=== PATIENT | male | born 1955 | race African-American/Black ===

== ENCOUNTER 2016-12-25 23:08 | Observation (INO) | payer OTHER ==
[~2016-12-25] VITALS: Ht 175.3 cm; Wt 110.0 kg
[~2016-12-25 23:08] MED LIST: ASPI81 PO; B12-1CHW CHEW; GLYB1.2538 PO; LISI-363 PO; LORC10TA PO; LORTA5 PO; NEBI5 PO; NEXI40CA PO; SOMA350T PO
[2016-12-25 23:10] VITALS: BP 136/76; PULSE 102; RESP 18; TEMP 98.7; O2SAT 97
[2016-12-25 23:48] VITALS: BP 114/78; PULSE 86; RESP 16; TEMP 98.5; O2SAT 96
--- NOTE | 2016-12-25 23:54 | PD ---
HPI Chief Complaint: Respiratory Symptoms Time Seen by Provider: 23:51 Travel History International Travel<30 days: No Contact w/Intl Traveler<30days: No Traveled to known affect area: No History of Present Illness HPI 61-year-old male presents to the emergency department by private transportation the care of family for generalized weakness shortness of breath palpitations 2/ 10 chest discomfort and fatigue. Patient states he has a history of sickle cell disease as well as diabetes. Patient is also followed for hypertension. Patient states on Friday he felt flushed and feverish but did not check his temperature and did not start any left over antibiotic. Patient denies earache sore throat sinus pressure drainage productive cough pleuritic chest pain abdominal pain nausea vomiting diarrhea dysuria frequency urgency joint pain joint swelling skin rash or redness. Patient reports symptoms this evening exacerbated 8 PM and have been constant. Patient is unable to identify exacerbating or alleviating factors. Patient does note at times he feels that he may pass out. No syncope. PFSH Past Medical History Narrative Medical Arthritis sickle-cell anemia diabetes hypertension cholecystectomy tonsillectomy eyes surgery; no tobacco use no alcohol use: Nursing notes reviewed Arthritis: Yes Asthma: No Autoimmune Disease: No Blood Disorders: No Anxiety: No Depression: No Heart Rhythm Problems: Yes (INVERTED/ABN. READING ON HIS EKG, CANNOT REMEMBER THE EXACT NAME.) Cancer: No Cardiovascular Problems: Yes High Cholesterol: No Chemotherapy: No Chest Pain: No Congestive Heart Failure: No COPD: No Cerebrovascular Accident: No Diabetes: Yes Diminished Hearing: No Endocrine: No Gastrointestinal Disorders: No GERD: Yes Glaucoma: No Genitourinary: No Headaches: No Hepatitis: No Hiatal Hernia: No Hypertension: Yes Immune Disorder: No Kidney Stones: No Musculoskeletal: Yes (HX OF SICKLE CELL ANEMIA THAT CAUSES GREAT JOINT PAIN DURING A CRISIS.) Neurologic: No Psychiatric: No Integumentary: No Myocardial Infarction: No Radiation Therapy: No Renal Failure: No Seizures: No Sickle Cell Disease: Yes Sleep Apnea: No Thyroid Disease: No Ulcer: No PNEUMOCCOCAL Vaccine (Year): 2009 Past Surgical History Abdominal Surgery: Yes (GALLBLADDER REMOVAL IN 1979.) AICD: No Cardiac Surgery: No Cholecystectomy: Yes Ear Surgery: No Endocrine Surgery: No Eye Surgery: Yes (1984 LASER TREATMENT TO A RUPUTERED BLOOD VESSEL BOTH EYES.) Genitourinary Surgery: No Gynecologic Surgery: No Joint Replacement: No Oral Surgery: Yes (TONSILECTOMY 1973) Pacemaker: No Thoracic Surgery: No Other Surgery: Yes (TONSILS,RIGHT KNEE,GALLBLADDER,EYES(LASER)) Social History Alcohol Use: No Tobacco Use: No Substance Use: No Allergies-Medications (Allergen,Severity, Reaction): Coded Allergies: cortisone (Verified Allergy, Severe, FLARES UP SICKLE CELL., 12/25/16) erythromycin base (Verified Allergy, Severe, ANAPHALACTIC SHOCK, 12/25/16) azithromycin (Verified Allergy, Intermediate, 12/25/16) Reported Meds & Prescriptions Reported Meds & Active Scripts Active Review of Systems Except as stated in HPI: all other systems reviewed are Neg General / Constitutional: Positive: Fever, Chills HENT: No: Congestion Cardiovascular: Positive: Chest Pain or Discomfort, Palpitations Respiratory: Positive: Shortness of Breath Gastrointestinal: No: Nausea, Vomiting, Abdominal Pain Genitourinary: No: Urgency, Frequency, Dysuria Musculoskeletal: No: Myalgias, Arthralgias, Edema, Pain Skin: No Rash Neurologic: Positive: Weakness, No: Syncope (near syncope) Psychiatric: No: Anxiety, Depression Hematologic/Lymphatic: No: Easy Bruising Physical Exam Narrative GENERAL: Well-developed well-nourished male in no acute distress no respiratory distress; GCS 15 SKIN: Warm and dry. HEAD: Atraumatic. Normocephalic. EYES: Pupils equal and round. No scleral icterus. No injection or drainage. ENT: No nasal bleeding or discharge. Mucous membranes pink and moist. NECK: Trachea midline. No JVD. CARDIOVASCULAR: Regular rate and rhythm. RESPIRATORY: No accessory muscle use. Clear to auscultation. Breath sounds equal bilaterally. GASTROINTESTINAL: Abdomen soft, non-tender, nondistended. Hepatic and splenic margins not palpable. MUSCULOSKELETAL: Extremities without clubbing, cyanosis, or edema. No obvious deformities. NEUROLOGICAL: Awake and alert. No obvious cranial nerve deficits. Motor grossly within normal limits. Five out of 5 muscle strength in the arms and legs. Normal speech. PSYCHIATRIC: Appropriate mood and affect; insight and judgment normal. Data Data Last Documented VS Vital Signs Date Time Temp Pulse Resp B/P (MAP) Pulse Ox O2 Delivery O2 Flow Rate FiO2 12/26/16 00:21 20 97 Room Air 12/25/16 23:48 98.5 86 Orders Orders Complete Blood Count With Diff (8/23/17 23:51) Comprehensive Metabolic Panel (12/25/16 23:51) B-Type Natriuretic Peptide (12/25/16 23:51) Act Partial Throm Time (Ptt) (12/25/16 23:51) Prothrombin Time / Inr (Pt) (12/25/16 23:51) Magnesium (Mg) (12/25/16 23:51) Ckmb (Isoenzyme) Profile (12/25/16 23:51) Troponin I (12/25/16 23:51) Urinalysis - C+S If Indicated (12/25/16 23:51) Blood Culture (12/25/16 23:51) Iv Access Insert/Monitor (12/25/16 23:51) Electrocardiogram (12/25/16 23:51) Ecg Monitoring (12/25/16 23:51) Oximetry (12/25/16 23:51) Oxygen Administration (12/25/16 23:51) Chest, Single Ap (12/25/16 23:51) Sodium Chloride 0.9% Flush (Ns Flush) (12/26/16 00:00) Sodium Chlorid 0.9% 500 Ml Inj (Ns 500 M (12/26/16 00:00) Retic Count (12/25/16 23:51) Admit Order (Ed Use Only) (12/26/16 ) ^ Saline Lock (12/26/16 02:57) Resp Oxygen Mitul C Titrat 1-4 L (12/26/16 ) Notify Dr: Other (12/26/16 02:57) Sodium Chloride 0.9% Flush (Ns Flush) (12/26/16 09:00) Sodium Chloride 0.9% Flush (Ns Flush) (12/26/16 03:00) Labs Laboratory Tests Test 12/26/16 00:44 12/26/16 00:50 White Blood Count 13.5 TH/MM3 Red Blood Count 4.96 MIL/MM3 Hemoglobin 9.8 GM/DL Hematocrit 31.6 % Mean Corpuscular Volume 63.8 FL Mean Corpuscular Hemoglobin 19.8 PG Mean Corpuscular Hemoglobin Concent 31.0 % Red Cell Distribution Width 24.4 % Platelet Count 377 TH/MM3 Mean Platelet Volume 8.4 FL CBC Comment AUTO DIFF Differential Total Cells Counted 100 Neutrophils % (Manual) 63 % Band Neutrophils % 1 % Lymphocytes % 29 % Monocytes % 6 % Basophils % 1 % Neutrophils # (Manual) 8.6 TH/MM3 Nucleated Red Blood Cells 1 /100 WBC Differential Comment FINAL DIFF MANUAL Platelet Estimate NORMAL Platelet Morphology Comment NORMAL Polychromasia 3.0 % Sickle Cells 1+ Target Cells 2+ Rhoades-Brainards Bodies PRESENT Acanthocytes OCC Reticulocyte Count 4.6 % Absolute Reticulocyte Count 225.5 MIL/L Prothrombin Time 11.4 SEC Prothromb Time International Ratio 1.0 RATIO Activated Partial Thromboplast Time 24.1 SEC Blood Urea Nitrogen 11 MG/DL Creatinine 0.99 MG/DL Random Glucose 94 MG/DL Total Protein 7.7 GM/DL Albumin 4.0 GM/DL Calcium Level 11.0 MG/DL Magnesium Level 2.0 MG/DL Alkaline Phosphatase 107 U/L Aspartate Amino Transf (AST/SGOT) 21 U/L Alanine Aminotransferase (ALT/SGPT) 18 U/L Total Bilirubin 3.9 MG/DL Sodium Level 140 MEQ/L Potassium Level 4.1 MEQ/L Chloride Level 109 MEQ/L Carbon Dioxide Level 24.3 MEQ/L Anion Gap 7 MEQ/L Estimat Glomerular Filtration Rate 93 ML/MIN Total Creatine Kinase 93 U/L Troponin I LESS THAN 0.02 NG/ML B-Type Natriuretic Peptide 83 PG/ML Urine Color YELLOW Urine Turbidity CLEAR Urine pH 7.5 Urine Specific [place] 1.007 Urine Protein NEG mg/dL Urine Glucose (UA) NEG mg/dL Urine Ketones NEG mg/dL Urine Occult Blood NEG Urine Nitrite NEG Urine Bilirubin NEG Urine Urobilinogen 2.0 MG/DL Urine Leukocyte Esterase NEG Urine WBC LESS THAN 1 /hpf Microscopic Urinalysis Comment CULT NOT INDICATED MDM Medical Decision Making Medical Screen Exam Complete: Yes Emergency Medical Condition: Yes Medical Record Reviewed: Yes Interpretation(s) EKG: Sinus rhythm first degree AV block rate 84 left axis deviation and intraventricular conduction delay changes noted on prior EKGs 01/14/14 and Last Impressions Chest X-Ray 12/25/16 4164 Signed Impressions: Service Date/Time: December 00:34 - CONCLUSION: 1. Cardiomegaly with minimal basilar atelectasis. Laith Matthews MD CBC & BMP Diagram 12/26/16 00:44 Total Protein 7.7, Albumin 4.0, Calcium Level 11.0 H, Magnesium Level 2.0, Alkaline Phosphatase 107, Aspartate Amino Transf (AST/SGOT) 21, Alanine Aminotransferase (ALT/SGPT) 18, Total Bilirubin 3.9 H Reticulocyte 4.6, elevated and absolute retic 225.5, elevated Troponin I: Less than 0.02, not elevated; BNP 83, not elevated; CK total 93 not elevated Differential Diagnosis Generalized weakness near-syncope arrhythmia anemia ACS [place] pneumonia PE sepsis laceration sickle-cell sickle-cell crisis Narrative Course Patient placed on compliance representative dealer IV access obtained specimens collected and sent for resulting patient administered 500 cc bolus normal saline Repeat bolus 500 cc normal saline CBC with automated differential white count 13,500 Due to triage heart rate greater than 90 and heart rate greater than 12,000 patient meets SIRS criteria and lactic acid and blood cultures obtained Cardiac enzymes and normal range EKG shows no acute injury pattern changed chest x-ray shows cardiac megaly without vascular congestion or lobar infiltrate urinalysis is normal no source of infection; however patient with ongoing generalized weakness case discussed with on-call [facility] hospitalist for observation admission for serial cardiac enzymes and further evaluation of sirs criterion Sepsis Criteria SIRS Criteria (2 or more): Heart rate over 90, WBC > 02901, < 4000 or > 10% bands Criteria Outcome: Meets SIRS criteria Physician Communication Physician Communication discussed with Joshua Acosta PA-C --obs to Dr Zuleta Diagnosis Primary Impression: Generalized weakness Additional Impressions: Near syncope SIRS (systemic inflammatory response syndrome) Sickle cell anemia Qualified Codes: D57.1 - Sickle-cell disease without crisis Diabetes Vita Burgos MD Dec 25, 2016 23:54
[2016-12-26] VITALS (13 sets, daily range): BP systolic 105–118; BP diastolic 51–73; PULSE 60–89; RESP 14–20; TEMP 97.6–98.7; O2SAT 95–99
[2016-12-26] MEDS ORDERED: SODIUM CHLORID 0.9% 500 ML INJ 500 ML IV ONE
[2016-12-26 01:04] LABS: HEMATOCRIT 31.6 % (39.0-51.0); MEAN CELL VOLUME 63.8 FL (80.0-100.0); MEAN CORPUSCULAR HEMOGLOBIN 19.8 PG (27.0-34.0); PLATELET COUNT 377 TH/MM3 (150-450); RED BLOOD COUNT 4.96 MIL/MM3 (4.50-5.90); RED CELL DISTRIBUTION WIDTH 24.4 % (11.6-17.2); RETIC % 4.6 % (0.4-3.0); WHITE BLOOD COUNT 13.5 TH/MM3 (4.0-11.0)
--- NOTE | 2016-12-26 01:07 | RADRPT ---
EXAM DATE/TIME: 12/26/2016 00:34 [place] COMPARISON: No previous studies available for comparison. INDICATIONS : Shortness of breath. MEDICAL HISTORY : Hypertension. Diabetes mellitus type II. SURGICAL HISTORY : None. ENCOUNTER: Initial ACUITY: 1 day PAIN SCORE: 0/10 LOCATION: Bilateral chest FINDINGS: A single view of the chest demonstrates the lungs to be symmetrically aerated without evidence of mas s, infiltrate or effusion. Minimal basilar atelectasis. The cardiomediastinal contours are mildly pro minent. Osseous structures are intact. CONCLUSION: 1. Cardiomegaly with minimal basilar atelectasis. Laith Matthews MD on December 26, 2016 at 1:05 Board Certified Radiologist. This report was verified electronically.
[2016-12-26 01:13] LABS: APTT (PATIENT) 24.1 SEC (24.3-30.1); PROTHROMBIN TIME - PATIENT 11.4 SEC (9.8-11.6)
[2016-12-26 01:21] LABS: BLOOD, URINE NEG (NEG); GLUCOSE,URINE NEG (NEG); KETONE, URINE NEG (NEG); NITRITE,URINE NEG (NEG); PH, URINE 7.5 (5.0-8.5); URINE COLOR YELLOW (YELLW/STRAW)
[2016-12-26 01:23] LABS: HEMO FLAGS AUTO DIFF; REVIEW FLAG AUTO DIFF
[2016-12-26 01:29] LABS: COMMENT (UR) CULT NOT INDICATED; CULTURE IF INDICATED CULT NOT INDICATED
[2016-12-26 01:39] LABS: ALT (GPT) 18 U/L (12-78); ANION GAP 7 MEQ/L (5-15); AST (GOT) 21 U/L (15-37); BICARBONATE 24.3 MEQ/L (21.0-32.0); BLOOD UREA NITROGEN 11 MG/DL (7-18); CHLORIDE 109 MEQ/L (98-107); GLOMERULAR FILTRATION RATE 93 ML/MIN (>89); POTASSIUM 4.1 MEQ/L (3.5-5.1); SODIUM (NA) 140 MEQ/L (136-145)
[2016-12-26 01:42] LABS: ALKALINE PHOSPHATASE 107 U/L (45-117); CREATINE KINASE 93 U/L (39-308); TOTAL BILIRUBIN ADULT 3.9 MG/DL (0.2-1.0)
[2016-12-26 02:04] LABS: BANDS 1 % (0-6); BASOPHILS 1 % (0-2); CORRECTED NUCLEATED RBC 1 /100 WBC (0-0); NEUTROPHIL # MANUAL DIFF 8.6 TH/MM3 (1.8-7.7); PLATELET ESTIMATE SMEAR NORMAL (NORMAL); PLATELET MORPHOLOGY NORMAL (NORMAL); POLYS (SEG NEUTROPHILS) 63 % (16-70); SCAN/DIFF FINAL DIFF MANUAL; WBC DIFF SAMPLE 100
[2016-12-26 02:06] LABS: SICKLE CELLS 1+ (NORMAL); TARGET CELLS 2+ (NORMAL)
[2016-12-26 02:07] LABS: ACANTHOCYTES OCC (NORMAL)
[2016-12-26 02:08] LABS: HOWELL-JOLLY BODIES PRESENT (NONE SEEN)
[2016-12-26] MEDS ORDERED: ONDANSETRON HCL 4 MG/2 ML VIAL IVP PRN (03:00)
[2016-12-26] MEDS ORDERED: NALOXONE HCL 0.4 MG/ML AMP IV PRN (03:00)
[2016-12-26] MEDS ORDERED: SENNOSIDES 8.6 MG TAB PO PRN (03:00)
[2016-12-26] MEDS ORDERED: SODIUM CHLORIDE 0.9% FLUSH 10 ML FLUSH IVF PRN ×2 (03:00)
[2016-12-26] MEDS ORDERED: ACETAMINOPHEN 325 MG TAB PO PRN (03:00)
[2016-12-26] MEDS ORDERED: SODIUM CHLORIDE 0.9% FLUSH 10 ML FLUSH IV FLUSH PRN (03:00)
[2016-12-26] MEDS ORDERED: SODIUM CHLOR 0.9% 1000 ML INJ 1,000 ML IV SCH (03:00)
[2016-12-26] MEDS ORDERED: DEXI60CA2 (03:01)
[2016-12-26] MEDS ORDERED: HYDR-3516 PO (03:01)
[2016-12-26] MEDS ORDERED: GLYB1.253 PO (03:01)
[2016-12-26] MEDS ORDERED: LISI-515 PO (03:01)
[2016-12-26] MEDS ORDERED: PIOG15TA5 PO (03:01)
[2016-12-26] MEDS ORDERED: VITACAP7 PO (03:01)
[2016-12-26] MEDS ORDERED: ASPI81CH CHEW (03:01)
[2016-12-26] MEDS ORDERED: BYST5TAB2 PO (03:01)
[2016-12-26] MEDS: SODIUM CHLORIDE 0.9% FLUSH 10 ML FLUSH IV FLUSH SCH ×2 (08:18→20:51)
[2016-12-26] MEDS: HEPARIN SODIUM - SQ 10,000 UNITS/ML VIAL SQ SCH ×2 (08:18→20:52)
--- NOTE | 2016-12-26 08:21 | EKG ---
Date Performed: 12/26/2016 Time Performed: 00:21:46 PTAGE: 61 years EKG: Sinus rhythm WITH FIRST DEGREE AV BLOCK WITH OCCASIONAL SUPRAVENTRICULAR PREMATURE COMPLEXES LEFT AXIS DEVIATION NONSPECIFIC INTRAVENTRICULAR CONDUCTION DELAY ABNORMAL ECG PREVIOUS TRACING : 01/29/2014 07.48 Compared to previous tracing, PACs are now present. DOCTOR: Jaylen Draper Interpretating Date/Time 12/26/2016 08:20:26
[2016-12-26] MEDS ORDERED: SODIUM CHLORIDE 0.9% FLUSH 10 ML FLUSH IV FLUSH SCH (09:00)
[2016-12-26] MEDS ORDERED: ACETAMINOPHEN/HYDROcodone 325 MG/5 MG TAB PO PRN (11:15)
[2016-12-26] MEDS: SODIUM CHLOR 0.9% 1000 ML INJ 1,000 ML IV SCH ×2 (11:15→20:52)
[2016-12-26] MEDS ORDERED: PANTOPRAZOLE SOD 40 MG DELAYED RELEASE TAB PO ONE (12:00)
[2016-12-26] MEDS: NEBIVOLOL 5 MG TAB PO SCH (12:07)
[2016-12-26] MEDS: ASPIRIN 81 MG CHEW TAB CHEW SCH (12:08)
--- NOTE | 2016-12-26 12:32 | MH ---
cc: HUMBERTO COOK MD DATE OF ADMISSION 12/26/[address] Jess Allred CHIEF COMPLAINT The patient came to the ER complaining of palpitations, weakness and lightheadedness for a short period of time. He had reported chest discomfort, however, the patient is denying it. HISTORY OF PRESENT ILLNESS This is a pleasant obese 61-year-old -[place] male with a history of diabetes, hypertension, mild coronary artery disease who also has a history of sickle cell disease. The patient did not have any recent sickle cell crisis for several years. 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 The patient was in his usual state of health until yesterday when he started feeling poorly, developed palpitations, lightheadedness and weakness. He felt flushed. He denies chest pain now, but the ER physician apparently reported he has some discomfort in his chest also. The patient denies cough or sputum production. Denies fevers, chills, masses no nausea or vomiting. Denies abdominal pain or diarrhea. Upon arrival, he was initially noted to be slightly tachycardic which improved afterwards. His initial EKG did not reveal any acute finding. First set of Troponin I was negative. Recommendation were given by the ER physician for the patient to be admitted to the hospital. The patient is currently resting in bed. He is feeling better. He is no longer dizzy or lightheaded. Denies headache, denies loss of vision or double vision. Denies sore throat, dysphagia, or odynophagia. PAST MEDICAL HISTORY Significant for: 1. Hypertension 2. Diabetes type 2 3. Mild coronary artery disease 4. History of sickle cell disease. 5. Degenerative joint disease affecting bilateral knees. 6. Chronic knee pain PAST SURGICAL HISTORY Significant for: 1. Right knee arthroscopy 2. Previous cholecystectomy 3. Bilateral eye laser surgery 4. Tonsillectomy 5. Cardiac catheterization, two in [address] Castano for single vessel mild to moderate disease. Repeat cath was done in August [address] Herzog that showed mild two-vessel coronary artery disease in a right dominant system with normal LV function, medical management was recommended. SOCIAL HISTORY The patient denies smoking or drinking. Denies any drug abuse. 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 MEDICATIONS Home medications include: 1. Aspirin once a day 2. Bystolic 5 mg daily 3. Glyburide 1.25 mg twice daily 4. Actos 50 mg daily 5. Multivitamin daily 6. Dexilant 60 mg capsule daily 7. [place] 1 q.6 h p.r.n. ALLERGIES He reports ALLERGIES TO CORTISONE AND ERYTHROMYCIN. FAMILY HISTORY Both of his parents are . Mom in her 60s due to heart disease. Dad at the age of 84. He had metastatic prostate cancer. REVIEW OF SYSTEMS The patient denies headache, loss of vision, double vision. Denies change in hearing. Denies sore throat, dysphagia or odynophagia. Denies dyspnea, orthopnea, paroxysmal nocturnal dyspnea. Denies cough or sputum production. Denies fever, chills or night sweats. He has a good appetite. No change in bowel pattern. Denies melena or bright red blood per rectum. Denies dysuria or hematuria. He has chronic bilateral knee pain which has been unchanged. Otherwise review of systems is negative for 12 system except what is mentioned above. PHYSICAL EXAM This is an obese, middle-aged -[place]wegian male sitting up in a chair not in acute distress, awake and alert. He is oriented x3. VITAL SIGNS: Upon arrival, blood pressure 136/76, pulse of 102, respiration 18, temperature 98.7, O2 sat 97%. HEAD: Normocephalic, atraumatic. EYES: Extraocular muscles are intact. Pupils are round and reactive. The patient has pallor. ENT: No throat congestion. No oral ulcers or thrush. NECK: Supple. No JVD. No lymph node bruits. CARDIOVASCULAR: S1 and S2 audible. Regular rhythm. No murmur or gallop appreciated. LUNGS: Clear to auscultation, no crackles or rhonchi is appreciated. ABDOMEN: Soft, protuberant, bulky, nontender, positive bowel sounds. EXTREMITIES: No edema, cyanosis or clubbing. Feet are warm to touch. Homans sign is negative. NEUROLOGIC: Awake and alert. He is oriented x3. EKG was done which showed sinus rhythm with first-degree AV block. No acute ST-segment or T-wave changes noted. White count 13.5, hemoglobin 9.8, hematocrit 31.6, platelet count of 277, MCV of 63.8. Sodium 140, potassium 4.1, chloride 109, bicarb 24, BUN of 11, creatinine 0.9, and glucose 94, calcium was 11.0. ALP 0.7, AST 21, ALT 18, total protein 7.7, albumin 4.0, CPK 93, troponin-I 0.02. Repeat troponin 0.03. Lactase was 0.3. X-RAYS Chest x-ray was done and showed cardiomegaly and minimal basilar atelectasis. ASSESSMENT 1. Palpitations, dizziness, lightheadedness reported chest pain, etiology unclear, rule-out arrhythmia, rule out angina. 2. Known mild coronary artery disease. 3. Hypercalcemia 4. Diabetes type 2 5. Hypertension 6. Sickle cell disease 7. Chronic anemia. 8. Degenerative joint disease 9. Chronic knee pain PLAN 1. The patient was admitted to the hospital for observation. 2. Continue aspirin. 3. Continue beta-francis. 4. Repeat troponin. 5. Obtain echocardiogram. 6. Check lipid profile. 7. Consult her civil division deputy sheriff. 8. Check vitamin D level along with PTH intact level. 9. Put him on IV fluids and aggressively hydrate him. 10. Repeat calcium level. 11. Diabetic diet 12. Accu-Chek's q.a.c. and q.h.s., sliding scale coverage. 13. Resume oral hypoglycemic agent. 14. Continue PPI 15. A.m. Labs. 16. Further management of this patient will be dependent on the Hospital course. MD MOY Molina/DON /11:11 AM /12:05 PM
--- NOTE | 2016-12-26 20:18 | MB ---
cc: DEVEN ALEXANDRA DO DATE OF CONSULTATION 12/26/16 REASON FOR CONSULTATION Palpitations, weakness and lightheadedness. HISTORY OF PRESENT ILLNESS Basilio Meier is a pleasant 61-year-old male who previously has seen my partner, Dr. Ballesteros, in the office who presented to [facility] emergency room on December 26, 2016 due to palpitations. He states that he has been doing well in his usual state of health until the day before presenting when he started feeling palpitations. He says that these came on without notice. The episodes lasted 1-2 minutes and then they were gone. During this, he felt overall weak. He felt mildly flushed during these also. Per the ER physician, he supposedly felt minimal chest pressure but in talking with him further he was just feeling his heart pounding. Overall, he states that the palpitations felt relatively regular. Since being in the hospital, he has had no further episodes. PAST MEDICAL HISTORY 1. Hypertension 2. Diabetes mellitus 3. Coronary artery disease. 4. History of sickle cell disease. 5. Degenerative joint disease. 6. Chronic knee pain. PAST SURGICAL HISTORY 1. Cardiac catheterization (August 07, 2011). RCA is a large dominant vessel with 10% disease in the proximal portion. Left main has no significant disease. Left circumflex has no significant disease. LAD has proximal disease at 10%. First through fourth diagonal arteries are small with no significant disease. 2. Right knee arthroscopy. 3. Cholecystectomy. 4. Bilateral eye laser surgery. 5. Tonsillectomy. ALLERGIES AZITHROMYCIN CORTISONE ERYTHROMYCIN MEDICATIONS 1. Bystolic 5 mg daily 2. Lisinopril 20 mg daily 3. Aspirin 81 mg daily 4. Hydrocodone/acetaminophen 5/325 mg every 4 hours as needed for pain. 5. Dexelant 60 mg daily 6. Glyburide 1.25 mg b.i.d. 7. Pioglitazone 15 mg daily. FAMILY HISTORY His mother in her 60s due to heart disease. Father at the age of 84 due to metastatic prostate cancer. Denies sudden cardiac within the family. SOCIAL HISTORY The patient denies tobacco or alcohol. 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 Denies drug abuse. REVIEW OF SYSTEMS 14-systems were reviewed including osteopathic. Pertinent positives and negatives above otherwise negative. PHYSICAL EXAMINATION VITAL SIGNS: Temperature 98.7, heart rate 67, blood pressure 113/73, respirations 20, pulse ox 95% on room air. GENERAL: The patient appears well in no acute distress, alert awake and oriented x3. HEENT: Extraocular muscles intact. Mucous membranes moist. NECK: Supple. No JVD at 45 degrees. No carotid bruits heard bilaterally. Carotid upstroke is brisk in nature. HEART: Heart is regular rate and rhythm. Positive first and second heart sounds with no noted murmurs, gallops or rubs. LUNGS: Clear to auscultation bilaterally. No wheezes, rales or rhonchi. ABDOMEN: Soft, nontender, nondistended. No organomegaly noted. EXTREMITIES: No clubbing, cyanosis, edema. NEUROLOGIC: No focal deficits. SKIN: Warm, dry and intact. OSTEOPATHIC: No kyphoscoliosis, lordosis or paraspinal tender points. LABORATORY FINDINGS Hemoglobin 9.8, hematocrit 31.6, platelets 377. Potassium 4.1, BUN 11, creatinine 0.99, magnesium 2, troponin negative x3. BNP 83. CARDIOLOGY STUDIES Electrocardiogram (December 26, 2016) sinus rhythm with first degree AV block, occasional PACs, left axis deviation, left bundle branch block. IMPRESSION 1. Palpitations with weakness. 2. Mild coronary artery disease by cardiac catheterization as above. 3. Diabetes mellitus type 2. 4. Hypertension 5. Sickle cell disease. 6. Chronic anemia. 7. Degenerative joint disease. RECOMMENDATIONS 1. Basilio Meier appears to have had palpitations and is tough for him to describe. It does appear that per his description of them that this is some type of SVT, although he does not feel that they are irregular so this may be some type of atrial tachycardia versus atrial flutter. 2. He will be watched overnight on telemetry. 3. We will check a 2-D echo to look at his overall left ventricular function, cardiac structure and possible valvopathies. 4. At this time, I do not believe that the patient needs an inpatient stress test as his chest pain is him feeling his palpitations. 5. If in the morning the patient is stable without arrhythmias and his ejection fraction is normal, he may follow-up outpatient with Dr. Ballesteros for consideration of longer term heart monitoring such as a Holter monitor or event monitor. 6. If arrhythmias are noted, his Bystolic may need to be changed to Lopressor for further rhythm control. 7. At this time, as we have no proof of his arrhythmia, so would not place him on anticoagulation. Thank you for allowing me to see Basilio Abnermihaela. If there are any questions, please do not hesitate to call. Deven Alexandra DO VGP/ /6:40 PM /7:51 PM [facility]
[2016-12-26] MEDS: glyBURIDE 2.5 MG TAB PO SCH (20:52)
[2016-12-27 00:49] VITALS: BP 123/58; PULSE 57; RESP 20; TEMP 98.4; O2SAT 97
[2016-12-27] MEDS: SODIUM CHLOR 0.9% 1000 ML INJ 1,000 ML IV SCH (03:15)
[2016-12-27 04:03] VITALS: BP 97/54; PULSE 58; RESP 18; TEMP 98.9; O2SAT 99
[2016-12-27 06:18] LABS: HEMATOCRIT 30.8 % (39.0-51.0); MEAN CELL VOLUME 64.3 FL (80.0-100.0); MEAN CORPUSCULAR HEMOGLOBIN 19.8 PG (27.0-34.0); MEAN CORPUSCULAR HGB CONC 30.8 % (32.0-36.0); PLATELET COUNT 384 TH/MM3 (150-450); RED BLOOD COUNT 4.79 MIL/MM3 (4.50-5.90); WHITE BLOOD COUNT 14.9 TH/MM3 (4.0-11.0)
[2016-12-27 06:19] LABS: HEMO FLAGS AUTO DIFF
[2016-12-27 06:51] LABS: BICARBONATE 22.1 MEQ/L (21.0-32.0)
[2016-12-27 06:55] LABS: HDL CHOLESTEROL 49.5 MG/DL (40.0-60.0); INDIRECT BILIRUBIN 3.2 MG/DL (0.0-0.8); TOTAL BILIRUBIN ADULT 3.7 MG/DL (0.2-1.0)
[2016-12-27 07:31] VITALS: PULSE 54
[2016-12-27 08:24] VITALS: BP 106/61; PULSE 67; RESP 16; TEMP 98.4; O2SAT 97
[2016-12-27] MEDS ORDERED: ERGOCALCIFEROL (VIT D2) 50,000 UNIT CAP PO ONE (08:30)
[2016-12-27] MEDS ORDERED: DEXTROSE 50% IN WATER 50 ML VIAL(D50) IV PRN (08:30)
[2016-12-27] MEDS ORDERED: GLUCAGON 1 MG/ML VIAL OTHER PRN (08:30)
--- NOTE | 2016-12-27 08:38 | HHI.PR ---
Subjective Subjective Remarks Patient indicates he feels better, no lightheadedness, no shortness of breath, no chest pain Anxious to go home No fever Blood pressure 100s Noted with elevated heart rate when he ambulated bathroom, up to 140s, currently sinus rhythm 60s Patient denied any palpitations while ambulating Review of Systems Constitutional Constitutional Remarks 12 point review of systems completed, negative except as noted above Vitals/Results Vital Signs Vital Signs Date Time Temp Pulse Resp B/P (MAP) Pulse Ox O2 Delivery O2 Flow Rate FiO2 12/27/16 04:03 98.9 58 18 97/54 (68) 99 12/27/16 00:49 98.4 57 20 123/58 (79) 97 12/26/16 21:43 61 12/26/16 20:42 98.1 65 18 118/55 (76) 99 12/26/16 20:29 97 12/26/16 16:27 97.6 62 14 116/72 (87) 98 12/26/16 11:26 98.7 67 20 113/73 (86) 95 CBC/BMP: 12/27/16 0605 12/27/16 0605 Lab Results Laboratory Tests Test 12/26/16 14:22 12/27/16 06:05 Phosphorus Level 1.9 MG/DL Troponin I LESS THAN 0.02 NG/ML 25-Hydroxy Vitamin D Total 7.9 ng/ML Parathyroid Hormone (Intact) 178.5 PG/ML White Blood Count 14.9 TH/MM3 Red Blood Count 4.79 MIL/MM3 Hemoglobin 9.5 GM/DL Hematocrit 30.8 % Mean Corpuscular Volume 64.3 FL Mean Corpuscular Hemoglobin 19.8 PG Mean Corpuscular Hemoglobin Concent 30.8 % Red Cell Distribution Width 24.0 % Platelet Count 384 TH/MM3 Mean Platelet Volume 8.5 FL CBC Comment AUTO DIFF Blood Urea Nitrogen 9 MG/DL Creatinine 0.86 MG/DL Random Glucose 95 MG/DL Total Protein 7.0 GM/DL Albumin 3.8 GM/DL Calcium Level 10.6 MG/DL Alkaline Phosphatase 94 U/L Aspartate Amino Transf (AST/SGOT) 14 U/L Alanine Aminotransferase (ALT/SGPT) 17 U/L Total Bilirubin 3.7 MG/DL Direct Bilirubin 0.5 MG/DL Sodium Level 141 MEQ/L Potassium Level 4.0 MEQ/L Chloride Level 111 MEQ/L Carbon Dioxide Level 22.1 MEQ/L Anion Gap 8 MEQ/L Estimat Glomerular Filtration Rate 109 ML/MIN Indirect Bilirubin 3.2 MG/DL Triglycerides Level 84 MG/DL Cholesterol Level 124 MG/DL LDL Cholesterol 58 MG/DL HDL Cholesterol 49.5 MG/DL Cholesterol/HDL Ratio 2.50 RATIO Microbiology Microbiology 12/27/16 Aerobic Blood Culture, Received Pending 12/27/16 Anaerobic Blood Culture, Received Pending 12/27/16 Aerobic Blood Culture, Received Pending 12/27/16 Anaerobic Blood Culture, Received Pending Physical Exam General General Appearance: Well Developed, Well Nourished, No Acute Distress, Comfortable Eyes Eye Exam: Pupils Equal, Pupils Reactive Ears & Nose Ears & Nose Exam: Nasal Mucosa Seibert Throat Throat Exam: Oral Mucosa Seibert & Moist Neck Neck Exam: Neck Supple, Trachea Midline Pulmonary Resp Exam: Clear Bilaterally, No Distress Cardiology CV Exam: Regular, Good Perfusion Gastrointestinal/Abdomen GI Exam: Soft, Non-Tender, Bowel Sounds Present, Non-Distended Musculoskeletal MS Exam: Joints Intact Integumentary Skin Exam: Warm, Dry Extremeties Extremities Exam: No Edema, Pedal Pulses Palpable Neurologic Neuro Exam: Alert, Awake, Oriented, Speech Clear, Moving All Extremities, No Focal Deficits Psychiatric Psych Exam: Appropriate Responses VTE Prophylaxis VTE Prophylaxis Device: SCDs Assessment/Plan Problem List: (1) Generalized weakness ICD Codes: R53.1 - Weakness Status: Acute (2) Leukocytosis ICD Codes: D72.829 - Elevated white blood cell count, unspecified Status: Acute (3) Palpitation ICD Codes: R00.2 - Palpitations Status: Acute (4) Total bilirubin, elevated ICD Codes: R17 - Unspecified jaundice Status: Acute (5) HTN (hypertension) ICD Codes: I10 - Essential (primary) hypertension Status: Chronic (6) Diabetes ICD Codes: E11.9 - Type 2 diabetes mellitus without complications Status: Chronic (7) Sickle cell anemia ICD Codes: D57.1 - Sickle-cell disease without crisis Status: Chronic (8) Hypercalcemia ICD Codes: E83.52 - Hypercalcemia Status: Acute Assessment/Plan 61 y.o. male presented with palpitations, dizziness, lightheadedness reported chest pain, etiology unclear, rule-out arrhythmia, rule out angina. -serial trop negative -continue ASA/BB -echo pending -appreciate card input, agrees with echo, possible Holter as outpatient. Does not believe patient needs stress test at this time -Episode of tachycardia, heart rate up to 140s with activity. Now sinus rhythm , no palpitations. Patient known bystolic -Continue to monitor telemetry monitoring, symptoms appear to have improved. Possibly secondary to low blood pressure. Hypotension -Hold lisinopril -Continue with IV fluids, decreased to 100 hour Hypercalcemia -Calcium trending down -continue IVF -low vitamin D level, inc. PTH intact level. -add Vit D replacement Diabetes type 2 -Add accuchecks AC/HS with ISS -Continue oral hypoglycemic Hx hypertension, BP low 100s -hold lisinopril Hx Sickle cell disease -stable, no pain Chronic anemia -HH stable Degenerative joint disease Chronic knee pain -pain management Elevated T bili -Monitor PPI for GI prophylaxis SCDs for DVT prophylaxis Follow up on echo report Possible discharge this afternoon if no further workup recommended Discussed with RN Discussed with Dr. Hines Discussed with patient This patient was seen by myself and Dr. Hines, this note is written on his behalf Problem Qualifiers (1) Leukocytosis: Qualified Codes: D72.829 - Elevated white blood cell count, unspecified (2) HTN (hypertension): Qualified Codes: I10 - Essential (primary) hypertension (3) Diabetes: Qualified Codes: E11.8 - Type 2 diabetes mellitus with unspecified complications (4) Sickle cell anemia: Qualified Codes: D57.1 - Sickle-cell disease without crisis Shea Vasquez Dec 27, 2016 08:38
[2016-12-27] MEDS: SODIUM CHLORIDE 0.9% FLUSH 10 ML FLUSH IV FLUSH SCH (08:59)
[2016-12-27] MEDS: ASPIRIN 81 MG CHEW TAB CHEW SCH (08:59)
[2016-12-27] MEDS ORDERED: PANTOPRAZOLE SOD 40 MG DELAYED RELEASE TAB PO SCH (09:00)
[2016-12-27] MEDS: NEBIVOLOL 5 MG TAB PO SCH (09:00)
[2016-12-27] MEDS: HEPARIN SODIUM - SQ 10,000 UNITS/ML VIAL SQ SCH (09:00)
[2016-12-27] MEDS ORDERED: LISINOPRIL 20 MG TAB PO SCH (09:00)
[2016-12-27] MEDS ORDERED: PIOGLITAZONE HCL 15 MG TAB PO SCH (09:00)
[2016-12-27 09:15] LABS: CORRECTED NUCLEATED RBC 1 /100 WBC (0-0); EOSINOPHILS 4 % (0-4); NEUTROPHIL # MANUAL DIFF 7.6 TH/MM3 (1.8-7.7); POLYS (SEG NEUTROPHILS) 51 % (16-70); WBC DIFF SAMPLE 100
[2016-12-27 09:17] LABS: SICKLE CELLS 1+ (NORMAL)
[2016-12-27] MEDS: glyBURIDE 2.5 MG TAB PO SCH (09:17)
[2016-12-27 09:18] LABS: ACANTHOCYTES 1+ (NORMAL); PLATELET ESTIMATE SMEAR HIGH (NORMAL); PLATELET MORPHOLOGY NORMAL (NORMAL); SCAN/DIFF FINAL DIFF MANUAL
[2016-12-27 09:19] LABS: TARGET CELLS 1+ (NORMAL)
[2016-12-27] MEDS ORDERED: INSULIN ASPART SUPPLEMENTAL SCALE SQ SCH (11:00)
[2016-12-27 11:19] VITALS: BP 105/62; PULSE 60; RESP 14; TEMP 97.2; O2SAT 97
--- NOTE | 2016-12-27 15:49 | ECHRPT ---
Indication: Chest pain, unspecified CONCLUSIONS Mildly dilated left ventricle. Wall thickness is normal. The left ventricular systolic function is mildly reduced with an estimated ejection fraction in the range of 45- 50%. The left atrial size is mildly dilated. No significant valvulopathies No pericardial effusion BP: 113 / 73 HR: 67 Rhythm: Sinus MEASUREMENTS (Male / Female) Normal Values Technical Quality:Good 2D ECHO LV Diastolic Diameter PLAX 6.0 cm 4.2 - 5.9 / 3.9 - 5.3 cm LV Systolic Diameter PLAX 4.8 cm IVS Diastolic Thickness 1.3 cm 0.6 - 1.0 / 0.6 - 0.9 cm LVPW Diastolic Thickness 0.9 cm 0.6 - 1.0 / 0.6 - 0.9 cm LV Relative Wall Thickness 0.4 RV Internal Dim ED PLAX 2.3 cm LA Systolic Diameter LX 4.8 cm 3.0 - 4.0 / 2.7 - 3.8 cm DOPPLER AV Peak Velocity 148.0 cm/s AV Peak Gradient 8.8 mmHg LVOT Peak Velocity 113.0 cm/s LVOT Peak Gradient 5.1 mmHg Mitral E Point Velocity 54.3 cm/s Mitral A Point Velocity 79.0 cm/s Mitral E to A Ratio 0.7 TR Peak Velocity 219.0 cm/s TR Peak Gradient 19.2 mmHg FINDINGS LEFT VENTRICLE Mildly dilated left ventricle. Wall thickness is normal. The left ventricular systolic function is mildly reduced with an estimated ejection fraction in the range of 45- 50%. RIGHT VENTRICLE Normal right ventricular size and systolic function. LEFT ATRIUM The left atrial size is mildly dilated. RIGHT ATRIUM The right atrial size is normal. ATRIAL SEPTUM Normal atrial septal thickness without atrial level shunting by limited color doppler interrogation. AORTA The aortic root and proximal ascending aorta are normal in size on limited imaging. MITRAL VALVE Mild mitral valve regurgitation. AORTIC VALVE Trileaflet aortic valve. No aortic valve stenosis or regurgitation. TRICUSPID VALVE Structurally normal tricuspid valve. No tricuspid valve stenosis or regurgitation. PULMONARY VALVE The pulmonary valve is not well visualized. VESSELS The inferior vena cava is normal in size. PERICARDIUM No pericardial effusion. Dawit Lemus MD (Electronically Signed) Final Date:27 December 2016 15:47
== END 2016-12-27 12:44 | disposition home or self-care (01) ==
LOC: NEPC 23:08 → NEDA 12-26 02:59 → NEPFCDU 12-26 04:05
PROVIDERS: ADMIT Specialist; ATTEND Specialist
DX: R00.2 Palpitations (principal); R65.10 Systemic inflammatory response syndrome (SIRS) of non-infectious origin without acute organ dysfunction; R42 Dizziness and giddiness; R07.89 Other chest pain; E83.52 Hypercalcemia; R53.1 Weakness; M25.561 Pain in right knee; M25.562 Pain in left knee; R00.0 Tachycardia, unspecified; D72.829 Elevated white blood cell count, unspecified; R17 Unspecified jaundice; I95.9 Hypotension, unspecified; I44.7 Left bundle-branch block, unspecified; R06.02 Shortness of breath; R94.31 Abnormal electrocardiogram [ECG] [EKG]; R55 Syncope and collapse; I44.0 Atrioventricular block, first degree; R23.1 Pallor; I25.10 Atherosclerotic heart disease of native coronary artery without angina pectoris; I11.9 Hypertensive heart disease without heart failure; I51.7 Cardiomegaly; D57.1 Sickle-cell disease without crisis; E11.9 Type 2 diabetes mellitus without complications; K21.9 Gastro-esophageal reflux disease without esophagitis; G89.29 Other chronic pain; M19.90 Unspecified osteoarthritis, unspecified site; E66.9 Obesity, unspecified; Z90.49 Acquired absence of other specified parts of digestive tract
CPT/HCPCS: 71010; 80048; 80053; 80061; 80076; 81001; 82306; 82550; 82652; 82948; 83605; 83735; 83880; 83970; 84100; 84484; 85007; 85027; 85044; 85610; 85730; 87040; 93005; 93306; 96360; 96361; 96372; 97161; 99285; G0378; G8987; G8988; J1644; J7030; J7040

== ENCOUNTER 2017-02-14 09:38 | Emergency (ER) | payer OTHER ==
[~2017-02-14] VITALS: Ht 177.8 cm; Wt 110.0 kg
[~2017-02-14 09:38] MED LIST changes: -ASPI81 PO; +ASPI81CH CHEW; -B12-1CHW CHEW; +BYST5TAB2 PO; +DEXI60CA2; +GLYB1.253 PO; -GLYB1.2538 PO; +HYDR-3516 PO; -LISI-363 PO; +LISI-515 PO; -LORC10TA PO; -LORTA5 PO; -NEBI5 PO; -NEXI40CA PO; +PIOG15TA5 PO; -SOMA350T PO; +VITACAP7 PO
[2017-02-14 09:40] VITALS: BP 126/68; PULSE 76; RESP 15; TEMP 98.2; O2SAT 95
[2017-02-14] MEDS ORDERED: HYDROmorphone HCL PF 1 MG/ML VIAL IV PUSH ONE (10:30)
[2017-02-14] MEDS ORDERED: ONDANSETRON HCL 4 MG/2 ML VIAL IV PUSH ONE (10:30)
[2017-02-14] MEDS ORDERED: SODIUM CHLOR 0.9% 1000 ML INJ 1,000 ML IV ONE (10:30)
[2017-02-14 10:38] LABS: BASOPHIL # 0.1 TH/MM3 (0-0.2); BASOPHIL % 0.8 % (0.0-2.0); EOSINOPHIL # 0.3 TH/MM3 (0-0.4); EOSINOPHIL % 1.9 % (0.0-4.0); HEMATOCRIT 27.1 % (39.0-51.0); HEMO FLAGS AUTO DIFF; LYMPH % 34.8 % (9.0-44.0); LYMPHOCYTE # 5.9 TH/MM3 (1.0-4.8); MEAN CELL VOLUME 65.9 FL (80.0-100.0); MEAN CORPUSCULAR HEMOGLOBIN 21.3 PG (27.0-34.0); MEAN CORPUSCULAR HGB CONC 32.4 % (32.0-36.0); MONO % 8.7 % (0.0-8.0); NEUT % 53.8 % (16.0-70.0); PLATELET COUNT 303 TH/MM3 (150-450); RED BLOOD COUNT 4.12 MIL/MM3 (4.50-5.90); RED CELL DISTRIBUTION WIDTH 27.6 % (11.6-17.2); RETIC % 7.1 % (0.4-3.0); REVIEW FLAG FINAL; WHITE BLOOD COUNT 16.8 TH/MM3 (4.0-11.0)
[2017-02-14 10:54] VITALS: RESP 14
[2017-02-14 10:58] LABS: ALT (GPT) 21 U/L (12-78)
[2017-02-14 11:01] LABS: ALKALINE PHOSPHATASE 111 U/L (45-117); ANION GAP 6 MEQ/L (5-15); BICARBONATE 22.4 MEQ/L (21.0-32.0); BLOOD UREA NITROGEN 14 MG/DL (7-18); CHLORIDE 110 MEQ/L (98-107); GLOMERULAR FILTRATION RATE 93 ML/MIN (>89); SODIUM (NA) 138 MEQ/L (136-145); TOTAL BILIRUBIN ADULT 6.3 MG/DL (0.2-1.0)
[2017-02-14 11:05] LABS: AST (GOT) 50 U/L (15-37); POTASSIUM 4.8 MEQ/L (3.5-5.1)
[2017-02-14 11:15] LABS: BANDS 2 % (0-6); CORRECTED NUCLEATED RBC 3 /100 WBC (0-0); EOSINOPHILS 2 % (0-4); MYELOCYTES 1 % (0-0); NEUTROPHIL # MANUAL DIFF 9.9 TH/MM3 (1.8-7.7); PLATELET ESTIMATE SMEAR NORMAL (NORMAL); PLATELET MORPHOLOGY NORMAL (NORMAL); POLYS (SEG NEUTROPHILS) 56 % (16-70); SCAN/DIFF FINAL DIFF MANUAL; WBC DIFF SAMPLE 100
[2017-02-14 11:16] LABS: HOWELL-JOLLY BODIES PRESENT (NONE SEEN); SICKLE CELLS 1+ (NORMAL); TARGET CELLS 1+ (NORMAL)
[2017-02-14 11:17] LABS: POLYCHROMASIA 2.3 % (0.0-1.9)
--- NOTE | 2017-02-14 11:57 | PD ---
HPI Chief Complaint: Sickle Cell Time Seen by Provider: 10:22 Travel History International Travel<30 days: No Contact w/Intl Traveler<30days: No Traveled to known affect area: No History of Present Illness HPI 61-year-old man with a history of sickle cell disease presents emergency department for pain crisis. Symptoms started last night. Diffuse pain in his bones and joints. States similar to previous pain episodes. No fevers or chills. Is old and nausea. Now having increased trouble with the left knee recently. Otherwise has been feeling well and healthy. Symptoms been constant , severe, unaffected despite his home Lortab, and gradually worsening. History Past Medical History Narrative Medical Sickle cell disease GERD Osteo-arthritis A. fib, on aspirin only Hypertension PNEUMOCCOCAL Vaccine (Year): 2009 Social History Alcohol Use: No Tobacco Use: No Allergies-Medications (Allergen,Severity, Reaction): Coded Allergies: cortisone (Verified Allergy, Severe, FLARES UP SICKLE CELL., 02/14/17) erythromycin base (Verified Allergy, Severe, ANAPHALACTIC SHOCK, 02/14/17) azithromycin (Verified Allergy, Intermediate, 02/14/17) Reported Meds & Prescriptions Reported Meds & Active Scripts Active Reported Dexilant (Dexlansoprazole) 60 Mg Cap.bp Aspirin 81 Mg Chew 81 Mg CHEW DAILY Hydrocodone-Acetaminophen 5-325 mg Tab 1 Tab PO Q4H PRN Lisinopril 20 Mg Tab 20 Mg PO DAILY Pioglitazone (Pioglitazone HCl) 15 Mg Tab 15 Mg PO DAILY Bystolic (Nebivolol) 5 Mg Tab 5 Mg PO DAILY Glyburide 1.25 Mg Tab 1.25 Mg PO BID Take with meals at the same time each day B Complex (B-Complex Vitamins) 1 Cap 1 Cap PO DAILY Review of Systems Except as stated in HPI: all other systems reviewed are Neg Physical Exam Narrative GENERAL: Well-appearing 61 year-old woman, no acute distress. SKIN: Focused skin assessment warm/dry. HEAD: Atraumatic. Normocephalic. EYES: Pupils equal and round. No scleral icterus. No injection or drainage. ENT: No nasal bleeding or discharge. Mucous membranes pink and moist. NECK: Trachea midline. No JVD. CARDIOVASCULAR: Regular rate and rhythm. No murmur appreciated. RESPIRATORY: No accessory muscle use. Clear to auscultation. Breath sounds equal bilaterally. GASTROINTESTINAL: Abdomen soft, non-tender, nondistended. Hepatic and splenic margins not palpable. MUSCULOSKELETAL: No obvious deformities. Left knee is a very small amount of effusion, full range of motion, no warmth erythema redness or evidence of infection. NEUROLOGICAL: Awake and alert. No obvious cranial nerve deficits. Motor grossly within normal limits. Normal speech. PSYCHIATRIC: Appropriate mood and affect; insight and judgment normal. Data Data Last Documented VS Vital Signs Date Time Temp Pulse Resp B/P (MAP) Pulse Ox O2 Delivery O2 Flow Rate FiO2 02/14/17 10:54 14 02/14/17 10:08 100 Room Air 02/14/17 09:40 98.2 76 126/68 (87) Orders Orders Complete Blood Count With Diff (02/14/17 10:16) Comprehensive Metabolic Panel (02/14/17 10:16) Retic Count (02/14/17 10:16) Iv Access Insert/Monitor (02/14/17 10:16) Hydromorphone Pf Inj (Dilaudid Pf Inj) (02/14/17 10:30) Ondansetron Inj (Zofran Inj) (02/14/17 10:30) Sodium Chlor 0.9% 1000 Ml Inj (Ns 1000 M (02/14/17 10:30) Labs Laboratory Tests Test 02/14/17 10:15 White Blood Count 16.8 TH/MM3 Red Blood Count 4.12 MIL/MM3 Hemoglobin 8.8 GM/DL Hematocrit 27.1 % Mean Corpuscular Volume 65.9 FL Mean Corpuscular Hemoglobin 21.3 PG Mean Corpuscular Hemoglobin Concent 32.4 % Red Cell Distribution Width 27.6 % Platelet Count 303 TH/MM3 Mean Platelet Volume 8.9 FL Neutrophils (%) (Auto) 53.8 % Lymphocytes (%) (Auto) 34.8 % Monocytes (%) (Auto) 8.7 % Eosinophils (%) (Auto) 1.9 % Basophils (%) (Auto) 0.8 % Neutrophils # (Auto) 9.0 TH/MM3 Lymphocytes # (Auto) 5.9 TH/MM3 Monocytes # (Auto) 1.5 TH/MM3 Eosinophils # (Auto) 0.3 TH/MM3 Basophils # (Auto) 0.1 TH/MM3 CBC Comment AUTO DIFF Differential Total Cells Counted 100 Neutrophils % (Manual) 56 % Band Neutrophils % 2 % Lymphocytes % 25 % Monocytes % 14 % Eosinophils % 2 % Neutrophils # (Manual) 9.9 TH/MM3 Myelocytes 1 % Nucleated Red Blood Cells 3 /100 WBC Differential Comment FINAL DIFF MANUAL Platelet Estimate NORMAL Platelet Morphology Comment NORMAL Polychromasia 2.3 % Sickle Cells 1+ Target Cells 1+ [place] Bodies PRESENT Reticulocyte Count 7.1 % Absolute Reticulocyte Count 290.6 MIL/L Blood Urea Nitrogen 14 MG/DL Creatinine 0.99 MG/DL Random Glucose 115 MG/DL Total Protein 7.1 GM/DL Albumin 3.9 GM/DL Calcium Level 11.1 MG/DL Alkaline Phosphatase 111 U/L Aspartate Amino Transf (AST/SGOT) 50 U/L Alanine Aminotransferase (ALT/SGPT) 21 U/L Total Bilirubin 6.3 MG/DL Sodium Level 138 MEQ/L Potassium Level 4.8 MEQ/L Chloride Level 110 MEQ/L Carbon Dioxide Level 22.4 MEQ/L Anion Gap 6 MEQ/L Estimat Glomerular Filtration Rate 93 ML/MIN MDM Medical Decision Making Medical Screen Exam Complete: Yes Emergency Medical Condition: Yes Interpretation(s) CBC remarkable for mild leukocytosis, mild anemia CMP remarkable for moderately elevated bilirubin Differential Diagnosis Sickle cell crisis, infection, other Narrative Course Medical decision making 61-year-old man with sickle cell disease here with pain crisis, states similar to multiple previous pain crises. Looks well. Labs of mild leukocytosis. Recommend outpatient follow-up. Much improved following medication. Diagnosis Primary Impression: Sickle cell pain crisis Additional Instructions: Continue current medications. All with her primary doctor in the next 2-3 days if you're not completely well. Return to the emergency department for any fevers chills chest pain trouble breathing or any other new or worsening symptoms. Med/Other Pt SpecificInfo: No Change to Meds Disposition: 01 DISCHARGE HOME Condition: Stable Milo Valle MD Feb 14, 2017 11:57
== END 2017-02-14 12:15 | disposition home or self-care (01) ==
LOC: NEPD 09:38
DX: D57.00 Hb-SS disease with crisis, unspecified (principal); K21.9 Gastro-esophageal reflux disease without esophagitis; I10 Essential (primary) hypertension; I48.91 Unspecified atrial fibrillation; Z79.82 Long term (current) use of aspirin
CPT/HCPCS: 80053; 85007; 85027; 85044; 96361; 96374; 96375; 99284; J1170; J2405; J7030

== ENCOUNTER 2017-03-03 14:42 | Inpatient (IN) | payer OTHER ==
[~2017-03-03] VITALS: Ht 177.8 cm; Wt 107.6 kg
[2017-03-03 14:44] VITALS: BP 146/67; PULSE 118; RESP 20; TEMP 98.7; O2SAT 94
--- NOTE | 2017-03-03 15:40 | PD ---
Physical Exam Date Seen by Provider: Mar 03, 2017 Time Seen by Provider: 15:35 Narrative 61-year-old black male presents to emergency department with complaints of weakness and general malaise. He said decrease in appetite, and upset stomach. He states that he has had discomfort in his stomach which she feels is the etiology of his lack of appetite. No nausea vomiting. His temperature is 99.4 last evening. His blood sugar today was 100. Patient reports a 4-5/10 pain in his tailbone which he reports from his sickle cell anemia. Vital signs reviewed. Pt. waiting for bed placement. Data Data Last Documented VS Vital Signs Date Time Temp Pulse Resp B/P (MAP) Pulse Ox O2 Delivery O2 Flow Rate FiO2 03/03/17 14:44 98.7 118 20 146/67 (93) 94 MDM Medical Record Reviewed: No Supervised Visit with TOMMY: Laith Remy Mar 03, 2017 15:40
[2017-03-03] MEDS ORDERED: SODIUM CHLOR 0.9% 1000 ML INJ 1,000 ML IV SCH (17:02)
--- NOTE | 2017-03-03 17:05 | PD ---
HPI Chief Complaint: General Weakness Time Seen by Provider: 16:56 Travel History International Travel<30 days: No Contact w/Intl Traveler<30days: No Traveled to known affect area: No History of Present Illness HPI 61-year-old male with history of sickle cell anemia, diabetes, here for evaluation of abdominal pain, generalized weakness, bilateral hip pain, and tailbone pain. The patient reports that for the last several days he has been experiencing epigastric abdominal pain described as burning shortly after eating. History of cholecystectomy. No other abdominal surgeries. No vomiting or diarrhea. No fevers. Currently he is not having any abdominal discomfort. States that his bilateral hip and tailbone pain are typical for sickle cell crisis. No urinary or bowel incontinence or retention. PFSH Past Medical History Arthritis: Yes Asthma: No Autoimmune Disease: No Blood Disorders: No Anxiety: No Depression: No Heart Rhythm Problems: Yes (INVERTED/ABN. READING ON HIS EKG, CANNOT REMEMBER THE EXACT NAME.) Cancer: No Cardiovascular Problems: No High Cholesterol: No Chemotherapy: No Chest Pain: No Congestive Heart Failure: No COPD: No Cerebrovascular Accident: No Diabetes: Yes Diminished Hearing: No Endocrine: No Gastrointestinal Disorders: No GERD: Yes Glaucoma: No Genitourinary: No Headaches: No Hepatitis: No Hiatal Hernia: No Hypertension: Yes Immune Disorder: No Kidney Stones: No Musculoskeletal: Yes (HX OF SICKLE CELL ANEMIA THAT CAUSES GREAT JOINT PAIN DURING A CRISIS.) Neurologic: No Psychiatric: No Reproductive: No Integumentary: No Myocardial Infarction: No Pneumonia: Yes Radiation Therapy: No Renal Failure: No Seizures: No Sickle Cell Disease: Yes Sleep Apnea: No Thyroid Disease: No Ulcer: No PNEUMOCCOCAL Vaccine (Year): 2009 Past Surgical History Abdominal Surgery: Yes AICD: No Cardiac Surgery: No Cholecystectomy: Yes (1979) Ear Surgery: No Endocrine Surgery: No Eye Surgery: Yes (1984 LASER TX B EYES, RUPUTERED BLOOD VESSEL) Genitourinary Surgery: No Gynecologic Surgery: No Joint Replacement: No Oral Surgery: Yes (TONSILECTOMY 1973) Pacemaker: No Thoracic Surgery: No Tonsillectomy: Yes (1973) Other Surgery: Yes (TONSILS,RIGHT KNEE,GALLBLADDER,EYES(LASER)) Social History Alcohol Use: No Tobacco Use: No Substance Use: No Allergies-Medications (Allergen,Severity, Reaction): Coded Allergies: cortisone (Verified Allergy, Severe, FLARES UP SICKLE CELL., 03/03/17) erythromycin base (Verified Allergy, Severe, ANAPHALACTIC SHOCK, 03/03/17) azithromycin (Verified Allergy, Intermediate, 03/03/17) Reported Meds & Prescriptions Reported Meds & Active Scripts Active Reported Dexilant (Dexlansoprazole) 60 Mg Cap.bp Aspirin 81 Mg Chew 81 Mg CHEW DAILY Hydrocodone-Acetaminophen 5-325 mg Tab 1 Tab PO Q4H PRN Lisinopril 20 Mg Tab 20 Mg PO DAILY Pioglitazone (Pioglitazone HCl) 15 Mg Tab 15 Mg PO DAILY Bystolic (Nebivolol) 5 Mg Tab 5 Mg PO DAILY Glyburide 1.25 Mg Tab 1.25 Mg PO BID Take with meals at the same time each day B Complex (B-Complex Vitamins) 1 Cap 1 Cap PO DAILY Review of Systems Except as stated in HPI: all other systems reviewed are Neg Physical Exam Narrative GENERAL: Well-developed, well-nourished, comfortable, no apparent distress. SKIN: Focused skin assessment warm/dry. No rash. HEAD: Atraumatic. Normocephalic. EYES: Pupils equal and round. Bilateral scleral icterus. No injection or drainage. ENT: Mucous membranes pink and dry. NECK: Trachea midline. No JVD. CARDIOVASCULAR: Regular rate and rhythm. RESPIRATORY: No accessory muscle use. Clear to auscultation. Breath sounds equal bilaterally. GASTROINTESTINAL: Abdomen soft, nondistended. Mild epigastric tenderness without peritoneal signs. No hernias. Normal bowel sounds. MUSCULOSKELETAL: No obvious deformities. No clubbing. No cyanosis. No edema. NEUROLOGICAL: Awake and alert. No obvious cranial nerve deficits. Motor grossly within normal limits. Normal speech. PSYCHIATRIC: Appropriate mood and affect; insight and judgment normal. Data Data Last Documented VS Vital Signs Date Time Temp Pulse Resp B/P (MAP) Pulse Ox O2 Delivery O2 Flow Rate FiO2 03/03/17 20:23 111 18 122/66 (84) 95 Room Air 03/03/17 14:44 98.7 Orders Orders Complete Blood Count With Diff (03/03/17 17:02) Comprehensive Metabolic Panel (03/03/17 17:02) Lipase (03/03/17 17:02) Prothrombin Time / Inr (Pt) (03/03/17 17:02) Act Partial Throm Time (Ptt) (03/03/17 17:02) Urinalysis - C+S If Indicated (03/03/17 17:02) Ct Abd/Pel W Iv Contrast(Rout) (03/03/17 17:02) Iv Access Insert/Monitor (03/03/17 17:02) Ecg Monitoring (03/03/17 17:02) Oximetry (03/03/17 17:02) Morphine Inj (Morphine Inj) (03/03/17 17:15) Sodium Chlor 0.9% 1000 Ml Inj (Ns 1000 M (03/03/17 17:02) Sodium Chloride 0.9% Flush (Ns Flush) (03/03/17 17:15) Electrocardiogram (03/03/17 17:02) Al-Mag Hy-Si 40-40-4 Mg/Ml Liq (Mag-Al P (03/03/17 17:15) Lidocaine 2% Viscous (Xylocaine 2% Visco (03/03/17 17:15) Sodium Chlor 0.9% 1000 Ml Inj (Ns 1000 M (03/03/17 18:45) Hydromorphone Pf Inj (Dilaudid Pf Inj) (03/03/17 19:15) Iohexol 350 Inj (Omnipaque 350 Inj) (03/03/17 20:25) Labs Laboratory Tests Test 03/03/17 17:35 03/03/17 20:10 White Blood Count 20.9 TH/MM3 Red Blood Count 3.05 MIL/MM3 Hemoglobin 8.2 GM/DL Hematocrit 23.6 % Mean Corpuscular Volume 77.4 FL Mean Corpuscular Hemoglobin 26.9 PG Mean Corpuscular Hemoglobin Concent 34.8 % Red Cell Distribution Width 41.7 % Platelet Count 329 TH/MM3 Mean Platelet Volume 8.8 FL Neutrophils (%) (Auto) 57.3 % Lymphocytes (%) (Auto) 25.4 % Monocytes (%) (Auto) 15.8 % Eosinophils (%) (Auto) 0.8 % Basophils (%) (Auto) 0.7 % Neutrophils # (Auto) 12.0 TH/MM3 Lymphocytes # (Auto) 5.3 TH/MM3 Monocytes # (Auto) 3.3 TH/MM3 Eosinophils # (Auto) 0.2 TH/MM3 Basophils # (Auto) 0.1 TH/MM3 CBC Comment AUTO DIFF Differential Total Cells Counted 100 Neutrophils % (Manual) 57 % Band Neutrophils % 2 % Lymphocytes % 24 % Monocytes % 17 % Neutrophils # (Manual) 12.3 TH/MM3 Nucleated Red Blood Cells 8 /100 WBC Differential Comment FINAL DIFF MANUAL Platelet Estimate NORMAL Platelet Morphology Comment NORMAL Polychromasia 5.6 % Sickle Cells 3+ Target Cells 1+ Ovalocytes 1+ Keratocytes 1+ Prothrombin Time 12.4 SEC Prothromb Time International Ratio 1.1 RATIO Activated Partial Thromboplast Time 21.4 SEC Blood Urea Nitrogen 11 MG/DL Creatinine 1.46 MG/DL Random Glucose 103 MG/DL Total Protein 7.7 GM/DL Albumin 4.3 GM/DL Calcium Level 12.2 MG/DL Alkaline Phosphatase 114 U/L Aspartate Amino Transf (AST/SGOT) 83 U/L Alanine Aminotransferase (ALT/SGPT) 40 U/L Total Bilirubin 20.6 MG/DL Sodium Level 141 MEQ/L Potassium Level 5.0 MEQ/L Chloride Level 110 MEQ/L Carbon Dioxide Level 23.4 MEQ/L Anion Gap 8 MEQ/L Estimat Glomerular Filtration Rate 59 ML/MIN Protein Corrected Calcium 11.8 MG/DL Lipase 79 U/L [facility] Medical Decision Making Medical Screen Exam Complete: Yes Emergency Medical Condition: Yes Medical Record Reviewed: Yes Differential Diagnosis Gastritis, peptic ulcer disease, pancreatitis, hepatobiliary disease, sickle cell crisis, dehydration/metabolic abnormality Narrative Course Initial vital signs show heart rate 118, blood pressure 146/67, pulse ox 94% on room air, oral temp of 98.7F. Heart rate improved to 92 after a liter of normal saline IV. CBC: WBC 20.9, hemoglobin 8.2, hematocrit 23.6, platelets 329, 3+ sickle cells CMP is remarkable for creatinine 1.46, GFR 59, protein cracked a calcium 11.8, T bili at 20.6. CT abdomen pelvis: CONCLUSION: 1. Small atrophic spleen with dense calcification. 2. Status post cholecystectomy. 3. Unremarkable bowel gas pattern with no inflammatory change or obstruction. Patient was made aware of all findings. He was given a liter of normal saline IV and a dose of IV Dilaudid with some improvement in his pain. He'll be admitted for further treatment and evaluation of abdominal pain, hypercalcemia, hyperbilirubinemia, sickle cell crisis. Case discussed with hospitalist Dr. Burrows who will admit the patient to his service. Diagnosis Primary Impression: Sickle cell pain crisis Additional Impressions: Hyperbilirubinemia Leukocytosis Qualified Codes: D72.829 - Elevated white blood cell count, unspecified Hypercalcemia Sarkis Merritt MD Mar 03, 2017 17:05
[2017-03-03] MEDS ORDERED: ALUMINUM/MAGNESIUM/SIMETH 30 ML CUP PO ONE (17:15)
[2017-03-03] MEDS ORDERED: SODIUM CHLORIDE 0.9% FLUSH 10 ML FLUSH IV FLUSH PRN ×2 (17:15→21:15)
[2017-03-03] MEDS ORDERED: LIDOCAINE VISCOUS 2% SOLN 15 ML UDC PO ONE (17:15)
[2017-03-03] MEDS ORDERED: MORPHINE SULFATE 4 MG/ML INJ IV PUSH ONE (17:15)
[2017-03-03 17:58] LABS: APTT (PATIENT) 21.4 SEC (24.3-30.1); INTERNATIONAL NORMALIZED RATIO 1.1 RATIO; PROTHROMBIN TIME - PATIENT 12.4 SEC (9.8-11.6)
[2017-03-03 18:04] LABS: BASOPHIL # 0.1 TH/MM3 (0-0.2); BASOPHIL % 0.7 % (0.0-2.0); EOSINOPHIL # 0.2 TH/MM3 (0-0.4); EOSINOPHIL % 0.8 % (0.0-4.0); HEMATOCRIT 23.6 % (39.0-51.0); LYMPH % 25.4 % (9.0-44.0); LYMPHOCYTE # 5.3 TH/MM3 (1.0-4.8); MEAN CELL VOLUME 77.4 FL (80.0-100.0); MEAN CORPUSCULAR HEMOGLOBIN 26.9 PG (27.0-34.0); MEAN CORPUSCULAR HGB CONC 34.8 % (32.0-36.0); MONO % 15.8 % (0.0-8.0); NEUT % 57.3 % (16.0-70.0); PLATELET COUNT 329 TH/MM3 (150-450); RED BLOOD COUNT 3.05 MIL/MM3 (4.50-5.90); RED CELL DISTRIBUTION WIDTH 41.7 % (11.6-17.2); WHITE BLOOD COUNT 20.9 TH/MM3 (4.0-11.0)
[2017-03-03 18:05] LABS: HEMO FLAGS AUTO DIFF
[2017-03-03 18:19] LABS: BICARBONATE 23.4 MEQ/L (21.0-32.0)
[2017-03-03 18:22] LABS: TOTAL BILIRUBIN ADULT 20.6 MG/DL (0.2-1.0)
[2017-03-03 18:24] LABS: CALCIUM-PROTEIN CORRECTED 11.8 MG/DL (8.5-10.1)
[2017-03-03] MEDS ORDERED: SODIUM CHLOR 0.9% 1000 ML INJ 1,000 ML IV ONE (18:45)
[2017-03-03 19:08] LABS: BANDS 2 % (0-6); CORRECTED NUCLEATED RBC 8 /100 WBC (0-0); NEUTROPHIL # MANUAL DIFF 12.3 TH/MM3 (1.8-7.7); POLYS (SEG NEUTROPHILS) 57 % (16-70); WBC DIFF SAMPLE 100
[2017-03-03] MEDS ORDERED: HYDROmorphone HCL PF 0.5 MG/0.5 ML SYRINGE IV PUSH ONE (19:15)
[2017-03-03 19:27] LABS: KERATOCYTES 1+ (NORMAL); OVALOCYTES 1+ (NORMAL); PLATELET ESTIMATE SMEAR NORMAL (NORMAL); PLATELET MORPHOLOGY NORMAL (NORMAL); POLYCHROMASIA 5.6 % (0.0-1.9); SCAN/DIFF FINAL DIFF MANUAL; SICKLE CELLS 3+ (NORMAL); TARGET CELLS 1+ (NORMAL)
[2017-03-03 20:23] VITALS: BP 122/66; PULSE 111; RESP 18; O2SAT 95
[2017-03-03] MEDS ORDERED: IOHEXOL 350 MG/ML 10 ML VIAL (for RAD DIAG) IVCONTRAST ONE (20:25)
--- NOTE | 2017-03-03 20:34 | RADRPT ---
EXAM DATE/TIME: 03/03/2017 20:01 [facility] COMPARISON: No previous studies available for comparison. INDICATIONS : Lower abdomen pain today. IV CONTRAST: 81 cc Omnipaque 350 (iohexol) IV ORAL CONTRAST: No oral contrast ingested. RADIATION DOSE: 10.29 CTDIvol (mGy) MEDICAL HISTORY : Hypertension. Sickle Cell disease. diabetes SURGICAL HISTORY : Cholecystectomy. ENCOUNTER: Initial ACUITY: 1 day PAIN SCALE: 7/10 LOCATION: Bilateral lower quadrant TECHNIQUE: Volumetric scanning of the abdomen and pelvis was performed. Using automated exposure control and ad justment of the mA and/or kV according to patient size, radiation dose was kept as low as reasonably achievable to obtain optimal diagnostic quality images. DICOM format image data is available electro nically for review and comparison. FINDINGS: LOWER LUNGS: The visualized lower lungs are clear. LIVER: Homogeneous density without lesion. There is no dilation of the biliary tree. Status post cholecyste ctomy. SPLEEN: The spleen is small and atrophic in appearance with linear calcifications. PANCREAS: Within normal limits. KIDNEYS: Normal in size and shape. There is no mass, stone or hydronephrosis. ADRENAL GLANDS: Within normal limits. VASCULAR: There is no aortic aneurysm. BOWEL/MESENTERY: The stomach, small bowel, and colon demonstrate no acute abnormality. There is no free intraperitone al air or fluid. ABDOMINAL WALL: Within normal limits. RETROPERITONEUM: There is no lymphadenopathy. BLADDER: No wall thickening or mass. REPRODUCTIVE: Within normal limits. INGUINAL: There is no lymphadenopathy or hernia. MUSCULOSKELETAL: Within normal limits for patient age. CONCLUSION: 1. Small atrophic spleen with dense calcification. 2. Status post cholecystectomy. 3. Unremarkable bowel gas pattern with no inflammatory change or obstruction. Beck Lockett MD on March 03, 2017 at 20:29 Board Certified Radiologist. This report was verified electronically.
[2017-03-03] MEDS ORDERED: LACTULOSE SYRUP 20 GM/30 ML CUP PO PRN (21:15)
[2017-03-03] MEDS ORDERED: NALOXONE HCL 0.4 MG/ML AMP IV PUSH PRN ×2 (21:15)
[2017-03-03] MEDS ORDERED: ONDANSETRON HCL 4 MG/2 ML VIAL IVP PRN (21:15)
[2017-03-03] MEDS ORDERED: MAGNESIUM HYDROXIDE SUSP 30 ML CUP PO PRN (21:15)
[2017-03-03] MEDS ORDERED: SENNOSIDES 8.6 MG TAB PO PRN (21:15)
[2017-03-03] MEDS ORDERED: MORPHINE SULFATE 4 MG/ML INJ IV PUSH PRN (21:15)
[2017-03-03] MEDS ORDERED: BISACODYL 10 MG SUPP RECTAL PRN (21:15)
[2017-03-03 21:16] LABS: BACTERIA, URINE OCC /hpf; BLOOD, URINE NEG (NEG); COMMENT (UR) CULT NOT INDICATED; CULTURE IF INDICATED CULT NOT INDICATED; GLUCOSE,URINE NEG (NEG); HYALINE CAST, URINE 1 /lpf (RARE); KETONE, URINE NEG (NEG); NITRITE,URINE NEG (NEG); PH, URINE 6.5 (5.0-8.5); URINE COLOR YELLOW (YELLW/STRAW)
[2017-03-03] MEDS: SODIUM CHLOR 0.9% 1000 ML INJ 1,000 ML IV SCH (21:56)
--- NOTE | 2017-03-03 22:11 | HHI.HP ---
HPI Service [facility] Physician Jess Allred D.O. Admission Diagnosis sickle cell crisis, hyperbilirubinemia, leukocytosis, hypercalcemia Diagnoses: Travel History International Travel<30 Days: No Contact w/Intl Traveler <30 Da: No Traveled to Known Affected Are: No History of Present Illness 61-year-old male with a history of sickle cell anemia, hypertension, diabetes mellitus who presents with a three-day history of worsening predominantly postprandial dull epigastric discomfort, together with nausea, decreased appetite. No vomiting. Patient reports subjective fevers. Denies any lightheadedness or dizziness. He also reports dull low back pain for the past several days, vocal of his sickle cell pain however says this is not why she came in. He reports generalized weakness and fatigue over the past several days. Denies any chest pain or shortness of breath. Review of Systems Except as stated in HPI: all other systems reviewed are Neg Past Family Social History Past Medical History Hypertension Diabetes mellitus Coronary artery disease Sickle cell disease Degenerative joint disease Chronic knee pain GERD Past Surgical History Right knee arthroscopy Cholecystectomy Bilateral eye surgery Cardiac catheterization 2005. Repeat catheter in 2011 with mild 2 vessel coronary artery disease. Allergies: Coded Allergies: cortisone (Verified Allergy, Severe, FLARES UP SICKLE CELL., 03/03/17) erythromycin base (Verified Allergy, Severe, ANAPHALACTIC SHOCK, 03/03/17) azithromycin (Verified Allergy, Intermediate, 03/03/17) Family History Mother with [place] at age 66. Father from prostate cancer Social History Nonsmoker, nondrinker, denies illicit drugs. Physical Exam Vital Signs Vital Signs Date Time Temp Pulse Resp B/P (MAP) Pulse Ox O2 Delivery O2 Flow Rate FiO2 03/03/17 20:23 111 18 122/66 (84) 95 Room Air 03/03/17 18:00 16 03/03/17 14:44 98.7 118 20 146/67 (93) 94 Physical Exam GENERAL: This is a well-nourished, well-developed patient, appears uncomfortable alert and oriented 3. SKIN: No rashes, ecchymoses or lesions. Cool and dry. HEAD: Atraumatic. Normocephalic. No temporal or scalp tenderness. EYES: Pupils equal round and reactive. Extraocular motions intact. No scleral icterus. No injection or drainage. ENT: Nose without bleeding, purulent drainage or septal hematoma. Throat without erythema, tonsillar hypertrophy or exudate. Uvula midline. Airway patent. NECK: Trachea midline. No JVD or lymphadenopathy. Supple, nontender, no meningeal signs. CARDIOVASCULAR: Regular rate and rhythm without murmurs, gallops, or rubs. RESPIRATORY: Clear to auscultation. Breath sounds equal bilaterally. No wheezes , rales, or rhonchi. GASTROINTESTINAL: Abdomen soft, non-tender, nondistended. No hepato-splenomegaly , or palpable masses. No guarding. MUSCULOSKELETAL: Extremities without clubbing, cyanosis, or edema. No joint tenderness, effusion, or edema noted. No calf tenderness. Negative Homans sign bilaterally. NEUROLOGICAL: Awake and alert. Cranial nerves II through XII intact. Motor and sensory grossly within normal limits. Five out of 5 muscle strength in all muscle groups. Normal speech. Laboratory Laboratory Tests Test 03/03/17 17:35 03/03/17 20:10 03/03/17 21:42 White Blood Count 20.9 Red Blood Count 3.05 Hemoglobin 8.2 Hematocrit 23.6 Mean Corpuscular Volume 77.4 Mean Corpuscular Hemoglobin 26.9 Mean Corpuscular Hemoglobin Concent 34.8 Red Cell Distribution Width 41.7 Platelet Count 329 Mean Platelet Volume 8.8 Neutrophils (%) (Auto) 57.3 Lymphocytes (%) (Auto) 25.4 Monocytes (%) (Auto) 15.8 Eosinophils (%) (Auto) 0.8 Basophils (%) (Auto) 0.7 Neutrophils # (Auto) 12.0 Lymphocytes # (Auto) 5.3 Monocytes # (Auto) 3.3 Eosinophils # (Auto) 0.2 Basophils # (Auto) 0.1 CBC Comment AUTO DIFF Differential Total Cells Counted 100 Neutrophils % (Manual) 57 Band Neutrophils % 2 Lymphocytes % 24 Monocytes % 17 Neutrophils # (Manual) 12.3 Nucleated Red Blood Cells 8 Differential Comment FINAL DIFF MANUAL Platelet Estimate NORMAL Platelet Morphology Comment NORMAL Polychromasia 5.6 Sickle Cells 3+ Target Cells 1+ Ovalocytes 1+ Keratocytes 1+ Prothrombin Time 12.4 Prothromb Time International Ratio 1.1 Activated Partial Thromboplast Time 21.4 Blood Urea Nitrogen 11 Creatinine 1.46 Random Glucose 103 Total Protein 7.7 Albumin 4.3 Calcium Level 12.2 Alkaline Phosphatase 114 Aspartate Amino Transf (AST/SGOT) 83 Alanine Aminotransferase (ALT/SGPT) 40 Total Bilirubin 20.6 Sodium Level 141 Potassium Level 5.0 Chloride Level 110 Carbon Dioxide Level 23.4 Anion Gap 8 Estimat Glomerular Filtration Rate 59 Protein Corrected Calcium 11.8 Lipase 79 Urine Color YELLOW Urine Turbidity CLEAR Urine pH 6.5 Urine Specific [place] 1.010 Urine Protein NEG Urine Glucose (UA) NEG Urine Ketones NEG Urine Occult Blood NEG Urine Nitrite NEG Urine Bilirubin NEG Urine Urobilinogen GREATER THAN 12.0 Urine Leukocyte Esterase TRACE Urine RBC LESS THAN 1 Urine WBC 3 Urine Bacteria OCC Urine Hyaline Casts 1 Microscopic Urinalysis Comment CULT NOT INDICATED Date/Time Source Procedure Growth Status 03/03/17 21:40 Blood Peripheral Aerobic Blood Culture Pending Received 03/03/17 21:40 Blood Peripheral Anaerobic Blood Culture Pending Received Result Diagram: 03/03/17 1735 03/03/17 1735 Caprini VTE Risk Assessment Caprini VTE Risk Assessment: Mod/High Risk (score >= 2) Caprini Risk Assessment Model Point Value = 1 Point Value = 2 Point Value = 3 Point Value = 5 Age 41-60 Minor surgery BMI > 25 kg/m2 Swollen legs Varicose veins or History of unexplained or recurrent spontaneous Oral contraceptives or hormone replacement Sepsis (< 1 month) Serious lung disease, including pneumonia (< 1 month) Abnormal pulmonary function Acute myocardial infarction Congestive heart failure (< 1 month) History of inflammatory bowel disease Medical patient at bed rest Age 61-74 Arthroscopic surgery Major open surgery (> 45 min) Laparoscopic surgery (> 45 min) Malignancy Confined to bed (> 72 hours) Immobilizing plaster cast Central venous access Age >= 75 History of VTE Family history of VTE Factor V Leiden Prothrombin [id number] Lupus anticoagulant Anticardiolipin antibodies Elevated serum homocysteine Heparin-induced thrombocytopenia Other congenital or acquired thrombophilia Stroke (< 1 month) Elective arthroplasty Hip, pelvis, or leg fracture Acute spinal cord injury (< 1 month) Prophylaxis Regimen Total Risk Factor Score Risk Level Prophylaxis Regimen 0-1 Low Early ambulation 2 Moderate Order ONE of the following: *Sequential Compression Device (SCD) *Heparin 5000 units SQ BID 3-4 Higher Order ONE of the following medications: *Heparin 5000 units SQ TID *Enoxaparin/Lovenox 40 mg SQ daily (WT < 150 kg, CrCl > 30 mL/min) *Enoxaparin/Lovenox 30 mg SQ daily (WT < 150 kg, CrCl > 10-29 mL/min) *Enoxaparin/Lovenox 30 mg SQ BID (WT < 150 kg, CrCl > 30 mL/min) AND/OR *Sequential Compression Device (SCD) 5 or more Highest Order ONE of the following medications: *Heparin 5000 units SQ TID (Preferred with Epidurals) *Enoxaparin/Lovenox 40 mg SQ daily (WT < 150 kg, CrCl > 30 mL/min) *Enoxaparin/Lovenox 30 mg SQ daily (WT < 150 kg, CrCl > 10-29 mL/min) *Enoxaparin/Lovenox 30 mg SQ BID (WT < 150 kg, CrCl > 30 mL/min) AND *Sequential Compression Device (SCD) Assessment and Plan Assessment and Plan //Suspected sepsis. -Leukocytosis 20. Tachycardia with heart rate 111. Self-reported fevers at home. Epigastric discomfort, with elevated bilirubins. Suspected cholangitis. //Nausea, vomiting //Epigastric abdominal pain //Marked hyperbilirubinemia //Possible cholangitis -With marketed hyperbilirubinemia in the 20s, leukocytosis in the 20s, tachycardia. -CT abdomen with no acute findings. -We'll place patient on broad-spectrum antibiotics, ordered ultrasound liver -Patient says that pain is similar to when he takes too much aspirin. Possibility of gastric ulcer given symptoms. We'll place on EPI. Monitor hemoglobin. Gastroenterology consult place. //Microcytic anemia. Suspect iron deficiency. -Iron studies ordered. The patient on PPI. Gastroenterology consulted. //Hypercalcemia -Calcium over 12 on admission. Noted recent low 25 vitamin D, with high 1, 25 dihydroxy vitamin D levels consistent with extra-renal conversion. -Also patient was taking Tums for postprandial epigastric discomfort. - Hematology consulted. Appreciate assistance. We'll place on IV fluids. Continue to monitor. //CAD. Continue home aspirin, nebivolol. //Diabetes mellitus. I diabetic diet and insulin sliding scale. Discussed Condition With Patient, ED physician, at bedside. Physician Certification 2 Midnight Certification Type: Admission for Inpatient Services Order for Inpatient Services The services are ordered in accordance with Medicare regulations or non- Medicare payer requirements, as applicable. In the case of services not specified as inpatient-only, they are appropriately provided as inpatient services in accordance with the 2-midnight benchmark. Estimated LOS (days): 2 days is the estimated time the patient will need to remain in the hospital, assuming treatment plan goals are met and no additional complications. Post-Hospital Plan: Home John Burrows MD Mar 03, 2017 22:11
[2017-03-03] MEDS: PIPERACIL-TAZO 3.375 GM PREMIX 50 ML IV SCH (22:31)
[2017-03-03] MEDS: PANTOPRAZOLE SODIUM 40 MG VIAL IV PUSH SCH (22:32)
[2017-03-03 22:55] LABS: FERRITIN 154 NG/ML (26-388)
[2017-03-03 23:03] LABS: TRANSFERRIN IRON PROFILE 290 MG/DL (200-360)
--- NOTE | 2017-03-03 23:18 | RADRPT ---
EXAM DATE/TIME: 03/03/2017 22:42 [facility] COMPARISON: CT ABDOMEN & PELVIS W CONTRAST, March 03, 2017, 20:01. INDICATIONS : Jaundice. MEDICAL HISTORY : Hypertension. Gastroesophageal reflux disease. Sickle cell. Arthritis. Diabetes. SURGICAL HISTORY : Tonsillectomy. Cholecystectomy. Right knee surgery. ENCOUNTER: Initial ACUITY: 1 day PAIN SCORE: 5/10 LOCATION: Bilateral upper quadrant MEASUREMENTS: LIVER: 17.6 cm length COMMON DUCT: 3 mm RIGHT KIDNEY: 12.5 x 6.2 x 6.4 cm SPLEEN: Not visualized FINDINGS: LIVER: Normal echotexture without focal lesion or ductal dilatation. COMMON DUCT: No intraluminal mass or stone visualized. GALLBLADDER: Surgically absent PANCREAS: The visualized portions are within normal limits. RIGHT KIDNEY: Small lower pole cyst. No hydronephrosis SPLEEN: Atrophic CONCLUSION: Unremarkable sonographic appearance of the right upper quadrant Remberto Verdugo MD on March 03, 2017 at 23:14 Board Certified Radiologist. This report was verified electronically.
[2017-03-04] VITALS (10 sets, daily range): BP systolic 105–122; BP diastolic 55–74; PULSE 67–102; RESP 16–22; TEMP 97.3–98.9; O2SAT 92–98
[2017-03-04] MEDS ORDERED: SODIUM CHLOR 0.9% 250 ML INJ 250 ML IV ONE (01:00)
[2017-03-04] MEDS: SODIUM CHLOR 0.9% 1000 ML INJ 1,000 ML IV SCH ×3 (04:00→15:56)
[2017-03-04 04:18] LABS: AUTOMATED NEUTROPHIL # 7.7 TH/MM3 (1.8-7.7); BASOPHIL % 0.3 % (0.0-2.0); EOSINOPHIL # 0.2 TH/MM3 (0-0.4); LYMPH % 27.3 % (9.0-44.0); LYMPHOCYTE # 4.1 TH/MM3 (1.0-4.8); MEAN CELL VOLUME 79.2 FL (80.0-100.0); MEAN CORPUSCULAR HEMOGLOBIN 27.4 PG (27.0-34.0); MEAN CORPUSCULAR HGB CONC 34.6 % (32.0-36.0); MONO % 19.7 % (0.0-8.0); NEUT % 51.7 % (16.0-70.0); PLATELET COUNT 248 TH/MM3 (150-450); RED CELL DISTRIBUTION WIDTH 40.5 % (11.6-17.2)
[2017-03-04 04:23] LABS: HEMO FLAGS AUTO DIFF
[2017-03-04 04:35] LABS: ALT (GPT) 28 U/L (12-78); ANION GAP 6 MEQ/L (5-15); AST (GOT) 41 U/L (15-37); BLOOD UREA NITROGEN 9 MG/DL (7-18); CHLORIDE 113 MEQ/L (98-107); GLOMERULAR FILTRATION RATE 74 ML/MIN (>89); POTASSIUM 4.3 MEQ/L (3.5-5.1); SODIUM (NA) 143 MEQ/L (136-145)
[2017-03-04 04:44] LABS: ALKALINE PHOSPHATASE 97 U/L (45-117); TOTAL BILIRUBIN ADULT 15.4 MG/DL (0.2-1.0)
[2017-03-04] MEDS: PIPERACIL-TAZO 3.375 GM PREMIX 50 ML IV SCH ×3 (05:28→15:56)
[2017-03-04 06:47] LABS: BANDS 2 % (0-6); CORRECTED NUCLEATED RBC 17 /100 WBC (0-0); EOSINOPHILS 1 % (0-4); KERATOCYTES 1+ (NORMAL); NEUTROPHIL # MANUAL DIFF 8.7 TH/MM3 (1.8-7.7); OVALOCYTES 1+ (NORMAL); POLYS (SEG NEUTROPHILS) 56 % (16-70); SICKLE CELLS 2+ (NORMAL); TARGET CELLS 1+ (NORMAL); WBC DIFF SAMPLE 100
[2017-03-04 06:48] LABS: HOWELL-JOLLY BODIES PRESENT (NONE SEEN); PLATELET ESTIMATE SMEAR NORMAL (NORMAL); PLATELET MORPHOLOGY NORMAL (NORMAL); POLYCHROMASIA 4.2 % (0.0-1.9); SCAN/DIFF FINAL DIFF MANUAL
[2017-03-04] MEDS: SODIUM CHLORIDE 0.9% FLUSH 10 ML FLUSH IV FLUSH SCH ×2 (07:19→21:00)
[2017-03-04] MEDS: NEBIVOLOL 5 MG TAB PO SCH (08:04)
[2017-03-04] MEDS: ASPIRIN 81 MG CHEW TAB CHEW SCH (08:04)
[2017-03-04] MEDS: PANTOPRAZOLE SODIUM 40 MG VIAL IV PUSH SCH (08:04)
[2017-03-04 12:06] LABS: INDIRECT BILIRUBIN 12.3 MG/DL (0.0-0.8)
--- NOTE | 2017-03-04 13:25 | PD.CONS ---
HPI History of Present Illness This is a 61 year old male with sickle cell anemia, HTN, DM who presented with epigastric pain, nausea. THe pain started 4 days ago and is worse after trying to eat and feels like when he takes aspirin, burning. Never had this pain before. Also admits a dark formed stool. Admits fever on Friday. He is now feeling better, had breakfast, has no abd pain or neausea. No hx ulcer, n/v, blood in stool, diarrhea, jaundice, liver trouble. Says his bilirubin is usually high. Takes daily baby aspirin. Denies NSAIDs. Last BM 3 d ago and was normal. Never had EGD. Had colonoscopy [address] [facility] and there were no abnormal findings. (Mimi Kumar) PFSH Past Medical History Hypertension Diabetes mellitus Coronary artery disease Sickle cell disease Degenerative joint disease Chronic knee pain GERD Past Surgical History Right knee arthroscopy Cholecystectomy Bilateral eye surgery Cardiac catheterization 2005. Repeat catheter in 2011 with mild 2 vessel coronary artery disease. (Mimi Kumar) Coded Allergies: cortisone (Verified Allergy, Severe, FLARES UP SICKLE CELL., 03/03/17) erythromycin base (Verified Allergy, Severe, ANAPHALACTIC SHOCK, 03/03/17) azithromycin (Verified Allergy, Intermediate, 03/03/17) Family History Mother with [place] at age 66. Father from prostate cancer Social History Nonsmoker, nondrinker, denies illicit drugs. (Mimi Kumar) Review of Systems Constitutional: DENIES: Fever Eyes: DENIES: Blurred vision Ears, nose, mouth, throat: DENIES: Hearing loss Respiratory: DENIES: Hemoptysis Cardiovascular: DENIES: Chest pain Gastrointestinal: DENIES: Abdominal pain, Black stools, Bloody stools, Constipation, Diarrhea, Nausea, Vomiting Genitourinary: DENIES: Hematuria Musculoskeletal: DENIES: Muscle aches Integumentary: DENIES: Abnormal pigmentation, Jaundice Neurologic: DENIES: Abnormal gait Psychiatric: DENIES: Confusion (Mimi Kumar) GI Exam Vitals I&O Vital Signs Date Time Temp Pulse Resp B/P (MAP) Pulse Ox O2 Delivery O2 Flow Rate FiO2 03/04/17 08:00 98.7 82 16 115/58 (77) 92 03/04/17 06:15 98.4 82 22 116/68 98 03/04/17 05:49 98.0 18 122/74 03/04/17 04:26 97.3 83 16 117/67 (84) 92 03/04/17 00:00 98.7 86 16 115/55 (75) 92 03/03/17 20:23 111 18 122/66 (84) 95 Room Air 03/03/17 18:00 16 03/03/17 14:44 98.7 118 20 146/67 (93) 94 I/O 03/03/17 03/03/17 03/03/17 03/04/17 03/04/17 03/04/17 07:00 15:00 23:00 07:00 15:00 23:00 Intake Total 1000 ml 1160 ml 400 ml Output Total 300 ml Balance 1000 ml 860 ml 400 ml Intake IV Total 1000 ml 1150 ml Packed Cells 400 ml Blood Product IV Normal Saline Flush 10 ml Output Urine Total 300 ml Imaging Last Impressions Abdomen/Pelvis CT 03/03/17 1702 Signed Impressions: Service Date/Time: Friday, March 03, 2017 20:01 - CONCLUSION: 1. Small atrophic spleen with dense calcification. 2. Status post cholecystectomy. 3. Unremarkable bowel gas pattern with no inflammatory change or obstruction. Beck Lockett MD Liver Ultrasound 03/03/17 0000 Signed Impressions: Service Date/Time: Friday, March 03, 2017 22:42 - CONCLUSION: Unremarkable sonographic appearance of the right upper quadrant Remberto Verdugo MD Laboratory Test 03/03/17 17:35 03/03/17 20:10 03/03/17 21:42 03/03/17 23:16 White Blood Count 20.9 TH/MM3 Red Blood Count 3.05 MIL/MM3 Hemoglobin 8.2 GM/DL 6.8 GM/DL Hematocrit 23.6 % Mean Corpuscular Volume 77.4 FL Mean Corpuscular Hemoglobin 26.9 PG Mean Corpuscular Hemoglobin Concent 34.8 % Red Cell Distribution Width 41.7 % Platelet Count 329 TH/MM3 Mean Platelet Volume 8.8 FL Neutrophils (%) (Auto) 57.3 % Lymphocytes (%) (Auto) 25.4 % Monocytes (%) (Auto) 15.8 % Eosinophils (%) (Auto) 0.8 % Basophils (%) (Auto) 0.7 % Neutrophils # (Auto) 12.0 TH/MM3 Lymphocytes # (Auto) 5.3 TH/MM3 Monocytes # (Auto) 3.3 TH/MM3 Eosinophils # (Auto) 0.2 TH/MM3 Basophils # (Auto) 0.1 TH/MM3 CBC Comment AUTO DIFF Differential Total Cells Counted 100 Neutrophils % (Manual) 57 % Band Neutrophils % 2 % Lymphocytes % 24 % Monocytes % 17 % Neutrophils # (Manual) 12.3 TH/MM3 Nucleated Red Blood Cells 8 /100 WBC Differential Comment FINAL DIFF MANUAL Platelet Estimate NORMAL Platelet Morphology Comment NORMAL Polychromasia 5.6 % Sickle Cells 3+ Target Cells 1+ Ovalocytes 1+ Keratocytes 1+ Prothrombin Time 12.4 SEC Prothromb Time International Ratio 1.1 RATIO Activated Partial Thromboplast Time 21.4 SEC Blood Urea Nitrogen 11 MG/DL Creatinine 1.46 MG/DL Random Glucose 103 MG/DL Total Protein 7.7 GM/DL Albumin 4.3 GM/DL Calcium Level 12.2 MG/DL Alkaline Phosphatase 114 U/L Aspartate Amino Transf (AST/SGOT) 83 U/L Alanine Aminotransferase (ALT/SGPT) 40 U/L Total Bilirubin 20.6 MG/DL Sodium Level 141 MEQ/L Potassium Level 5.0 MEQ/L Chloride Level 110 MEQ/L Carbon Dioxide Level 23.4 MEQ/L Anion Gap 8 MEQ/L Estimat Glomerular Filtration Rate 59 ML/MIN Protein Corrected Calcium 11.8 MG/DL Iron Level 102 MCG/DL Total Iron Binding Capacity 406 MCG/DL Percent Iron Saturation 25.1 % Ferritin 154 NG/ML Lipase 79 U/L Urine Color YELLOW Urine Turbidity CLEAR Urine pH 6.5 Urine Specific [place] 1.010 Urine Protein NEG mg/dL Urine Glucose (UA) NEG mg/dL Urine Ketones NEG mg/dL Urine Occult Blood NEG Urine Nitrite NEG Urine Bilirubin NEG Urine Urobilinogen GREATER THAN 12.0 MG/DL Urine Leukocyte Esterase TRACE Urine RBC LESS THAN 1 /hpf Urine WBC 3 /hpf Urine Bacteria OCC /hpf Urine Hyaline Casts 1 /lpf Microscopic Urinalysis Comment CULT NOT INDICATED Lactic Acid Level 1.2 mmol/L Test 03/04/17 03:19 White Blood Count 15.0 TH/MM3 Red Blood Count 2.40 MIL/MM3 Hemoglobin 6.6 GM/DL Hematocrit 19.0 % Mean Corpuscular Volume 79.2 FL Mean Corpuscular Hemoglobin 27.4 PG Mean Corpuscular Hemoglobin Concent 34.6 % Red Cell Distribution Width 40.5 % Platelet Count 248 TH/MM3 Mean Platelet Volume 8.9 FL Neutrophils (%) (Auto) 51.7 % Lymphocytes (%) (Auto) 27.3 % Monocytes (%) (Auto) 19.7 % Eosinophils (%) (Auto) 1.0 % Basophils (%) (Auto) 0.3 % Neutrophils # (Auto) 7.7 TH/MM3 Lymphocytes # (Auto) 4.1 TH/MM3 Monocytes # (Auto) 3.0 TH/MM3 Eosinophils # (Auto) 0.2 TH/MM3 Basophils # (Auto) 0.0 TH/MM3 CBC Comment AUTO DIFF Differential Total Cells Counted 100 Neutrophils % (Manual) 56 % Band Neutrophils % 2 % Lymphocytes % 19 % Monocytes % 22 % Eosinophils % 1 % Neutrophils # (Manual) 8.7 TH/MM3 Nucleated Red Blood Cells 17 /100 WBC Differential Comment FINAL DIFF MANUAL Platelet Estimate NORMAL Platelet Morphology Comment NORMAL Polychromasia 4.2 % Sickle Cells 2+ Target Cells 1+ Ovalocytes 1+ [place] Bodies PRESENT Keratocytes 1+ Blood Urea Nitrogen 9 MG/DL Creatinine 1.21 MG/DL Random Glucose 94 MG/DL Total Protein 6.4 GM/DL Albumin 3.5 GM/DL Calcium Level 10.9 MG/DL Alkaline Phosphatase 97 U/L Aspartate Amino Transf (AST/SGOT) 41 U/L Alanine Aminotransferase (ALT/SGPT) 28 U/L Total Bilirubin 15.4 MG/DL Direct Bilirubin 3.1 MG/DL Sodium Level 143 MEQ/L Potassium Level 4.3 MEQ/L Chloride Level 113 MEQ/L Carbon Dioxide Level 24.0 MEQ/L Anion Gap 6 MEQ/L Estimat Glomerular Filtration Rate 74 ML/MIN Indirect Bilirubin 12.3 MG/DL Date/Time Source Procedure Growth Status 03/03/17 21:40 Blood Peripheral Aerobic Blood Culture - Preliminary NO GROWTH IN 1 DAY Resulted 03/03/17 21:40 Blood Peripheral Anaerobic Blood Culture - Preliminary NO GROWTH IN 1 DAY Resulted Physical Examination HEENT: PERRL; normocephalic; atraumatic; no jaundice. CHEST: CTA CARDIAC: RRR ABDOMEN: Soft, protuberant, nontender; no hepatosplenomegaly; bowel sounds are present in all four quadrants. EXTREMITIES: No clubbing, cyanosis, or edema. SKIN: Normal; no rash; no jaundice. ICE GUARD INSPECTOR: No focal deficits; alert and oriented times three. (Mimi Kumar) Assessment and Plan Plan ASSESSMENT - post prandial epigastric pain, nausea - unclear etiology and has improved. CT abd atrophic spleen, s/p cholecystectomy, otherwise unremarkable - anemia - hgb 8.2 on admission with drop to 6.6, blood transfusion pending. could be multifactorial d/t dilution, hemolysis. admitted dark but not black and tarry stool. last colonoscopy 5 y ago and normal per pt. hematology consult pending. d/ w primary - elevated AST, bilirubin - 15.4 today, direct 3.1, indirect 12.3. US liver unremarkable. ?hemolysis denies ETOH hematology consult pending. - leukocytosis - 20 on admission and decreasing, on zosyn. PLAN - wait stool occult - monitor labs - STAR - await hematology consult - further recs to follow - supportive care This pt seen by myself and Dr Allison and this note is written on her behalf (Mimi Kumar) Physician Comments seen, examined agree with above if not better consider egd, mrcp (Debra Allison MD) Mimi Kumar Mar 04, 2017 13:25 Debra Allison MD Mar 05, 2017 07:21
--- NOTE | 2017-03-04 18:22 | EKG ---
Date Performed: 03/03/2017 Time Performed: 18:25:41 PTAGE: 61 years EKG: Sinus rhythm WITH FIRST DEGREE AV BLOCK LEFT BUNDLE BRANCH BLOCK ABNORMAL ECG Compared to prior tracing no signif icant change PREVIOUS TRACING : 12/26/2016 00.21 DOCTOR: Suzy Pcaheco Interpretating Date/Time 03/04/2017 18:20:08
[2017-03-04 21:50] LABS: RETIC % 16.3 % (0.4-3.0)
[2017-03-04 21:54] LABS: REVIEW FLAG FINAL
--- NOTE | 2017-03-04 22:17 | MB ---
cc: FABIAN ATKINS M.D. DATE OF CONSULTATION: 03/04/2017 REASON FOR CONSULTATION: Consult requested by hospitalist for evaluation of sickle-cell painful crisis. HISTORY OF PRESENT ILLNESS This is 61 year-old male. He has a history of sickle-cell / beta thalassemia. He came in complaining of abdominal pain mostly in the epigastric area associated with nausea and anorexia. He did not have any vomiting. He is admitted for sickle cell painful crisis. Sepsis was also suspected. I have been asked to see the patient for further evaluation. The patient states that his abdominal pain has improved and he is feeling better. He has been eating. He does not have anymore nausea. His hemoglobin had dropped from 8.2 to 6.6. His bilirubin is very high at 20.6 when he came in. He also has hypercalcemia. GI has been consulted. PAST MEDICAL HISTORY 1. Hypertension 2. Diabetes mellitus 3. Coronary artery disease. 4. Sickle-cell disease with beta thalassemia minor. 5. Arthritis 6. Chronic knee pain 7. Gastroesophageal reflux disease. PAST SURGICAL HISTORY 1. Right knee surgery 2. Cholecystectomy. 3. Eye surgery 4. Cardiac catheterization. ALLERGIES CORTISONE ERYTHROMYCIN, AZITHROMYCIN. MEDICATIONS Please see EMR FAMILY HISTORY Father from prostate cancer. Mother from [place]. SOCIAL HISTORY The patient does not smoke cigarettes, does not drink alcohol. PHYSICAL EXAMINATION: The patient is a well-developed, well-nourished Afro-Gabonese male in no apparent distress. Vital signs: Temperature 98.9, heart rate is 67, blood pressure is 114/69, O2 saturation is 94%. HEENT: PERRLA, EOMI. Sclerae is deeply icteric. Neck is supple. There is no lymphadenopathy noted. Lungs: Clear. No wheezing, rhonchi or rales. Heart: Regular rate and rhythm. Abdomen: Soft, nontender. Extremities: No pedal edema. Neurology: Awake, alert, oriented times three. Skin: No significant lesions are noted. ASSESSMENT Sickle-cell hemolytic painful crisis. PLAN I have reviewed his available records and I have discussed with the patient regarding his severe anemia and hyperbilirubinemia. His total bilirubin is very high at 20.6. His bilirubin came down today to 15 and the indirect bilirubin is high at 12.3, the direct bilirubin is 3.1. This is consistent with hemolysis. I agree with blood transfusion support. The patient states that his abdominal pain seems to have resolved and he does not have anymore nausea. He is able to eat better now. He also has leukocytosis with bandemia. This could be from infection. The patient is on the antibiotics. The CAT scan of the abdomen and pelvis shows small atrophic spleen with dense calcification, status post cholecystectomy. Unremarkable bowel gas pattern with no inflammatory changes or obstruction. The ultrasound of the liver is unremarkable. This seems like his sickle cell painful crisis is resolving with the current treatment. Recommend to monitor his CBC and support him with blood transfusion due to severe brisk hemolysis. I will add folic acid due to severe hemolysis. Further recommendations based on his hospital stay. Thank you for asking my opinion. MD REY Le/NEAL /9:14 PM /10:01 PM
--- NOTE | 2017-03-04 23:09 | HHI.PR ---
Subjective Remarks Patient laying in bed he looks icteric in his sclera Feeling tired and fatigued I discussed with him his history of sickle cell disease and beta thalassemia, most likely he has a hemolysis at this point not a GI bleed No abdominal pain, I discussed with GI INJURY/SAFETY HAZARD ASSESSMENT Objective Vitals Vital Signs Date Time Temp Pulse Resp B/P (MAP) Pulse Ox O2 Delivery O2 Flow Rate FiO2 03/04/17 21:41 20 03/04/17 18:30 102 03/04/17 17:46 98.9 67 20 114/69 (84) 94 03/04/17 12:00 98.3 78 18 105/56 (72) 92 03/04/17 08:00 98.7 82 16 115/58 (77) 92 03/04/17 06:15 98.4 82 22 116/68 98 03/04/17 05:49 98.0 18 122/74 03/04/17 04:26 97.3 83 16 117/67 (84) 92 03/04/17 00:00 98.7 86 16 115/55 (75) 92 I/O 03/04/17 03/04/17 03/04/17 03/05/17 03/05/17 03/05/17 07:00 15:00 23:00 07:00 15:00 23:00 Intake Total 1160 ml 400 ml 770 ml Output Total 300 ml Balance 860 ml 400 ml 770 ml Intake Oral 720 ml IV Total 1150 ml 50 ml Packed Cells 400 ml Blood Product IV Normal Saline Flush 10 ml Output Urine Total 300 ml Result Diagram: 03/04/17 2137 03/04/17 0319 Objective Remarks GENERAL: This is a well-nourished, well-developed patient, in no apparent distress. SKIN: No rashes, warm and dry HEAD: Atraumatic. Normocephalic. EYES: Pupils equal round and reactive. Extraocular motions intact. No scleral icterus. ENT: Nose without bleeding, or drainage, Airway patent. NECK: Trachea midline. Supple CARDIOVASCULAR: Regular rate and rhythm without murmurs, gallops, or rubs. RESPIRATORY: Fair air entry bilaterally. No wheezes, rales, or rhonchi. GASTROINTESTINAL: Abdomen soft, non-tender, nondistended. Positive bowel sounds MUSCULOSKELETAL: Extremities without clubbing, cyanosis, or edema. Pedal pulses appreciated NEUROLOGICAL: Awake and alert. Moves all extremity. Normal speech.no focal neurological deficit A/P Assessment and Plan Suspected sepsis. -Leukocytosis 20. Tachycardia with heart rate 111. Self-reported fevers at home. Epigastric discomfort, with elevated bilirubins. Suspected cholangitis. 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 -Check LDH, haptoglobin, reticulocyte count -Agree with antibiotic -Generous hydration with iv fluid -Pain management Hematology consultation Microcytic anemia. Mostly due to sickle and thalassemia -Iron studies reviewed by me. Hypercalcemia -Calcium over 12 on admission. Increased PTH, and increase 1, 25 hydroxy vitamin D -Expected improving with hydration CAD. Continue home aspirin, nebivolol. Diabetes mellitus. diabetic diet and insulin sliding scale. Omaira Oconnell MD Mar 04, 2017 23:09
[2017-03-05] VITALS (9 sets, daily range): BP systolic 92–117; BP diastolic 48–77; PULSE 63–110; RESP 15–16; TEMP 97.7–98.9; O2SAT 93–95
[2017-03-05] MEDS: PIPERACIL-TAZO 3.375 GM PREMIX 50 ML IV SCH ×5 (00:38→23:18)
[2017-03-05] MEDS: SODIUM CHLOR 0.9% 1000 ML INJ 1,000 ML IV SCH ×5 (00:39→23:25)
[2017-03-05] MEDS: PANTOPRAZOLE SODIUM 40 MG VIAL IV PUSH SCH ×3 (00:39→23:18)
[2017-03-05] MEDS: FOLIC ACID 1 MG TAB PO SCH ×2 (00:39→08:30)
[2017-03-05 06:29] LABS: AUTOMATED NEUTROPHIL # 8.6 TH/MM3 (1.8-7.7); BASOPHIL # 0.1 TH/MM3 (0-0.2); BASOPHIL % 0.4 % (0.0-2.0); EOSINOPHIL # 0.5 TH/MM3 (0-0.4); EOSINOPHIL % 2.9 % (0.0-4.0); LYMPH % 29.8 % (9.0-44.0); LYMPHOCYTE # 4.8 TH/MM3 (1.0-4.8); MEAN CELL VOLUME 81.4 FL (80.0-100.0); MEAN CORPUSCULAR HGB CONC 34.4 % (32.0-36.0); MONO % 13.9 % (0.0-8.0); PLATELET COUNT 247 TH/MM3 (150-450); RED BLOOD COUNT 2.57 MIL/MM3 (4.50-5.90); WHITE BLOOD COUNT 16.2 TH/MM3 (4.0-11.0)
[2017-03-05 06:43] LABS: HEMO FLAGS AUTO DIFF
[2017-03-05 07:00] LABS: ANION GAP 8 MEQ/L (5-15); AST (GOT) 31 U/L (15-37); BICARBONATE 22.2 MEQ/L (21.0-32.0); BLOOD UREA NITROGEN 7 MG/DL (7-18); CHLORIDE 111 MEQ/L (98-107); GLOMERULAR FILTRATION RATE 73 ML/MIN (>89); POTASSIUM 3.9 MEQ/L (3.5-5.1); SODIUM (NA) 141 MEQ/L (136-145)
[2017-03-05 07:01] LABS: ALT (GPT) 28 U/L (12-78)
[2017-03-05 07:07] LABS: ALKALINE PHOSPHATASE 86 U/L (45-117)
[2017-03-05 08:25] LABS: BANDS 1 % (0-6); CORRECTED NUCLEATED RBC 11 /100 WBC (0-0); EOSINOPHILS 1 % (0-4); NEUTROPHIL # MANUAL DIFF 9.4 TH/MM3 (1.8-7.7); PLATELET ESTIMATE SMEAR NORMAL (NORMAL); POLYS (SEG NEUTROPHILS) 57 % (16-70); WBC DIFF SAMPLE 100
--- NOTE | 2017-03-05 08:25 | HHI.PR ---
Subjective Remarks f/u; sickle cell painful crisis resting comfortably. in no acute distress. abdominal pain is better. no nausea or vomiting. afebrile. Objective Vitals Vital Signs Date Time Temp Pulse Resp B/P (MAP) Pulse Ox O2 Delivery O2 Flow Rate FiO2 03/05/17 04:10 16 03/05/17 04:01 71 03/05/17 04:00 98.9 70 16 92/48 (63) 93 03/05/17 00:34 98.6 78 16 93/52 (66) 93 03/05/17 00:03 110 03/04/17 20:08 74 03/04/17 20:00 98.1 72 16 114/69 (84) 92 03/04/17 18:30 102 03/04/17 17:46 98.9 67 20 114/69 (84) 94 03/04/17 12:00 98.3 78 18 105/56 (72) 92 I/O 03/04/17 03/04/17 03/04/17 03/05/17 03/05/17 03/05/17 07:00 15:00 23:00 07:00 15:00 23:00 Intake Total 1160 ml 400 ml 770 ml 4450 ml Output Total 300 ml 3200 ml Balance 860 ml 400 ml 770 ml 1250 ml Intake Oral 720 ml 4450 ml IV Total 1150 ml 50 ml Packed Cells 400 ml Blood Product IV Normal Saline Flush 10 ml Output Urine Total 300 ml 3200 ml # Voids 2 Result Diagram: 03/05/17 0511 03/05/17 0511 Imaging Last Impressions Abdomen/Pelvis CT 03/03/17 1702 Signed Impressions: Service Date/Time: Friday, March 03, 2017 20:01 - CONCLUSION: 1. Small atrophic spleen with dense calcification. 2. Status post cholecystectomy. 3. Unremarkable bowel gas pattern with no inflammatory change or obstruction. Beck Lockett MD Liver Ultrasound 03/03/17 0000 Signed Impressions: Service Date/Time: Friday, March 03, 2017 22:42 - CONCLUSION: Unremarkable sonographic appearance of the right upper quadrant Remberto Verdugo MD Objective Remarks GENERAL: This is a well-nourished, well-developed patient, in no apparent distress. CARDIOVASCULAR: Regular rate and regular rhythm without murmurs, gallops, or rubs. RESPIRATORY: Clear to auscultation. Breath sounds equal bilaterally. No wheezes , rales, or rhonchi. GASTROINTESTINAL: Abdomen soft, non-tender, nondistended. Normal, active bowel sounds MUSCULOSKELETAL: Extremities without clubbing, cyanosis, or edema. NEURO: Alert & Oriented x4 to person, place, time, situation. Moves all ext x4 Medications and IVs Current Medications Morphine Sulfate (Morphine Inj) 4 mg ONCE ONCE IV PUSH ; Start 03/03/17 at 17: 15; Stop 03/03/17 at 17:20; Status DC Sodium Chloride 1,000 ml @ 125 mls/hr Q8H IV Last administered on 03/03/17 18:00; Start 03/03/17 at 17:02; Stop 03/03/17 at 21:21; Status DC Sodium Chloride (NS Flush) 2 ml UNSCH PRN IV FLUSH FLUSH AFTER USING IV ACCESS ; Start 03/03/17 at 17:15; Stop 03/03/17 at 21:15; Status DC Al Hydrox/Mg Hydrox/Simethicone (Mag-Al Plus Susp Liq) 30 ml ONCE ONCE PO Last administered on 03/03/17 18:00; Start 03/03/17 at 17:15; Stop 03/03/17 at 17:20; Status DC Lidocaine HCl (Xylocaine 2% Viscous) 15 ml ONCE ONCE PO Last administered on 03/03/17 18:00; Start 03/03/17 at 17:15; Stop 03/03/17 at 17:20; Status DC Sodium Chloride 1,000 ml @ 999 mls/hr BOLUS ONCE IV Last administered on 18:57; Start 03/03/17 at 18:45; Stop 03/03/17 at 19:45; Status DC Hydromorphone HCl (Dilaudid Pf Inj) 0.5 mg ONCE ONCE IV PUSH Last administered on 03/03/17 20:24; Start 03/03/17 at 19:15; Stop 03/03/17 at 19 :16; Status DC Iohexol (Omnipaque 350 Inj) 81 ml STK-MED ONCE IVCONTRAST Last administered on 03/03/17 20:25; Start 03/03/17 at 20:25; Stop 03/03/17 at 20:26; Status DC Sodium Chloride 1,000 ml @ 150 mls/hr Q6H40M IV Last administered on 04:10; Start 03/03/17 at 21:11 Sodium Chloride (NS Flush) 2 ml UNSCH PRN IV FLUSH FLUSH AFTER USING IV ACCESS ; Start 03/03/17 at 21:15 Sodium Chloride (NS Flush) 2 ml BID IV FLUSH ; Start 03/04/17 at 09:00 Ondansetron HCl (Zofran Inj) 4 mg Q6H PRN IVP NAUSEA OR VOMITING; Start at 21:15 Naloxone HCl (Narcan Inj) 0.4 mg UNSCH PRN IV PUSH SEE LABEL COMMENTS; Start 03/03/17 at 21:15; Stop 03/03/17 at 21:26; Status DC Magnesium Hydroxide (Milk Of Magnesia Liq) 30 ml Q12H PRN PO Mild constipation ; Start 03/03/17 at 21:15 Sennosides (Senokot) 17.2 mg Q12H PRN PO Moderate constipation; Start at 21:15 Bisacodyl (Dulcolax Supp) 10 mg DAILY PRN RECTAL SEVERE CONSITIPATION; Start 03/03/17 at 21:15 Lactulose (Lactulose Liq) 30 ml DAILY PRN PO SEVERE CONSITIPATION; Start 03/03 at 21:15 Oxycodone HCl (Roxicodone) 10 mg Q4H PRN PO PAIN SCALE 6 TO 10 Last administered on 03/05/17 03:32; Start 03/03/17 at 21:15 Morphine Sulfate (Morphine Inj) 4 mg Q1H PRN IV PUSH PAIN SCALE 7-10 ( INTRACTABLE); Start 03/03/17 at 21:15 Oxycodone HCl (Roxicodone) 5 mg Q4H PRN PO PAIN SCALE 3 TO 5 Last administered on 03/04/17 06:03; Start 03/03/17 at 21:15 Naloxone HCl (Narcan Inj) 0.4 mg UNSCH PRN IV PUSH SEE LABEL COMMENTS; Start 03/03/17 at 21:15 Piperacillin Sod/ Tazobactam Sod 50 ml @ 100 mls/hr Q6H IV Last administered on 03/05/17 03:32; Start 03/03/17 at 22:00 Aspirin (Aspirin Chew) 81 mg DAILY CHEW Last administered on 03/04/17 08:04; Start 03/04/17 at 09:00 Nebivolol (Bystolic) 5 mg DAILY PO Last administered on 03/04/17 08:04; Start 03/04/17 at 09:00 Pantoprazole Sodium (Protonix Inj) 40 mg Q12H IV PUSH Last administered on 03/05 00:39; Start 03/03/17 at 22:15 Sodium Chloride 250 ml @ 15 mls/hr ONCE ONCE IV ; Start 03/04/17 at 01:00; Stop 03/04/17 at 17:39; Status DC Folic Acid (Folate) 1 mg DAILY PO Last administered on 03/05/17 00:39; Start 03/04/17 at 21:30 A/P Assessment and Plan A/P Suspected sepsis. -Leukocytosis 20. Tachycardia with heart rate 111. Self-reported fevers at home. -continue antibiotics. -will follow the cultures and deescalate the antibiotic regimen when cultures finalized. sickle cell painful crisis -continue IV fluid and folic acid -received PRBC- will continue to monitor H/H -hematology consult appreciated. Epigastric abdominal pain - improved -CT abdomen with no acute findings. -Pain management -GI consult appreciated. Hypercalcemia- improving -Calcium over 12 on admission. Increased PTH, and increase 1, 25 hydroxy vitamin D -Expected improving with hydration CAD. Continue home aspirin, nebivolol. Diabetes mellitus. diabetic diet and insulin sliding scale. Get Parada MD Mar 05, 2017 08:25
[2017-03-05 08:26] LABS: HOWELL-JOLLY BODIES PRESENT (NONE SEEN); PLATELET MORPHOLOGY NORMAL (NORMAL); SCAN/DIFF FINAL DIFF MANUAL; SICKLE CELLS 2+ (NORMAL)
[2017-03-05 08:28] LABS: TARGET CELLS 1+ (NORMAL)
[2017-03-05] MEDS: ASPIRIN 81 MG CHEW TAB CHEW SCH (08:29)
[2017-03-05] MEDS: NEBIVOLOL 5 MG TAB PO SCH (08:29)
[2017-03-05] MEDS: SODIUM CHLORIDE 0.9% FLUSH 10 ML FLUSH IV FLUSH SCH ×2 (08:30→19:47)
[2017-03-05] MEDS ORDERED: GLUCAGON 1 MG/ML VIAL OTHER PRN (08:30)
[2017-03-05] MEDS ORDERED: DEXTROSE 50% IN WATER 50 ML VIAL(D50) IV PUSH PRN (08:30)
--- NOTE | 2017-03-05 09:06 | HHI.GIFU ---
Subjective Remarks Resting in bed. No complaints. Denies any nausea, vomiting. States he is eating fine. No abdominal pain. (Bonnie Cantu) Objective Vitals I&O Vital Signs Date Time Temp Pulse Resp B/P (MAP) Pulse Ox O2 Delivery O2 Flow Rate FiO2 03/05/17 08:25 97.7 102 16 117/77 (90) 94 03/05/17 04:10 16 03/05/17 04:01 71 03/05/17 04:00 98.9 70 16 92/48 (63) 93 03/05/17 00:34 98.6 78 16 93/52 (66) 93 03/05/17 00:03 110 03/04/17 20:08 74 03/04/17 20:00 98.1 72 16 114/69 (84) 92 03/04/17 18:30 102 03/04/17 17:46 98.9 67 20 114/69 (84) 94 03/04/17 12:00 98.3 78 18 105/56 (72) 92 I/O 03/04/17 03/04/17 03/04/17 03/05/17 03/05/17 03/05/17 07:00 15:00 23:00 07:00 15:00 23:00 Intake Total 1160 ml 400 ml 770 ml 4450 ml Output Total 300 ml 3200 ml Balance 860 ml 400 ml 770 ml 1250 ml Intake Oral 720 ml 4450 ml IV Total 1150 ml 50 ml Packed Cells 400 ml Blood Product IV Normal Saline Flush 10 ml Output Urine Total 300 ml 3200 ml # Voids 2 Laboratory Laboratory Tests Test 03/04/17 21:37 03/05/17 05:11 Hemoglobin 7.7 7.2 Erythrocyte Sedimentation Rate 7 Reticulocyte Count 16.3 Absolute Reticulocyte Count 459.1 Haptoglobin LESS THAN 10 Magnesium Level 1.6 Lactate Dehydrogenase 365 C-Reactive Protein 1.60 White Blood Count 16.2 Red Blood Count 2.57 Hematocrit 21.0 Mean Corpuscular Volume 81.4 Mean Corpuscular Hemoglobin 28.0 Mean Corpuscular Hemoglobin Concent 34.4 Red Cell Distribution Width 38.0 Platelet Count 247 Mean Platelet Volume 8.7 Neutrophils (%) (Auto) 53.0 Lymphocytes (%) (Auto) 29.8 Monocytes (%) (Auto) 13.9 Eosinophils (%) (Auto) 2.9 Basophils (%) (Auto) 0.4 Neutrophils # (Auto) 8.6 Lymphocytes # (Auto) 4.8 Monocytes # (Auto) 2.2 Eosinophils # (Auto) 0.5 Basophils # (Auto) 0.1 CBC Comment AUTO DIFF Differential Total Cells Counted 100 Neutrophils % (Manual) 57 Band Neutrophils % 1 Lymphocytes % 27 Monocytes % 14 Eosinophils % 1 Neutrophils # (Manual) 9.4 Nucleated Red Blood Cells 11 Differential Comment FINAL DIFF MANUAL Platelet Estimate NORMAL Platelet Morphology Comment NORMAL Polychromasia 4.0 Sickle Cells 2+ Target Cells 1+ [place] Bodies PRESENT Red Cell Morphology Comment Blood Urea Nitrogen 7 Creatinine 1.22 Random Glucose 94 Total Protein 6.0 Albumin 3.3 Calcium Level 10.7 Alkaline Phosphatase 86 Aspartate Amino Transf (AST/SGOT) 31 Alanine Aminotransferase (ALT/SGPT) 28 Total Bilirubin 10.0 Sodium Level 141 Potassium Level 3.9 Chloride Level 111 Carbon Dioxide Level 22.2 Anion Gap 8 Estimat Glomerular Filtration Rate 73 Date/Time Source Procedure Growth Status 03/03/17 21:40 Blood Peripheral Aerobic Blood Culture - Preliminary NO GROWTH IN 1 DAY Resulted 03/03/17 21:40 Blood Peripheral Anaerobic Blood Culture - Preliminary NO GROWTH IN 1 DAY Resulted Imaging Last Impressions Abdomen/Pelvis CT 03/03/17 1702 Signed Impressions: Service Date/Time: Friday, March 03, 2017 20:01 - CONCLUSION: 1. Small atrophic spleen with dense calcification. 2. Status post cholecystectomy. 3. Unremarkable bowel gas pattern with no inflammatory change or obstruction. Beck Lockett MD Liver Ultrasound 03/03/17 0000 Signed Impressions: Service Date/Time: Friday, March 03, 2017 22:42 - CONCLUSION: Unremarkable sonographic appearance of the right upper quadrant Remberto Verdugo MD Physical Exam HEENT: Normocephalic; atraumatic; no jaundice. CHEST: CTA CARDIAC: RRR ABDOMEN: Soft, nondistended, nontender; no hepatosplenomegaly; bowel sounds are present in all four quadrants. EXTREMITIES: No clubbing, cyanosis, or edema. SKIN: Normal; no rash; no jaundice. CHEMICAL ECONOMIST: No focal deficits; alert and oriented times three. (Bonnie Cantu) Assessment and Plan Plan ASSESSMENT - Post prandial epigastric pain, nausea, unclear etiology and has improved. Liver US (03/03/17)---> Unremarkable sonographic appearance of the right upper quadrant. CT Scan abdomen and pelvis (03/03/17)----> Small atrophic spleen with dense calcification. S/P cholecystectomy. Unremarkable bowel gas pattern with no inflammatory change or obstruction. Pt is not currently having any abdominal pain or nausea. He is tolerating his diet. Consider EGD vs. MRCP if symptoms return. - Sickle Cell Anemia. S/P 1 unit PRBC. Last colonoscopy 5 y ago and normal per pt. - Elevated LFTs. Pt with elevated bilirubin, T> Bili 10.0, AST 31, 28, Alk Phosph 86. - Leukocytosis. BCx no growth 1 day. Afebrile. Zosyn. PLAN - STAR - PPI - On Zosyn - Monitor labs - If further n/v, abdominal pain, consider MRCP vs. EGD - Supportive care - This pt seen by myself and Dr Allison and this note is written on her behalf (Bonnie Cantu) Physician Comments seen, examined agree with above if pain worse consider EGD,MRCP lfts improving , most likely hemolysis (Debra Allison MD) Bonnie Cantu Mar 05, 2017 09:06 Debra Allison MD Mar 05, 2017 17:43
--- NOTE | 2017-03-05 09:18 | RADRPT ---
EXAM DATE/TIME: 03/05/2017 08:47 [facility] COMPARISON: CHEST SINGLE AP, December 26, 2016, 0:34. INDICATIONS : Fever. MEDICAL HISTORY : Hypertension. Gastroesophageal reflux disease. Sickle cell. Arthritis. D iabetes. SURGICAL HISTORY : Tonsillectomy. Cholecystectomy. Right knee surgery. ENCOUNTER: Initial ACUITY: 1 day PAIN SCORE: 0/10 LOCATION: Bilateral chest FINDINGS: The lungs are clear. The heart is minimally enlarged. The pulmonary vascularity is normal. There is n o evidence for infiltrate or failure. The portion of the bony skeleton visualized is unremarkable. CONCLUSION: Compensated cardiomegaly otherwise negative Board Certified Radiologist. This report was verified electronically.
[2017-03-05] MEDS: INSULIN ASPART SUPPLEMENTAL SCALE SQ SCH ×3 (11:28→21:00)
--- NOTE | 2017-03-05 13:41 | PD.ONC.PN ---
Subjective Subjective Remarks Afebrile Patient reports he has pain only in his hips and knees Overall pain much improved Asking when he can go home Objective Data Date Time Temp Pulse Resp B/P (MAP) Pulse Ox O2 Delivery O2 Flow Rate FiO2 03/05/17 11:12 98.5 76 16 110/69 (83) 94 03/05/17 08:25 97.7 102 16 117/77 (90) 94 03/05/17 04:10 16 03/05/17 04:01 71 03/05/17 04:00 98.9 70 16 92/48 (63) 93 03/05/17 00:34 98.6 78 16 93/52 (66) 93 03/05/17 00:03 110 03/04/17 20:08 74 03/04/17 20:00 98.1 72 16 114/69 (84) 92 03/04/17 18:30 102 03/04/17 17:46 98.9 67 20 114/69 (84) 94 03/05/17 03/05/17 03/05/17 07:00 15:00 23:00 Intake Total 4450 ml Output Total 3200 ml Balance 1250 ml Result Diagram: 03/05/17 0511 03/05/17 0511 Laboratory Results Laboratory Tests Test 03/04/17 21:37 03/05/17 05:11 Hemoglobin 7.7 GM/DL 7.2 GM/DL Erythrocyte Sedimentation Rate 7 mm/hr Reticulocyte Count 16.3 % Absolute Reticulocyte Count 459.1 MIL/L Haptoglobin LESS THAN 10 MG/DL Magnesium Level 1.6 MG/DL Lactate Dehydrogenase 365 U/L C-Reactive Protein 1.60 MG/DL White Blood Count 16.2 TH/MM3 Red Blood Count 2.57 MIL/MM3 Hematocrit 21.0 % Mean Corpuscular Volume 81.4 FL Mean Corpuscular Hemoglobin 28.0 PG Mean Corpuscular Hemoglobin Concent 34.4 % Red Cell Distribution Width 38.0 % Platelet Count 247 TH/MM3 Mean Platelet Volume 8.7 FL Neutrophils (%) (Auto) 53.0 % Lymphocytes (%) (Auto) 29.8 % Monocytes (%) (Auto) 13.9 % Eosinophils (%) (Auto) 2.9 % Basophils (%) (Auto) 0.4 % Neutrophils # (Auto) 8.6 TH/MM3 Lymphocytes # (Auto) 4.8 TH/MM3 Monocytes # (Auto) 2.2 TH/MM3 Eosinophils # (Auto) 0.5 TH/MM3 Basophils # (Auto) 0.1 TH/MM3 CBC Comment AUTO DIFF Differential Total Cells Counted 100 Neutrophils % (Manual) 57 % Band Neutrophils % 1 % Lymphocytes % 27 % Monocytes % 14 % Eosinophils % 1 % Neutrophils # (Manual) 9.4 TH/MM3 Nucleated Red Blood Cells 11 /100 WBC Differential Comment FINAL DIFF MANUAL Platelet Estimate NORMAL Platelet Morphology Comment NORMAL Polychromasia 4.0 % Sickle Cells 2+ Target Cells 1+ [place] Bodies PRESENT Red Cell Morphology Comment Blood Urea Nitrogen 7 MG/DL Creatinine 1.22 MG/DL Random Glucose 94 MG/DL Total Protein 6.0 GM/DL Albumin 3.3 GM/DL Calcium Level 10.7 MG/DL Alkaline Phosphatase 86 U/L Aspartate Amino Transf (AST/SGOT) 31 U/L Alanine Aminotransferase (ALT/SGPT) 28 U/L Total Bilirubin 10.0 MG/DL Sodium Level 141 MEQ/L Potassium Level 3.9 MEQ/L Chloride Level 111 MEQ/L Carbon Dioxide Level 22.2 MEQ/L Anion Gap 8 MEQ/L Estimat Glomerular Filtration Rate 73 ML/MIN Culture Results Microbiology Date/Time Source Procedure Growth Status 03/03/17 21:40 Blood Peripheral Aerobic Blood Culture - Preliminary NO GROWTH IN 2 DAYS Resulted 03/03/17 21:40 Blood Peripheral Anaerobic Blood Culture - Preliminary NO GROWTH IN 2 DAYS Resulted 03/03/17 21:30 Blood Peripheral Aerobic Blood Culture - Preliminary NO GROWTH IN 2 DAYS Resulted 03/03/17 21:30 Blood Peripheral Anaerobic Blood Culture - Preliminary NO GROWTH IN 2 DAYS Resulted Imaging Studies Last 24 hours Impressions Chest X-Ray 03/05/17 0000 Signed Impressions: Service Date/Time: Sunday, March 05, 2017 08:47 - CONCLUSION: Compensated cardiomegaly otherwise negative Board Certified Radiologist. This report was verified electronically. MD Administered Medications Medications (Trade) Dose Ordered Sig/Parrish Route PRN Reason Start Time Stop Time Status Last Admin Dose Admin Sodium Chloride 1,000 ml @ 150 mls/hr Q6H40M IV 03/03/17 21:11 03/05/17 11:24 Oxycodone HCl (Roxicodone) 10 mg Q4H PRN PO PAIN SCALE 6 TO 10 03/03/17 21:15 03/05/17 11:24 Oxycodone HCl (Roxicodone) 5 mg Q4H PRN PO PAIN SCALE 3 TO 5 03/03/17 21:15 03/04/17 06:03 Piperacillin Sod/ Tazobactam Sod 50 ml @ 100 mls/hr Q6H IV 03/03/17 22:00 03/05/17 11:13 Aspirin (Aspirin Chew) 81 mg DAILY CHEW 03/04/17 09:00 03/05/17 08:29 Nebivolol (Bystolic) 5 mg DAILY PO 03/04/17 09:00 03/05/17 08:29 Pantoprazole Sodium (Protonix Inj) 40 mg Q12H IV PUSH 03/03/17 22:15 03/05/17 11:13 Folic Acid (Folate) 1 mg DAILY PO 03/04/17 21:30 03/05/17 08:30 Insulin Aspart (NovoLOG SUPPLEMENTAL SCALE) 1 ACHS SLIDING SCALE SQ 03/05/17 12:00 03/05/17 11:28 Objective Remarks GENERAL: Older male, sitting up in chair at bedside in no acute distress SKIN: Warm and dry. HEAD: Normocephalic. EYES: No scleral icterus. No injection or drainage. NECK: Supple, trachea midline. No JVD or lymphadenopathy. CARDIOVASCULAR: Regular rate and rhythm without murmurs. RESPIRATORY: Breath sounds equal bilaterally. No accessory muscle use. GASTROINTESTINAL: Abdomen soft, non-tender, nondistended. EXTREMITIES: No cyanosis, or edema. MUSCULOSKELETAL: Adequate muscle tone. NEUROLOGICAL: No obvious focal deficit. Awake, alert, and oriented x3. Assessment/Plan Problem List: (1) Sickle cell pain crisis ICD Codes: D57.00 - Hb-SS disease with crisis, unspecified Status: Acute Plan: 03/05/17: Continue IVF. Noted that total bilirubin remains elevated but overall much improved. Hypercalcemia, kidney function slowly improving. Pt likely can be discharged tomorrow with followup in clinic. -- CT scan abdomen and pelvis shows small atrophic spleen with calcification, status post cholecystectomy. Hx/Workup: Patient has history of sickle cell/beta thalassemia. Sepsis was also suspected. On admission he was having epigastric associated with nausea, sacral pain as well as bilateral hip and knee pain. He had high indirect bilirubin consistent with hemolysis Assessment 61-year-old male with history of sickle cell/thalassemia admitted for painful crises Attending Statement No more abdominal pain Still has hip and knee pain Hemoglobin improved after transfusion Patient wants to go home Clear for discharge tomorrow if Remains stable. The exam, history, and the medical decision-making described in the above note were completed with the assistance of the mid-level provider. I reviewed and agree with the findings presented. I attest that I had a [id number] encounter with the patient on the same day, and personally performed and documented my assessment and findings in the medical record. Raya Deluna Mar 05, 2017 13:41 Trena Rowell MD Mar 05, 2017 23:25
[2017-03-06 00:23] VITALS: PULSE 61
[2017-03-06 04:30] VITALS: PULSE 66
[2017-03-06] MEDS: PIPERACIL-TAZO 3.375 GM PREMIX 50 ML IV SCH ×2 (04:44→10:54)
[2017-03-06 04:46] VITALS: BP 104/55; PULSE 68; RESP 16; TEMP 98.6; O2SAT 93
[2017-03-06 05:58] LABS: AUTOMATED NEUTROPHIL # 8.8 TH/MM3 (1.8-7.7); BASOPHIL # 0.1 TH/MM3 (0-0.2); BASOPHIL % 0.4 % (0.0-2.0); EOSINOPHIL # 0.6 TH/MM3 (0-0.4); EOSINOPHIL % 3.6 % (0.0-4.0); LYMPH % 27.6 % (9.0-44.0); LYMPHOCYTE # 4.4 TH/MM3 (1.0-4.8); MEAN CELL VOLUME 82.5 FL (80.0-100.0); MEAN CORPUSCULAR HEMOGLOBIN 28.3 PG (27.0-34.0); MEAN CORPUSCULAR HGB CONC 34.3 % (32.0-36.0); MONO % 13.2 % (0.0-8.0); NEUT % 55.2 % (16.0-70.0); PLATELET COUNT 243 TH/MM3 (150-450); RED BLOOD COUNT 2.52 MIL/MM3 (4.50-5.90); RED CELL DISTRIBUTION WIDTH 37.6 % (11.6-17.2); WHITE BLOOD COUNT 15.9 TH/MM3 (4.0-11.0)
[2017-03-06 06:15] LABS: HEMO FLAGS AUTO DIFF
[2017-03-06 06:17] LABS: HEMATOCRIT 20.8 % (39.0-51.0)
[2017-03-06 06:22] LABS: BICARBONATE 24.1 MEQ/L (21.0-32.0); POTASSIUM 3.9 MEQ/L (3.5-5.1)
[2017-03-06] MEDS: INSULIN ASPART SUPPLEMENTAL SCALE SQ SCH ×2 (08:00→12:15)
[2017-03-06 08:23] VITALS: BP 109/56; PULSE 66; RESP 14; TEMP 98.2; O2SAT 93
[2017-03-06 08:37] LABS: BANDS 4 % (0-6); BASOPHILS 1 % (0-2); CORRECTED NUCLEATED RBC 7 /100 WBC (0-0); EOSINOPHILS 2 % (0-4); NEUTROPHIL # MANUAL DIFF 7.5 TH/MM3 (1.8-7.7); POLYS (SEG NEUTROPHILS) 43 % (16-70); WBC DIFF SAMPLE 100
[2017-03-06 08:38] LABS: POLYCHROMASIA 3.7 % (0.0-1.9)
[2017-03-06 08:39] LABS: SICKLE CELLS 2+ (NORMAL); TARGET CELLS 1+ (NORMAL)
[2017-03-06 08:40] LABS: HOWELL-JOLLY BODIES PRESENT (NONE SEEN); PLATELET ESTIMATE SMEAR NORMAL (NORMAL); PLATELET MORPHOLOGY NORMAL (NORMAL); SCAN/DIFF FINAL DIFF MANUAL
[2017-03-06 09:08] LABS: INDIRECT BILIRUBIN 7.3 MG/DL (0.0-0.8); TOTAL BILIRUBIN ADULT 8.7 MG/DL (0.2-1.0)
[2017-03-06] MEDS: PANTOPRAZOLE SODIUM 40 MG VIAL IV PUSH SCH (09:21)
[2017-03-06] MEDS: FOLIC ACID 1 MG TAB PO SCH (09:21)
[2017-03-06] MEDS: ASPIRIN 81 MG CHEW TAB CHEW SCH (09:22)
[2017-03-06] MEDS: NEBIVOLOL 5 MG TAB PO SCH (09:22)
[2017-03-06] MEDS: SODIUM CHLORIDE 0.9% FLUSH 10 ML FLUSH IV FLUSH SCH (09:23)
[2017-03-06] MEDS: SODIUM CHLOR 0.9% 1000 ML INJ 1,000 ML IV SCH (12:01)
[2017-03-06 12:06] VITALS: BP 96/60; PULSE 68; RESP 16; TEMP 98.5; O2SAT 93
--- NOTE | 2017-03-06 12:43 | PD.ONC.PN ---
Subjective Subjective Remarks Afebrile overnight. Patient resting in chair next to bed with two sisters at bedside. States still has some mild pain in hips and left leg. Objective Data Date Time Temp Pulse Resp B/P (MAP) Pulse Ox O2 Delivery O2 Flow Rate FiO2 03/06/17 08:23 98.2 66 14 109/56 (73) 93 03/06/17 04:46 98.6 68 16 104/55 (71) 93 03/06/17 04:30 66 03/06/17 00:23 61 03/05/17 23:27 98.3 65 15 112/63 (79) 94 03/05/17 20:46 18 03/05/17 20:15 71 03/05/17 19:48 98.6 63 15 107/63 (78) 95 03/06/17 03/06/17 03/06/17 07:00 15:00 23:00 Output Total 300 ml 250 ml Balance -300 ml -250 ml Result Diagram: 03/06/17 0434 03/06/17 0434 Laboratory Results Laboratory Tests Test 03/06/17 04:34 White Blood Count 15.9 TH/MM3 Red Blood Count 2.52 MIL/MM3 Hemoglobin 7.1 GM/DL Hematocrit 20.8 % Mean Corpuscular Volume 82.5 FL Mean Corpuscular Hemoglobin 28.3 PG Mean Corpuscular Hemoglobin Concent 34.3 % Red Cell Distribution Width 37.6 % Platelet Count 243 TH/MM3 Mean Platelet Volume 8.8 FL Neutrophils (%) (Auto) 55.2 % Lymphocytes (%) (Auto) 27.6 % Monocytes (%) (Auto) 13.2 % Eosinophils (%) (Auto) 3.6 % Basophils (%) (Auto) 0.4 % Neutrophils # (Auto) 8.8 TH/MM3 Lymphocytes # (Auto) 4.4 TH/MM3 Monocytes # (Auto) 2.1 TH/MM3 Eosinophils # (Auto) 0.6 TH/MM3 Basophils # (Auto) 0.1 TH/MM3 CBC Comment AUTO DIFF Differential Total Cells Counted 100 Neutrophils % (Manual) 43 % Band Neutrophils % 4 % Lymphocytes % 41 % Monocytes % 9 % Eosinophils % 2 % Basophils % 1 % Neutrophils # (Manual) 7.5 TH/MM3 Nucleated Red Blood Cells 7 /100 WBC Differential Comment FINAL DIFF MANUAL Platelet Estimate NORMAL Platelet Morphology Comment NORMAL Polychromasia 3.7 % Sickle Cells 2+ Target Cells 1+ Rhoades-Kenmar Bodies PRESENT Blood Urea Nitrogen 7 MG/DL Creatinine 1.17 MG/DL Random Glucose 110 MG/DL Calcium Level 10.8 MG/DL Sodium Level 144 MEQ/L Potassium Level 3.9 MEQ/L Chloride Level 111 MEQ/L Carbon Dioxide Level 24.1 MEQ/L Anion Gap 9 MEQ/L Estimat Glomerular Filtration Rate 77 ML/MIN Total Bilirubin 8.7 MG/DL Direct Bilirubin 1.4 MG/DL Indirect Bilirubin 7.3 MG/DL Culture Results Microbiology Date/Time Source Procedure Growth Status 03/03/17 21:40 Blood Peripheral Aerobic Blood Culture - Preliminary NO GROWTH IN 3 DAYS Resulted 03/03/17 21:40 Blood Peripheral Anaerobic Blood Culture - Preliminary NO GROWTH IN 3 DAYS Resulted 03/03/17 21:30 Blood Peripheral Aerobic Blood Culture - Preliminary NO GROWTH IN 3 DAYS Resulted 03/03/17 21:30 Blood Peripheral Anaerobic Blood Culture - Preliminary NO GROWTH IN 3 DAYS Resulted Administered Medications Medications (Trade) Dose Ordered Sig/Parrish Route PRN Reason Start Time Stop Time Status Last Admin Dose Admin Sodium Chloride 1,000 ml @ 150 mls/hr Q6H40M IV 03/03/17 21:11 03/06/17 12:01 Sodium Chloride (NS Flush) 2 ml BID IV FLUSH 03/04/17 09:00 03/06/17 09:23 Oxycodone HCl (Roxicodone) 10 mg Q4H PRN PO PAIN SCALE 6 TO 10 03/03/17 21:15 03/05/17 19:46 Oxycodone HCl (Roxicodone) 5 mg Q4H PRN PO PAIN SCALE 3 TO 5 03/03/17 21:15 03/06/17 08:28 Piperacillin Sod/ Tazobactam Sod 50 ml @ 100 mls/hr Q6H IV 03/03/17 22:00 03/06/17 10:54 Aspirin (Aspirin Chew) 81 mg DAILY CHEW 03/04/17 09:00 03/06/17 09:22 Nebivolol (Bystolic) 5 mg DAILY PO 03/04/17 09:00 03/06/17 09:22 Pantoprazole Sodium (Protonix Inj) 40 mg Q12H IV PUSH 03/03/17 22:15 03/06/17 09:21 Folic Acid (Folate) 1 mg DAILY PO 03/04/17 21:30 03/06/17 09:21 Insulin Aspart (NovoLOG SUPPLEMENTAL SCALE) 1 ACHS SLIDING SCALE SQ 03/05/17 12:00 03/06/17 12:15 Objective Remarks GENERAL: Middle aged male upright in chair next to bed in nad. SKIN: Warm and dry. HEAD: Normocephalic. EYES: No injection or drainage. NECK: Supple, trachea midline. CARDIOVASCULAR: Regular rate and rhythm RESPIRATORY: Breath sounds equal bilaterally. No accessory muscle use. GASTROINTESTINAL: Abdomen soft, non-tender, nondistended. EXTREMITIES: No cyanosis MUSCULOSKELETAL: Adequate muscle tone. NEUROLOGICAL: awake and alert, normal speech. Assessment/Plan Problem List: (1) Sickle cell pain crisis ICD Codes: D57.00 - Hb-SS disease with crisis, unspecified Status: Acute Plan: 03/06/17: patient feeling improved. clear for discharge from hematology perspective. fs faxed to new patient referrals for follow up in 2 weeks. -- CT scan abdomen and pelvis shows small atrophic spleen with calcification, status post cholecystectomy. Hx/Workup: Patient has history of sickle cell/beta thalassemia. Sepsis was also suspected. On admission he was having epigastric associated with nausea, sacral pain as well as bilateral hip and knee pain. He had high indirect bilirubin consistent with hemolysis Assessment 61y/o male admitted with sickle-cell painful crisis. history of sickle-cell / beta thalassemia. h/o Hypertension. Diabetes mellitus. Coronary artery disease. Sickle-cell disease with beta thalassemia minor. Arthritis. Chronic knee pain. Gastroesophageal reflux disease Attending Statement Patient feels better Pain has subsided remarkably Wants to go home Patient is clear to Discharge Home Follow in the office in two weeks The exam, history, and the medical decision-making described in the above note were completed with the assistance of the mid-level provider. I reviewed and agree with the findings presented. I attest that I had a [id number] encounter with the patient on the same day, and personally performed and documented my assessment and findings in the medical record. Denisse Stephens Mar 06, 2017 12:43 Trena Rowell MD Mar 06, 2017 23:08
--- NOTE | 2017-03-06 13:00 | HHI.PR ---
Subjective Remarks resting comfortably with no distress. no pain, nausea or vomiting. no fever. Objective Vitals Vital Signs Date Time Temp Pulse Resp B/P (MAP) Pulse Ox O2 Delivery O2 Flow Rate FiO2 03/06/17 12:06 98.5 68 16 96/60 (72) 93 03/06/17 08:23 98.2 66 14 109/56 (73) 93 03/06/17 04:46 98.6 68 16 104/55 (71) 93 03/06/17 04:30 66 03/06/17 00:23 61 03/05/17 23:27 98.3 65 15 112/63 (79) 94 03/05/17 20:46 18 03/05/17 20:15 71 03/05/17 19:48 98.6 63 15 107/63 (78) 95 I/O 03/05/17 03/05/17 03/05/17 03/06/17 03/06/17 03/06/17 07:00 15:00 23:00 07:00 15:00 23:00 Intake Total 4450 ml 1596 ml Output Total 3200 ml 920 ml 300 ml 250 ml Balance 1250 ml -920 ml -300 ml 1346 ml Intake Oral 4450 ml IV Total 1596 ml Output Urine Total 3200 ml 920 ml 300 ml 250 ml # Voids 2 Result Diagram: 03/06/17 0434 03/06/17 0434 Imaging Last Impressions Chest X-Ray 03/05/17 0000 Signed Impressions: Service Date/Time: Sunday, March 05, 2017 08:47 - CONCLUSION: Compensated cardiomegaly otherwise negative Board Certified Radiologist. This report was verified electronically. Abdomen/Pelvis CT 03/03/17 1702 Signed Impressions: Service Date/Time: Friday, March 03, 2017 20:01 - CONCLUSION: 1. Small atrophic spleen with dense calcification. 2. Status post cholecystectomy. 3. Unremarkable bowel gas pattern with no inflammatory change or obstruction. Beck Lockett MD Liver Ultrasound 03/03/17 0000 Signed Impressions: Service Date/Time: Friday, March 03, 2017 22:42 - CONCLUSION: Unremarkable sonographic appearance of the right upper quadrant Remberto Verdugo MD Objective Remarks GENERAL: This is a well-nourished, well-developed patient, in no apparent distress. CARDIOVASCULAR: Regular rate and regular rhythm without murmurs, gallops, or rubs. RESPIRATORY: Clear to auscultation. Breath sounds equal bilaterally. No wheezes , rales, or rhonchi. GASTROINTESTINAL: Abdomen soft, non-tender, nondistended. Normal, active bowel sounds MUSCULOSKELETAL: Extremities without clubbing, cyanosis, or edema. NEURO: Alert & Oriented x4 to person, place, time, situation. Moves all ext x4 Medications and IVs Current Medications Morphine Sulfate (Morphine Inj) 4 mg ONCE ONCE IV PUSH ; Start 03/03/17 at 17: 15; Stop 03/03/17 at 17:20; Status DC Sodium Chloride 1,000 ml @ 125 mls/hr Q8H IV Last administered on 03/03/17 18:00; Start 03/03/17 at 17:02; Stop 03/03/17 at 21:21; Status DC Sodium Chloride (NS Flush) 2 ml UNSCH PRN IV FLUSH FLUSH AFTER USING IV ACCESS ; Start 03/03/17 at 17:15; Stop 03/03/17 at 21:15; Status DC Al Hydrox/Mg Hydrox/Simethicone (Mag-Al Plus Susp Liq) 30 ml ONCE ONCE PO Last administered on 03/03/17 18:00; Start 03/03/17 at 17:15; Stop 03/03/17 at 17:20; Status DC Lidocaine HCl (Xylocaine 2% Viscous) 15 ml ONCE ONCE PO Last administered on 03/03/17 18:00; Start 03/03/17 at 17:15; Stop 03/03/17 at 17:20; Status DC Sodium Chloride 1,000 ml @ 999 mls/hr BOLUS ONCE IV Last administered on 18:57; Start 03/03/17 at 18:45; Stop 03/03/17 at 19:45; Status DC Hydromorphone HCl (Dilaudid Pf Inj) 0.5 mg ONCE ONCE IV PUSH Last administered on 03/03/17 20:24; Start 03/03/17 at 19:15; Stop 03/03/17 at 19 :16; Status DC Iohexol (Omnipaque 350 Inj) 81 ml STK-MED ONCE IVCONTRAST Last administered on 03/03/17 20:25; Start 03/03/17 at 20:25; Stop 03/03/17 at 20:26; Status DC Sodium Chloride 1,000 ml @ 150 mls/hr Q6H40M IV Last administered on 12:01; Start 03/03/17 at 21:11 Sodium Chloride (NS Flush) 2 ml UNSCH PRN IV FLUSH FLUSH AFTER USING IV ACCESS ; Start 03/03/17 at 21:15 Sodium Chloride (NS Flush) 2 ml BID IV FLUSH Last administered on 03/06/17 09: 23; Start 03/04/17 at 09:00 Ondansetron HCl (Zofran Inj) 4 mg Q6H PRN IVP NAUSEA OR VOMITING; Start at 21:15 Naloxone HCl (Narcan Inj) 0.4 mg UNSCH PRN IV PUSH SEE LABEL COMMENTS; Start 03/03/17 at 21:15; Stop 03/03/17 at 21:26; Status DC Magnesium Hydroxide (Milk Of Magnesia Liq) 30 ml Q12H PRN PO Mild constipation ; Start 03/03/17 at 21:15 Sennosides (Senokot) 17.2 mg Q12H PRN PO Moderate constipation; Start at 21:15 Bisacodyl (Dulcolax Supp) 10 mg DAILY PRN RECTAL SEVERE CONSITIPATION; Start 03/03/17 at 21:15 Lactulose (Lactulose Liq) 30 ml DAILY PRN PO SEVERE CONSITIPATION; Start 03/03 at 21:15 Oxycodone HCl (Roxicodone) 10 mg Q4H PRN PO PAIN SCALE 6 TO 10 Last administered on 03/05/17 19:46; Start 03/03/17 at 21:15 Morphine Sulfate (Morphine Inj) 4 mg Q1H PRN IV PUSH PAIN SCALE 7-10 ( INTRACTABLE); Start 03/03/17 at 21:15 Oxycodone HCl (Roxicodone) 5 mg Q4H PRN PO PAIN SCALE 3 TO 5 Last administered on 03/06/17 08:28; Start 03/03/17 at 21:15 Naloxone HCl (Narcan Inj) 0.4 mg UNSCH PRN IV PUSH SEE LABEL COMMENTS; Start 03/03/17 at 21:15 Piperacillin Sod/ Tazobactam Sod 50 ml @ 100 mls/hr Q6H IV Last administered on 03/06/17 10:54; Start 03/03/17 at 22:00 Aspirin (Aspirin Chew) 81 mg DAILY CHEW Last administered on 03/06/17 09:22; Start 03/04/17 at 09:00 Nebivolol (Bystolic) 5 mg DAILY PO Last administered on 03/06/17 09:22; Start 03/04/17 at 09:00 Pantoprazole Sodium (Protonix Inj) 40 mg Q12H IV PUSH Last administered on 03/06 09:21; Start 03/03/17 at 22:15 Sodium Chloride 250 ml @ 15 mls/hr ONCE ONCE IV ; Start 03/04/17 at 01:00; Stop 03/04/17 at 17:39; Status DC Folic Acid (Folate) 1 mg DAILY PO Last administered on 03/06/17 09:21; Start 03/04/17 at 21:30 Dextrose (D50w (Vial) Inj) 50 ml UNSCH PRN IV PUSH HYPOGLYCEMIA-SEE COMMENTS; Start 03/05/17 at 08:30 Glucagon (Glucagon Inj) 1 mg UNSCH PRN OTHER HYPOGLYCEMIA-SEE COMMENTS; Start 03/05/17 at 08:30 Insulin Aspart (NovoLOG SUPPLEMENTAL SCALE) 1 ACHS SLIDING SCALE SQ Last administered on 03/06/17 12:15; Start 03/05/17 at 12:00 A/P Assessment and Plan A/P sickle cell painful crisis -continue IV fluid and folic acid -received PRBC- -hematology f/u appreciated and cleared for discharge. Epigastric abdominal pain - improved -CT abdomen with no acute findings. -Pain management -GI consult appreciated. leukocytosis likely reactive. afebrile. cultures negative. stop antibiotics. Hypercalcemia- improving -Calcium over 12 on admission. Increased PTH, and increase 1, 25 hydroxy vitamin D -Expected improving with hydration -f/u as outpatient. CAD. Continue home aspirin, nebivolol. Diabetes mellitus. diabetic diet and insulin sliding scale. hypertension continue BB- hold lisinopril due to low-normal BP's- f/u as outpatient. Discharge Planning dc home with f/u with pcp and hematology. see med list. d/w the patient, GI and hematology. Get Parada MD Mar 06, 2017 13:00
[2017-03-06] MEDS ORDERED: FOLI1TAB6 PO (13:02)
--- NOTE | 2017-03-06 13:02 | HHI.DS ---
Discharge Summary Admission Date Mar 03, 2017 at 21:08 Discharge Date: Mar 06, 2017 Admitting Diagnosis sickle cell crisis, hyperbilirubinemia, leukocytosis, hypercalcemia (1) Sickle cell disease ICD Code: D57.1 - Sickle-cell disease without crisis Diagnosis: Principal Procedures none Brief History - From Admission 61-year-old male with a history of sickle cell anemia, hypertension, diabetes mellitus who presents with a three-day history of worsening predominantly postprandial dull epigastric discomfort, together with nausea, decreased appetite. No vomiting. Patient reports subjective fevers. Denies any lightheadedness or dizziness. He also reports dull low back pain for the past several days, vocal of his sickle cell pain however says this is not why she came in. He reports generalized weakness and fatigue over the past several days. Denies any chest pain or shortness of breath. CBC/BMP: 03/06/17 0434 03/06/17 0434 Significant Findings Laboratory Tests Test 03/03/17 17:35 03/03/17 20:10 03/03/17 21:42 03/03/17 23:16 White Blood Count 20.9 TH/MM3 (4.0-11.0) Red Blood Count 3.05 MIL/MM3 (4.50-5.90) Hemoglobin 8.2 GM/DL (13.0-17.0) 6.8 GM/DL (13.0-17.0) Hematocrit 23.6 % (39.0-51.0) Mean Corpuscular Volume 77.4 FL (80.0-100.0) Mean Corpuscular Hemoglobin 26.9 PG (27.0-34.0) Red Cell Distribution Width 41.7 % (11.6-17.2) Monocytes (%) (Auto) 15.8 % (0.0-8.0) Neutrophils # (Auto) 12.0 TH/MM3 (1.8-7.7) Lymphocytes # (Auto) 5.3 TH/MM3 (1.0-4.8) Monocytes # (Auto) 3.3 TH/MM3 (0-0.9) Monocytes % 17 % (0-8) Neutrophils # (Manual) 12.3 TH/MM3 (1.8-7.7) Nucleated Red Blood Cells 8 /100 WBC (0-0) Polychromasia 5.6 % (0.0-1.9) Sickle Cells 3+ (NORMAL) Target Cells 1+ (NORMAL) Ovalocytes 1+ (NORMAL) Keratocytes 1+ (NORMAL) Prothrombin Time 12.4 SEC (9.8-11.6) Activated Partial Thromboplast Time 21.4 SEC (24.3-30.1) Creatinine 1.46 MG/DL (0.60-1.30) Calcium Level 12.2 MG/DL (8.5-10.1) Aspartate Amino Transf (AST/SGOT) 83 U/L (15-37) Total Bilirubin 20.6 MG/DL (0.2-1.0) Chloride Level 110 MEQ/L (98-107) Estimat Glomerular Filtration Rate 59 ML/MIN (>89) Protein Corrected Calcium 11.8 MG/DL (8.5-10.1) Urine Urobilinogen GREATER THAN 12.0 MG/DL Urine Leukocyte Esterase TRACE (NEG) Urine Bacteria OCC /hpf (NONE) Test 03/04/17 03:19 03/04/17 21:37 03/05/17 05:11 03/06/17 04:34 White Blood Count 15.0 TH/MM3 (4.0-11.0) 16.2 TH/MM3 (4.0-11.0) 15.9 TH/MM3 (4.0-11.0) Red Blood Count 2.40 MIL/MM3 (4.50-5.90) 2.57 MIL/MM3 (4.50-5.90) 2.52 MIL/MM3 (4.50-5.90) Hemoglobin 6.6 GM/DL (13.0-17.0) 7.7 GM/DL (13.0-17.0) 7.2 GM/DL (13.0-17.0) 7.1 GM/DL (13.0-17.0) Hematocrit 19.0 % (39.0-51.0) 21.0 % (39.0-51.0) 20.8 % (39.0-51.0) Mean Corpuscular Volume 79.2 FL (80.0-100.0) Red Cell Distribution Width 40.5 % (11.6-17.2) 38.0 % (11.6-17.2) 37.6 % (11.6-17.2) Monocytes (%) (Auto) 19.7 % (0.0-8.0) 13.9 % (0.0-8.0) 13.2 % (0.0-8.0) Monocytes # (Auto) 3.0 TH/MM3 (0-0.9) 2.2 TH/MM3 (0-0.9) 2.1 TH/MM3 (0-0.9) Monocytes % 22 % (0-8) 14 % (0-8) 9 % (0-8) Neutrophils # (Manual) 8.7 TH/MM3 (1.8-7.7) 9.4 TH/MM3 (1.8-7.7) Nucleated Red Blood Cells 17 /100 WBC (0-0) 11 /100 WBC (0-0) 7 /100 WBC (0-0) Polychromasia 4.2 % (0.0-1.9) 4.0 % (0.0-1.9) 3.7 % (0.0-1.9) Sickle Cells 2+ (NORMAL) 2+ (NORMAL) 2+ (NORMAL) Target Cells 1+ (NORMAL) 1+ (NORMAL) 1+ (NORMAL) Ovalocytes 1+ (NORMAL) Keratocytes 1+ (NORMAL) Calcium Level 10.9 MG/DL (8.5-10.1) 10.7 MG/DL (8.5-10.1) 10.8 MG/DL (8.5-10.1) Aspartate Amino Transf (AST/SGOT) 41 U/L (15-37) Total Bilirubin 15.4 MG/DL (0.2-1.0) 10.0 MG/DL (0.2-1.0) 8.7 MG/DL (0.2-1.0) Direct Bilirubin 3.1 MG/DL (0.0-0.2) 1.4 MG/DL (0.0-0.2) Chloride Level 113 MEQ/L (98-107) 111 MEQ/L (98-107) 111 MEQ/L (98-107) Estimat Glomerular Filtration Rate 74 ML/MIN (>89) 73 ML/MIN (>89) 77 ML/MIN (>89) Indirect Bilirubin 12.3 MG/DL (0.0-0.8) 7.3 MG/DL (0.0-0.8) Reticulocyte Count 16.3 % (0.4-3.0) Absolute Reticulocyte Count 459.1 MIL/L (20.0-150.0) Haptoglobin LESS THAN 10 MG/DL (30-200) Lactate Dehydrogenase 365 U/L (87-241) C-Reactive Protein 1.60 MG/DL (0.00-0.30) Neutrophils # (Auto) 8.6 TH/MM3 (1.8-7.7) 8.8 TH/MM3 (1.8-7.7) Eosinophils # (Auto) 0.5 TH/MM3 (0-0.4) 0.6 TH/MM3 (0-0.4) Total Protein 6.0 GM/DL (6.4-8.2) Albumin 3.3 GM/DL (3.4-5.0) Random Glucose 110 MG/DL (74-106) Imaging Last Impressions Chest X-Ray 03/05/17 0000 Signed Impressions: Service Date/Time: Sunday, March 05, 2017 08:47 - CONCLUSION: Compensated cardiomegaly otherwise negative Board Certified Radiologist. This report was verified electronically. Abdomen/Pelvis CT 03/03/17 1702 Signed Impressions: Service Date/Time: Friday, March 03, 2017 20:01 - CONCLUSION: 1. Small atrophic spleen with dense calcification. 2. Status post cholecystectomy. 3. Unremarkable bowel gas pattern with no inflammatory change or obstruction. Beck Lockett MD Liver Ultrasound 03/03/17 0000 Signed Impressions: Service Date/Time: Friday, March 03, 2017 22:42 - CONCLUSION: Unremarkable sonographic appearance of the right upper quadrant Remberto Verdugo MD PE at Discharge GENERAL: This is a well-nourished, well-developed patient, in no apparent distress. CARDIOVASCULAR: Regular rate and regular rhythm without murmurs, gallops, or rubs. RESPIRATORY: Clear to auscultation. Breath sounds equal bilaterally. No wheezes , rales, or rhonchi. GASTROINTESTINAL: Abdomen soft, non-tender, nondistended. Normal, active bowel sounds MUSCULOSKELETAL: Extremities without clubbing, cyanosis, or edema. NEURO: Alert & Oriented x4 to person, place, time, situation. Moves all ext x4 Hospital Course sickle cell painful crisis -continue IV fluid and folic acid -received PRBC- -hematology f/u appreciated and cleared for discharge. Epigastric abdominal pain - improved -CT abdomen with no acute findings. -Pain management -GI consult appreciated. leukocytosis likely reactive. afebrile. cultures negative. stop antibiotics. Hypercalcemia- improving -Calcium over 12 on admission. Increased PTH, and increase 1, 25 hydroxy vitamin D -Expected improving with hydration -f/u as outpatient. CAD. Continue home aspirin, nebivolol. Diabetes mellitus. diabetic diet and insulin sliding scale. hypertension continue BB- hold lisinopril due to low-normal BP's- f/u as outpatient. Pt Condition on Discharge: Fair Discharge Disposition: Discharge Home Discharge Time: <= 30 minutes Discharge Instructions DIET: Follow Instructions for: Heart Healthy Diet, Diabetic Diet Activities you can perform: Regular-No Restrictions Follow up Referrals: Oncology/Hematology - 2 Weeks with Trena Rowell MD PCP Follow-up New Medications: Folic Acid (Folic Acid) 1 Mg Tablet 1 MG PO DAILY for vitamin for 30 Days, #30 TAB 0 Refills Continued Medications: Aspirin (Aspirin) 81 Mg Chew 81 MG CHEW DAILY, TAB 0 Refills B-Complex Vitamins (B Complex) 1 Cap 1 CAP PO DAILY for Nutritional Supplement, #30 CAP 0 Refills Dexlansoprazole (Dexilant) 60 Mg Cap. Glyburide (Glyburide) 1.25 Mg Tab 1.25 MG PO BID for Blood Sugar Management, #60 TAB 0 Refills Take with meals at the same time each day Hydrocodone-Acetaminophen (Hydrocodone-Acetaminophen) 5-325 mg Tab 1 TAB PO Q4H PRN for PAIN, TAB 0 Refills Nebivolol (Bystolic) 5 Mg Tab 5 MG PO DAILY for Blood Pressure Management, #30 TAB 0 Refills Pioglitazone (Pioglitazone) 15 Mg Tab 15 MG PO DAILY for Blood Sugar Management, #30 TAB 0 Refills Discontinued Medications: Lisinopril (Lisinopril) 20 Mg Tab 20 MG PO DAILY, #30 TAB 0 Refills Get Parada MD Mar 06, 2017 13:02
== END 2017-03-06 15:14 | disposition home or self-care (01) | DRG 812 ==
LOC: NEPD 14:42 → NEDA 21:08 → N07B 23:26 → HCIS 03-04 17:25
PROVIDERS: ADMIT Internal Medicine; ATTEND Internal Medicine
PROC: 30233N1 Transfusion of Nonautologous Red Blood Cells into Peripheral Vein, Percutaneous Approach (ICD-10-PCS; principal; 2017-03-04)
DX: D57.00 Hb-SS disease with crisis, unspecified (principal); R17 Unspecified jaundice; E83.52 Hypercalcemia; I10 Essential (primary) hypertension; E11.9 Type 2 diabetes mellitus without complications; D56.3 Thalassemia minor; D73.0 Hyposplenism; Z90.49 Acquired absence of other specified parts of digestive tract; M19.90 Unspecified osteoarthritis, unspecified site; K21.9 Gastro-esophageal reflux disease without esophagitis; I25.10 Atherosclerotic heart disease of native coronary artery without angina pectoris; G89.29 Other chronic pain; M25.569 Pain in unspecified knee; D50.9 Iron deficiency anemia, unspecified; Z79.82 Long term (current) use of aspirin; Z82.49 Family history of ischemic heart disease and other diseases of the circulatory system; Z80.42 Family history of malignant neoplasm of prostate; R00.0 Tachycardia, unspecified
CPT/HCPCS: 36430; 71010; 74177; 76705; 80048; 80053; 81001; 82247; 82248; 82728; 82948; 83010; 83540; 83550; 83605; 83615; 83690; 83735; 85007; 85018; 85027; 85044; 85610; 85652; 85730; 86140; 86850; 86900; 86901; 86920; 87040; 93005; 96361; 96374; J1170; C9113; J1815; J2543; J7030; P9016; Q9967

== ENCOUNTER 2017-03-19 08:11 | Inpatient (IN) | payer OTHER ==
[~2017-03-19] VITALS: Ht 177.8 cm; Wt 105.4 kg
[~2017-03-19 08:11] MED LIST changes: +ASPI-516 CHEW; -ASPI81CH CHEW; -DEXI60CA2; +DEXI60CA3; +FOLI1TAB6 PO; -LISI-515 PO
[2017-03-19 08:36] VITALS: BP 89/53; PULSE 73; RESP 16; TEMP 98.5; O2SAT 91
[2017-03-19] MEDS ORDERED: SODIUM CHLOR 0.9% 1000 ML INJ 1,000 ML IV SCH ×2 (09:32→11:00)
--- NOTE | 2017-03-19 09:38 | PD ---
Physical Exam Date Seen by Provider: Mar 19, 2017 Narrative Abdominal pain and jaundice Data Data Last Documented VS Vital Signs Date Time Temp Pulse Resp B/P (MAP) Pulse Ox O2 Delivery O2 Flow Rate FiO2 03/19/17 08:36 98.5 73 16 89/53 (65) 91 Orders Orders Complete Blood Count With Diff (03/19/17 09:32) Comprehensive Metabolic Panel (03/19/17 09:32) Lipase (03/19/17 09:32) Urinalysis - C+S If Indicated (03/19/17 09:32) Iv Access Insert/Monitor (03/19/17 09:32) Ecg Monitoring (03/19/17 09:32) Oximetry (03/19/17 09:32) Ondansetron Inj (Zofran Inj) (03/19/17 09:45) Sodium Chlor 0.9% 1000 Ml Inj (Ns 1000 M (03/19/17 09:32) Retic Count (03/19/17 09:32) MDM Supervised Visit with TOMMY: Yes Narrative Course I, Dr. Gee, have reviewed the advance practice practitioner's documentation and am in agreement, met with the patient face to face, made the diagnosis, and the medical decision making was done by me. *My assessment and Findings: Patient presents with abdominal pain and increased jaundice. He has a history of same and was recently admitted to the hospital for further evaluation. Please see Calvin Childs PA-C's note for results of laboratory and radiographic evaluation, ED course, final diagnosis and disposition Janice Gee MD Mar 19, 2017 09:38
--- NOTE | 2017-03-19 09:43 | PD ---
HPI Chief Complaint: Abdominal Pain Time Seen by Provider: 09:35 Travel History International Travel<30 days: No Contact w/Intl Traveler<30days: No Traveled to known affect area: No History of Present Illness HPI This is a 61-year-old male history of sickle cell anemia, hypertension, diabetes who presents for evaluation of epigastric pain and nausea. Symptoms started 2 days ago. Pain is a sharp pain with no obvious aggravating or relieving factors. He also reports worsening scleral icterus over the past 2 days. He reports that he has had a few loose stools. Denies hematochezia, hematemesis, melena. He was seen here with similar symptoms on March 03 and was admitted. He had a CT of the abdomen and pelvis revealing atrophic spleen, status post cholecystectomy, no acute abnormalities. He received blood transfusion, GI and hematology consultation. He has no other complaints at this time. PFSH Past Medical History Arthritis: Yes Asthma: No Autoimmune Disease: No Blood Disorders: No Anxiety: No Depression: No Heart Rhythm Problems: Yes (INVERTED/ABN. READING ON HIS EKG, CANNOT REMEMBER THE EXACT NAME.) Cancer: No Cardiovascular Problems: No High Cholesterol: No Chemotherapy: No Chest Pain: No Congestive Heart Failure: No COPD: No Cerebrovascular Accident: No Diabetes: Yes Patient Takes Glucophage: Yes Diminished Hearing: No Endocrine: No Gastrointestinal Disorders: Yes (gerd) GERD: Yes Glaucoma: No Genitourinary: No Headaches: No Hepatitis: No Hiatal Hernia: No Hypertension: Yes Immune Disorder: No Kidney Stones: No Musculoskeletal: Yes Neurologic: No Psychiatric: No Reproductive: No Integumentary: No Myocardial Infarction: No Pneumonia: Yes Radiation Therapy: No Renal Failure: No Seizures: No Sickle Cell Disease: Yes Sleep Apnea: No Thyroid Disease: No Ulcer: No Tetanus Vaccination: > 5 Years PNEUMOCCOCAL Vaccine (Year): 2009 Past Surgical History Abdominal Surgery: Yes AICD: No Cardiac Surgery: No Cholecystectomy: Yes (1979) Ear Surgery: No Endocrine Surgery: No Eye Surgery: Yes (1984 LASER TX B EYES, RUPUTERED BLOOD VESSEL) Genitourinary Surgery: No Gynecologic Surgery: No Joint Replacement: No Oral Surgery: Yes (TONSILECTOMY 1973) Pacemaker: No Thoracic Surgery: No Tonsillectomy: Yes (1973) Other Surgery: Yes (rt knee, gallbladder, cholecystectomy,) Social History Alcohol Use: No Tobacco Use: No Substance Use: No Allergies-Medications (Allergen,Severity, Reaction): Coded Allergies: cortisone (Verified Allergy, Severe, FLARES UP SICKLE CELL., 03/19/17) erythromycin base (Verified Allergy, Severe, ANAPHALACTIC SHOCK, 03/19/17) azithromycin (Verified Allergy, Intermediate, 03/19/17) Reported Meds & Prescriptions Reported Meds & Active Scripts Active Folic Acid 1 Mg Tablet 1 Mg PO DAILY 30 Days Reported Dexilant (Dexlansoprazole) 60 Mg Fernandez.bp Aspirin 81 Mg Chew 81 Mg CHEW DAILY Hydrocodone-Acetaminophen 5-325 mg Tab 1 Tab PO Q4H PRN Pioglitazone (Pioglitazone HCl) 15 Mg Tab 15 Mg PO DAILY Bystolic (Nebivolol) 5 Mg Tab 5 Mg PO DAILY Glyburide 1.25 Mg Tab 1.25 Mg PO BID Take with meals at the same time each day B Complex (B-Complex Vitamins) 1 Cap 1 Cap PO DAILY Review of Systems Except as stated in HPI: all other systems reviewed are Neg Physical Exam Narrative GENERAL: Well-developed well-nourished male in no acute distress SKIN: Warm and dry. HEAD: Atraumatic. Normocephalic. EYES: Pupils equal and round. +scleral icterus. No injection or drainage. ENT: No nasal bleeding or discharge. Mucous membranes pink and moist. NECK: Trachea midline. No JVD. CARDIOVASCULAR: Regular rate and rhythm. No murmur appreciated. RESPIRATORY: No accessory muscle use. Clear to auscultation. Breath sounds equal bilaterally. GASTROINTESTINAL: Abdomen soft, mild epigastric tenderness without guarding. No CVA tenderness. MUSCULOSKELETAL: No obvious deformities. No clubbing. No cyanosis. No edema. NEUROLOGICAL: Awake and alert. No obvious cranial nerve deficits. Motor grossly within normal limits. Normal speech. PSYCHIATRIC: Appropriate mood and affect; insight and judgment normal. Data Data Last Documented VS Vital Signs Date Time Temp Pulse Resp B/P (MAP) Pulse Ox O2 Delivery O2 Flow Rate FiO2 03/19/17 08:36 98.5 73 16 89/53 (65) 91 Orders Orders Complete Blood Count With Diff (03/19/17 09:32) Comprehensive Metabolic Panel (03/19/17 09:32) Lipase (03/19/17 09:32) Urinalysis - C+S If Indicated (03/19/17 09:32) Iv Access Insert/Monitor (03/19/17 09:32) Ecg Monitoring (03/19/17 09:32) Oximetry (03/19/17 09:32) Ondansetron Inj (Zofran Inj) (03/19/17 09:45) Sodium Chlor 0.9% 1000 Ml Inj (Ns 1000 M (03/19/17 09:32) Retic Count (03/19/17 09:32) Admit Order (Ed Use Only) (03/19/17 10:56) Admit To Inpatient (03/19/17 ) Vital Signs (Adult) Q4H (03/19/17 10:57) Activity Oob With Assistance (03/19/17 10:57) Resume Writer / Telemetry .CONTINUOUS (03/19/17 10:57) Intake + Output GOPI.QSHIFT (03/19/17 10:57) Diet Npo (03/19/17 Lunch) Sodium Chlor 0.9% 1000 Ml Inj (Ns 1000 M (03/19/17 10:57) Sodium Chloride 0.9% Flush (Ns Flush) (03/19/17 11:00) Sodium Chloride 0.9% Flush (Ns Flush) (03/19/17 21:00) Comprehensive Metabolic Panel (03/20/17 06:00) Complete Blood Count With Diff (03/20/17 06:00) Lipase (03/20/17 06:00) Naloxone Inj (Narcan Inj) (03/19/17 11:00) Inpatient Certification (03/19/17 ) Labs Laboratory Tests Test 03/19/17 09:45 White Blood Count 22.9 TH/MM3 Red Blood Count 2.79 MIL/MM3 Hemoglobin 8.2 GM/DL Hematocrit 24.0 % Mean Corpuscular Volume 86.3 FL Mean Corpuscular Hemoglobin 29.6 PG Mean Corpuscular Hemoglobin Concent 34.2 % Red Cell Distribution Width 32.4 % Platelet Count 347 TH/MM3 Mean Platelet Volume 7.5 FL Neutrophils (%) (Auto) 66.3 % Lymphocytes (%) (Auto) 18.2 % Monocytes (%) (Auto) 15.0 % Eosinophils (%) (Auto) 0.3 % Basophils (%) (Auto) 0.2 % Neutrophils # (Auto) 15.2 TH/MM3 Lymphocytes # (Auto) 4.2 TH/MM3 Monocytes # (Auto) 3.4 TH/MM3 Eosinophils # (Auto) 0.1 TH/MM3 Basophils # (Auto) 0.0 TH/MM3 CBC Comment AUTO DIFF Reticulocyte Count 16.3 % Absolute Reticulocyte Count 453.5 MIL/L Blood Urea Nitrogen 24 MG/DL Creatinine 2.93 MG/DL Random Glucose 106 MG/DL Total Protein 7.7 GM/DL Albumin 4.4 GM/DL Calcium Level 13.1 MG/DL Alkaline Phosphatase 109 U/L Aspartate Amino Transf (AST/SGOT) 63 U/L Alanine Aminotransferase (ALT/SGPT) 37 U/L Total Bilirubin 19.2 MG/DL Sodium Level 137 MEQ/L Potassium Level 4.5 MEQ/L Chloride Level 105 MEQ/L Carbon Dioxide Level 22.0 MEQ/L Anion Gap 10 MEQ/L Estimat Glomerular Filtration Rate 27 ML/MIN Protein Corrected Calcium 12.7 MG/DL Lipase 98 U/L [facility] Medical Decision Making Medical Screen Exam Complete: Yes Emergency Medical Condition: Yes Medical Record Reviewed: Yes Differential Diagnosis Pancreatitis, obstruction, dehydration, electrolyte abnormality, peptic ulcer disease, acute anemia Narrative Course Plan is for basic lab work, he was given IV fluids and Zofran. His lab work is been reviewed. He has an acute kidney injury, hyperbilirubinemia, hypercalcemia, chronic anemia. The patient be admitted for further evaluation and treatment. Diagnosis Primary Impression: Acute kidney injury Additional Impressions: Hypercalcemia Total bilirubin, elevated Sickle cell disease Admitting Information Admitting Physician Requests: Admit Calvin Childs Mar 19, 2017 09:43
[2017-03-19] MEDS ORDERED: ONDANSETRON HCL 4 MG/2 ML VIAL IVP ONE (09:45)
[2017-03-19 10:05] LABS: AUTOMATED NEUTROPHIL # 15.2 TH/MM3 (1.8-7.7); BASOPHIL % 0.2 % (0.0-2.0); EOSINOPHIL # 0.1 TH/MM3 (0-0.4); EOSINOPHIL % 0.3 % (0.0-4.0); LYMPH % 18.2 % (9.0-44.0); LYMPHOCYTE # 4.2 TH/MM3 (1.0-4.8); MEAN CELL VOLUME 86.3 FL (80.0-100.0); MEAN CORPUSCULAR HEMOGLOBIN 29.6 PG (27.0-34.0); MEAN CORPUSCULAR HGB CONC 34.2 % (32.0-36.0); NEUT % 66.3 % (16.0-70.0); PLATELET COUNT 347 TH/MM3 (150-450); RED BLOOD COUNT 2.79 MIL/MM3 (4.50-5.90); RED CELL DISTRIBUTION WIDTH 32.4 % (11.6-17.2); RETIC % 16.3 % (0.4-3.0); WHITE BLOOD COUNT 22.9 TH/MM3 (4.0-11.0)
[2017-03-19 10:10] LABS: HEMO FLAGS AUTO DIFF; REVIEW FLAG FINAL
[2017-03-19 10:31] LABS: POTASSIUM 4.5 MEQ/L (3.5-5.1)
[2017-03-19 10:38] LABS: TOTAL BILIRUBIN ADULT 19.2 MG/DL (0.2-1.0)
[2017-03-19 10:43] LABS: CALCIUM-PROTEIN CORRECTED 12.7 MG/DL (8.5-10.1)
[2017-03-19] MEDS ORDERED: NALOXONE HCL 0.4 MG/ML AMP IV PUSH PRN (11:00)
[2017-03-19] MEDS ORDERED: SODIUM CHLORIDE 0.9% FLUSH 10 ML FLUSH IV FLUSH PRN (11:00)
[2017-03-19] MEDS ORDERED: SODIUM CHLOR 0.9% 1000 ML INJ 1,000 ML IV ONE (11:00)
[2017-03-19 11:02] LABS: BASOPHILS 1 % (0-2); CORRECTED NUCLEATED RBC 2 /100 WBC (0-0); NEUTROPHIL # MANUAL DIFF 14.7 TH/MM3 (1.8-7.7); POLYCHROMASIA 4.8 % (0.0-1.9); POLYS (SEG NEUTROPHILS) 64 % (16-70); WBC DIFF SAMPLE 100
[2017-03-19 11:03] LABS: SCAN/DIFF FINAL DIFF MANUAL; SICKLE CELLS 1+ (NORMAL); TARGET CELLS 1+ (NORMAL)
[2017-03-19 11:04] LABS: HOWELL-JOLLY BODIES PRESENT (NONE SEEN); PLATELET ESTIMATE SMEAR NORMAL (NORMAL); PLATELET MORPHOLOGY NORMAL (NORMAL)
--- NOTE | 2017-03-19 11:23 | HHI.HP ---
[facility] Jess Allred D.O. Admission Diagnosis acute kidney injury, hyperbilirubinemia, hypercalcemia Diagnoses: Travel History International Travel<30 Days: No Contact w/Intl Traveler <30 Da: No Traveled to Known Affected Are: No History of Present Illness epigstric pain nausea vomitng, whatever he ate no coffee ground or red vomitted 3 days about twice a day at least yesterday was almost constant thing of vomiting urine color was also turning more dark yellow- it was improving piror to dc last time, now returned back no fever once diarrhea only no black stool or red stool but little dark yellow/brown sickle cell painful crisis usually is involving joints for him, not abdominal pains this time, only joint pain is starting with tail bone no palpitaiton no confusion no perioral tingling or numbness or tremors no other symptoms Review of Systems Except as stated in HPI: all other systems reviewed are Neg Past Family Social History Past Medical History sickle cell disease htn' dm denies cad/chf/afib Past Surgical History eyes laser sx knee sx tonsilectomy coronary angiograms x 2- 10yrs apart cholecystectomy Allergies: Coded Allergies: cortisone (Verified Allergy, Severe, FLARES UP SICKLE CELL., 03/19/17) erythromycin base (Verified Allergy, Severe, ANAPHALACTIC SHOCK, 03/19/17) azithromycin (Verified Allergy, Intermediate, 03/19/17) Family History heart problems on mothers side of family prostate cancer from fathers side of family Social History never smoked, no etoh/ no drugs still driving Physical Exam Vital Signs Vital Signs Date Time Temp Pulse Resp B/P (MAP) Pulse Ox O2 Delivery O2 Flow Rate FiO2 03/19/17 08:36 98.5 73 16 89/53 (65) 91 Physical Exam GENERAL: This is a well-nourished, well-developed patient, in no apparent distress. SKIN: No rashes, ecchymoses or lesions. Cool and dry. Jaundiced HEAD: Atraumatic. Normocephalic. No temporal or scalp tenderness. EYES: Scleral icterus. No injection or drainage. ENT: Nose without bleeding, purulent drainage or septal hematoma. Airway patent. NECK: Trachea midline. No JVD CARDIOVASCULAR: Regular rate and rhythm without murmurs, gallops, or rubs. RESPIRATORY: Clear to auscultation. Breath sounds equal bilaterally. No wheezes , rales, or rhonchi. GASTROINTESTINAL: Abdomen soft, non-tender, nondistended. No guarding. MUSCULOSKELETAL: Extremities without clubbing, cyanosis, or edema. No calf tenderness. NEUROLOGICAL: Awake and alert. Motor and sensory grossly within normal limits. Normal speech. Laboratory Laboratory Tests Test 03/19/17 09:45 White Blood Count 22.9 Red Blood Count 2.79 Hemoglobin 8.2 Hematocrit 24.0 Mean Corpuscular Volume 86.3 Mean Corpuscular Hemoglobin 29.6 Mean Corpuscular Hemoglobin Concent 34.2 Red Cell Distribution Width 32.4 Platelet Count 347 Mean Platelet Volume 7.5 Neutrophils (%) (Auto) 66.3 Lymphocytes (%) (Auto) 18.2 Monocytes (%) (Auto) 15.0 Eosinophils (%) (Auto) 0.3 Basophils (%) (Auto) 0.2 Neutrophils # (Auto) 15.2 Lymphocytes # (Auto) 4.2 Monocytes # (Auto) 3.4 Eosinophils # (Auto) 0.1 Basophils # (Auto) 0.0 CBC Comment AUTO DIFF Differential Total Cells Counted 100 Neutrophils % (Manual) 64 Lymphocytes % 17 Monocytes % 18 Basophils % 1 Neutrophils # (Manual) 14.7 Nucleated Red Blood Cells 2 Differential Comment FINAL DIFF MANUAL Platelet Estimate NORMAL Platelet Morphology Comment NORMAL Polychromasia 4.8 Sickle Cells 1+ Target Cells 1+ Rhoades[place] Bodies PRESENT Reticulocyte Count 16.3 Absolute Reticulocyte Count 453.5 Blood Urea Nitrogen 24 Creatinine 2.93 Random Glucose 106 Total Protein 7.7 Albumin 4.4 Calcium Level 13.1 Alkaline Phosphatase 109 Aspartate Amino Transf (AST/SGOT) 63 Alanine Aminotransferase (ALT/SGPT) 37 Total Bilirubin 19.2 Sodium Level 137 Potassium Level 4.5 Chloride Level 105 Carbon Dioxide Level 22.0 Anion Gap 10 Estimat Glomerular Filtration Rate 27 Protein Corrected Calcium 12.7 Lipase 98 Result Diagram: 03/19/1745 03/19/1745 Caprini VTE Risk Assessment Caprini VTE Risk Assessment: Mod/High Risk (score >= 2) Caprini Risk Assessment Model Point Value = 1 Point Value = 2 Point Value = 3 Point Value = 5 Age 41-60 Minor surgery BMI > 25 kg/m2 Swollen legs Varicose veins or History of unexplained or recurrent spontaneous Oral contraceptives or hormone replacement Sepsis (< 1 month) Serious lung disease, including pneumonia (< 1 month) Abnormal pulmonary function Acute myocardial infarction Congestive heart failure (< 1 month) History of inflammatory bowel disease Medical patient at bed rest Age 61-74 Arthroscopic surgery Major open surgery (> 45 min) Laparoscopic surgery (> 45 min) Malignancy Confined to bed (> 72 hours) Immobilizing plaster cast Central venous access Age >= 75 History of VTE Family history of VTE Factor V Leiden Prothrombin [id number] Lupus anticoagulant Anticardiolipin antibodies Elevated serum homocysteine Heparin-induced thrombocytopenia Other congenital or acquired thrombophilia Stroke (< 1 month) Elective arthroplasty Hip, pelvis, or leg fracture Acute spinal cord injury (< 1 month) Prophylaxis Regimen Total Risk Factor Score Risk Level Prophylaxis Regimen 0-1 Low Early ambulation 2 Moderate Order ONE of the following: *Sequential Compression Device (SCD) *Heparin 5000 units SQ BID 3-4 Higher Order ONE of the following medications: *Heparin 5000 units SQ TID *Enoxaparin/Lovenox 40 mg SQ daily (WT < 150 kg, CrCl > 30 mL/min) *Enoxaparin/Lovenox 30 mg SQ daily (WT < 150 kg, CrCl > 10-29 mL/min) *Enoxaparin/Lovenox 30 mg SQ BID (WT < 150 kg, CrCl > 30 mL/min) AND/OR *Sequential Compression Device (SCD) 5 or more Highest Order ONE of the following medications: *Heparin 5000 units SQ TID (Preferred with Epidurals) *Enoxaparin/Lovenox 40 mg SQ daily (WT < 150 kg, CrCl > 30 mL/min) *Enoxaparin/Lovenox 30 mg SQ daily (WT < 150 kg, CrCl > 10-29 mL/min) *Enoxaparin/Lovenox 30 mg SQ BID (WT < 150 kg, CrCl > 30 mL/min) AND *Sequential Compression Device (SCD) Assessment and Plan Assessment and Plan Impression: Obstructive jaundice Possible choledocholithiasis versus obstructing mass Acute renal failure secondary to dehydration Leukocytosis likely from severe dehydration Hypercalcemia likely from dehydration Mild sickle cell crisis from dehydration Hypertension Diabetes Plan: IV hydration with D5 half normal saline at 125 cc per hour. Nothing by mouth. We'll monitor fingersticks. We'll cover with low-dose sliding scale coverage while on D5. GI consult. MRCP We'll follow renal function. We'll follow calcium levels. Resume home meds apart from oral hypoglycemics. DVT prophylaxis with SCD. GI prophylaxis on ranitidine. Discussed Condition With patient, ER PA, nursing staff Physician Certification Order for Inpatient Services The services are ordered in accordance with Medicare regulations or non- Medicare payer requirements, as applicable. In the case of services not specified as inpatient-only, they are appropriately provided as inpatient services in accordance with the 2-midnight benchmark. days is the estimated time the patient will need to remain in the hospital, assuming treatment plan goals are met and no additional complications. Deborah Durbin MD Mar 19, 2017 11:23
[2017-03-19 12:27] LABS: BACTERIA, URINE RARE /hpf; BLOOD, URINE NEG (NEG); COMMENT (UR) CULT NOT INDICATED; CULTURE IF INDICATED CULT NOT INDICATED; GLUCOSE,URINE NEG (NEG); HYALINE CAST, URINE 4 /lpf (RARE); KETONE, URINE NEG (NEG); MUCUS URINE FEW /lpf (OCC); NITRITE,URINE NEG (NEG); SQUAMOUS EPITHELIAL CELL URINE <1 /hpf (0-5); URINE COLOR YELLOW (YELLW/STRAW)
--- NOTE | 2017-03-19 13:24 | PD.CONS ---
HPI History of Present Illness This is a 61 year old male with a history of sickle cell, who presents to the emergency room for evaluation of epigastric pain with associated nausea. He was recently hospitalized and evaluated by our service in February for post prandial abdominal pain and elevated LFTs. He was evaluated with Liver US ()---> Unremarkable sonographic appearance of the right upper quadrant. CT Scan abdomen and pelvis (03/03/17)----> Small atrophic spleen with dense calcification. S/P cholecystectomy. Unremarkable bowel gas pattern with no inflammatory change or obstruction. His symptoms improved and it was thought that his elevated bilirubin was likely related to hemolysis associated with his sickle cell anemia. He was discharged home and the plan was for possible EGD/ MRCP if his symptoms returned. He was doing well up until this past Friday, when he developed nausea with abdominal pain- a burning pain in his epigastric area. He also has GERD and takes Dexilant. He has associated bloating, no diarrhea/constipation/melena/hematochezia. He does note a 25 lb weight loss over the past 2 months, states his appetite has been somewhat decreased. (Bonnie Cantu) PFSH Past Medical History Sickle cell disease Elevated bilirubin HTN DM Arthritis Chronic knee pain GERD Past Surgical History Eye surgery Right knee surgery Tonsillectomy Cardiac catheterization Cholecystectomy (Bonnie Cantu) Coded Allergies: cortisone (Verified Allergy, Severe, FLARES UP SICKLE CELL., 03/19/17) erythromycin base (Verified Allergy, Severe, ANAPHALACTIC SHOCK, 03/19/17) azithromycin (Verified Allergy, Intermediate, 03/19/17) Medications Allergies Coded Allergies Type Severity Reaction Last Updated Verified cortisone Allergy Severe FLARES UP SICKLE CELL. 03/19/17 Yes erythromycin base Allergy Severe ANAPHALACTIC SHOCK 03/19/17 Yes azithromycin Allergy Intermediate 03/19/17 Yes Active Scripts Medications Dose Route/Sig Max Daily Dose Days Date Category Dose Instructions Folic Acid 1 Mg Tablet 1 Mg PO DAILY 30 03/06/17 Rx Dexilant (Dexlansoprazole) 60 Mg Fernandez. 12/26/16 Reported Aspirin 81 Mg Chew 81 Mg CHEW DAILY 12/26/16 Reported Hydrocodone-Acetaminophen 5-325 mg Tab 1 Tab PO Q4H PRN 12/26/16 Reported Pioglitazone (Pioglitazone HCl) 15 Mg Tab 15 Mg PO DAILY 12/26/16 Reported Bystolic (Nebivolol) 5 Mg Tab 5 Mg PO DAILY 12/26/16 Reported Glyburide 1.25 Mg Tab 1.25 Mg PO BID 12/26/16 Reported Take with meals at the same time each day B Complex (B-Complex Vitamins) 1 Cap 1 Cap PO DAILY 12/26/16 Reported Family History Heart problems on mothers side of family Prostate cancer from fathers side of family Social History Never smoked, no etoh/ no drugs (Bonnie Cantu) Review of Systems Constitutional: COMPLAINS OF: Weight loss, Change in appetite, DENIES: Fatigue , Fever, Chills Respiratory: DENIES: Cough Cardiovascular: DENIES: Chest pain Gastrointestinal: COMPLAINS OF: Abdominal pain, Nausea, Swelling of Abdomen, DENIES: Black stools, Bloody stools, Constipation, Diarrhea, Vomiting, Heartburn Integumentary: COMPLAINS OF: Jaundice Neurologic: DENIES: Headache Psychiatric: DENIES: Confusion (Bonnie Cantu) GI Exam Vitals I&O Vital Signs Date Time Temp Pulse Resp B/P (MAP) Pulse Ox O2 Delivery O2 Flow Rate FiO2 03/19/17 08:36 98.5 73 16 89/53 (65) 91 I/O 03/18/17 03/18/17 03/18/17 03/19/17 03/19/17 03/19/17 07:00 15:00 23:00 07:00 15:00 23:00 Intake Total 1000 ml Balance 1000 ml Intake IV Total 1000 ml Laboratory Test 03/19/17 09:45 03/19/17 11:50 White Blood Count 22.9 TH/MM3 Red Blood Count 2.79 MIL/MM3 Hemoglobin 8.2 GM/DL Hematocrit 24.0 % Mean Corpuscular Volume 86.3 FL Mean Corpuscular Hemoglobin 29.6 PG Mean Corpuscular Hemoglobin Concent 34.2 % Red Cell Distribution Width 32.4 % Platelet Count 347 TH/MM3 Mean Platelet Volume 7.5 FL Neutrophils (%) (Auto) 66.3 % Lymphocytes (%) (Auto) 18.2 % Monocytes (%) (Auto) 15.0 % Eosinophils (%) (Auto) 0.3 % Basophils (%) (Auto) 0.2 % Neutrophils # (Auto) 15.2 TH/MM3 Lymphocytes # (Auto) 4.2 TH/MM3 Monocytes # (Auto) 3.4 TH/MM3 Eosinophils # (Auto) 0.1 TH/MM3 Basophils # (Auto) 0.0 TH/MM3 CBC Comment AUTO DIFF Differential Total Cells Counted 100 Neutrophils % (Manual) 64 % Lymphocytes % 17 % Monocytes % 18 % Basophils % 1 % Neutrophils # (Manual) 14.7 TH/MM3 Nucleated Red Blood Cells 2 /100 WBC Differential Comment FINAL DIFF MANUAL Platelet Estimate NORMAL Platelet Morphology Comment NORMAL Polychromasia 4.8 % Sickle Cells 1+ Target Cells 1+ Rhoades-[place] Bodies PRESENT Reticulocyte Count 16.3 % Absolute Reticulocyte Count 453.5 MIL/L Blood Urea Nitrogen 24 MG/DL Creatinine 2.93 MG/DL Random Glucose 106 MG/DL Total Protein 7.7 GM/DL Albumin 4.4 GM/DL Calcium Level 13.1 MG/DL Alkaline Phosphatase 109 U/L Aspartate Amino Transf (AST/SGOT) 63 U/L Alanine Aminotransferase (ALT/SGPT) 37 U/L Total Bilirubin 19.2 MG/DL Sodium Level 137 MEQ/L Potassium Level 4.5 MEQ/L Chloride Level 105 MEQ/L Carbon Dioxide Level 22.0 MEQ/L Anion Gap 10 MEQ/L Estimat Glomerular Filtration Rate 27 ML/MIN Protein Corrected Calcium 12.7 MG/DL Lipase 98 U/L Urine Color YELLOW Urine Turbidity CLEAR Urine pH 5.0 Urine Specific [place] 1.009 Urine Protein TRACE mg/dL Urine Glucose (UA) NEG mg/dL Urine Ketones NEG mg/dL Urine Occult Blood NEG Urine Nitrite NEG Urine Bilirubin NEG Urine Urobilinogen LESS THAN 2.0 MG/DL Urine Leukocyte Esterase NEG Urine RBC 1 /hpf Urine WBC 1 /hpf Urine Squamous Epithelial Cells <1 /hpf Urine Bacteria RARE /hpf Urine Hyaline Casts 4 /lpf Urine Mucus FEW /lpf Microscopic Urinalysis Comment CULT NOT INDICATED Physical Examination HEENT: Normocephalic; atraumatic; + jaundice. CHEST: CTA CARDIAC: RRR ABDOMEN: Soft, nondistended, nontender; no hepatosplenomegaly; bowel sounds are present in all four quadrants. EXTREMITIES: No clubbing, cyanosis, or edema. SKIN: Normal; no rash; no jaundice. DIRECTOR OF EXTENSION WORK: No focal deficits; alert and oriented times three. (Bonnie Cantu) Assessment and Plan Plan ASSESSMENT: - Epigastric pain, nausea with elevated LFTs. Pt was evaluated for the same , had liver us, CT scan- unremarkable at that time. His pain improved and it was thought that his elevated LFTs were related to hemolysis. The plan was for MRCP and possible EGD if worsening of symptoms. He has had burning epigastric pain with nausea since Friday. (+) GERD. No melena, hematochezia. WBC 22.9. T. Bili 19.2, AST 63, ALT 37 , Alk Phosph 109. MRCP pending. Add PPI. If MRCP negative, EGD in am. If biliary obstruction on MRCP, then possible ERCP - Sickle cell anemia. 8.2/24.0 - DEJUAN. Creat 2.93. PLAN: - Clear liquids - NPO after MN - Await MRCP - If MRCP (-), possible egd in am - If MRCP (+), then possible ERCP in am - Haptoglobin, LDH - CBC, CMP in am - Add Protonix 40mg IV BID - Supportive care - Further recommendations to follow based on results of above - Pt seen and examined by Dr. Moser and myself and this note is written on his behalf - (Bonnie Cantu) Physician Comments Patient seen and examined Agree with above Continue with current supportive care Monitor labs MRCP unremarkable Plan for EGD tomorrow (Gabriel Moser MD) Bonnie Cantu Mar 19, 2017 13:24 Gabriel Moser MD Mar 19, 2017 21:49
[2017-03-19] MEDS ORDERED: GLUCAGON 1 MG/ML VIAL OTHER PRN (13:30)
[2017-03-19] MEDS ORDERED: DEXTROSE 50% IN WATER 50 ML VIAL(D50) IV PUSH PRN (13:30)
[2017-03-19 13:45] VITALS: BP 102/59; PULSE 83; RESP 16; TEMP 97.5; O2SAT 93
[2017-03-19] MEDS: DEXT 5%-NACL 0.45% 1000 ML INJ 1,000 ML IV SCH ×2 (14:05→23:19)
[2017-03-19 16:00] VITALS: BP 101/55; PULSE 88; RESP 17; TEMP 97.3; O2SAT 90
[2017-03-19] MEDS: PANTOPRAZOLE SODIUM 40 MG VIAL IV PUSH SCH (16:29)
--- NOTE | 2017-03-19 16:39 | RADRPT ---
EXAM DATE/TIME: 03/19/2017 15:12 [place] COMPARISON: No previous studies available for comparison. INDICATIONS : Jaundice. MEDICAL HISTORY : Hypertension. Diabetes mellitus type 2. Sickle Cell disease. GERD. SURGICAL HISTORY : Cholecystectomy. Knee surgery. Eye surgery for broken blood vessel. ENCOUNTER: Subsequent ACUITY: 2 weeks PAIN SCORE: 2/10 LOCATION: abdomen. TECHNIQUE: Multiplanar, multisequence magnetic resonance imaging of the abdomen was performed. High-resolution 3D dataset was utilized to reconstruct maximum-intensity projection (MIP) images. FINDINGS: The gallbladder is surgically absent. There is no intrahepatic biliary duct dilatation. There is no evidence for common duct stone. The common duct measures 6 mm, larger than was seen by p revious ultrasound. Pancreas appears unremarkable Right renal cyst is noted. The left kidney is unremarkable. CONCLUSION: Mildly prominent common duct. There is no evidence of common duct stone. There is n o intrahepatic duct dilatation. All Alfaro MD FACR on March 19, 2017 at 16:33 Board Certified Radiologist. This report was verified electronically.
[2017-03-19] MEDS: INSULIN ASPART SUPPLEMENTAL SCALE SQ SCH ×2 (17:00→20:08)
[2017-03-19 20:00] VITALS: BP 101/53; PULSE 82; RESP 17; TEMP 98; O2SAT 91
[2017-03-19] MEDS: FAMOTIDINE 20 MG TAB PO SCH (20:06)
[2017-03-19] MEDS: SODIUM CHLORIDE 0.9% FLUSH 10 ML FLUSH IV FLUSH SCH (20:08)
[2017-03-19] MEDS ORDERED: FAMOTIDINE 20 MG TAB PO SCH (21:00)
[2017-03-19] MEDS: HYDROmorphone HCL PF 0.5 MG/0.5 ML SYRINGE IV PUSH PRN (23:15)
[2017-03-20] VITALS: BP 101/59; PULSE 78; RESP 17; TEMP 98.4; O2SAT 91
[2017-03-20 04:00] VITALS: BP 108/56; PULSE 77; RESP 17; TEMP 97.1; O2SAT 91
[2017-03-20] MEDS: PANTOPRAZOLE SODIUM 40 MG VIAL IV PUSH SCH ×2 (04:27→13:30)
[2017-03-20] MEDS: HYDROmorphone HCL PF 0.5 MG/0.5 ML SYRINGE IV PUSH PRN ×3 (04:29→17:54)
[2017-03-20] MEDS: DEXT 5%-NACL 0.45% 1000 ML INJ 1,000 ML IV SCH ×3 (06:00→21:36)
[2017-03-20] MEDS ORDERED: SODIUM CHLORID 0.9% 500 ML IV PRN (06:45)
[2017-03-20] MEDS ORDERED: METOPROLOL TARTRATE 25 MG TAB PO PRN (06:45)
[2017-03-20] MEDS ORDERED: POVIDONE IODINE 5% (ANTISEPSIS KIT) 4 APPLICATIONS EACH NARE PRN (06:45)
[2017-03-20] MEDS ORDERED: LACTATED RINGER'S 1000 ML IV PRN (06:45)
[2017-03-20] MEDS ORDERED: CHLORHEXIDINE GLUCONATE 2 % 1 PACK (2 CLOTHS) TOPICAL PRN (06:45)
[2017-03-20 07:24] LABS: AUTOMATED NEUTROPHIL # 7.7 TH/MM3 (1.8-7.7); BASOPHIL # 0.1 TH/MM3 (0-0.2); BASOPHIL % 0.7 % (0.0-2.0); EOSINOPHIL # 0.3 TH/MM3 (0-0.4); EOSINOPHIL % 1.8 % (0.0-4.0); LYMPH % 25.8 % (9.0-44.0); LYMPHOCYTE # 3.7 TH/MM3 (1.0-4.8); MEAN CELL VOLUME 87.7 FL (80.0-100.0); MEAN CORPUSCULAR HEMOGLOBIN 30.2 PG (27.0-34.0); MEAN CORPUSCULAR HGB CONC 34.5 % (32.0-36.0); MONO % 17.4 % (0.0-8.0); NEUT % 54.3 % (16.0-70.0); PLATELET COUNT 292 TH/MM3 (150-450); RED CELL DISTRIBUTION WIDTH 30.7 % (11.6-17.2); WHITE BLOOD COUNT 14.2 TH/MM3 (4.0-11.0)
[2017-03-20 07:35] LABS: ALKALINE PHOSPHATASE 88 U/L (45-117); ALT (GPT) 35 U/L (12-78); ANION GAP 5 MEQ/L (5-15); AST (GOT) 53 U/L (15-37); BLOOD UREA NITROGEN 14 MG/DL (7-18); CHLORIDE 111 MEQ/L (98-107); GLOMERULAR FILTRATION RATE 56 ML/MIN (>89); POTASSIUM 4.2 MEQ/L (3.5-5.1); SODIUM (NA) 141 MEQ/L (136-145)
[2017-03-20 07:37] LABS: HEMO FLAGS AUTO DIFF
[2017-03-20 07:41] LABS: TOTAL BILIRUBIN ADULT 19.5 MG/DL (0.2-1.0)
[2017-03-20 08:00] VITALS: BP 116/53; PULSE 76; RESP 16; TEMP 98; O2SAT 95
[2017-03-20 08:12] LABS: CORRECTED NUCLEATED RBC 5 /100 WBC (0-0); EOSINOPHILS 1 % (0-4); NEUTROPHIL # MANUAL DIFF 8.9 TH/MM3 (1.8-7.7); POLYS (SEG NEUTROPHILS) 63 % (16-70); WBC DIFF SAMPLE 100
[2017-03-20 08:20] LABS: HOWELL-JOLLY BODIES PRESENT (NONE SEEN); POLYCHROMASIA 4.3 % (0.0-1.9); SICKLE CELLS 1+ (NORMAL)
[2017-03-20 08:21] LABS: PLATELET ESTIMATE SMEAR NORMAL (NORMAL); PLATELET MORPHOLOGY NORMAL (NORMAL); SCAN/DIFF FINAL DIFF MANUAL
[2017-03-20] MEDS: SODIUM CHLORIDE 0.9% FLUSH 10 ML FLUSH IV FLUSH SCH ×2 (09:00→21:35)
[2017-03-20] MEDS ORDERED: NEBIVOLOL 5 MG TAB PO SCH (09:00)
[2017-03-20] MEDS ORDERED: NON-FORMULARY DRUG (B-Complex Vitamins (B Complex) 1 CAP) PO SCH (09:00)
[2017-03-20] MEDS: INSULIN ASPART SUPPLEMENTAL SCALE SQ SCH ×4 (09:31→21:00)
[2017-03-20 09:32] VITALS: PULSE 94
[2017-03-20] MEDS: FOLIC ACID 1 MG TAB PO SCH (09:32)
[2017-03-20] MEDS: ASPIRIN 81 MG CHEW TAB CHEW SCH (09:32)
[2017-03-20] MEDS: FAMOTIDINE 20 MG TAB PO SCH ×2 (09:32→21:34)
--- NOTE | 2017-03-20 12:28 | PD.PROCEDR ---
GI Procedure REFERRING PHYSICIAN Stacie PROCEDURE PERFORMED EGD INDICATION FOR PROCEDURE Epigastric pain PROCEDURE: The procedure, risks and benefits were discussed with Mr. Meier and informed consent was obtained. Anesthesia sedated him with Diprivan. He was placed in the left lateral decubitus position. EGD: The Pentax videoscope was introduced through the oropharynx and advanced to the second portion of the duodenum under direct visualization. Retroflexion was performed in the stomach. FINDINGS: Esophagus this was normal Stomach this too appeared to be unremarkable and within normal limits Duodenum this was normal ESTIMATED BLOOD LOSS: None SPECIMENS REMOVED: None COMPLICATIONS: None IMPRESSION: Normal EGD PLAN: Continue with current supportive care Monitor labs Consider repeat CT if symptoms persist Consider anti-spasmodics such as Bentyl if need be for pain Gabriel Moser MD Mar 20, 2017 12:28
[2017-03-20 16:00] VITALS: BP 94/56; PULSE 88; RESP 17; TEMP 97.9; O2SAT 92
--- NOTE | 2017-03-20 19:13 | HHI.PR ---
Subjective Remarks patient c/o abdominal pain states has diarrhea denies fevers or chills c/o hip pain Objective Vitals Vital Signs Date Time Temp Pulse Resp B/P (MAP) Pulse Ox O2 Delivery O2 Flow Rate FiO2 03/20/17 16:00 97.9 88 17 94/56 (69) 92 03/20/17 12:59 98.4 69 18 100/68 (79) 93 03/20/17 12:35 98.4 80 16 107/67 (80) 93 03/20/17 09:32 94 03/20/17 08:00 98.0 76 16 116/53 (74) 95 03/20/17 04:00 97.1 77 17 108/56 (73) 91 03/20/17 00:00 98.4 78 17 101/59 (73) 91 03/19/17 20:00 98.0 82 17 101/53 (69) 91 I/O 03/19/17 03/19/17 03/19/17 03/20/17 03/20/17 03/20/17 07:00 15:00 23:00 07:00 15:00 23:00 Intake Total 1000 ml 845 ml 1487 ml 100 ml 1471 ml Output Total 500 ml 1800 ml 865 ml Balance 1000 ml 345 ml -313 ml 100 ml 606 ml Intake Oral 290 ml 240 ml 480 ml IV Total 1000 ml 555 ml 1247 ml 991 ml Other 100 ml Output Urine Total 500 ml 1800 ml 865 ml # Voids 1 # Bowel Movements 0 1 Result Diagram: 03/20/17 0608 03/20/17 0608 Imaging Last Impressions Cholangiopancreatography MRI 03/19/17 0000 Signed Impressions: Service Date/Time: Sunday, March 19, 2017 15:12 - CONCLUSION: Mildly prominent common duct. There is no evidence of common duct stone. There is no intrahepatic duct dilatation. All Alfaro MD FACR Objective Remarks AAOx3 (+) jaundice Clear lungs BL S1S2 RRR Abdomen soft, diffusely tender to palpation Medications and IVs Current Medications Medications (Trade) Dose Ordered Sig/Parrish Route Start Time Stop Time Status Last Admin (NS Flush) 2 ml UNSCH PRN IV FLUSH 03/19/17 11:00 (NS Flush) 2 ml BID IV FLUSH 03/19/17 21:00 03/20/17 21:35 (Narcan Inj) 0.4 mg UNSCH PRN IV PUSH 03/19/17 11:00 (Dilaudid Pf Inj) 0.5 mg Q4H PRN IV PUSH 03/19/17 11:45 03/20/17 17:54 Dextrose/Sodium Chloride 1,000 ml @ 125 mls/hr Q8H IV 03/19/17 14:00 03/20/17 21:36 (D50w (Vial) Inj) 50 ml UNSCH PRN IV PUSH 03/19/17 13:30 (Glucagon Inj) 1 mg UNSCH PRN OTHER 03/19/17 13:30 (NovoLOG SUPPLEMENTAL SCALE) 1 ACHS SLIDING SCALE SQ 03/19/17 17:00 (Aspirin Chew) 81 mg DAILY CHEW 03/20/17 09:00 03/20/17 09:32 (Folate) 1 mg DAILY PO 03/20/17 09:00 03/20/17 09:32 (Bystolic) 5 mg DAILY PO 03/20/17 09:00 03/20/17 09:32 (Pepcid) 10 mg Q12HR PO 03/19/17 21:00 03/20/17 21:34 (Protonix Inj) 40 mg Q12H IV PUSH 03/19/17 15:00 03/20/17 13:30 Lactated Ringer's 1,000 ml @ 30 mls/hr Q24H PRN IV 03/20/17 06:45 03/23/17 06:44 Sodium Chloride 500 ml @ 30 mls/hr [id number] PRN IV 03/20/17 06:45 03/23/17 06:44 (Lopressor) 25 mg DIELECTRIC MACHINE OPERATOR PRN PO 03/20/17 06:45 03/23/17 06:44 (Betadine 5% Antisepsis Kit) 1 applic DIELECTRIC MACHINE OPERATOR PRN EACH NARE 03/20/17 06:45 03/23/17 06:44 (Chlorhexidine 2% Cloth) 3 pack DIELECTRIC MACHINE OPERATOR PRN TOPICAL 03/20/17 06:45 03/23/17 06:44 (Miralax) 17 gm DAILY PO 03/21/17 09:00 Sodium Chloride 250 ml @ 15 mls/hr ONCE ONCE IV 03/20/17 19:15 11/17/17 11:54 (Tylenol) 650 mg Q4H PRN PO 03/20/17 19:15 (Benadryl) 25 mg Q4H PRN PO 03/20/17 19:15 A/P Problem List: (1) Sickle cell crisis ICD Code: D57.00 - Hb-SS disease with crisis, unspecified Plan: Patient with increased reticulocyte count, sickle cells and absolute retic count. Consult hematology. transfuse 1 unit prbc (2) Jaundice ICD Code: R17 - Unspecified jaundice Plan: doubt obstructive jaundice. MRCP negative. EGD/colonoscopy normal appreciate GI recommendations. Will check bilirrubin components. (3) Hypercalcemia ICD Code: E83.52 - Hypercalcemia Status: Acute Plan: due to dehydration, trending down, Continue IV fluids. (4) Total bilirubin, elevated ICD Code: R17 - Unspecified jaundice Status: Acute Plan: suspect due to hemolysis, check bilirubin components. Monitor Lft's (5) Leukocytosis ICD Code: D72.829 - Elevated white blood cell count, unspecified Status: Acute Plan: No signs fo acute infection. Possibly due to stress, WBC trending down. Monitor cbc w diff. Check c diff since there are reports of diarrhea and patient has been recently admitted and reportedly received antibiotics. (6) HTN (hypertension) ICD Code: I10 - Essential (primary) hypertension Status: Chronic Plan: bp borderline low. hold antihypertensive medications for now. Problem Qualifiers (1) HTN (hypertension): Qualified Codes: I10 - Essential (primary) hypertension Manan Moura MD Mar 20, 2017 19:13
[2017-03-20] MEDS ORDERED: SODIUM CHLOR 0.9% 250 ML INJ 250 ML IV ONE (19:15)
[2017-03-20] MEDS ORDERED: ACETAMINOPHEN 325 MG TAB PO PRN (19:15)
[2017-03-20] MEDS ORDERED: diphenhydrAMINE HCL 25 MG CAP PO PRN (19:15)
[2017-03-20 20:00] VITALS: BP 103/59; PULSE 65; PULSE 66; RESP 17; TEMP 97.6; O2SAT 91
[2017-03-20 21:42] LABS: INDIRECT BILIRUBIN 15.8 MG/DL (0.0-0.8); TOTAL BILIRUBIN ADULT 19.2 MG/DL (0.2-1.0)
[2017-03-21] VITALS (9 sets, daily range): BP systolic 90–108; BP diastolic 51–61; PULSE 62–101; RESP 14–20; TEMP 97–98.3; O2SAT 93–96
[2017-03-21] MEDS: PANTOPRAZOLE SODIUM 40 MG VIAL IV PUSH SCH ×2 (04:39→14:55)
[2017-03-21] MEDS: DEXT 5%-NACL 0.45% 1000 ML INJ 1,000 ML IV SCH ×3 (04:39→13:35)
[2017-03-21] MEDS: HYDROmorphone HCL PF 0.5 MG/0.5 ML SYRINGE IV PUSH PRN ×4 (04:43→22:34)
[2017-03-21 07:37] LABS: AUTOMATED NEUTROPHIL # 7.2 TH/MM3 (1.8-7.7); BASOPHIL # 0.1 TH/MM3 (0-0.2); BASOPHIL % 0.6 % (0.0-2.0); EOSINOPHIL # 0.5 TH/MM3 (0-0.4); EOSINOPHIL % 3.5 % (0.0-4.0); HEMATOCRIT 22.7 % (39.0-51.0); LYMPH % 26.2 % (9.0-44.0); LYMPHOCYTE # 3.7 TH/MM3 (1.0-4.8); MEAN CELL VOLUME 88.3 FL (80.0-100.0); MEAN CORPUSCULAR HEMOGLOBIN 31.7 PG (27.0-34.0); MEAN CORPUSCULAR HGB CONC 35.9 % (32.0-36.0); MONO % 17.8 % (0.0-8.0); NEUT % 51.9 % (16.0-70.0); PLATELET COUNT 280 TH/MM3 (150-450); RED BLOOD COUNT 2.57 MIL/MM3 (4.50-5.90); RED CELL DISTRIBUTION WIDTH 27.4 % (11.6-17.2)
[2017-03-21 07:48] LABS: MAGNESIUM 1.4 MG/DL (1.5-2.5)
[2017-03-21 08:08] LABS: HEMO FLAGS AUTO DIFF; REVIEW FLAG FINAL
[2017-03-21] MEDS: SODIUM CHLORIDE 0.9% FLUSH 10 ML FLUSH IV FLUSH SCH ×2 (09:00→21:00)
[2017-03-21] MEDS: INSULIN ASPART SUPPLEMENTAL SCALE SQ SCH ×4 (09:22→21:00)
[2017-03-21] MEDS: FAMOTIDINE 20 MG TAB PO SCH ×2 (09:22→21:29)
[2017-03-21] MEDS: FOLIC ACID 1 MG TAB PO SCH (09:22)
[2017-03-21] MEDS: ASPIRIN 81 MG CHEW TAB CHEW SCH (09:22)
[2017-03-21] MEDS: POLYETHYLENE GLYCOL 17 GM PKG PO SCH (09:22)
[2017-03-21 09:42] LABS: BASOPHILS 1 % (0-2); CORRECTED NUCLEATED RBC 4 /100 WBC (0-0); EOSINOPHILS 1 % (0-4); NEUTROPHIL # MANUAL DIFF 8.8 TH/MM3 (1.8-7.7); POLYS (SEG NEUTROPHILS) 63 % (16-70); WBC DIFF SAMPLE 100
[2017-03-21 09:43] LABS: KERATOCYTES OCC (NORMAL); SICKLE CELLS 2+ (NORMAL)
[2017-03-21 09:44] LABS: POLYCHROMASIA 2.8 % (0.0-1.9)
[2017-03-21 09:45] LABS: PLATELET ESTIMATE SMEAR NORMAL (NORMAL); PLATELET MORPHOLOGY NORMAL (NORMAL); SCAN/DIFF FINAL DIFF MANUAL
--- NOTE | 2017-03-21 10:10 | HHI.GIFU ---
Subjective Remarks Patient resting in bed in no distress. He is eating his breakfast and seems to be tolerating this. He continues to have epigastric discomfort without any nausea or vomiting. (Bonnie Cantu) Objective Vitals I&O Vital Signs Date Time Temp Pulse Resp B/P (MAP) Pulse Ox O2 Delivery O2 Flow Rate FiO2 03/21/17 07:15 98.0 70 14 90/52 (65) 94 03/21/17 04:00 98.3 73 20 95/51 (66) 94 03/21/17 01:35 100/53 (69) 03/21/17 00:00 97.9 67 20 97/51 (66) 93 03/20/17 20:00 66 03/20/17 20:00 97.6 65 17 103/59 (74) 91 03/20/17 16:00 97.9 88 17 94/56 (69) 92 03/20/17 12:59 98.4 69 18 100/68 (79) 93 03/20/17 12:35 98.4 80 16 107/67 (80) 93 I/O 03/20/17 03/20/17 03/20/17 03/21/17 03/21/17 03/21/17 07:00 15:00 23:00 07:00 15:00 23:00 Intake Total 1487 ml 100 ml 1471 ml 1274 ml Output Total 1800 ml 1115 ml 1150 ml Balance -313 ml 100 ml 356 ml 124 ml Intake Oral 240 ml 480 ml 500 ml IV Total 1247 ml 991 ml 437 ml Packed Cells 337 ml Other 100 ml Output Urine Total 1800 ml 1115 ml 1150 ml # Bowel Movements 1 0 Laboratory Laboratory Tests Test 03/20/17 20:04 03/21/17 06:15 Total Bilirubin 19.2 Direct Bilirubin 3.4 Indirect Bilirubin 15.8 White Blood Count 14.0 Red Blood Count 2.57 Hemoglobin 8.1 Hematocrit 22.7 Mean Corpuscular Volume 88.3 Mean Corpuscular Hemoglobin 31.7 Mean Corpuscular Hemoglobin Concent 35.9 Red Cell Distribution Width 27.4 Platelet Count 280 Mean Platelet Volume 8.2 Neutrophils (%) (Auto) 51.9 Lymphocytes (%) (Auto) 26.2 Monocytes (%) (Auto) 17.8 Eosinophils (%) (Auto) 3.5 Basophils (%) (Auto) 0.6 Neutrophils # (Auto) 7.2 Lymphocytes # (Auto) 3.7 Monocytes # (Auto) 2.5 Eosinophils # (Auto) 0.5 Basophils # (Auto) 0.1 CBC Comment AUTO DIFF Differential Total Cells Counted 100 Neutrophils % (Manual) 63 Lymphocytes % 19 Monocytes % 16 Eosinophils % 1 Basophils % 1 Neutrophils # (Manual) 8.8 Nucleated Red Blood Cells 4 Differential Comment FINAL DIFF MANUAL Platelet Estimate NORMAL Platelet Morphology Comment NORMAL Polychromasia 2.8 Sickle Cells 2+ Acanthocytes Keratocytes OCC Red Cell Morphology Comment Reticulocyte Count 10.0 Absolute Reticulocyte Count 256.8 Haptoglobin LESS THAN 10 Phosphorus Level 1.7 Magnesium Level 1.4 Lactate Dehydrogenase 455 Imaging Last Impressions Cholangiopancreatography MRI 03/19/17 0000 Signed Impressions: Service Date/Time: Friday, March 19, 2017 15:12 - CONCLUSION: Mildly prominent common duct. There is no evidence of common duct stone. There is no intrahepatic duct dilatation. All Alfaro MD FACR Physical Exam HEENT: Normocephalic; atraumatic; + jaundice. CHEST: CTA CARDIAC: RRR ABDOMEN: Soft, nondistended, mild epigastric tenderness; no hepatosplenomegaly ; bowel sounds are present in all four quadrants. EXTREMITIES: No clubbing, cyanosis, or edema. SKIN: Normal; no rash; no jaundice. RELOCATION COORDINATOR: No focal deficits; alert and oriented times three. (Bonnie Cantu) Assessment and Plan Plan ASSESSMENT: - Epigastric pain, nausea with elevated LFTs. Pt was evaluated for the same , had liver us, CT scan- unremarkable at that time. His pain improved and it was thought that his elevated LFTs were related to hemolysis. The plan was for MRCP and possible EGD if worsening of symptoms. He has had burning epigastric pain with nausea since Friday. (+) GERD. No melena, hematochezia. MRCP without contrast (03/19/17)----> mildly prominent common duct. There is no evidence of common duct stone. There is no intrahepatic duct dilatation. S/P EGD (03/20/17)---> nL EGD. LFTs remained elevated yesterday, predominantly indirect- ? hemolysis secondary to sickle cell. Trial of antispasmodics. If no improvement, consider rpt. CT Scan vs. GES. PPI. - Sickle cell anemia. 8.05/26.7. - DEJUAN, DM, HTN per attending PLAN: - STAR - PPI - Trial of Bentyl - Monitor labs - If no improvement, consider repeat CT scan vs. GES - Supportive care - Further recommendations to follow based on results of above - Pt seen and examined by Dr. Moser and myself and this note is written on his behalf (Bonnie Cantu) Physician Comments Patient seen and examined Agree with above Continue with current supportive care Monitor labs (Gabriel Moser MD) Bonnie Cantu Mar 21, 2017 10:10 Gabriel Moser MD Mar 21, 2017 22:14
[2017-03-21] MEDS ORDERED: SODIUM CHLORID 0.9% 500 ML INJ 500 ML IV ONE (10:30)
[2017-03-21] MEDS: DICYCLOMINE HCL 20 MG TAB PO SCH ×2 (12:26→18:08)
[2017-03-21] MEDS: POTASSIUM PHOSPHATE/SODIUM PHOSPHATE 250 MG TAB PO SCH ×3 (12:27→22:27)
[2017-03-21] MEDS: MAGNESIUM SULFATE 1 GM PREMIX 100 ML IV SCH ×2 (12:28→14:55)
--- NOTE | 2017-03-21 14:53 | HHI.PR ---
Subjective Remarks Patient seen at 10:25 am Patient denies cp/sob denies diarrhea states feels less fatigued Denies fevers or chills. States abdominal pain is still present but slightly improved. Objective Vitals Vital Signs Date Time Temp Pulse Resp B/P (MAP) Pulse Ox O2 Delivery O2 Flow Rate FiO2 03/21/17 12:00 97.2 101 17 104/61 (75) 95 03/21/17 07:15 98.0 70 14 90/52 (65) 94 03/21/17 04:00 98.3 73 20 95/51 (66) 94 03/21/17 01:35 100/53 (69) 03/21/17 00:00 97.9 67 20 97/51 (66) 93 03/20/17 20:00 66 03/20/17 20:00 97.6 65 17 103/59 (74) 91 03/20/17 16:00 97.9 88 17 94/56 (69) 92 I/O 03/20/17 03/20/17 03/20/17 03/21/17 03/21/17 03/21/17 07:00 15:00 23:00 07:00 15:00 23:00 Intake Total 1487 ml 100 ml 1471 ml 1274 ml 600 ml Output Total 1800 ml 1115 ml 1150 ml Balance -313 ml 100 ml 356 ml 124 ml 600 ml Intake Oral 240 ml 480 ml 500 ml IV Total 1247 ml 991 ml 437 ml 600 ml Packed Cells 337 ml Other 100 ml Output Urine Total 1800 ml 1115 ml 1150 ml # Bowel Movements 1 0 Result Diagram: 03/21/17 0615 03/20/17 0608 Imaging Last Impressions Cholangiopancreatography MRI 03/19/17 0000 Signed Impressions: Service Date/Time: Sunday, March 19, 2017 15:12 - CONCLUSION: Mildly prominent common duct. There is no evidence of common duct stone. There is no intrahepatic duct dilatation. All Alfaro MD FACR Objective Remarks AAOx3 (+) jaundice Clear lungs BL S1S2 RRR Abdomen soft, diffusely tender to palpation, bowel sounds present - normoactive. Procedures Panendoscopy ---> normal Medications and IVs Current Medications Medications (Trade) Dose Ordered Sig/Parrish Route Start Time Stop Time Status Last Admin (NS Flush) 2 ml UNSCH PRN IV FLUSH 03/19/17 11:00 (NS Flush) 2 ml BID IV FLUSH 03/19/17 21:00 03/20/17 21:35 (Narcan Inj) 0.4 mg UNSCH PRN IV PUSH 03/19/17 11:00 (Dilaudid Pf Inj) 0.5 mg Q4H PRN IV PUSH 03/19/17 11:45 03/21/17 13:35 Dextrose/Sodium Chloride 1,000 ml @ 125 mls/hr Q8H IV 03/19/17 14:00 03/21/17 13:35 (D50w (Vial) Inj) 50 ml UNSCH PRN IV PUSH 03/19/17 13:30 (Glucagon Inj) 1 mg UNSCH PRN OTHER 03/19/17 13:30 (NovoLOG SUPPLEMENTAL SCALE) 1 ACHS SLIDING SCALE SQ 03/19/17 17:00 (Aspirin Chew) 81 mg DAILY CHEW 03/20/17 09:00 03/21/17 09:22 (Folate) 1 mg DAILY PO 03/20/17 09:00 03/21/17 09:22 (Bystolic) 5 mg DAILY PO 03/20/17 09:00 Future Hold 03/20/17 09:32 (Pepcid) 10 mg Q12HR PO 03/19/17 21:00 03/21/17 09:22 (Protonix Inj) 40 mg Q12H IV PUSH 03/19/17 15:00 03/21/17 04:39 Lactated Ringer's 1,000 ml @ 30 mls/hr Q24H PRN IV 03/20/17 06:45 03/23/17 06:44 Sodium Chloride 500 ml @ 30 mls/hr [id number] PRN IV 03/20/17 06:45 03/23/17 06:44 (Lopressor) 25 mg ROW BOSS HOEING PRN PO 03/20/17 06:45 03/23/17 06:44 (Betadine 5% Antisepsis Kit) 1 applic ROW BOSS HOEING PRN EACH NARE 03/20/17 06:45 03/23/17 06:44 (Chlorhexidine 2% Cloth) 3 pack ROW BOSS HOEING PRN TOPICAL 03/20/17 06:45 03/23/17 06:44 (Miralax) 17 gm DAILY PO 03/21/17 09:00 (Tylenol) 650 mg Q4H PRN PO 03/20/17 19:15 03/21/17 00:21 (Benadryl) 25 mg Q4H PRN PO 03/20/17 19:15 03/21/17 00:21 (K-Phos Neutral) 250 mg Q6HR PO 03/21/17 12:00 03/21/17 12:27 (Bentyl) 20 mg TID PO 03/21/17 13:00 03/21/17 12:26 Urinary Catheter: No Vascular Central Line Catheter: No A/P Problem List: (1) Sickle cell crisis ICD Code: D57.00 - Hb-SS disease with crisis, unspecified Plan: Patient with increased reticulocyte count, sickle cells and absolute retic count. Status post infusion of 1 unit packed red blood cells Hematology consult pending LDH trending down from 578 to 455, reticulocyte count decreased to 10 from 16.3. (2) Jaundice ICD Code: R17 - Unspecified jaundice Plan: doubt obstructive jaundice. MRCP negative. EGD/colonoscopy normal appreciate GI recommendations. Bilirubin components show predominance of the indirect bilirubin with a level of 15.8 and a direct bilirubin level of 3.4. (3) Hypercalcemia ICD Code: E83.52 - Hypercalcemia Status: Acute Plan: due to dehydration, trending down, Continue IV fluids. BMP ordered and pending. (4) Total bilirubin, elevated ICD Code: R17 - Unspecified jaundice Status: Acute Plan: Suspect due to hemolysis. Increased indirect bilirrubin predominance as above. (5) Leukocytosis ICD Code: D72.829 - Elevated white blood cell count, unspecified Status: Acute Plan: No signs fo acute infection. Possibly due to stress, WBC trending down. Monitor cbc w diff. Check c diff since there are reports of diarrhea and patient has been recently admitted and reportedly received antibiotics. 03/21 Will check CXR. MRCP negative. (6) HTN (hypertension) ICD Code: I10 - Essential (primary) hypertension Status: Chronic Plan: BP low today with a systolic blood pressure in the 90s. Ordered normal saline bolus of 500 ML's with improvement of blood pressure. (7) Hypophosphatemia ICD Code: E83.39 - Other disorders of phosphorus metabolism Status: Acute Plan: Likely due to poor oral intake. Will start the patient on Neutra-Phos and continue to monitor phosphorus levels. (8) Hypomagnesemia ICD Code: E83.42 - Hypomagnesemia Status: Acute Plan: Likely due to nutritional deficiency. Replace with magnesium sulfate and monitor magnesium levels. (9) Abdominal pain ICD Code: R10.9 - Unspecified abdominal pain Plan: SP normal panendoscopy. negative MRCP. No diarrhea. Most likely due to sickle cell crisis and splenic infarcts. Assessment and Plan GI prophylaxis: PPI. DVT prophylaxis: SCDs. Discharge Planning Continue to monitor in the medical floor. Hematology consult pending. Problem Qualifiers (1) HTN (hypertension): Qualified Codes: I10 - Essential (primary) hypertension (2) Abdominal pain: Qualified Codes: R10.84 - Generalized abdominal pain Manan Moura MD Mar 21, 2017 14:53
[2017-03-21 16:15] LABS: BICARBONATE 21.9 MEQ/L (21.0-32.0); POTASSIUM 4.1 MEQ/L (3.5-5.1)
[2017-03-21] MEDS: HYDROXYUREA 500 MG CAP PO SCH (21:29)
--- NOTE | 2017-03-21 22:51 | RADRPT ---
EXAM DATE/TIME: 03/21/2017 21:43 [facility] COMPARISON: No previous studies available for comparison. INDICATIONS : Shortness of breath. MEDICAL HISTORY : None. SURGICAL HISTORY : None. ENCOUNTER: Initial ACUITY: 1 day PAIN SCORE: 0/10 LOCATION: chest FINDINGS: PA and lateral views of the chest demonstrate the lungs to be symmetrically aerated without evidence of mass, infiltrate or effusion. The cardiomediastinal contours are unremarkable. Spurs are seen in the thoracic spine. CONCLUSION: No acute disease. Remberto Garcia MD on March 21, 2017 at 22:49 Board Certified Radiologist. This report was verified electronically.
--- NOTE | 2017-03-21 23:17 | MB ---
cc: FABIAN ROWELL M.D. DATE OF CONSULTATION: 03/21/2017. REASON FOR CONSULTATION: Consult requested by hospitalist for evaluation and management of sickle cell painful crisis. HISTORY OF PRESENT ILLNESS: Basilio is a 61-year-old -[place] male. He is well-known to me. He has a history of sickle-cell disease and thalassemia minor. He was recently admitted to [facility] about a month ago for sickle cell painful crisis. He was treated and was discharged to home. He was doing fine up until a few days ago when he started having epigastric burning pain associated with nausea and vomiting. He had only one episode of diarrhea. He subsequently noticed pain in his back and decided to come to the emergency room. The patient is now admitted to the hospital. GI and hematology have been consulted for further evaluation. The patient has been complaining of generalized body ache. He states that he is having pain all over. He is also complaining of abdominal pain associated with nausea. He had MRCP which came back negative. Plan is for endoscopy to be done tomorrow. The patient denies any fever. He has been complaining of anorexia and weight loss which he attributes to intractable nausea. The rest of the review of systems is negative. PAST MEDICAL HISTORY: 1. Sickle-cell disease / beta-thalassemia minor. 2. Hypertension. 3. Diabetes mellitus. 4. Arthritis. 5. Gastroesophageal reflux disease (GERD). PAST SURGICAL HISTORY: 1. Cholecystectomy. 2. Cardiac catheterization. 3. Tonsillectomy. 4. Right knee surgery. 5. Eye surgery. ALLERGIES: 1. AZITHROMYCIN. 2. ERYTHROMYCIN. 3. CORTISONE. MEDICATIONS: 1. Folic acid. 2. Dexilant. 3. Aspirin. 4. Hydrocodone. 5. Pioglitazone. 6. Bystolic. 7. Glyburide. 8. B-complex. FAMILY HISTORY: Noncontributory. SOCIAL HISTORY: The patient does not smoke cigarettes, does not drink alcohol. PHYSICAL EXAMINATION:: GENERAL: On physical examination, the patient is a well-developed, well-nourished -[place] male in moderate distress due to the pain. VITAL SIGNS: Temperature 97.2, heart rate is 101, blood pressure 10/61. HEAD, EYES, EARS, NOSE, THROAT: Pupils equal, round and reactive to light and accommodation. Extraocular muscles intact. Sclerae are deeply icteric. Oral mucosa is dry. NECK: No lymphadenopathy noted. LUNGS: Clear. No wheezes, rales or rhonchi. HEART: Regular rate and rhythm. ABDOMEN: Abdomen is soft and diffusely tender. EXTREMITIES: No pedal edema. NEUROLOGIC: Awake, alert and oriented times three. SKIN: No significant lesions noted. ASSESSMENT: 1. History of sickle-cell disease / beta-thalassemia minor with multiple painful hemolytic crises. 2. The patient is presently having hemolytic painful crisis. 3. Abdominal pain associated with nausea in a patient who previously had cholecystectomy and now the MRCP is negative. PLAN: I have reviewed his available records and I had an extensive discussion with the patient regarding the sickle cell painful crisis. Unfortunately the patient was advised to come to the clinic for followup but he stated that he tried to call the office to make an appointment but he was unable to get that. The patient has never been on Hydrea. I have recommended that we should start him on Hydrea. He is now having more painful hemolytic crises. I explained to the patient regarding the rationale for Hydrea to increase the hemoglobin-F, which can decrease the episodes of sickle cell painful crises hopefully. He agreed with that. I have written the order for him to start Hydrea 500 milligrams twice a day. He had a blood test today which showed white count of 14, hemoglobin 8.1 and platelet count is 280,000. Reticulocyte count is 10, haptoglobin is low. Total bilirubin is high at 19.2 and indirect bilirubin is 15.8. LDH is 578. The patient clearly has a hemolytic painful crisis. I agree with your recommendations of hydration, narcotics, folic acid and transfusion support if needed. We will start him on Hydrea. Recommend to monitor his CBC. The patient does not have any evidence of acute chest syndrome. Further recommendations based on his hospital stay. Thank you for asking my opinion. Janak Rowell MD /MARIAH /10:49 PM /11:01 PM [facility]
[2017-03-22 00:48] VITALS: BP 120/59; PULSE 79; RESP 20; TEMP 97.7; O2SAT 95
[2017-03-22] MEDS: DEXT 5%-NACL 0.45% 1000 ML INJ 1,000 ML IV SCH ×2 (01:23→14:56)
[2017-03-22] MEDS: PANTOPRAZOLE SODIUM 40 MG VIAL IV PUSH SCH (01:23)
[2017-03-22 04:00] VITALS: BP 117/59; PULSE 66; RESP 20; TEMP 98.1; O2SAT 96
[2017-03-22] MEDS: POTASSIUM PHOSPHATE/SODIUM PHOSPHATE 250 MG TAB PO SCH ×3 (04:49→17:30)
[2017-03-22] MEDS: HYDROmorphone HCL PF 0.5 MG/0.5 ML SYRINGE IV PUSH PRN ×2 (04:50→16:05)
[2017-03-22 07:36] LABS: AUTOMATED NEUTROPHIL # 6.1 TH/MM3 (1.8-7.7); BASOPHIL # 0.1 TH/MM3 (0-0.2); BASOPHIL % 0.8 % (0.0-2.0); EOSINOPHIL # 0.9 TH/MM3 (0-0.4); EOSINOPHIL % 6.4 % (0.0-4.0); HEMATOCRIT 23.5 % (39.0-51.0); LYMPH % 31.2 % (9.0-44.0); LYMPHOCYTE # 4.1 TH/MM3 (1.0-4.8); MEAN CELL VOLUME 88.3 FL (80.0-100.0); MEAN CORPUSCULAR HEMOGLOBIN 30.6 PG (27.0-34.0); MEAN CORPUSCULAR HGB CONC 34.6 % (32.0-36.0); MONO % 15.8 % (0.0-8.0); NEUT % 45.8 % (16.0-70.0); PLATELET COUNT 282 TH/MM3 (150-450); RED BLOOD COUNT 2.66 MIL/MM3 (4.50-5.90); RED CELL DISTRIBUTION WIDTH 25.1 % (11.6-17.2); WHITE BLOOD COUNT 13.3 TH/MM3 (4.0-11.0)
[2017-03-22 07:41] LABS: HEMO FLAGS AUTO DIFF
[2017-03-22 08:00] VITALS: BP 111/59; PULSE 74; RESP 20; TEMP 96.9; O2SAT 97
[2017-03-22] MEDS: INSULIN ASPART SUPPLEMENTAL SCALE SQ SCH ×3 (08:00→17:00)
[2017-03-22 08:11] LABS: ALKALINE PHOSPHATASE 89 U/L (45-117); ALT (GPT) 40 U/L (12-78); ANION GAP 7 MEQ/L (5-15); AST (GOT) 45 U/L (15-37); BICARBONATE 24.4 MEQ/L (21.0-32.0); BLOOD UREA NITROGEN 7 MG/DL (7-18); CHLORIDE 107 MEQ/L (98-107); GLOMERULAR FILTRATION RATE 81 ML/MIN (>89); MAGNESIUM 1.8 MG/DL (1.5-2.5); POTASSIUM 3.6 MEQ/L (3.5-5.1); SODIUM (NA) 138 MEQ/L (136-145)
[2017-03-22] MEDS: FAMOTIDINE 20 MG TAB PO SCH (08:25)
[2017-03-22] MEDS: DICYCLOMINE HCL 20 MG TAB PO SCH ×3 (08:25→17:29)
[2017-03-22] MEDS: ASPIRIN 81 MG CHEW TAB CHEW SCH (08:26)
[2017-03-22] MEDS: FOLIC ACID 1 MG TAB PO SCH (08:26)
[2017-03-22] MEDS: POLYETHYLENE GLYCOL 17 GM PKG PO SCH (08:26)
[2017-03-22] MEDS: SODIUM CHLORIDE 0.9% FLUSH 10 ML FLUSH IV FLUSH SCH (08:26)
[2017-03-22] MEDS: HYDROXYUREA 500 MG CAP PO SCH (08:27)
[2017-03-22 09:33] LABS: CORRECTED NUCLEATED RBC 4 /100 WBC (0-0); EOSINOPHILS 4 % (0-4); NEUTROPHIL # MANUAL DIFF 6.9 TH/MM3 (1.8-7.7); PLATELET ESTIMATE SMEAR NORMAL (NORMAL); PLATELET MORPHOLOGY NORMAL (NORMAL); POLYS (SEG NEUTROPHILS) 52 % (16-70); SCAN/DIFF FINAL DIFF MANUAL; WBC DIFF SAMPLE 100
[2017-03-22 09:34] LABS: HOWELL-JOLLY BODIES PRESENT (NONE SEEN); SICKLE CELLS 1+ (NORMAL)
[2017-03-22 09:35] LABS: TARGET CELLS 1+ (NORMAL)
[2017-03-22 09:36] LABS: POLYCHROMASIA 2.5 % (0.0-1.9)
--- NOTE | 2017-03-22 09:40 | PD.ONC.PN ---
Subjective Subjective Remarks Afebrile overnight. Patient resting in bed in nad. No complaints. Eager to go home today. States pain has improved. Objective Data Date Time Temp Pulse Resp B/P (MAP) Pulse Ox O2 Delivery O2 Flow Rate FiO2 03/22/17 08:00 96.9 74 20 111/59 (76) 97 03/22/17 04:00 98.1 66 20 117/59 (78) 96 03/22/17 00:48 97.7 79 20 120/59 (79) 95 03/21/17 20:20 65 03/21/17 20:00 97.5 68 20 108/59 (75) 96 03/21/17 16:00 97.0 62 17 93/51 (65) 95 03/21/17 12:00 97.2 101 17 104/61 (75) 95 03/22/17 03/22/17 03/22/17 07:00 15:00 23:00 Intake Total 900 ml 120 ml Output Total 1400 ml Balance -500 ml 120 ml Result Diagram: 03/22/1762403/22/17 0625 Laboratory Results Laboratory Tests Test 03/22/17 06:25 White Blood Count 13.3 TH/MM3 Red Blood Count 2.66 MIL/MM3 Hemoglobin 8.1 GM/DL Hematocrit 23.5 % Mean Corpuscular Volume 88.3 FL Mean Corpuscular Hemoglobin 30.6 PG Mean Corpuscular Hemoglobin Concent 34.6 % Red Cell Distribution Width 25.1 % Platelet Count 282 TH/MM3 Mean Platelet Volume 8.2 FL Neutrophils (%) (Auto) 45.8 % Lymphocytes (%) (Auto) 31.2 % Monocytes (%) (Auto) 15.8 % Eosinophils (%) (Auto) 6.4 % Basophils (%) (Auto) 0.8 % Neutrophils # (Auto) 6.1 TH/MM3 Lymphocytes # (Auto) 4.1 TH/MM3 Monocytes # (Auto) 2.1 TH/MM3 Eosinophils # (Auto) 0.9 TH/MM3 Basophils # (Auto) 0.1 TH/MM3 CBC Comment AUTO DIFF Blood Urea Nitrogen 7 MG/DL Creatinine 1.11 MG/DL Random Glucose 124 MG/DL Total Protein 6.4 GM/DL Albumin 3.6 GM/DL Calcium Level 10.9 MG/DL Phosphorus Level 2.7 MG/DL Magnesium Level 1.8 MG/DL Alkaline Phosphatase 89 U/L Aspartate Amino Transf (AST/SGOT) 45 U/L Alanine Aminotransferase (ALT/SGPT) 40 U/L Total Bilirubin 14.0 MG/DL Sodium Level 138 MEQ/L Potassium Level 3.6 MEQ/L Chloride Level 107 MEQ/L Carbon Dioxide Level 24.4 MEQ/L Anion Gap 7 MEQ/L Estimat Glomerular Filtration Rate 81 ML/MIN Administered Medications Medications (Trade) Dose Ordered Sig/Parrish Route PRN Reason Start Time Stop Time Status Last Admin Dose Admin Sodium Chloride (NS Flush) 2 ml BID IV FLUSH 03/19/17 21:00 03/20/17 21:35 Hydromorphone HCl (Dilaudid Pf Inj) 0.5 mg Q4H PRN IV PUSH pain >5 03/19/17 11:45 03/22/17 04:50 Dextrose/Sodium Chloride 1,000 ml @ 125 mls/hr Q8H IV 03/19/17 14:00 03/22/17 01:23 Aspirin (Aspirin Chew) 81 mg DAILY CHEW 03/20/17 09:00 03/22/17 08:26 Folic Acid (Folate) 1 mg DAILY PO 03/20/17 09:00 03/22/17 08:26 Nebivolol (Bystolic) 5 mg DAILY PO 03/20/17 09:00 Future Hold 03/20/17 09:32 Famotidine (Pepcid) 10 mg Q12HR PO 03/19/17 21:00 03/22/17 08:25 Pantoprazole Sodium (Protonix Inj) 40 mg Q12H IV PUSH 03/19/17 15:00 03/22/17 01:23 Polyethylene Glycol (Miralax) 17 gm DAILY PO 03/21/17 09:00 03/22/17 08:26 Acetaminophen (Tylenol) 650 mg Q4H PRN PO SEE LABEL COMMENTS 03/20/17 19:15 03/21/17 00:21 Diphenhydramine HCl (Benadryl) 25 mg Q4H PRN PO SEE LABEL COMMENTS 03/20/17 19:15 03/21/17 00:21 Potassium Phos/ Sodium Phos (K-Phos Neutral) 250 mg Q6HR PO 03/21/17 12:00 03/22/17 04:49 Dicyclomine HCl (Bentyl) 20 mg TID PO 03/21/17 13:00 03/22/17 08:25 Hydroxyurea (Hydrea) 500 mg BID PO 03/21/17 21:00 03/22/17 08:27 Objective Remarks GENERAL: Middle aged male sitting up in bed in nad. SKIN: Warm and dry. HEAD: Normocephalic. EYES: No injection or drainage. NECK: Supple, trachea midline. CARDIOVASCULAR: Regular rate and rhythm RESPIRATORY: Breath sounds equal bilaterally. No accessory muscle use. GASTROINTESTINAL: Abdomen soft, non-tender, nondistended. EXTREMITIES: No cyanosis NEUROLOGICAL: awake and alert, normal speech. Assessment/Plan Problem List: (1) Sickle cell crisis ICD Codes: D57.00 - Hb-SS disease with crisis, unspecified Status: Acute Plan: --History of sickle-cell disease / beta-thalassemia minor with multiple painful hemolytic crises. --Hydrea 500 milligrams twice a day. (2) Abdominal pain ICD Codes: R10.9 - Unspecified abdominal pain Status: Resolved Plan: --pain resolved. --MRCP is negative. Assessment 61y/o male admitted with sickle cell painful crisis. h/o Sickle-cell disease / beta-thalassemia minor. Hypertension. Diabetes mellitus. Arthritis. Gastroesophageal reflux disease (GERD) Plan 1. ok to d/c from hematology perspective. 2. follow up in hematology clinic. Attending Statement The exam, history, and the medical decision-making described in the above note were completed with the assistance of the mid-level provider. I reviewed and agree with the findings presented. I attest that I had a [id number] encounter with the patient on the same day, and personally performed and documented my assessment and findings in the medical record. Doing well. Needs FU in out pt clinic. Referral to new pt. Problem Qualifiers (1) Abdominal pain: Qualified Codes: R10.84 - Generalized abdominal pain Denisse Stephens Mar 22, 2017 09:40 Analisa Pena MD Mar 22, 2017 20:01
[2017-03-22 12:00] VITALS: BP 100/59; PULSE 62; RESP 20; TEMP 97.3; O2SAT 95
[2017-03-22] MEDS ORDERED: FOLI1TAB6 PO (12:20)
[2017-03-22] MEDS ORDERED: DICY20TA10 PO (12:20)
[2017-03-22] MEDS ORDERED: HYDR500C PO (12:20)
--- NOTE | 2017-03-22 12:22 | HHI.DCPOC ---
Discharge Care Plan Diagnosis: (1) Sickle cell crisis (2) Abdominal pain (3) Hypophosphatemia (4) Hypomagnesemia (5) HTN (hypertension) (6) Leukocytosis (7) Jaundice (8) Total bilirubin, elevated (9) Hypercalcemia Goals to Promote Your Health * To prevent worsening of your condition and complications * To maintain your health at the optimal level Directions to Meet Your Goals Take your medications as prescribed Follow your dietary instruction Follow activity as directed Keep your appointments as scheduled Take your immunizations and boosters as scheduled If your symptoms worsen call your PCP, if no PCP go to Urgent Care Center or Emergency Room Smoking is Dangerous to Your Health. Avoid second hand smoke Call the 24-hour hour crisis hotline for domestic abuse at Manan Moura MD Mar 22, 2017 12:22
--- NOTE | 2017-03-22 12:32 | HHI.DS ---
Discharge Summary Admission Date Mar 19, 2017 at 10:58 Discharge Date: Mar 22, 2017 Admitting Diagnosis acute kidney injury, hyperbilirubinemia, hypercalcemia (1) Sickle cell crisis ICD Code: D57.00 - Hb-SS disease with crisis, unspecified Diagnosis: Principal Status: Acute (2) Jaundice ICD Code: R17 - Unspecified jaundice Diagnosis: Principal Status: Acute (3) Hypercalcemia ICD Code: E83.52 - Hypercalcemia Diagnosis: Principal Status: Acute (4) Total bilirubin, elevated ICD Code: R17 - Unspecified jaundice Diagnosis: Principal Status: Acute (5) Leukocytosis ICD Code: D72.829 - Elevated white blood cell count, unspecified Diagnosis: Principal Status: Acute (6) HTN (hypertension) ICD Code: I10 - Essential (primary) hypertension Diagnosis: Principal Status: Chronic (7) Hypophosphatemia ICD Code: E83.39 - Other disorders of phosphorus metabolism Diagnosis: Principal Status: Resolved (8) Hypomagnesemia ICD Code: E83.42 - Hypomagnesemia Status: Resolved (9) Abdominal pain ICD Code: R10.9 - Unspecified abdominal pain Diagnosis: Principal Status: Resolved Procedures Panendoscopy ---> normal Brief History - From Admission epigstric pain nausea vomitng, whatever he ate no coffee ground or red vomitted 3 days about twice a day at least yesterday was almost constant thing of vomiting urine color was also turning more dark yellow- it was improving piror to dc last time, now returned back no fever once diarrhea only no black stool or red stool but little dark yellow/brown sickle cell painful crisis usually is involving joints for him, not abdominal pains this time, only joint pain is starting with tail bone no palpitaiton no confusion no perioral tingling or numbness or tremors no other symptoms CBC/BMP: 03/22/17 0625 03/22/17 0625 Significant Findings Laboratory Tests Test 03/20/17 06:08 03/20/17 20:04 03/21/17 00:00 03/21/17 06:15 White Blood Count 14.2 TH/MM3 (4.0-11.0) 14.0 TH/MM3 (4.0-11.0) Red Blood Count 2.40 MIL/MM3 (4.50-5.90) 2.57 MIL/MM3 (4.50-5.90) Hemoglobin 7.3 GM/DL (13.0-17.0) 8.1 GM/DL (13.0-17.0) Hematocrit 21.0 % (39.0-51.0) 22.7 % (39.0-51.0) Red Cell Distribution Width 30.7 % (11.6-17.2) 27.4 % (11.6-17.2) Monocytes (%) (Auto) 17.4 % (0.0-8.0) 17.8 % (0.0-8.0) Monocytes # (Auto) 2.5 TH/MM3 (0-0.9) 2.5 TH/MM3 (0-0.9) Neutrophils # (Manual) 8.9 TH/MM3 (1.8-7.7) 8.8 TH/MM3 (1.8-7.7) Nucleated Red Blood Cells 5 /100 WBC (0-0) 4 /100 WBC (0-0) Polychromasia 4.3 % (0.0-1.9) 2.8 % (0.0-1.9) Sickle Cells 1+ (NORMAL) 2+ (NORMAL) Creatinine 1.53 MG/DL (0.60-1.30) Random Glucose 113 MG/DL (74-106) 117 MG/DL (74-106) Calcium Level 11.1 MG/DL (8.5-10.1) 11.2 MG/DL (8.5-10.1) Aspartate Amino Transf (AST/SGOT) 53 U/L (15-37) Total Bilirubin 19.5 MG/DL (0.2-1.0) 19.2 MG/DL (0.2-1.0) Chloride Level 111 MEQ/L (98-107) 109 MEQ/L (98-107) Estimat Glomerular Filtration Rate 56 ML/MIN (>89) 72 ML/MIN (>89) Direct Bilirubin 3.4 MG/DL (0.0-0.2) Indirect Bilirubin 15.8 MG/DL (0.0-0.8) Eosinophils # (Auto) 0.5 TH/MM3 (0-0.4) Monocytes % 16 % (0-8) Reticulocyte Count 10.0 % (0.4-3.0) Absolute Reticulocyte Count 256.8 MIL/L (20.0-150.0) Haptoglobin LESS THAN 10 MG/DL (30-200) Phosphorus Level 1.7 MG/DL (2.5-4.9) Magnesium Level 1.4 MG/DL (1.5-2.5) Lactate Dehydrogenase 455 U/L (87-241) Test 03/22/17 06:25 White Blood Count 13.3 TH/MM3 (4.0-11.0) Red Blood Count 2.66 MIL/MM3 (4.50-5.90) Hemoglobin 8.1 GM/DL (13.0-17.0) Hematocrit 23.5 % (39.0-51.0) Red Cell Distribution Width 25.1 % (11.6-17.2) Monocytes (%) (Auto) 15.8 % (0.0-8.0) Eosinophils (%) (Auto) 6.4 % (0.0-4.0) Monocytes # (Auto) 2.1 TH/MM3 (0-0.9) Eosinophils # (Auto) 0.9 TH/MM3 (0-0.4) Monocytes % 16 % (0-8) Nucleated Red Blood Cells 4 /100 WBC (0-0) Polychromasia 2.5 % (0.0-1.9) Sickle Cells 1+ (NORMAL) Target Cells 1+ (NORMAL) Random Glucose 124 MG/DL (74-106) Calcium Level 10.9 MG/DL (8.5-10.1) Aspartate Amino Transf (AST/SGOT) 45 U/L (15-37) Total Bilirubin 14.0 MG/DL (0.2-1.0) Estimat Glomerular Filtration Rate 81 ML/MIN (>89) Imaging Last Impressions Chest X-Ray 03/21/17 0000 Signed Impressions: Service Date/Time: Tuesday, March 21, 2017 21:43 - CONCLUSION: No acute disease. Remberto Garcia MD Cholangiopancreatography MRI 03/19/17 0000 Signed Impressions: Service Date/Time: Sunday, March 19, 2017 15:12 - CONCLUSION: Mildly prominent common duct. There is no evidence of common duct stone. There is no intrahepatic duct dilatation. All Alfaro MD FACR PE at Discharge AAOx3 (+) jaundice Clear lungs BL S1S2 RRR Abdomen soft, diffusely tender to palpation, bowel sounds present - normoactive. Pt update on day of discharge Patient denies abdominal pain. Denies nausea or vomiting or abdominal pain. Patient cleared for DC buy hematology. Hospital Course (1) Sickle cell pain crisis Patient with increased reticulocyte count, sickle cells and absolute retic count. Status post infusion of 1 unit packed red blood cells LDH trending down from 578 to 455, reticulocyte count decreased to 10 from 16.3. Hematology evaluated and cleared patient for DC. Patient advised to fu as an outpatient with hematology. (2) Jaundice Jaundice due to hyperbilirrubinemia due to sickle cell crisis. doubt obstructive jaundice. MRCP negative. EGD/colonoscopy normal appreciate GI recommendations. Bilirubin components show predominance of the indirect bilirubin with a level of 15.8 and a direct bilirubin level of 3.4. (3) Hypercalcemiae Plan: due to dehydration, trending down, Continue IV fluids. Calcium slightly elevated upon DC. Instructed to keep oral intake of fluids. (4) Total bilirubin, elevated due to hemolytic anemia Increased indirect bilirubin predominance as above. (5) Leukocytosis No signs fo acute infection. Possibly due to stress, WBC trending down. Monitor cbc w diff. Check c diff since there are reports of diarrhea and patient has been recently admitted and reportedly received antibiotics. CXR, MRCP, urinalysis negative. (6) HTN (hypertension) BP low today with a systolic blood pressure in the 90s. Ordered normal saline bolus of 500 ML's with improvement of blood pressure. BP better on Dc after IV fluid hydration and bolus. (7) Hypophosphatemia Likely due to poor oral intake. started on neutraphos and levels normal prior to DC. (8) Hypomagnesemia Likely due to nutritional deficiency. Replaced with magnesium sulfate and monitored magnesium levels. (9) Abdominal pain SP normal panendoscopy. negative MRCP. No diarrhea. Most likely due to sickle cell crisis and splenic infarcts. Gi consulted sp EGD/Colonoscopy - Normal. Started on Bentyl with improvement. GI prophylaxis: PPI. DVT prophylaxis: SCDs. Pt Condition on Discharge: Stable Discharge Disposition: Discharge Home Discharge Time: > 30 minutes Discharge Instructions Follow up Referrals: Oncology/Hematology Trena Briceño MD New Medications: Dicyclomine (Dicyclomine) 20 Mg Tab 20 MG PO TID for Pain Management, #30 TAB Hydroxyurea (Hydrea) 500 Mg Cap 500 MG PO BID for sickle cell, #62 CAP Continued Medications: Aspirin (Aspirin) 81 Mg Chew 81 MG CHEW DAILY, TAB 0 Refills B-Complex Vitamins (B Complex) 1 Cap 1 CAP PO DAILY for Nutritional Supplement, #30 CAP 0 Refills Dexlansoprazole (Dexilant) 60 Mg Cap. Folic Acid (Folic Acid) 1 Mg Tablet 1 MG PO DAILY for vitamin for 30 Days, #30 TAB 0 Refills (This prescription has been renewed) Glyburide (Glyburide) 1.25 Mg Tab 1.25 MG PO BID for Blood Sugar Management, #60 TAB 0 Refills Take with meals at the same time each day Hydrocodone-Acetaminophen (Hydrocodone-Acetaminophen) 5-325 mg Tab 1 TAB PO Q4H PRN for PAIN, TAB 0 Refills Nebivolol (Bystolic) 5 Mg Tab 5 MG PO DAILY for Blood Pressure Management, #30 TAB 0 Refills Pioglitazone (Pioglitazone) 15 Mg Tab 15 MG PO DAILY for Blood Sugar Management, #30 TAB 0 Refills Manan Moura MD Mar 22, 2017 12:32
[2017-03-22 15:50] VITALS: BP 119/71; PULSE 98; RESP 20; TEMP 97.4; O2SAT 95
[2017-03-22] MEDS ORDERED: PANTOPRAZOLE SOD 40 MG DELAYED RELEASE TAB PO SCH (21:00)
== END 2017-03-22 17:49 | disposition home or self-care (01) | DRG 812 ==
LOC: NEPD 08:11 → NEDA 10:58 → N07A 13:37
PROVIDERS: ADMIT Hospitalist; ATTEND Hospitalist
PROC: 0DJ08ZZ Inspection of Upper Intestinal Tract, Via Natural or Artificial Opening Endoscopic (ICD-10-PCS; 2017-03-20)
PROC: 30233N1 Transfusion of Nonautologous Red Blood Cells into Peripheral Vein, Percutaneous Approach (ICD-10-PCS; principal; 2017-03-21)
DX: D57.00 Hb-SS disease with crisis, unspecified (principal); N17.9 Acute kidney failure, unspecified; E83.42 Hypomagnesemia; E83.39 Other disorders of phosphorus metabolism; E83.52 Hypercalcemia; D56.3 Thalassemia minor; E86.0 Dehydration; I10 Essential (primary) hypertension; E11.9 Type 2 diabetes mellitus without complications; Z79.84 Long term (current) use of oral hypoglycemic drugs; E80.6 Other disorders of bilirubin metabolism; K21.9 Gastro-esophageal reflux disease without esophagitis; M19.90 Unspecified osteoarthritis, unspecified site; M25.569 Pain in unspecified knee; G89.29 Other chronic pain; Z79.82 Long term (current) use of aspirin
CPT/HCPCS: 36430; 71020; 74181; 76377; 80048; 80053; 81001; 82247; 82248; 82948; 83010; 83615; 83690; 83735; 84100; 85007; 85027; 85044; 86850; 86900; 86901; 86920; 96361; 96374; J1170; C9113; J2405; J3475; J7030; J7040; J7050; P9016

== ENCOUNTER 2017-04-10 11:50 | Observation (INO) | payer OTHER ==
[~2017-04-10] VITALS: Ht 177.8 cm; Wt 104.0 kg
[2017-04-10] VITALS (9 sets, daily range): BP systolic 92–109; BP diastolic 21–65; PULSE 68–88; RESP 16–18; TEMP 98.3–98.6; O2SAT 88–100
[~2017-04-10 11:50] MED LIST changes: +DICY20TA10 PO; +HYDR500C PO
[2017-04-10] MEDS ORDERED: SODIUM CHLORIDE 0.9% FLUSH 10 ML FLUSH IVF PRN (12:15)
[2017-04-10] MEDS ORDERED: SODIUM CHLOR 0.9% 1000 ML INJ 1,000 ML IV ONE (12:15)
--- NOTE | 2017-04-10 12:19 | PD ---
HPI Chief Complaint: Abnormal Results Time Seen by Provider: 12:15 Travel History International Travel<30 days: No Contact w/Intl Traveler<30days: No Traveled to known affect area: No History of Present Illness HPI 61-year-old male patient with history of sickle cell anemia, recently been evaluated for low blood pressures for which she was admitted several times, does not yet have a parachute crown sewer, presents to the ER today with his sent in by his primary care doctor because he had low blood pressure on reevaluation at the doctor's office today. He states that he has had several episodes of diarrhea today but denies any black stools. He denies any vomiting, fevers, dizziness, chest pains, shortness of breath, or any other symptoms. Modifying Factors: None Associated Signs & Symptoms: Low blood pressures Risk Factors: Sickle cell anemia PFSH Past Medical History Arthritis: Yes Asthma: No Autoimmune Disease: No Blood Disorders: No Anxiety: No Depression: No Heart Rhythm Problems: Yes (INVERTED/ABN. READING ON HIS EKG, CANNOT REMEMBER THE EXACT NAME.) Cancer: No Cardiovascular Problems: No High Cholesterol: Yes Chemotherapy: No Chest Pain: No Congestive Heart Failure: No COPD: No Cerebrovascular Accident: No Diabetes: Yes Diminished Hearing: No Endocrine: No Gastrointestinal Disorders: Yes (gerd) GERD: Yes Glaucoma: No Genitourinary: No Headaches: No Hepatitis: No Hiatal Hernia: No Hypertension: Yes Immune Disorder: No Kidney Stones: No Musculoskeletal: No Neurologic: No Psychiatric: No Reproductive: No Respiratory: No Integumentary: No Myocardial Infarction: No Pneumonia: Yes Radiation Therapy: No Renal Failure: No Seizures: No Sickle Cell Disease: Yes Sleep Apnea: No Thyroid Disease: No Ulcer: No PNEUMOCCOCAL Vaccine (Year): 2009 Past Surgical History Abdominal Surgery: Yes (GALL BLADER ) AICD: No Cardiac Surgery: No Cholecystectomy: Yes (1979) Ear Surgery: No Endocrine Surgery: No Eye Surgery: Yes (RUPTURED BLOOD VESEL 30 YEARS AGO ) Genitourinary Surgery: No Gynecologic Surgery: No Joint Replacement: No Oral Surgery: Yes (TONSILECTOMY 1973) Pacemaker: No Thoracic Surgery: No Tonsillectomy: Yes (1973) Other Surgery: Yes (rt knee, gallbladder, cholecystectomy,) Social History Alcohol Use: No Tobacco Use: No Substance Use: No Allergies-Medications (Allergen,Severity, Reaction): Coded Allergies: cortisone (Verified Allergy, Severe, FLARES UP SICKLE CELL., 04/10/17) erythromycin base (Verified Allergy, Severe, ANAPHALACTIC SHOCK, 04/10/17) azithromycin (Verified Allergy, Intermediate, 04/10/17) Reported Meds & Prescriptions Reported Meds & Active Scripts Active Dicyclomine (Dicyclomine HCl) 20 Mg Tab 20 Mg PO TID Hydrea (Hydroxyurea) 500 Mg Cap 500 Mg PO BID Folic Acid 1 Mg Tablet 1 Mg PO DAILY 30 Days Reported Dexilant (Dexlansoprazole) 60 Mg Fernandez.bp Aspirin 81 Mg Chew 81 Mg CHEW DAILY Hydrocodone-Acetaminophen 5-325 mg Tab 1 Tab PO Q4H PRN Pioglitazone (Pioglitazone HCl) 15 Mg Tab 15 Mg PO DAILY Bystolic (Nebivolol) 5 Mg Tab 5 Mg PO DAILY Glyburide 1.25 Mg Tab 1.25 Mg PO BID Take with meals at the same time each day B Complex (B-Complex Vitamins) 1 Cap 1 Cap PO DAILY Review of Systems Except as stated in HPI: all other systems reviewed are Neg Physical Exam Narrative GENERAL: Well-developed elderly -[place] male patient currently in mild distress. Awake and oriented 3. SKIN: Focused skin assessment warm/dry. HEAD: Atraumatic. Normocephalic. EYES: Pupils equal and round. Notable icterus. No injection or drainage. ENT: No nasal bleeding or discharge. Mucous membranes pink and moist. NECK: Trachea midline. No JVD. CARDIOVASCULAR: Regular rate and rhythm. No murmur appreciated. RESPIRATORY: No accessory muscle use. Clear to auscultation. Breath sounds equal bilaterally. GASTROINTESTINAL: Abdomen soft, non-tender, nondistended. Hepatic and splenic margins not palpable. MUSCULOSKELETAL: No obvious deformities. No clubbing. No cyanosis. No edema. NEUROLOGICAL: Awake and alert. No obvious cranial nerve deficits. Motor grossly within normal limits. Normal speech. PSYCHIATRIC: Appropriate mood and affect; insight and judgment normal. Data Data Last Documented VS Vital Signs Date Time Temp Pulse Resp B/P (MAP) Pulse Ox O2 Delivery O2 Flow Rate FiO2 04/10/17 16:00 76 16 109/55 (73) 98 Nasal Cannula 04/10/17 15:00 2.00 04/10/17 11:54 98.6 Orders Orders C-Reactive Protein (Crp) (04/10/17 12:15) Complete Blood Count With Diff (04/10/17 12:15) Comprehensive Metabolic Panel (04/10/17 12:15) Retic Count (04/10/17 12:15) Urinalysis - C+S If Indicated (04/10/17 12:15) Blood Culture (04/10/17 12:15) Chest, Single Ap (04/10/17 12:15) Ecg Monitoring (04/10/17 12:15) Iv Access Insert/Monitor (04/10/17 12:15) Oximetry (04/10/17 12:15) Sodium Chloride 0.9% Flush (Ns Flush) (04/10/17 12:15) Sodium Chlor 0.9% 1000 Ml Inj (Ns 1000 M (04/10/17 12:15) Labs Laboratory Tests Test 04/10/17 12:45 04/10/17 14:45 White Blood Count 11.7 TH/MM3 Red Blood Count 2.21 MIL/MM3 Hemoglobin 7.6 GM/DL Hematocrit 20.6 % Mean Corpuscular Volume 93.3 FL Mean Corpuscular Hemoglobin 34.4 PG Mean Corpuscular Hemoglobin Concent 36.9 % Red Cell Distribution Width 26.9 % Platelet Count 267 TH/MM3 Mean Platelet Volume 8.1 FL Neutrophils (%) (Auto) 47.2 % Lymphocytes (%) (Auto) 31.9 % Monocytes (%) (Auto) 19.0 % Eosinophils (%) (Auto) 1.4 % Basophils (%) (Auto) 0.5 % Neutrophils # (Auto) 5.5 TH/MM3 Lymphocytes # (Auto) 3.7 TH/MM3 Monocytes # (Auto) 2.2 TH/MM3 Eosinophils # (Auto) 0.2 TH/MM3 Basophils # (Auto) 0.1 TH/MM3 Differential Comment AUTO DIFF CONFIRMED Sickle Cells 2+ Target Cells 1+ Reticulocyte Count 6.3 % Absolute Reticulocyte Count 138.7 MIL/L Blood Urea Nitrogen 16 MG/DL Creatinine 1.83 MG/DL Random Glucose 87 MG/DL Total Protein 6.9 GM/DL Albumin 3.9 GM/DL Calcium Level 12.0 MG/DL Alkaline Phosphatase 91 U/L Aspartate Amino Transf (AST/SGOT) 74 U/L Alanine Aminotransferase (ALT/SGPT) 37 U/L Total Bilirubin 13.0 MG/DL Sodium Level 139 MEQ/L Potassium Level 4.3 MEQ/L Chloride Level 108 MEQ/L Carbon Dioxide Level 23.0 MEQ/L Anion Gap 8 MEQ/L Estimat Glomerular Filtration Rate 46 ML/MIN Protein Corrected Calcium 12.2 MG/DL C-Reactive Protein 1.53 MG/DL Urine Color YELLOW Urine Turbidity CLEAR Urine pH 5.0 Urine Specific [place] 1.005 Urine Protein NEG mg/dL Urine Glucose (UA) NEG mg/dL Urine Ketones NEG mg/dL Urine Occult Blood NEG Urine Nitrite NEG Urine Bilirubin NEG Urine Urobilinogen 2.0 MG/DL Urine Leukocyte Esterase NEG Urine WBC 2 /hpf Urine Amorphous Sediment RARE Microscopic Urinalysis Comment CULT NOT INDICATED MDM Medical Decision Making Medical Screen Exam Complete: Yes Emergency Medical Condition: Yes Medical Record Reviewed: Yes Interpretation(s) Laboratory Tests Test 04/10/17 12:45 04/10/17 14:45 White Blood Count 11.7 TH/MM3 (4.0-11.0) Red Blood Count 2.21 MIL/MM3 (4.50-5.90) Hemoglobin 7.6 GM/DL (13.0-17.0) Hematocrit 20.6 % (39.0-51.0) Mean Corpuscular Hemoglobin 34.4 PG (27.0-34.0) Mean Corpuscular Hemoglobin Concent 36.9 % (32.0-36.0) Red Cell Distribution Width 26.9 % (11.6-17.2) Monocytes (%) (Auto) 19.0 % (0.0-8.0) Monocytes # (Auto) 2.2 TH/MM3 (0-0.9) Sickle Cells 2+ (NORMAL) Target Cells 1+ (NORMAL) Reticulocyte Count 6.3 % (0.4-3.0) Creatinine 1.83 MG/DL (0.60-1.30) Calcium Level 12.0 MG/DL (8.5-10.1) Aspartate Amino Transf (AST/SGOT) 74 U/L (15-37) Total Bilirubin 13.0 MG/DL (0.2-1.0) Chloride Level 108 MEQ/L (98-107) Estimat Glomerular Filtration Rate 46 ML/MIN (>89) Protein Corrected Calcium 12.2 MG/DL (8.5-10.1) C-Reactive Protein 1.53 MG/DL (0.00-0.30) Last 24 hours Impressions Chest X-Ray 04/10/17 1215 Signed Impressions: Service Date/Time: April 12:44 - CONCLUSION: No acute disease. Mild cardiomegaly. Amor Gomez MD Differential Diagnosis Hypotension: Dehydration versus dysrhythmias versus metabolic issues versus sepsis versus overmedication Narrative Course Patient states that he did not take his blood pressure medications today. Lab work is showing significant anemia with hemoglobin 7.6, which is a bit lower than baseline. He does not have any fevers, no significant leukocytosis to indicate that this is sepsis. IV fluids were given in the ER with improvement in blood pressure. Lab work also shows significant hypercalcemia. At this point, my plan would be to admit the patient for further treatment. Case to be discussed with hospitalist service for admission. Diagnosis Primary Impression: Sickle cell anemia Additional Impressions: Hypercalcemia Jaundice Admitting Information Admitting Physician Requests: Admit Brittaney Hughes MD Apr 10, 2017 12:19
--- NOTE | 2017-04-10 13:01 | RADRPT ---
EXAM DATE/TIME: 04/10/2017 12:44 [facility] COMPARISON: CHEST SINGLE AP, March 05, 2017, 8:47. INDICATIONS : Shortness of breath. MEDICAL HISTORY : Hypertension. Diabetes mellitus type 2. Sickle Cell disease. GERD. SURGICAL HISTORY : Cholecystectomy. Knee surgery. ENCOUNTER: Initial ACUITY: 1 day PAIN SCORE: 0/10 LOCATION: Bilateral chest FINDINGS: A single view of the chest demonstrates the lungs to be symmetrically aerated without evidence of mas s, infiltrate or effusion. Mild cardiomegaly. The cardiomediastinal contours are unremarkable. Osse ous structures are intact. CONCLUSION: No acute disease. Mild cardiomegaly. Amor Gomez MD on April 10, 2017 at 13:00 Board Certified Radiologist. This report was verified electronically.
[2017-04-10 13:14] LABS: AUTOMATED NEUTROPHIL # 5.5 TH/MM3 (1.8-7.7); BASOPHIL # 0.1 TH/MM3 (0-0.2); BASOPHIL % 0.5 % (0.0-2.0); EOSINOPHIL # 0.2 TH/MM3 (0-0.4); EOSINOPHIL % 1.4 % (0.0-4.0); LYMPH % 31.9 % (9.0-44.0); LYMPHOCYTE # 3.7 TH/MM3 (1.0-4.8); MEAN CELL VOLUME 93.3 FL (80.0-100.0); MEAN CORPUSCULAR HEMOGLOBIN 34.4 PG (27.0-34.0); NEUT % 47.2 % (16.0-70.0); PLATELET COUNT 267 TH/MM3 (150-450); RED BLOOD COUNT 2.21 MIL/MM3 (4.50-5.90); RED CELL DISTRIBUTION WIDTH 26.9 % (11.6-17.2); RETIC % 6.3 % (0.4-3.0); WHITE BLOOD COUNT 11.7 TH/MM3 (4.0-11.0)
[2017-04-10 13:16] LABS: MEAN CORPUSCULAR HGB CONC 36.9 % (32.0-36.0); REVIEW FLAG AUTO DIFF
[2017-04-10 13:20] LABS: HEMATOCRIT 20.6 % (39.0-51.0)
[2017-04-10 13:32] LABS: POTASSIUM 4.3 MEQ/L (3.5-5.1)
[2017-04-10 13:37] LABS: CALCIUM-PROTEIN CORRECTED 12.2 MG/DL (8.5-10.1)
[2017-04-10 13:44] LABS: SICKLE CELLS 2+ (NORMAL); TARGET CELLS 1+ (NORMAL)
[2017-04-10 13:46] LABS: SCAN/DIFF AUTO DIFF CONFIRMED
[2017-04-10 15:06] LABS: BLOOD, URINE NEG (NEG); COMMENT (UR) CULT NOT INDICATED; CULTURE IF INDICATED CULT NOT INDICATED; GLUCOSE,URINE NEG (NEG); KETONE, URINE NEG (NEG); NITRITE,URINE NEG (NEG); URINE COLOR YELLOW (YELLW/STRAW)
[2017-04-10] MEDS ORDERED: SODIUM CHLOR 0.9% 250 ML INJ 250 ML IV ONE (16:45)
[2017-04-10] MEDS ORDERED: BISACODYL 10 MG SUPP RECTAL PRN (17:00)
[2017-04-10] MEDS ORDERED: LACTULOSE SYRUP 20 GM/30 ML CUP PO PRN (17:00)
[2017-04-10] MEDS ORDERED: SENNOSIDES 8.6 MG TAB PO PRN (17:00)
[2017-04-10] MEDS ORDERED: oxyCODONE/ACETAMINOPHEN 5 MG/325 MG TAB PO PRN (17:00)
[2017-04-10] MEDS ORDERED: NALOXONE HCL 0.4 MG/ML AMP IV PUSH PRN (17:00)
[2017-04-10] MEDS ORDERED: SODIUM CHLORIDE 0.9% FLUSH 10 ML FLUSH IV FLUSH PRN (17:00)
[2017-04-10] MEDS ORDERED: ACETAMINOPHEN 325 MG TAB PO PRN (17:00)
[2017-04-10] MEDS ORDERED: HYDROmorphone HCL PF 1 MG/ML VIAL IV PUSH PRN (17:00)
[2017-04-10] MEDS ORDERED: ONDANSETRON HCL 4 MG/2 ML VIAL IVP PRN (17:00)
[2017-04-10] MEDS ORDERED: GLUCAGON 1 MG/ML VIAL OTHER PRN (17:15)
[2017-04-10] MEDS ORDERED: DEXTROSE 50% IN WATER 50 ML VIAL(D50) IV PUSH PRN (17:15)
[2017-04-10] MEDS: SODIUM CHLOR 0.9% 1000 ML INJ 1,000 ML IV SCH (17:19)
--- NOTE | 2017-04-10 18:09 | HHI.HP ---
[facility] Jess Allred D.O. 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 He states that he has had several episodes of diarrhea today but denies any black stools. He denies any vomiting, fevers, dizziness, chest pains , shortness of breath, or any other symptoms. Patient says he feels very weak with generalized weakness and also he has some joint pain. Review of Systems Except as stated in HPI: all other systems reviewed are Neg Past Family Social History Past Medical History Sickle cell anemia, hypertension, GERD, arthritis Past Surgical History Right knee surgery, cholecystectomy 1979, tonsillectomy 1973 Reported Medications Reported Meds & Active Scripts Active Dicyclomine (Dicyclomine HCl) 20 Mg Tab 20 Mg PO TID Hydrea (Hydroxyurea) 500 Mg Cap 500 Mg PO BID Folic Acid 1 Mg Tablet 1 Mg PO DAILY 30 Days Reported Dexilant (Dexlansoprazole) 60 Mg [email or web address] Aspirin 81 Mg Chew 81 Mg CHEW DAILY Hydrocodone-Acetaminophen 5-325 mg Tab 1 Tab PO Q4H PRN Pioglitazone (Pioglitazone HCl) 15 Mg Tab 15 Mg PO DAILY Bystolic (Nebivolol) 5 Mg Tab 5 Mg PO DAILY Glyburide 1.25 Mg Tab 1.25 Mg PO BID Take with meals at the same time each day B Complex (B-Complex Vitamins) 1 Cap 1 Cap PO DAILY Allergies: Coded Allergies: cortisone (Verified Allergy, Severe, FLARES UP SICKLE CELL., 04/10/17) erythromycin base (Verified Allergy, Severe, ANAPHALACTIC SHOCK, 04/10/17) azithromycin (Verified Allergy, Intermediate, 04/10/17) Family History His sister with sickle cell anemia Social History Denies alcohol use illicit drug use or tobacco use Physical Exam Vital Signs Vital Signs Date Time Temp Pulse Resp B/P (MAP) Pulse Ox O2 Delivery O2 Flow Rate FiO2 04/10/17 17:38 04/10/17 17:01 97 Nasal Cannula 2.00 04/10/17 16:00 76 16 109/55 (73) 98 Nasal Cannula 04/10/17 15:00 76 16 105/59 (74) 99 Nasal Cannula 2.00 04/10/17 14:00 68 16 94/49 (64) 100 Nasal Cannula 2.00 04/10/17 13:00 16 89 Nasal Cannula 2.00 04/10/17 12:17 71 18 93 Room Air 04/10/17 11:54 98.6 88 16 107/65 (79) 88 Room Air Physical Exam GENERAL: This is a well-nourished, well-developed patient, in no apparent distress. SKIN: No rashes, ecchymoses or lesions. Cool and dry. HEAD: Atraumatic. Normocephalic. No temporal or scalp tenderness. EYES: Pupils equal round and reactive. Extraocular motions intact. No scleral icterus. No injection or drainage. ENT: Nose without bleeding, purulent drainage or septal hematoma. Throat without erythema, tonsillar hypertrophy or exudate. Uvula midline. Airway patent. NECK: Trachea midline. No JVD or lymphadenopathy. Supple, nontender, no meningeal signs. CARDIOVASCULAR: Regular rate and rhythm without murmurs, gallops, or rubs. RESPIRATORY: Clear to auscultation. Breath sounds equal bilaterally. No wheezes , rales, or rhonchi. GASTROINTESTINAL: Abdomen soft, non-tender, nondistended. No hepato-splenomegaly , or palpable masses. No guarding. MUSCULOSKELETAL: Extremities without clubbing, cyanosis, or edema. No joint tenderness, effusion, or edema noted. No calf tenderness. Negative Homans sign bilaterally. NEUROLOGICAL: Awake and alert. Cranial nerves II through XII intact. Motor and sensory grossly within normal limits. Five out of 5 muscle strength in all muscle groups. Normal speech. Laboratory Laboratory Tests Test 04/10/17 12:45 04/10/17 14:45 White Blood Count 11.7 Red Blood Count 2.21 Hemoglobin 7.6 Hematocrit 20.6 Mean Corpuscular Volume 93.3 Mean Corpuscular Hemoglobin 34.4 Mean Corpuscular Hemoglobin Concent 36.9 Red Cell Distribution Width 26.9 Platelet Count 267 Mean Platelet Volume 8.1 Neutrophils (%) (Auto) 47.2 Lymphocytes (%) (Auto) 31.9 Monocytes (%) (Auto) 19.0 Eosinophils (%) (Auto) 1.4 Basophils (%) (Auto) 0.5 Neutrophils # (Auto) 5.5 Lymphocytes # (Auto) 3.7 Monocytes # (Auto) 2.2 Eosinophils # (Auto) 0.2 Basophils # (Auto) 0.1 Differential Comment AUTO DIFF CONFIRMED Sickle Cells 2+ Target Cells 1+ Reticulocyte Count 6.3 Absolute Reticulocyte Count 138.7 Blood Urea Nitrogen 16 Creatinine 1.83 Random Glucose 87 Total Protein 6.9 Albumin 3.9 Calcium Level 12.0 Alkaline Phosphatase 91 Aspartate Amino Transf (AST/SGOT) 74 Alanine Aminotransferase (ALT/SGPT) 37 Total Bilirubin 13.0 Sodium Level 139 Potassium Level 4.3 Chloride Level 108 Carbon Dioxide Level 23.0 Anion Gap 8 Estimat Glomerular Filtration Rate 46 Protein Corrected Calcium 12.2 C-Reactive Protein 1.53 Urine Color YELLOW Urine Turbidity CLEAR Urine pH 5.0 Urine Specific [place] 1.005 Urine Protein NEG Urine Glucose (UA) NEG Urine Ketones NEG Urine Occult Blood NEG Urine Nitrite NEG Urine Bilirubin NEG Urine Urobilinogen 2.0 Urine Leukocyte Esterase NEG Urine WBC 2 Urine Amorphous Sediment RARE Microscopic Urinalysis Comment CULT NOT INDICATED Date/Time Source Procedure Growth Status 04/10/17 12:50 Blood Peripheral Aerobic Blood Culture Pending Received 04/10/17 12:50 Blood Peripheral Anaerobic Blood Culture Pending Received Result Diagram: 04/10/17 1245 04/10/17 1245 Imaging Last Impressions Chest X-Ray 04/10/17 1215 Signed Impressions: Service Date/Time: April 12:44 - CONCLUSION: No acute disease. Mild cardiomegaly. MD Maninder Zamora VTE Risk Assessment Maninder VTE Risk Assessment: Mod/High Risk (score >= 2) VTE Pharm Contraindication: High risk for bleeding Caprini Risk Assessment Model Point Value = 1 Point Value = 2 Point Value = 3 Point Value = 5 Age 41-60 Minor surgery BMI > 25 kg/m2 Swollen legs Varicose veins or History of unexplained or recurrent spontaneous Oral contraceptives or hormone replacement Sepsis (< 1 month) Serious lung disease, including pneumonia (< 1 month) Abnormal pulmonary function Acute myocardial infarction Congestive heart failure (< 1 month) History of inflammatory bowel disease Medical patient at bed rest Age 61-74 Arthroscopic surgery Major open surgery (> 45 min) Laparoscopic surgery (> 45 min) Malignancy Confined to bed (> 72 hours) Immobilizing plaster cast Central venous access Age >= 75 History of VTE Family history of VTE Factor V Leiden Prothrombin [id number] Lupus anticoagulant Anticardiolipin antibodies Elevated serum homocysteine Heparin-induced thrombocytopenia Other congenital or acquired thrombophilia Stroke (< 1 month) Elective arthroplasty Hip, pelvis, or leg fracture Acute spinal cord injury (< 1 month) Prophylaxis Regimen Total Risk Factor Score Risk Level Prophylaxis Regimen 0-1 Low Early ambulation 2 Moderate Order ONE of the following: *Sequential Compression Device (SCD) *Heparin 5000 units SQ BID 3-4 Higher Order ONE of the following medications: *Heparin 5000 units SQ TID *Enoxaparin/Lovenox 40 mg SQ daily (WT < 150 kg, CrCl > 30 mL/min) *Enoxaparin/Lovenox 30 mg SQ daily (WT < 150 kg, CrCl > 10-29 mL/min) *Enoxaparin/Lovenox 30 mg SQ BID (WT < 150 kg, CrCl > 30 mL/min) AND/OR *Sequential Compression Device (SCD) 5 or more Highest Order ONE of the following medications: *Heparin 5000 units SQ TID (Preferred with Epidurals) *Enoxaparin/Lovenox 40 mg SQ daily (WT < 150 kg, CrCl > 30 mL/min) *Enoxaparin/Lovenox 30 mg SQ daily (WT < 150 kg, CrCl > 10-29 mL/min) *Enoxaparin/Lovenox 30 mg SQ BID (WT < 150 kg, CrCl > 30 mL/min) AND *Sequential Compression Device (SCD) Assessment and Plan Assessment and Plan Sickle cell anemia hemoglobin is 0.6 and symptomatic Hypercalcemia calcium of 12 on admission Jaundice Dehydration Diabetes mellitus Low blood pressure. Patient with a history of hypertension and diastolic Transfuse 1 unit of blood. Monitor H&H. Monitor bilirubin. LDH, retic count Hold Bystolic at this time resume if blood pressure elevated Start IV fluids. Resume dicyclomine, Hydrea, folic acid Daily medications with IV morphine as needed and as need. Monitor vital signs closely. Family history low blood pressure discussed with the nurse and agent DVT prophylaxis SCD/teds. Hold on chemical prophylaxis as patient with low hemoglobin Genevieve Kat MD Apr 10, 2017 18:09
[2017-04-10] MEDS: DICYCLOMINE HCL 20 MG TAB PO SCH (18:22)
[2017-04-10] MEDS ORDERED: TEMAZEPAM 15 MG CAP PO PRN (21:00)
[2017-04-10] MEDS ORDERED: MAGNESIUM HYDROXIDE SUSP 30 ML CUP PO PRN (21:00)
[2017-04-10] MEDS: SODIUM CHLORIDE 0.9% FLUSH 10 ML FLUSH IV FLUSH SCH (21:00)
[2017-04-10] MEDS: INSULIN ASPART SUPPLEMENTAL SCALE SQ SCH (21:00)
[2017-04-10] MEDS: DOCUSATE SODIUM 50 MG/SENNA 8.6 MG TAB PO SCH (21:02)
[2017-04-10] MEDS: HYDROXYUREA 500 MG CAP PO SCH (21:06)
[2017-04-10] MEDS: oxyCODONE/ACETAMINOPHEN 10 MG/325 MG TAB PO PRN (21:40)
[2017-04-11] VITALS (15 sets, daily range): BP systolic 84–110; BP diastolic 45–58; PULSE 64–76; RESP 16–18; TEMP 97.3–98.9; O2SAT 93–100
[2017-04-11] MEDS: SODIUM CHLOR 0.9% 1000 ML INJ 1,000 ML IV SCH ×3 (05:35→21:50)
[2017-04-11] MEDS: oxyCODONE/ACETAMINOPHEN 10 MG/325 MG TAB PO PRN (05:42)
[2017-04-11 07:03] LABS: RETIC % 6.4 % (0.4-3.0)
[2017-04-11 07:22] LABS: MEAN CELL VOLUME 93.8 FL (80.0-100.0); MEAN CORPUSCULAR HEMOGLOBIN 33.4 PG (27.0-34.0); MEAN CORPUSCULAR HGB CONC 35.6 % (32.0-36.0); PLATELET COUNT 292 TH/MM3 (150-450); RED BLOOD COUNT 2.22 MIL/MM3 (4.50-5.90); RED CELL DISTRIBUTION WIDTH 25.3 % (11.6-17.2); WHITE BLOOD COUNT 11.5 TH/MM3 (4.0-11.0)
[2017-04-11 07:24] LABS: HEMO FLAGS AUTO DIFF
[2017-04-11 07:32] LABS: HEMATOCRIT 20.8 % (39.0-51.0)
[2017-04-11 07:33] LABS: BICARBONATE 23.9 MEQ/L (21.0-32.0); POTASSIUM 4.8 MEQ/L (3.5-5.1); TOTAL BILIRUBIN ADULT 12.1 MG/DL (0.2-1.0)
[2017-04-11 07:48] LABS: REVIEW FLAG FINAL
[2017-04-11 07:50] LABS: CALCIUM-PROTEIN CORRECTED 12.1 MG/DL (8.5-10.1)
[2017-04-11] MEDS: INSULIN ASPART SUPPLEMENTAL SCALE SQ SCH ×4 (08:00→21:00)
[2017-04-11] MEDS ORDERED: SODIUM CHLOR 0.9% 250 ML INJ 250 ML IV ONE (08:15)
[2017-04-11 08:36] LABS: BASOPHILS 1 % (0-2); CORRECTED NUCLEATED RBC 11 /100 WBC (0-0); NEUTROPHIL # MANUAL DIFF 5.6 TH/MM3 (1.8-7.7); POLYS (SEG NEUTROPHILS) 49 % (16-70); WBC DIFF SAMPLE 100
[2017-04-11 08:37] LABS: HOWELL-JOLLY BODIES PRESENT (NONE SEEN); OVALOCYTES 1+ (NORMAL); PLATELET ESTIMATE SMEAR NORMAL (NORMAL); PLATELET MORPHOLOGY NORMAL (NORMAL); SCAN/DIFF FINAL DIFF MANUAL; SICKLE CELLS 1+ (NORMAL)
[2017-04-11] MEDS ORDERED: FUROSEMIDE 20 MG/2 ML VIAL IV PUSH ONE (09:00)
[2017-04-11] MEDS ORDERED: NON-FORMULARY DRUG (B-Complex Vitamins (B Complex) 1 CAP) PO SCH (09:00)
[2017-04-11] MEDS: SODIUM CHLORIDE 0.9% FLUSH 10 ML FLUSH IV FLUSH SCH ×2 (09:00→21:00)
[2017-04-11] MEDS ORDERED: NEBIVOLOL 5 MG TAB PO SCH (09:00)
[2017-04-11] MEDS: diphenhydrAMINE HCL 25 MG CAP PO PRN ×2 (09:16→16:32)
[2017-04-11] MEDS: ACETAMINOPHEN 325 MG TAB PO PRN ×2 (09:16→16:32)
[2017-04-11] MEDS: FOLIC ACID 1 MG TAB PO SCH (09:16)
[2017-04-11] MEDS: DOCUSATE SODIUM 50 MG/SENNA 8.6 MG TAB PO SCH ×2 (09:16→21:00)
[2017-04-11] MEDS: DICYCLOMINE HCL 20 MG TAB PO SCH ×3 (09:16→19:05)
[2017-04-11] MEDS: HYDROXYUREA 500 MG CAP PO SCH ×2 (09:16→21:41)
[2017-04-11] MEDS ORDERED: SODIUM CHLOR 0.9% 1000 ML INJ 1,000 ML IV ONE (11:30)
--- NOTE | 2017-04-11 15:20 | HHI.PR ---
Subjective Remarks The patient was getting a blood transfusion. He said he still had a pain in his left upper stomach and wants to know why that keeps happening. He has been tolerating a diet. The patient takes 2 blood pressure medications and he also started taking new diabetes medications over the past month. Discussed with family at the bedside. Objective Vitals Vital Signs Date Time Temp Pulse Resp B/P (MAP) Pulse Ox O2 Delivery O2 Flow Rate FiO2 04/11/17 13:22 107/56 04/11/17 13:00 97.3 64 107/56 (73) 93 04/11/17 12:35 98.0 67 18 106/56 (73) 94 04/11/17 11:21 97.8 72 18 84/45 (58) 96 04/11/17 10:53 98.5 72 17 100/48 (65) 94 04/11/17 09:58 97.7 71 18 109/53 (71) 04/11/17 09:32 98.5 67 16 110/53 (72) 95 04/11/17 04:25 98.1 76 18 101/49 (66) 93 04/11/17 01:11 21 04/11/17 00:22 98.4 70 18 101/55 (70) 94 04/10/17 22:48 15 04/10/17 21:15 98.5 80 18 92/52 92 04/10/17 20:59 98.3 77 18 100/57 94 04/10/17 20:44 98.3 77 18 100/21 (47) 94 04/10/17 17:38 04/10/17 17:01 97 Nasal Cannula 2.00 04/10/17 16:00 76 16 109/55 (73) 98 Nasal Cannula I/O 04/10/17 04/10/17 04/10/17 04/11/17 04/11/17 04/11/17 07:00 15:00 23:00 07:00 15:00 23:00 Intake Total 1000 ml 15 ml 412 ml 5 ml Output Total 700 ml 2050 ml 800 ml Balance 1000 ml -685 ml -1638 ml -795 ml Intake IV Total 1000 ml Packed Cells 400 ml Blood Product IV Normal Saline Flush 15 ml 12 ml 5 ml Output Urine Total 700 ml 2050 ml 800 ml # Voids 1 Result Diagram: 04/11/17 0645 04/11/17 0615 Imaging Last Impressions Chest X-Ray 04/10/17 1215 Signed Impressions: Service Date/Time: April 12:44 - CONCLUSION: No acute disease. Mild cardiomegaly. Amor Gomez MD Objective Remarks GENERAL: This is a well-nourished, well-developed patient, in no apparent distress. SKIN: No rashes, ecchymoses or lesions. Cool and dry. HEAD: Atraumatic. Normocephalic. No temporal or scalp tenderness. EYES: Pupils equal round and reactive. Extraocular motions intact. No scleral icterus. No injection or drainage. ENT: Nose without bleeding, purulent drainage or septal hematoma. Throat without erythema, tonsillar hypertrophy or exudate. Uvula midline. Airway patent. NECK: Trachea midline. No JVD or lymphadenopathy. Supple, nontender, no meningeal signs. CARDIOVASCULAR: Regular rate and rhythm. Systolic murmur appreciated. RESPIRATORY: Clear to auscultation. Breath sounds equal bilaterally. No wheezes , rales, or rhonchi. GASTROINTESTINAL: Abdomen soft, non-tender, nondistended. No hepato-splenomegaly , or palpable masses. No guarding. MUSCULOSKELETAL: Extremities without clubbing, cyanosis. Trace 1+ edema bilaterally in the lower extremities. NEUROLOGICAL: Awake and alert. Cranial nerves II through XII intact. Motor and sensory grossly within normal limits. Five out of 5 muscle strength in all muscle groups. Normal speech. PSYCH: Mood and affect appropriate. Medications and IVs Current Medications Medications (Trade) Dose Ordered Sig/Parrish Route Start Time Stop Time Status Last Admin Sodium Chloride 1,000 ml @ 100 mls/hr Q10H IV 04/10/17 16:57 04/11/17 05:35 (NS Flush) 2 ml UNSCH PRN IV FLUSH 04/10/17 17:00 (NS Flush) 2 ml BID IV FLUSH 04/10/17 21:00 (Tylenol) 650 mg Q4H PRN PO 04/10/17 17:00 (Zofran Inj) 4 mg Q6H PRN IVP 04/10/17 17:00 (Restoril) 15 mg HS PRN PO 04/10/17 21:00 (Percocet 5-325 Mg) 1 tab Q6H PRN PO 04/10/17 17:00 (Percocet 10-325 Mg) 1 tab Q6H PRN PO 04/10/17 17:00 04/11/17 05:42 (Dilaudid Pf Inj) 0.5 mg Q4H PRN IV PUSH 04/10/17 17:00 (Narcan Inj) 0.4 mg UNSCH PRN IV PUSH 04/10/17 17:00 (Ami-Colace) 1 tab BID PO 04/10/17 21:00 04/11/17 09:16 (Milk Of Magnesia Liq) 30 ml Q12HR PRN PO 04/10/17 21:00 (Senokot) 17.2 mg Q12H PRN PO 04/10/17 17:00 (Dulcolax Supp) 10 mg DAILY PRN RECTAL 04/10/17 17:00 (Lactulose Liq) 30 ml DAILY PRN PO 04/10/17 17:00 (Bentyl) 20 mg TID PO 04/10/17 18:00 04/11/17 09:16 (Folate) 1 mg DAILY PO 04/11/17 09:00 04/11/17 09:16 (Hydrea) 500 mg BID PO 04/10/17 21:00 04/11/17 09:16 (D50w (Vial) Inj) 50 ml UNSCH PRN IV PUSH 04/10/17 17:15 (Glucagon Inj) 1 mg UNSCH PRN OTHER 04/10/17 17:15 (NovoLOG SUPPLEMENTAL SCALE) 1 ACHS SLIDING SCALE SQ 04/10/17 21:00 Sodium Chloride 250 ml @ 15 mls/hr ONCE ONCE IV 04/11/17 08:15 04/12/17 00:54 04/11/17 11:13 (Tylenol) 650 mg Q4H PRN PO 04/11/17 08:15 04/11/17 23:59 04/11/17 09:16 (Benadryl) 25 mg Q4H PRN PO 04/11/17 08:15 04/11/17 23:59 04/11/17 09:16 A/P Assessment and Plan Sickle cell anemia The patient presented with symptomatic anemia. - Transfuse 1 unit of blood and monitor H&H. - Monitor bilirubin and LDH. - hematology consult requested. - aspirin on hold. Hypercalcemia Persistent problem. - Continue IV fluids. - Monitor BMP. Elevated LFTs/ Jaundice Secondary to hemolytic anemia. - Follow LFTs. - Hematology consult pending. Hypotension The patient is on Bystolic and lisinopril as an outpatient. His blood pressure has been low in the hospital. - Bystolic and lisinopril. - IV fluids. Abdominal pain Chronic. Has been seen by GI and had a thorough work-up. Possibly s/p splenomegaly from anemia. - trend LFTs. - Resume dicyclomine, Hydrea, folic acid. - consider GI eval. Diabetes Glucose well-controlled at this time. - Hold home medications. - Check a hemoglobin A1c. DVT prophylaxis SCD/teds. Hold on chemical prophylaxis as patient with low hemoglobin Discharge Planning Awaiting hematology evaluation Beck Servin DO Apr 11, 2017 15:20
--- NOTE | 2017-04-11 22:44 | MB ---
cc: FABIAN ROWELL M.D. DATE OF CONSULTATION: 04/11/2017. REASON FOR CONSULTATION: Consult requested by the hospitalist for evaluation of sickle cell painful crisis. HISTORY OF PRESENT ILLNESS: Basilio is a pleasant 61-year-old male. He has sickle-cell disease with multiple painful crises. He came to the emergency room complaining of back pain and left leg pain. CBC showed white count of 11.7, hemoglobin 7.6, platelet count is 267,000. He was given blood transfusion. The CBC today showed that a hemoglobin 7.4. The patient is receiving additional blood transfusion. I have been asked to see him for further evaluation. REVIEW OF SYSTEMS: The patient denies any fever. He denies any chest pain or shortness of breath. His appetite is good. The rest of the review of systems is negative. PAST MEDICAL HISTORY: 1. Hypertension. 2. Diabetes mellitus. 3. Coronary artery disease. 4. Sickle-cell disease with thalassemia minor. 5. Arthritis. 6. Chronic knee pain. 7. Gastroesophageal reflux disease. PAST SURGICAL HISTORY: 1. Right knee surgery. 2. Cholecystectomy. 3. Eye surgery. 4. Cardiac catheterization. ALLERGIES: 1. CORTISONE. 2. ERYTHROMYCIN. 3. AZITHROMYCIN. FAMILY HISTORY: The father from prostate cancer. The mother from myocardial infarction. SOCIAL HISTORY: The patient does not smoke cigarettes and does not drink alcohol. MEDICATIONS: 1. Hydrea 500 milligrams twice a day. 2. Folic acid 1 milligram daily. 3. Bentyl and Dilaudid IV. PHYSICAL EXAMINATION: GENERAL: This is a well-developed, well-nourished -[place] male in moderate distress due to the pain. VITAL SIGNS: Temperature 98.3, heart rate 68, blood pressure 104/57. HEAD, EYES, EARS, NOSE, THROAT: Pupils equal, round and reactive to light and accommodation. Extraocular muscles intact. Sclerae are deeply icteric. Oral mucosa is dry. NECK: No lymphadenopathy noted. LUNGS: Clear. No wheezes, rales or rhonchi. HEART: Regular rate and rhythm. ABDOMEN: Abdomen soft and nontender. EXTREMITIES: No pedal edema. NEUROLOGIC: Awake, alert and oriented x3. SKIN: No significant lesions noted. ASSESSMENT: Sickle-cell hemolytic painful crisis. PLAN: I have reviewed his available records and I have discussed with the patient regarding the painful crisis. Lately he has been having more painful crises. This is his third admission in the last month or so. He has been compliant with the Hydrea. He has been getting blood transfusions, narcotics and folic acid and oxygen. His bilirubin is very high at 12.1, which is due to the hemolytic crisis. His calcium is also high at 11.6. Further recommendations based on his hospital stay. Thank you for asking my opinion. Janak Rowell MD /MARIAH /7:28 PM /10:23 PM
[2017-04-12] VITALS (8 sets, daily range): BP systolic 103–114; BP diastolic 55–74; PULSE 58–68; RESP 16–18; TEMP 97.8–98.4; O2SAT 92–100
[2017-04-12] MEDS: oxyCODONE/ACETAMINOPHEN 10 MG/325 MG TAB PO PRN ×2 (03:44→17:20)
[2017-04-12 07:54] LABS: AUTOMATED NEUTROPHIL # 4.4 TH/MM3 (1.8-7.7); BASOPHIL # 0.1 TH/MM3 (0-0.2); BASOPHIL % 0.8 % (0.0-2.0); EOSINOPHIL # 0.3 TH/MM3 (0-0.4); EOSINOPHIL % 3.6 % (0.0-4.0); HEMATOCRIT 25.5 % (39.0-51.0); LYMPH % 28.7 % (9.0-44.0); LYMPHOCYTE # 2.7 TH/MM3 (1.0-4.8); MEAN CELL VOLUME 89.7 FL (80.0-100.0); MEAN CORPUSCULAR HEMOGLOBIN 32.6 PG (27.0-34.0); MONO % 19.4 % (0.0-8.0); NEUT % 47.5 % (16.0-70.0); PLATELET COUNT 243 TH/MM3 (150-450); RED BLOOD COUNT 2.84 MIL/MM3 (4.50-5.90); RED CELL DISTRIBUTION WIDTH 25.8 % (11.6-17.2); WHITE BLOOD COUNT 9.3 TH/MM3 (4.0-11.0)
[2017-04-12] MEDS: INSULIN ASPART SUPPLEMENTAL SCALE SQ SCH ×4 (08:00→21:00)
[2017-04-12 08:06] LABS: HEMO FLAGS AUTO DIFF; MEAN CORPUSCULAR HGB CONC 36.3 % (32.0-36.0)
[2017-04-12 08:17] LABS: ANION GAP 8 MEQ/L (5-15); AST (GOT) 63 U/L (15-37); BICARBONATE 25.1 MEQ/L (21.0-32.0); BLOOD UREA NITROGEN 10 MG/DL (7-18); CHLORIDE 109 MEQ/L (98-107); GLOMERULAR FILTRATION RATE 86 ML/MIN (>89); POTASSIUM 4.2 MEQ/L (3.5-5.1); SODIUM (NA) 142 MEQ/L (136-145)
[2017-04-12 08:19] LABS: ALT (GPT) 27 U/L (12-78); LDH SERUM 604 U/L (87-241)
[2017-04-12 08:21] LABS: ALKALINE PHOSPHATASE 87 U/L (45-117); TOTAL BILIRUBIN ADULT 10.7 MG/DL (0.2-1.0)
[2017-04-12] MEDS: DOCUSATE SODIUM 50 MG/SENNA 8.6 MG TAB PO SCH ×2 (08:23→21:00)
[2017-04-12] MEDS: HYDROXYUREA 500 MG CAP PO SCH ×2 (08:23→22:17)
[2017-04-12] MEDS: DICYCLOMINE HCL 20 MG TAB PO SCH ×3 (08:23→17:20)
[2017-04-12] MEDS: FOLIC ACID 1 MG TAB PO SCH (08:24)
[2017-04-12] MEDS: SODIUM CHLOR 0.9% 1000 ML INJ 1,000 ML IV SCH ×2 (08:25→18:31)
[2017-04-12] MEDS: SODIUM CHLORIDE 0.9% FLUSH 10 ML FLUSH IV FLUSH SCH ×2 (08:25→21:00)
[2017-04-12 08:58] LABS: EOSINOPHILS 2 % (0-4); NEUTROPHIL # MANUAL DIFF 5.6 TH/MM3 (1.8-7.7); POLYS (SEG NEUTROPHILS) 60 % (16-70); WBC DIFF SAMPLE 100
[2017-04-12 09:00] LABS: PLATELET ESTIMATE SMEAR NORMAL (NORMAL); PLATELET MORPHOLOGY NORMAL (NORMAL)
[2017-04-12 09:01] LABS: HOWELL-JOLLY BODIES PRESENT (NONE SEEN); POLYCHROMASIA 2.2 % (0.0-1.9); SCAN/DIFF FINAL DIFF MANUAL; SICKLE CELLS 1+ (NORMAL); TARGET CELLS 2+ (NORMAL)
--- NOTE | 2017-04-12 11:34 | PD.ONC.PN ---
Subjective Subjective Remarks Afebrile overnight. Patient still having nausea and a vague abdominal pain. Was able to eat breakfast. No pain elsewhere. Objective Data Date Time Temp Pulse Resp B/P (MAP) Pulse Ox O2 Delivery O2 Flow Rate FiO2 04/12/17 09:30 21 04/12/17 08:37 98.1 105/56 (72) 04/12/17 08:05 98.1 67 18 105/55 (72) 92 04/12/17 04:36 98.0 62 17 103/58 (73) 98 04/12/17 00:00 98.4 68 17 113/60 (77) 98 04/11/17 22:46 Nasal Cannula 3.00 04/11/17 19:54 98.2 72 17 107/56 (73) 99 04/11/17 19:08 98.3 68 17 104/57 99 04/11/17 17:45 98.8 64 18 99/58 100 04/11/17 17:31 98.9 69 18 98/55 96 04/11/17 17:15 98.9 69 18 98/55 (69) 96 04/11/17 15:22 98.4 71 18 100/55 94 04/11/17 13:22 107/56 04/11/17 13:00 97.3 64 107/56 (73) 93 04/11/17 12:35 98.0 67 18 106/56 (73) 94 04/12/17 04/12/17 04/12/17 07:00 15:00 23:00 Output Total 400 ml Balance -400 ml Result Diagram: 04/12/17 0710 04/12/17 0710 Laboratory Results Laboratory Tests Test 04/11/17 13:17 04/12/17 07:10 Parathyroid Hormone (Intact) 202.9 PG/ML White Blood Count 9.3 TH/MM3 Red Blood Count 2.84 MIL/MM3 Hemoglobin 9.3 GM/DL Hematocrit 25.5 % Mean Corpuscular Volume 89.7 FL Mean Corpuscular Hemoglobin 32.6 PG Mean Corpuscular Hemoglobin Concent 36.3 % Red Cell Distribution Width 25.8 % Platelet Count 243 TH/MM3 Mean Platelet Volume 8.1 FL Neutrophils (%) (Auto) 47.5 % Lymphocytes (%) (Auto) 28.7 % Monocytes (%) (Auto) 19.4 % Eosinophils (%) (Auto) 3.6 % Basophils (%) (Auto) 0.8 % Neutrophils # (Auto) 4.4 TH/MM3 Lymphocytes # (Auto) 2.7 TH/MM3 Monocytes # (Auto) 1.8 TH/MM3 Eosinophils # (Auto) 0.3 TH/MM3 Basophils # (Auto) 0.1 TH/MM3 CBC Comment AUTO DIFF Differential Total Cells Counted 100 Neutrophils % (Manual) 60 % Lymphocytes % 25 % Monocytes % 13 % Eosinophils % 2 % Neutrophils # (Manual) 5.6 TH/MM3 Differential Comment FINAL DIFF MANUAL Platelet Estimate NORMAL Platelet Morphology Comment NORMAL Polychromasia 2.2 % Sickle Cells 1+ Target Cells 2+ [place] Bodies PRESENT Blood Urea Nitrogen 10 MG/DL Creatinine 1.06 MG/DL Random Glucose 95 MG/DL Total Protein 6.7 GM/DL Albumin 3.6 GM/DL Calcium Level 11.0 MG/DL Alkaline Phosphatase 87 U/L Aspartate Amino Transf (AST/SGOT) 63 U/L Alanine Aminotransferase (ALT/SGPT) 27 U/L Lactate Dehydrogenase 604 U/L Total Bilirubin 10.7 MG/DL Sodium Level 142 MEQ/L Potassium Level 4.2 MEQ/L Chloride Level 109 MEQ/L Carbon Dioxide Level 25.1 MEQ/L Anion Gap 8 MEQ/L Estimat Glomerular Filtration Rate 86 ML/MIN Lactic Acid Level 0.7 mmol/L Culture Results Microbiology Date/Time Source Procedure Growth Status 04/10/17 12:50 Blood Peripheral Aerobic Blood Culture - Preliminary NO GROWTH IN 2 DAYS Resulted 04/10/17 12:50 Blood Peripheral Anaerobic Blood Culture - Preliminary NO GROWTH IN 2 DAYS Resulted 04/10/17 12:15 Blood Peripheral Aerobic Blood Culture - Preliminary NO GROWTH IN 1 DAY Resulted 04/10/17 12:15 Blood Peripheral Anaerobic Blood Culture - Preliminary NO GROWTH IN 1 DAY Resulted Administered Medications Medications (Trade) Dose Ordered Sig/Parrish Route PRN Reason Start Time Stop Time Status Last Admin Dose Admin Sodium Chloride 1,000 ml @ 100 mls/hr Q10H IV 04/10/17 16:57 04/12/17 08:25 Oxycodone/ Acetaminophen (Percocet 5-325 Mg) 1 tab Q6H PRN PO PAIN SCALE 3 TO 5 04/10/17 17:00 04/11/17 21:42 Oxycodone/ Acetaminophen (Percocet 10-325 Mg) 1 tab Q6H PRN PO PAIN SCALE 6 TO 10 04/10/17 17:00 04/12/17 03:44 Senna/Docusate Sodium (Ami-Colace) 1 tab BID PO 04/10/17 21:00 04/12/17 08:23 Dicyclomine HCl (Bentyl) 20 mg TID PO 04/10/17 18:00 04/12/17 08:23 Folic Acid (Folate) 1 mg DAILY PO 04/11/17 09:00 04/12/17 08:24 Hydroxyurea (Hydrea) 500 mg BID PO 04/10/17 21:00 04/12/17 08:23 Objective Remarks GENERAL: Pleasant male sitting up on side of bed eating breakfast. SKIN: Warm and dry. HEAD: Normocephalic. EYES: No injection or drainage. NECK: Supple, trachea midline. CARDIOVASCULAR: Regular rate and rhythm RESPIRATORY: CTAB GASTROINTESTINAL: Abdomen soft, non-tender, nondistended. EXTREMITIES: No cyanosis NEUROLOGICAL: awake and alert, normal speech. moving all extremities. Assessment/Plan Problem List: (1) Sickle cell crisis ICD Codes: D57.00 - Hb-SS disease with crisis, unspecified Status: Acute Plan: 04/12: continue supportive care with IVF, pain management. monitor bilirubin, hgb and calcium. Sickle-cell hemolytic painful crisis. Assessment 61y/o male with sickle cell painful crisis. h/o Hypertension. Diabetes mellitus. Coronary artery disease. Sickle-cell disease with thalassemia minor. Arthritis. Chronic knee pain. Gastroesophageal reflux disease. Attending Statement The exam, history, and the medical decision-making described in the above note were completed with the assistance of the mid-level provider. I reviewed and agree with the findings presented. I attest that I had a [id number] encounter with the patient on the same day, and personally performed and documented my assessment and findings in the medical record. LATE ENTRY. Pt was seen yesterday still has nausea and RUQ pain. leg pain has resolved. he thinks he could go home tomorrow Denisse Stephens Apr 12, 2017 11:34 Trena Rowell MD Apr 13, 2017 10:20
--- NOTE | 2017-04-12 13:04 | HHI.PR ---
Subjective Remarks The patient said he felt a little bit better today. He still has some abdominal pain. He was drinking sidra gem. He thinks he can go home tomorrow. Objective Vitals Vital Signs Date Time Temp Pulse Resp B/P (MAP) Pulse Ox O2 Delivery O2 Flow Rate FiO2 04/12/17 11:55 97.8 68 18 108/64 (79) 99 04/12/17 09:30 21 04/12/17 08:37 98.1 105/56 (72) 04/12/17 08:05 98.1 67 18 105/55 (72) 92 04/12/17 04:36 98.0 62 17 103/58 (73) 98 04/12/17 00:00 98.4 68 17 113/60 (77) 98 04/11/17 22:46 Nasal Cannula 3.00 04/11/17 19:54 98.2 72 17 107/56 (73) 99 04/11/17 19:08 98.3 68 17 104/57 99 04/11/17 17:45 98.8 64 18 99/58 100 04/11/17 17:31 98.9 69 18 98/55 96 04/11/17 17:15 98.9 69 18 98/55 (69) 96 04/11/17 15:22 98.4 71 18 100/55 94 04/11/17 13:22 107/56 I/O 04/11/17 04/11/17 04/11/17 04/12/17 04/12/17 04/12/17 07:00 15:00 23:00 07:00 15:00 23:00 Intake Total 412 ml 260 ml 880 ml Output Total 2050 ml 800 ml 1700 ml 400 ml Balance -1638 ml -540 ml -820 ml -400 ml Intake Oral 480 ml Packed Cells 400 ml 250 ml 400 ml Blood Product IV Normal Saline Flush 12 ml 10 ml Output Urine Total 2050 ml 800 ml 1700 ml 400 ml Result Diagram: 04/12/17 0710 04/12/17 0710 Imaging Last Impressions Chest X-Ray 04/10/17 1215 Signed Impressions: Service Date/Time: April 12:44 - CONCLUSION: No acute disease. Mild cardiomegaly. Amor Gomez MD Objective Remarks GENERAL: This is a well-nourished, well-developed patient, in no apparent distress. SKIN: No rashes, ecchymoses or lesions. Cool and dry. HEAD: Atraumatic. Normocephalic. No temporal or scalp tenderness. EYES: Pupils equal round and reactive. Extraocular motions intact. No scleral icterus. No injection or drainage. ENT: Nose without bleeding, purulent drainage or septal hematoma. Throat without erythema, tonsillar hypertrophy or exudate. Uvula midline. Airway patent. NECK: Trachea midline. No JVD or lymphadenopathy. Supple, nontender, no meningeal signs. CARDIOVASCULAR: Regular rate and rhythm. Systolic murmur appreciated. RESPIRATORY: Clear to auscultation. Breath sounds equal bilaterally. No wheezes , rales, or rhonchi. GASTROINTESTINAL: Abdomen soft, non-tender, nondistended. No hepato-splenomegaly , or palpable masses. No guarding. MUSCULOSKELETAL: Extremities without clubbing, cyanosis. Trace 1+ edema bilaterally in the lower extremities. NEUROLOGICAL: Awake and alert. Cranial nerves II through XII intact. Motor and sensory grossly within normal limits. Five out of 5 muscle strength in all muscle groups. Normal speech. PSYCH: Mood and affect appropriate. Medications and IVs Current Medications Medications (Trade) Dose Ordered Sig/Parrish Route Start Time Stop Time Status Last Admin Sodium Chloride 1,000 ml @ 100 mls/hr Q10H IV 04/10/17 16:57 04/12/17 08:25 (NS Flush) 2 ml UNSCH PRN IV FLUSH 04/10/17 17:00 (NS Flush) 2 ml BID IV FLUSH 04/10/17 21:00 (Tylenol) 650 mg Q4H PRN PO 04/10/17 17:00 (Zofran Inj) 4 mg Q6H PRN IVP 04/10/17 17:00 (Restoril) 15 mg HS PRN PO 04/10/17 21:00 (Percocet 5-325 Mg) 1 tab Q6H PRN PO 04/10/17 17:00 04/11/17 21:42 (Percocet 10-325 Mg) 1 tab Q6H PRN PO 04/10/17 17:00 04/12/17 03:44 (Dilaudid Pf Inj) 0.5 mg Q4H PRN IV PUSH 04/10/17 17:00 (Narcan Inj) 0.4 mg UNSCH PRN IV PUSH 04/10/17 17:00 (Ami-Colace) 1 tab BID PO 04/10/17 21:00 04/12/17 08:23 (Milk Of Magnesia Liq) 30 ml Q12HR PRN PO 04/10/17 21:00 (Senokot) 17.2 mg Q12H PRN PO 04/10/17 17:00 (Dulcolax Supp) 10 mg DAILY PRN RECTAL 04/10/17 17:00 (Lactulose Liq) 30 ml DAILY PRN PO 04/10/17 17:00 (Bentyl) 20 mg TID PO 04/10/17 18:00 04/12/17 12:26 (Folate) 1 mg DAILY PO 04/11/17 09:00 04/12/17 08:24 (Hydrea) 500 mg BID PO 04/10/17 21:00 04/12/17 08:23 (D50w (Vial) Inj) 50 ml UNSCH PRN IV PUSH 04/10/17 17:15 (Glucagon Inj) 1 mg UNSCH PRN OTHER 04/10/17 17:15 (NovoLOG SUPPLEMENTAL SCALE) 1 ACHS SLIDING SCALE SQ 04/10/17 21:00 A/P Assessment and Plan Sickle cell anemia The patient presented with symptomatic anemia. Transfused 1 unit of blood with improvement. - Monitor bilirubin and LDH. - hematology consult appreciated. - aspirin on hold. - Follow CBC and transfuse as needed. Hypercalcemia Persistent problem. - Continue IV fluids. - Monitor BMP. Elevated LFTs/ Jaundice Secondary to hemolytic anemia. - Follow LFTs. - IV fluids. Hypotension The patient is on Bystolic and lisinopril as an outpatient. His blood pressure has been low in the hospital. Improved. - Bystolic and lisinopril held. - IV fluids. Abdominal pain Chronic. Has been seen by GI and had a thorough work-up. Possibly s/p splenomegaly from anemia. - trend LFTs. - Resume dicyclomine, Hydrea, folic acid. - consider GI eval. Diabetes Glucose well-controlled at this time. - Hold home medications. - Check a hemoglobin A1c. DVT prophylaxis SCD/teds. Hold on chemical prophylaxis as patient with low hemoglobin Discharge Planning Possible discharge in 1-2 days Beck Servin DO Apr 12, 2017 13:04
[2017-04-13 03:47] VITALS: BP 108/58; PULSE 61; RESP 16; TEMP 98.8; O2SAT 98
[2017-04-13 05:54] LABS: AUTOMATED NEUTROPHIL # 4.2 TH/MM3 (1.8-7.7); BASOPHIL % 0.4 % (0.0-2.0); EOSINOPHIL # 0.4 TH/MM3 (0-0.4); EOSINOPHIL % 4.1 % (0.0-4.0); HEMATOCRIT 27.5 % (39.0-51.0); LYMPH % 31.6 % (9.0-44.0); LYMPHOCYTE # 3.1 TH/MM3 (1.0-4.8); MEAN CELL VOLUME 91.9 FL (80.0-100.0); MEAN CORPUSCULAR HEMOGLOBIN 32.1 PG (27.0-34.0); MEAN CORPUSCULAR HGB CONC 34.9 % (32.0-36.0); MONO % 19.9 % (0.0-8.0); PLATELET COUNT 265 TH/MM3 (150-450); RED BLOOD COUNT 2.99 MIL/MM3 (4.50-5.90); RED CELL DISTRIBUTION WIDTH 24.9 % (11.6-17.2); WHITE BLOOD COUNT 9.7 TH/MM3 (4.0-11.0)
[2017-04-13 05:57] LABS: HEMO FLAGS AUTO DIFF
[2017-04-13 06:14] LABS: BICARBONATE 23.8 MEQ/L (21.0-32.0); POTASSIUM 4.3 MEQ/L (3.5-5.1)
[2017-04-13 06:17] LABS: INDIRECT BILIRUBIN 7.5 MG/DL (0.0-0.8); TOTAL BILIRUBIN ADULT 9.1 MG/DL (0.2-1.0)
[2017-04-13] MEDS: INSULIN ASPART SUPPLEMENTAL SCALE SQ SCH ×2 (07:54→12:00)
[2017-04-13] MEDS: SODIUM CHLOR 0.9% 1000 ML INJ 1,000 ML IV SCH ×2 (08:05→14:57)
[2017-04-13] MEDS: SODIUM CHLORIDE 0.9% FLUSH 10 ML FLUSH IV FLUSH SCH (08:06)
[2017-04-13] MEDS: DOCUSATE SODIUM 50 MG/SENNA 8.6 MG TAB PO SCH (08:06)
[2017-04-13] MEDS: DICYCLOMINE HCL 20 MG TAB PO SCH ×2 (08:06→13:43)
[2017-04-13] MEDS: FOLIC ACID 1 MG TAB PO SCH (08:06)
[2017-04-13] MEDS: oxyCODONE/ACETAMINOPHEN 10 MG/325 MG TAB PO PRN (08:06)
[2017-04-13] MEDS: HYDROXYUREA 500 MG CAP PO SCH (08:15)
[2017-04-13 08:39] LABS: HOWELL-JOLLY BODIES PRESENT (NONE SEEN); SICKLE CELLS 1+ (NORMAL); TARGET CELLS 1+ (NORMAL)
[2017-04-13 08:40] LABS: PLATELET ESTIMATE SMEAR NORMAL (NORMAL); PLATELET MORPHOLOGY NORMAL (NORMAL); SCAN/DIFF AUTO DIFF CONFIRMED
--- NOTE | 2017-04-13 09:24 | PD.ONC.PN ---
Subjective Subjective Remarks Afebrile overnight. Patient resting in bed in nad. Abdominal pain improved. Nausea improved. Wants to go home. Objective Data Date Time Temp Pulse Resp B/P (MAP) Pulse Ox O2 Delivery O2 Flow Rate FiO2 04/13/17 03:47 98.8 61 16 108/58 (75) 98 04/12/17 23:44 98.0 58 16 109/65 (80) 100 04/12/17 20:54 98.0 63 16 112/74 (87) 99 04/12/17 19:36 Nasal Cannula 3.00 04/12/17 15:50 97.8 62 18 114/62 (79) 99 04/12/17 11:55 97.8 68 18 108/64 (79) 99 04/12/17 09:30 21 04/13/17 04/13/17 04/13/17 07:00 15:00 23:00 Intake Total 950 ml Output Total 300 ml 1000 ml Balance -300 ml -50 ml Result Diagram: 04/13/17 0535 04/13/17 0535 Laboratory Results Laboratory Tests Test 04/13/17 05:35 White Blood Count 9.7 TH/MM3 Red Blood Count 2.99 MIL/MM3 Hemoglobin 9.6 GM/DL Hematocrit 27.5 % Mean Corpuscular Volume 91.9 FL Mean Corpuscular Hemoglobin 32.1 PG Mean Corpuscular Hemoglobin Concent 34.9 % Red Cell Distribution Width 24.9 % Platelet Count 265 TH/MM3 Mean Platelet Volume 7.5 FL Neutrophils (%) (Auto) 44.0 % Lymphocytes (%) (Auto) 31.6 % Monocytes (%) (Auto) 19.9 % Eosinophils (%) (Auto) 4.1 % Basophils (%) (Auto) 0.4 % Neutrophils # (Auto) 4.2 TH/MM3 Lymphocytes # (Auto) 3.1 TH/MM3 Monocytes # (Auto) 1.9 TH/MM3 Eosinophils # (Auto) 0.4 TH/MM3 Basophils # (Auto) 0.0 TH/MM3 CBC Comment AUTO DIFF Differential Comment AUTO DIFF CONFIRMED Platelet Estimate NORMAL Platelet Morphology Comment NORMAL Sickle Cells 1+ Target Cells 1+ [place] Bodies PRESENT Blood Urea Nitrogen 7 MG/DL Creatinine 0.86 MG/DL Random Glucose 98 MG/DL Total Protein 6.7 GM/DL Albumin 3.6 GM/DL Calcium Level 11.1 MG/DL Alkaline Phosphatase 81 U/L Aspartate Amino Transf (AST/SGOT) 59 U/L Alanine Aminotransferase (ALT/SGPT) 28 U/L Total Bilirubin 9.1 MG/DL Direct Bilirubin 1.6 MG/DL Sodium Level 141 MEQ/L Potassium Level 4.3 MEQ/L Chloride Level 110 MEQ/L Carbon Dioxide Level 23.8 MEQ/L Anion Gap 7 MEQ/L Estimat Glomerular Filtration Rate 109 ML/MIN Indirect Bilirubin 7.5 MG/DL Culture Results Microbiology Date/Time Source Procedure Growth Status 04/10/17 12:50 Blood Peripheral Aerobic Blood Culture - Preliminary NO GROWTH IN 2 DAYS Resulted 04/10/17 12:50 Blood Peripheral Anaerobic Blood Culture - Preliminary NO GROWTH IN 2 DAYS Resulted 04/10/17 12:15 Blood Peripheral Aerobic Blood Culture - Preliminary NO GROWTH IN 1 DAY Resulted 04/10/17 12:15 Blood Peripheral Anaerobic Blood Culture - Preliminary NO GROWTH IN 1 DAY Resulted Administered Medications Medications (Trade) Dose Ordered Sig/Parrish Route PRN Reason Start Time Stop Time Status Last Admin Dose Admin Sodium Chloride 1,000 ml @ 100 mls/hr Q10H IV 04/10/17 16:57 04/13/17 08:05 Sodium Chloride (NS Flush) 2 ml BID IV FLUSH 04/10/17 21:00 04/13/17 08:06 Oxycodone/ Acetaminophen (Percocet 5-325 Mg) 1 tab Q6H PRN PO PAIN SCALE 3 TO 5 04/10/17 17:00 04/11/17 21:42 Oxycodone/ Acetaminophen (Percocet 10-325 Mg) 1 tab Q6H PRN PO PAIN SCALE 6 TO 10 04/10/17 17:00 04/13/17 08:06 Senna/Docusate Sodium (Ami-Colace) 1 tab BID PO 04/10/17 21:00 04/13/17 08:06 Dicyclomine HCl (Bentyl) 20 mg TID PO 04/10/17 18:00 04/13/17 08:06 Folic Acid (Folate) 1 mg DAILY PO 04/11/17 09:00 04/13/17 08:06 Hydroxyurea (Hydrea) 500 mg BID PO 04/10/17 21:00 04/13/17 08:15 Objective Remarks GENERAL: Pleasant middle aged male, sitting up in bed. SKIN: Warm and dry. HEAD: Normocephalic. EYES: No injection or drainage. NECK: Supple, trachea midline. CARDIOVASCULAR: Regular rate and rhythm RESPIRATORY: Breath sounds equal bilaterally. No accessory muscle use. GASTROINTESTINAL: Abdomen soft, non-tender, nondistended. EXTREMITIES: No cyanosis NEUROLOGICAL: awake and alert, normal speech. moving all extremities. Assessment/Plan Problem List: (1) Sickle cell crisis ICD Codes: D57.00 - Hb-SS disease with crisis, unspecified Status: Acute Plan: 04/13: ok to d/c. follow up in clinic with Dr. Rowell in 3-4 weeks. Sickle-cell hemolytic painful crisis. Assessment 61y/o male with sickle cell painful crisis. h/o Hypertension. Diabetes mellitus. Coronary artery disease. Sickle-cell disease with thalassemia minor. Arthritis. Chronic knee pain. Gastroesophageal reflux disease. Attending Statement The exam, history, and the medical decision-making described in the above note were completed with the assistance of the mid-level provider. I reviewed and agree with the findings presented. I attest that I had a [id number] encounter with the patient on the same day, and personally performed and documented my assessment and findings in the medical record. Nausea and abd pain better. wants to go home. ok to d/c FU as outpt Denisse Stephens Apr 13, 2017 09:24 Trena Rowell MD Apr 13, 2017 18:25
[2017-04-13 11:15] VITALS: BP 111/66; PULSE 67; RESP 18; TEMP 97.7; O2SAT 100
--- NOTE | 2017-04-13 14:54 | HHI.DCPOC ---
Discharge Care Plan Diagnosis: (1) Thalassemia (2) Jaundice (3) Hypercalcemia (4) Sickle cell anemia (5) Abdominal pain (6) Total bilirubin, elevated Goals to Promote Your Health * To prevent worsening of your condition and complications * To maintain your health at the optimal level Directions to Meet Your Goals Take your medications as prescribed Follow your dietary instruction Follow activity as directed Keep your appointments as scheduled Take your immunizations and boosters as scheduled If your symptoms worsen call your PCP, if no PCP go to Urgent Care Center or Emergency Room Smoking is Dangerous to Your Health. Avoid second hand smoke Call the 24-hour hour crisis hotline for domestic abuse at Beck Servin DO Apr 13, 2017 14:54
--- NOTE | 2017-04-13 15:02 | HHI.DS ---
Discharge Summary Admission Date Apr 10, 2017 at 16:44 Discharge Date: Apr 13, 2017 Admitting Diagnosis symptomatic anemia/hypercalcemia (1) Total bilirubin, elevated ICD Code: R17 - Unspecified jaundice Status: Acute (2) Abdominal pain ICD Code: R10.9 - Unspecified abdominal pain Diagnosis: Principal Status: Resolved (3) Thalassemia ICD Code: D56.9 - Thalassemia, unspecified (4) Sickle cell crisis ICD Code: D57.00 - Hb-SS disease with crisis, unspecified Diagnosis: Principal Status: Acute (5) Jaundice ICD Code: R17 - Unspecified jaundice Status: Acute (6) Hypercalcemia ICD Code: E83.52 - Hypercalcemia Diagnosis: Principal Status: Acute Procedures None Brief History - From Admission The patient is a very pleasant 61-year-old male patient with history of sickle cell anemia, GERD, arthritis, recently been evaluated for low blood pressures for which she was admitted several times, does not yet have a credit director, presents to the ER today with his sent in by his primary care doctor because he had low blood pressure on reevaluation at the doctor's office today. He states that he has had several episodes of diarrhea today but denies any black stools. He denies any vomiting, fevers, dizziness, chest pains , shortness of breath, or any other symptoms. Patient says he feels very weak with generalized weakness and also he has some joint pain. CBC/BMP: 04/13/17 0535 04/13/17 0535 Significant Findings Laboratory Tests Test 04/11/17 06:15 04/11/17 06:45 04/11/17 13:17 04/12/17 07:10 Reticulocyte Count 6.4 % (0.4-3.0) Calcium Level 11.6 MG/DL (8.5-10.1) 11.0 MG/DL (8.5-10.1) Aspartate Amino Transf (AST/SGOT) 70 U/L (15-37) 63 U/L (15-37) Lactate Dehydrogenase 581 U/L (87-241) 604 U/L (87-241) Total Bilirubin 12.1 MG/DL (0.2-1.0) 10.7 MG/DL (0.2-1.0) Chloride Level 113 MEQ/L (98-107) 109 MEQ/L (98-107) Estimat Glomerular Filtration Rate 70 ML/MIN (>89) 86 ML/MIN (>89) Protein Corrected Calcium 12.1 MG/DL (8.5-10.1) 25-Hydroxy Vitamin D Total 11.2 ng/ML (30-100) White Blood Count 11.5 TH/MM3 (4.0-11.0) Red Blood Count 2.22 MIL/MM3 (4.50-5.90) 2.84 MIL/MM3 (4.50-5.90) Hemoglobin 7.4 GM/DL (13.0-17.0) 9.3 GM/DL (13.0-17.0) Hematocrit 20.8 % (39.0-51.0) 25.5 % (39.0-51.0) Red Cell Distribution Width 25.3 % (11.6-17.2) 25.8 % (11.6-17.2) Monocytes % 20 % (0-8) 13 % (0-8) Nucleated Red Blood Cells 11 /100 WBC (0-0) Sickle Cells 1+ (NORMAL) 1+ (NORMAL) Ovalocytes 1+ (NORMAL) Parathyroid Hormone (Intact) 202.9 PG/ML (12.4-76.8) Mean Corpuscular Hemoglobin Concent 36.3 % (32.0-36.0) Monocytes (%) (Auto) 19.4 % (0.0-8.0) Monocytes # (Auto) 1.8 TH/MM3 (0-0.9) Polychromasia 2.2 % (0.0-1.9) Target Cells 2+ (NORMAL) Test 04/13/17 05:35 Red Blood Count 2.99 MIL/MM3 (4.50-5.90) Hemoglobin 9.6 GM/DL (13.0-17.0) Hematocrit 27.5 % (39.0-51.0) Red Cell Distribution Width 24.9 % (11.6-17.2) Monocytes (%) (Auto) 19.9 % (0.0-8.0) Eosinophils (%) (Auto) 4.1 % (0.0-4.0) Monocytes # (Auto) 1.9 TH/MM3 (0-0.9) Sickle Cells 1+ (NORMAL) Target Cells 1+ (NORMAL) Calcium Level 11.1 MG/DL (8.5-10.1) Aspartate Amino Transf (AST/SGOT) 59 U/L (15-37) Total Bilirubin 9.1 MG/DL (0.2-1.0) Direct Bilirubin 1.6 MG/DL (0.0-0.2) Chloride Level 110 MEQ/L (98-107) Indirect Bilirubin 7.5 MG/DL (0.0-0.8) Imaging Last Impressions Chest X-Ray 04/10/17 1215 Signed Impressions: Service Date/Time: April 12:44 - CONCLUSION: No acute disease. Mild cardiomegaly. Amor Gomez MD PE at Discharge GENERAL: This is a well-nourished, well-developed patient, in no apparent distress. SKIN: No rashes, ecchymoses or lesions. Cool and dry. HEAD: Atraumatic. Normocephalic. No temporal or scalp tenderness. EYES: Pupils equal round and reactive. Extraocular motions intact. No scleral icterus. No injection or drainage. ENT: Nose without bleeding, purulent drainage or septal hematoma. Throat without erythema, tonsillar hypertrophy or exudate. Uvula midline. Airway patent. NECK: Trachea midline. No JVD or lymphadenopathy. Supple, nontender, no meningeal signs. CARDIOVASCULAR: Regular rate and rhythm. Systolic murmur appreciated. RESPIRATORY: Clear to auscultation. Breath sounds equal bilaterally. No wheezes , rales, or rhonchi. GASTROINTESTINAL: Abdomen soft, non-tender, nondistended. No hepato-splenomegaly , or palpable masses. No guarding. MUSCULOSKELETAL: Extremities without clubbing, cyanosis. Trace 1+ edema bilaterally in the lower extremities. NEUROLOGICAL: Awake and alert. Cranial nerves II through XII intact. Motor and sensory grossly within normal limits. Five out of 5 muscle strength in all muscle groups. Normal speech. PSYCH: Mood and affect appropriate. Pt update on day of discharge The patient was resting comfortably in bed. He wanted to go home. His family was at the bedside and her questions were answered. Discussed with nursing. Hospital Course Sickle cell anemia The patient presented with symptomatic anemia. Transfused 3 units of blood with improvement and stability. Hematology was consulted. CBC remained stable. He will resume ASA. He will have a repeat CBC in 3-5 days. He will follow up with hematology. LFTs were elevated but stale. He will have repeat LFTs in 3-5 days. Hypercalcemia Persistent problem. Improved with fluids. He will have repeat labs in 3-5 days. Hypotension The patient is on Bystolic and lisinopril as an outpatient. His blood pressure has been low in the hospital. Improved with holding of his meds. Continue to hold Bystolic and lisinopril. He will follow up with his PCP. Abdominal pain Chronic. Has been seen by GI and had a thorough work-up. We resumed dicyclomine , Hydrea and folic acid. Improved with fluids. His diet was advanced. Diabetes Glucose well-controlled at this time. He will resume his home regimen upon discharge. A1c pending. Pt Condition on Discharge: Stable Discharge Disposition: Discharge Home Discharge Time: > 30 minutes Discharge Instructions DIET: Follow Instructions for: As Tolerated, No Restrictions Activities you can perform: Weight Bearing as [place] Follow up Referrals: Oncology/Hematology - 2 Weeks with Trena Rowell MD PCP Follow-up - 1 Week New Orders: CBC WITH DIFF - 3-5 Days COMP MET PROF (CMP) - 3-5 Days Continued Medications: Aspirin (Aspirin) 81 Mg Chew 81 MG CHEW DAILY, TAB 0 Refills B-Complex Vitamins (B Complex) 1 Cap 1 CAP PO DAILY for Nutritional Supplement, #30 CAP 0 Refills Dexlansoprazole (Dexilant) 60 Mg Cap. Dicyclomine (Dicyclomine) 20 Mg Tab 20 MG PO TID for Pain Management, #30 TAB Folic Acid (Folic Acid) 1 Mg Tablet 1 MG PO DAILY for vitamin for 30 Days, #30 TAB 0 Refills Glyburide (Glyburide) 1.25 Mg Tab 1.25 MG PO BID for Blood Sugar Management, #60 TAB 0 Refills Take with meals at the same time each day Hydrocodone-Acetaminophen (Hydrocodone-Acetaminophen) 5-325 mg Tab 1 TAB PO Q4H PRN for PAIN, TAB 0 Refills Hydroxyurea (Hydrea) 500 Mg Cap 500 MG PO BID for sickle cell, #62 CAP Pioglitazone (Pioglitazone) 15 Mg Tab 15 MG PO DAILY for Blood Sugar Management, #30 TAB 0 Refills Discontinued Medications: Nebivolol (Bystolic) 5 Mg Tab 5 MG PO DAILY for Blood Pressure Management, #30 TAB 0 Refills Beck Servin DO Apr 13, 2017 15:02
[2017-04-13 15:55] VITALS: BP 117/65; PULSE 60; RESP 18; TEMP 98.2; O2SAT 100
[2017-04-15 07:50] LABS: HEMOGLOBIN A1a 1.5 %; HEMOGLOBIN A1b 0.4 %; HEMOGLOBIN F 7.2 %; HEMOGLOBIN LA1C 0.7 %
[2017-04-15 07:51] LABS: HEMOGLOBIN Ao 27.6 %
== END 2017-04-13 18:29 | disposition home or self-care (01) ==
LOC: NEPC 11:50 → NEDA 16:44 → NEPHCDU 17:51
PROVIDERS: ADMIT Hospitalist; ATTEND Hospitalist
DX: D57.00 Hb-SS disease with crisis, unspecified (principal); D56.3 Thalassemia minor; E83.52 Hypercalcemia; R17 Unspecified jaundice; E86.0 Dehydration; R19.7 Diarrhea, unspecified; I11.9 Hypertensive heart disease without heart failure; E11.9 Type 2 diabetes mellitus without complications; I95.9 Hypotension, unspecified; K21.9 Gastro-esophageal reflux disease without esophagitis; M54.9 Dorsalgia, unspecified; M79.605 Pain in left leg; R11.0 Nausea; R10.9 Unspecified abdominal pain; R01.1 Cardiac murmur, unspecified; D58.9 Hereditary hemolytic anemia, unspecified; R60.0 Localized edema; I25.10 Atherosclerotic heart disease of native coronary artery without angina pectoris; G89.29 Other chronic pain; M25.569 Pain in unspecified knee; M19.90 Unspecified osteoarthritis, unspecified site; Z79.899 Other long term (current) drug therapy; Z79.82 Long term (current) use of aspirin
CPT/HCPCS: 36430; 71010; 80048; 80053; 80076; 81001; 82306; 82948; 83036; 83605; 83615; 83970; 84443; 85007; 85025; 85027; 85044; 86140; 86850; 86900; 86901; 86920; 87040; 96360; 96361; 96374; 97162; 99285; G0378; G8987; G8988; J1940; J7030; J7050; P9016

== ENCOUNTER 2017-05-01 23:54 | Emergency (ER) | payer OTHER ==
[~2017-05-01] VITALS: Ht 182.9 cm; Wt 95.0 kg
[~2017-05-01 23:54] MED LIST changes: -BYST5TAB2 PO
[2017-05-01 23:56] VITALS: BP 178/80; PULSE 105; RESP 18; TEMP 98.1; O2SAT 99
[2017-05-02] VITALS: BP 149/76; PULSE 92; RESP 18; O2SAT 98
[2017-05-02] MEDS ORDERED: SODIUM CHLOR 0.9% 1000 ML INJ 1,000 ML IV ONE (00:38)
--- NOTE | 2017-05-02 00:38 | PD ---
HPI Chief Complaint: Sickle Cell Time Seen by Provider: 00:17 Travel History International Travel<30 days: No Contact w/Intl Traveler<30days: No Traveled to known affect area: No History of Present Illness HPI The patient is a 61 year old male who presents to the [facility] emergency department with a history of developing pain all over, however he reports that it is most prominent in bilateral hips, knees, and ankles. The patient reports that the pain is similar to his prior sickle cell pain crises. He reports that unfortunately has been suffering with more frequent crises recently. He is recently established with a field project manager again. He saw his field project manager, , a week ago. He reports that no changes were made to his medication regimen. He reports that he is on hydrocodone when necessary pain at home. He reports that he last took hydrocodone at 10:30 PM. The patient reports having nausea that he believes is related to the pain. He denies having any vomiting. He denies having any chest pain, chest pressure, or shortness of breath. The patient reports that he was recently in the hospital related to his sickle cell pain crisis and anemia. He reports that he did have a blood transfusion during the hospitalization. He reports that he was on supplemental nasal cannula O2 and since discharge she has had intermittent nosebleeds and a clear rhinorrhea. He denies having any other congestion or cough. He denies having any known fevers, abdominal pain, diarrhea, urinary symptoms, or neurologic symptoms. [facility] Past Medical History Narrative Medical The patient's past medical history is significant for hypertension, diabetes mellitus, history of coronary artery disease, history of sickle cell disease with thalassemia minor, history of arthritis, chronic knee pain, acid reflux. Arthritis: Yes Asthma: No Autoimmune Disease: No Blood Disorders: No Anxiety: No Depression: No Heart Rhythm Problems: Yes (INVERTED/ABN. READING ON HIS EKG, CANNOT REMEMBER THE EXACT NAME.) Cancer: No Cardiovascular Problems: No High Cholesterol: Yes Chemotherapy: No Chest Pain: No Congestive Heart Failure: No COPD: No Cerebrovascular Accident: No Diabetes: Yes Patient Takes Glucophage: No Diminished Hearing: No Endocrine: No Gastrointestinal Disorders: Yes (gerd) GERD: Yes Glaucoma: No Genitourinary: No Headaches: No Hepatitis: No Hiatal Hernia: No Hypertension: Yes Immune Disorder: No Kidney Stones: No Musculoskeletal: No Neurologic: No Psychiatric: No Reproductive: No Respiratory: No Integumentary: No Myocardial Infarction: No Pneumonia: Yes Radiation Therapy: No Renal Failure: No Seizures: No Sickle Cell Disease: Yes Sleep Apnea: No Thyroid Disease: No Ulcer: No PNEUMOCCOCAL Vaccine (Year): 2009 Past Surgical History Narrative Surgical The patient's past surgical history is significant for right knee surgery, cholecystectomy, eye surgery, history of cardiac catheterization Abdominal Surgery: Yes (GALL BLADER ) AICD: No Cardiac Surgery: No Cholecystectomy: Yes (1979) Ear Surgery: No Endocrine Surgery: No Eye Surgery: Yes (RUPTURED BLOOD VESEL 30 YEARS AGO ) Genitourinary Surgery: No Gynecologic Surgery: No Joint Replacement: No Oral Surgery: Yes (TONSILECTOMY 1973) Pacemaker: No Thoracic Surgery: No Tonsillectomy: Yes (1973) Other Surgery: Yes (rt knee, gallbladder, ) Social History Alcohol Use: No Tobacco Use: No Substance Use: No Allergies-Medications (Allergen,Severity, Reaction): Coded Allergies: cortisone (Verified Allergy, Severe, FLARES UP SICKLE CELL., 05/01/17) erythromycin base (Verified Allergy, Severe, ANAPHALACTIC SHOCK, 05/01/17) azithromycin (Verified Allergy, Intermediate, 05/01/17) Reported Meds & Prescriptions Reported Meds & Active Scripts Active Dicyclomine (Dicyclomine HCl) 20 Mg Tab 20 Mg PO TID Hydrea (Hydroxyurea) 500 Mg Cap 500 Mg PO BID Folic Acid 1 Mg Tablet 1 Mg PO DAILY 30 Days Reported Dexilant (Dexlansoprazole) 60 Mg Fernandez. Aspirin 81 Mg Chew 81 Mg CHEW DAILY Hydrocodone-Acetaminophen 5-325 mg Tab 1 Tab PO Q4H PRN Pioglitazone (Pioglitazone HCl) 15 Mg Tab 15 Mg PO DAILY Glyburide 1.25 Mg Tab 1.25 Mg PO BID Take with meals at the same time each day B Complex (B-Complex Vitamins) 1 Cap 1 Cap PO DAILY Review of Systems Except as stated in HPI: all other systems reviewed are Neg General / Constitutional: No: Fever Eyes: No: Visual changes HENT: Positive: Rhinorrhea, Congestion, No: Headaches Cardiovascular: No: Chest Pain or Discomfort Respiratory: No: Shortness of Breath Gastrointestinal: Positive: Nausea, Abdominal Pain (the patient has been intermittently having abdominal pain since prior to his admissions to the hospital with sickle cell exacerbations. He reports that he has had a workup done by Dr. Allison regarding this.), No: Vomiting, Diarrhea Genitourinary: No: Urgency, Frequency, Dysuria Musculoskeletal: Positive: Myalgias, Arthralgias, Pain, No: Limited ROM, Edema Skin: No Rash Neurologic: No: Weakness, Focal Abnormalities, Change in Mentation, Slurred Speech, Sensory Disturbance Psychiatric: No: Depression Endocrine: No: Polydipsia Hematologic/Lymphatic: No: Easy Bruising Physical Exam Narrative General: The patient is well-developed well-nourished male uncomfortable appearing on arrival, rocking in the bed reportedly related to generalized pain. Head and Neck exam: Head is normocephalic atraumatic. Eyes: EOMI, pupils are equal round and reactive to light. Nose: Midline septum with pink mucous membranes Mouth: Dentition unremarkable. Moist mucus membranes. Posterior oropharynx is not erythematous. No tonsillar hypertrophy. Uvula midline. Airway patent. Neck: No palpable lymphadenopathy. No nuchal rigidity. No thyromegaly. No spinous process tenderness to palpation. No step-off or crepitus. No erythema or ecchymosis. Cardiovascular: Regular rate and rhythm without murmurs, gallops, or rubs. Lungs: Clear to auscultation bilaterally. No wheezes, rhonchi, or rales. Abdomen: Soft, without tenderness to palpation in all 4 quadrants of the abdomen. No guarding, rebound, or rigidity. Normal bowel sounds are audible. No tenderness on palpation of McBurney's point. Negative Thomas's sign. Extremities: No clubbing, cyanosis, or edema. 2+ pulses in all 4 extremities. No joint swelling or erythema. No crepitus or step-off. The patient has full range of motion of all of his extremities. Back: No spinous process tenderness to palpation. No costovertebral angle tenderness to palpation. Neurologic Exam: Grossly nonfocal. Skin Exam: No rash noted. Intact skin that is warm and dry. Data Data Last Documented VS Vital Signs Date Time Temp Pulse Resp B/P (MAP) Pulse Ox O2 Delivery O2 Flow Rate FiO2 05/02/17 04:01 05/02/17 03:26 96 16 94 Room Air 05/01/17 23:56 98.1 Orders Orders C-Reactive Protein (Crp) (05/02/17 00:38) Complete Blood Count With Diff (05/02/17 00:38) Comprehensive Metabolic Panel (05/02/17 00:38) Retic Count (05/02/17 00:38) Urinalysis - C+S If Indicated (05/02/17 00:38) Ecg Monitoring (05/02/17 00:38) Iv Access Insert/Monitor (05/02/17 00:38) Oximetry (05/02/17 00:38) Sodium Chloride 0.9% Flush (Ns Flush) (05/02/17 00:45) Sodium Chlor 0.9% 1000 Ml Inj (Ns 1000 M (05/02/17 00:38) Ondansetron Inj (Zofran Inj) (05/02/17 01:15) Hydromorphone Pf Inj (Dilaudid Pf Inj) (05/02/17 01:15) Chest, Single Ap (05/02/17 02:11) Hydromorphone Pf Inj (Dilaudid Pf Inj) (05/02/17 02:45) Ed Discharge Order (05/02/17 03:26) Labs Laboratory Tests Test 05/02/17 00:52 White Blood Count 16.6 TH/MM3 Red Blood Count 3.09 MIL/MM3 Hemoglobin 10.2 GM/DL Hematocrit 29.8 % Mean Corpuscular Volume 96.2 FL Mean Corpuscular Hemoglobin 32.9 PG Mean Corpuscular Hemoglobin Concent 34.2 % Red Cell Distribution Width 20.1 % Platelet Count 285 TH/MM3 Mean Platelet Volume 9.0 FL CBC Comment AUTO DIFF Differential Total Cells Counted 100 Neutrophils % (Manual) 36 % Band Neutrophils % 2 % Lymphocytes % 47 % Monocytes % 11 % Eosinophils % 3 % Neutrophils # (Manual) 6.5 TH/MM3 Myelocytes 1 % Nucleated Red Blood Cells 1 /100 WBC Differential Comment FINAL DIFF MANUAL Atypical Lymphocytes % Smudge Cells PRESENT Platelet Estimate NORMAL Platelet Morphology Comment NORMAL Polychromasia 5.5 % Sickle Cells 1+ Target Cells 1+ Rhoades-Hearne Bodies PRESENT Acanthocytes OCC Keratocytes OCC Reticulocyte Count 7.9 % Absolute Reticulocyte Count 243.0 MIL/L Urine Color YELLOW Urine Turbidity CLEAR Urine pH 7.5 Urine Specific [place] 1.007 Urine Protein NEG mg/dL Urine Glucose (UA) NEG mg/dL Urine Ketones NEG mg/dL Urine Occult Blood NEG Urine Nitrite NEG Urine Bilirubin NEG Urine Urobilinogen 4.0 MG/DL Urine Leukocyte Esterase NEG Urine RBC 1 /hpf Urine WBC LESS THAN 1 /hpf Urine Squamous Epithelial Cells <1 /hpf Urine Hyaline Casts 1 /lpf Microscopic Urinalysis Comment CULT NOT INDICATED Blood Urea Nitrogen 8 MG/DL Creatinine 0.76 MG/DL Random Glucose 116 MG/DL Total Protein 7.5 GM/DL Albumin 3.8 GM/DL Calcium Level 11.6 MG/DL Alkaline Phosphatase 126 U/L Aspartate Amino Transf (AST/SGOT) 103 U/L Alanine Aminotransferase (ALT/SGPT) 31 U/L Total Bilirubin 8.8 MG/DL Sodium Level 140 MEQ/L Potassium Level 4.2 MEQ/L Chloride Level 109 MEQ/L Carbon Dioxide Level 21.3 MEQ/L Anion Gap 10 MEQ/L Estimat Glomerular Filtration Rate 126 ML/MIN Protein Corrected Calcium 11.4 MG/DL C-Reactive Protein 1.00 MG/DL MDM Medical Decision Making Medical Screen Exam Complete: Yes Emergency Medical Condition: Yes Medical Record Reviewed: Yes Differential Diagnosis Sickle cell pain crisis, versus viral syndrome, versus pneumonia, versus arthritis, versus septic joint Narrative Course During the course of the patients emergency department visit, the patients history, examination, and differential diagnosis were reviewed with the patient. The patient was placed on a motorcycle fabricator with oximetry and frequent blood pressure monitoring. The patient had IV access obtained and blood work sent for analysis. The patient was initially provided 1 mg of hydromorphone IV, normal saline 1 L IV fluid bolus, Zofran 4 mg IV. The patient was reassessed and reported that his pain level went down from a 10 out of 10 in severity to a 6 out of 10 in severity. The patient was given an additional hydromorphone 0.5 mg IV. The patients laboratory studies were reviewed and remarkable for a white count of 16.6, hemoglobin 10.2, platelets 285 with 47 lymphocytes, monocytes 11. Reticulocyte count is elevated at 7.9. CMP is remarkable for a chloride of 109 , glucose 116, calcium 11.6, protein corrected calcium 11.4 which the patient has a history of being elevated previously, total bilirubin is 8.8 which the patient also has a history of, AST 103, alkaline phosphatase 126 which has actually improved compared to previously. The patient is status post cholecystectomy, C-reactive protein 1.0, urinalysis within normal limits except for urobilinogen of 4.0. Radiology studies were reviewed and remarkable for a chest x-ray shows mild cardiac silhouette enlargement which was seen previously, no acute cardiopulmonary disease identified. On reassessment, the patient reports that the pain has improved down to a level of 3/10. The patient reports feeling comfortable to go home with treatment with his Lortab as previously prescribed for pain crises. He will follow up closely with his field project manager, . The patient is resting comfortably and feels better, is alert and in no distress. The patients results and examination findings were discussed with the patient. The repeat examination is unremarkable and benign. The history, exam, diagnostic testing, and current condition do not suggest any significant pathology to warrant further testing, continued ED treatment, admission, or surgical evaluation at this point. The vital signs have been stable. The patient does not have uncontrollable pain, intractable vomiting, or other significant symptoms. The patient's condition is stable and appropriate for discharge. The patient will pursue further outpatient evaluation with a primary care physician or other designated or consulting physician as indicated in the discharge instructions. The patient expressed understanding and was agreeable with this plan. Diagnosis Primary Impression: Sickle cell crisis Referrals: Trena Rowell MD 3 days Primary Care Physician 1 week Patient Instructions: Sickle Cell Crisis (ED) Med/Other Pt SpecificInfo: No Change to Meds Disposition: 01 DISCHARGE HOME Condition: Stable Payton Dickey MD May 02, 2017 00:38
[2017-05-02] MEDS ORDERED: SODIUM CHLORIDE 0.9% FLUSH 10 ML FLUSH IVF PRN (00:45)
[2017-05-02 00:56] VITALS: O2SAT 98
[2017-05-02 01:09] LABS: HEMATOCRIT 29.8 % (39.0-51.0); HEMOGLOBIN 10.2 GM/DL (13.0-17.0); MEAN CELL VOLUME 96.2 FL (80.0-100.0); MEAN CORPUSCULAR HEMOGLOBIN 32.9 PG (27.0-34.0); MEAN CORPUSCULAR HGB CONC 34.2 % (32.0-36.0); PLATELET COUNT 285 TH/MM3 (150-450); RED BLOOD COUNT 3.09 MIL/MM3 (4.50-5.90); RED CELL DISTRIBUTION WIDTH 20.1 % (11.6-17.2); RETIC % 7.9 % (0.4-3.0); WHITE BLOOD COUNT 16.6 TH/MM3 (4.0-11.0)
[2017-05-02 01:15] VITALS: BP 122/64; PULSE 90; RESP 16; O2SAT 94
[2017-05-02] MEDS ORDERED: HYDROmorphone HCL PF 2 MG/ML VIAL IV PUSH ONE ×2 (01:15→02:45)
[2017-05-02] MEDS ORDERED: ONDANSETRON HCL 4 MG/2 ML VIAL IV ONE (01:15)
[2017-05-02 01:21] LABS: BILIRUBIN, URINE NEG (NEG); BLOOD, URINE NEG (NEG); GLUCOSE,URINE NEG (NEG); HYALINE CAST, URINE 1 /lpf (RARE); KETONE, URINE NEG (NEG); NITRITE,URINE NEG (NEG); PH, URINE 7.5 (5.0-8.5); SQUAMOUS EPITHELIAL CELL URINE <1 /hpf (0-5); URINE COLOR YELLOW (YELLW/STRAW); URINE LEUKOCYTE ESTERASE NEG (NEG)
[2017-05-02 01:35] LABS: BANDS 2 % (0-6); CORRECTED NUCLEATED RBC 1 /100 WBC (0-0); LYMPHOCYTES 47 % (9-44); MONOCYTES 11 % (0-8); MYELOCYTES 1 % (0-0); NEUTROPHIL # MANUAL DIFF 6.5 TH/MM3 (1.8-7.7); NUCLEATED RED BLOOD CELL 1 (0-0); POLYS (SEG NEUTROPHILS) 36 % (16-70); SMUDGE CELLS PRESENT PRESENT
[2017-05-02 01:37] LABS: ACANTHOCYTES OCC (NORMAL); KERATOCYTES OCC (NORMAL); SICKLE CELLS 1+ (NORMAL); TARGET CELLS 1+ (NORMAL)
[2017-05-02 01:38] LABS: POLYCHROMASIA 5.5 % (0.0-1.9)
[2017-05-02 01:40] LABS: HOWELL-JOLLY BODIES PRESENT (NONE SEEN)
[2017-05-02 01:47] LABS: ALBUMIN 3.8 GM/DL (3.4-5.0); BICARBONATE 21.3 MEQ/L (21.0-32.0); CALCIUM 11.6 MG/DL (8.5-10.1); CREATININE 0.76 MG/DL (0.60-1.30)
[2017-05-02 01:51] LABS: CALCIUM-PROTEIN CORRECTED 11.4 MG/DL (8.5-10.1); TOTAL BILIRUBIN ADULT 8.8 MG/DL (0.2-1.0); TOTAL PROTEIN 7.5 GM/DL (6.4-8.2)
[2017-05-02 02:15] VITALS: BP 109/58; PULSE 83; RESP 16; O2SAT 94
--- NOTE | 2017-05-02 02:36 | RADRPT ---
EXAM DATE/TIME: 05/02/2017 02:24 [place] COMPARISON: CHEST SINGLE AP, April 10, 2017, 12:44. INDICATIONS : Cough. MEDICAL HISTORY : Hypertension. Diabetes mellitus type 2. Sickle Cell disease. GERD. SURGICAL HISTORY : Cholecystectomy. Knee surgery. ENCOUNTER: Initial ACUITY: 1 day PAIN SCORE: 6/10 LOCATION: Right chest FINDINGS: Single AP view of the chest. Mild cardiac silhouette enlargement unchanged. The lungs are clear. No e vidence of pleural effusion or pneumothorax. CONCLUSION: Mild cardiac silhouette enlargement again seen. No acute cardiopulmonary disease i dentified. Merlin Dubon MD on May 02, 2017 at 2:34 Board Certified Radiologist. This report was verified electronically.
[2017-05-02 03:26] VITALS: BP 103/56; PULSE 96; RESP 16; O2SAT 94
== END 2017-05-02 04:02 | disposition home or self-care (01) ==
LOC: NEPE 23:54
DX: D57.00 Hb-SS disease with crisis, unspecified (principal); E11.9 Type 2 diabetes mellitus without complications; Z79.84 Long term (current) use of oral hypoglycemic drugs
CPT/HCPCS: 71010; 80053; 81001; 85007; 85027; 85044; 86140; 96361; 96374; 96375; 96376; 99284; J1170; J2405; J7030

== ENCOUNTER 2017-05-10 08:25 | Emergency (ER) | payer OTHER ==
[~2017-05-10] VITALS: Ht 177.8 cm; Wt 103.0 kg
[2017-05-10] MEDS ORDERED: SODIUM CHLOR 0.9% 1000 ML INJ 1,000 ML IV ONE (08:41)
[2017-05-10] MEDS ORDERED: ONDANSETRON HCL 4 MG/2 ML VIAL IV PUSH ONE (08:45)
[2017-05-10] MEDS ORDERED: SODIUM CHLORIDE 0.9% FLUSH 10 ML FLUSH IVF PRN (08:45)
--- NOTE | 2017-05-10 08:45 | PD ---
HPI Chief Complaint: vomiting and diarrhea Time Seen by Provider: 08:40 Travel History International Travel<30 days: No Contact w/Intl Traveler<30days: No History of Present Illness HPI 61-year-old male states he started having nonbloody vomiting and diarrhea yesterday. He also notes central abdominal cramping. He denies any fever. He states he also is having a mild sickle cell flare in his hip. He states he has not followed with his counterintelligence specialist since his last visit as they are on vacation. Quality is nonbloody. Severity is multiple episodes. He denies any other concurrent complaints. He denies modifying factors. Duration is since last night. PFSH Past Medical History Arthritis: Yes Asthma: No Autoimmune Disease: No Blood Disorders: No Anxiety: No Depression: No Heart Rhythm Problems: Yes (INVERTED/ABN. READING ON HIS EKG, CANNOT REMEMBER THE EXACT NAME.) Cancer: No Cardiovascular Problems: No High Cholesterol: Yes Chemotherapy: No Chest Pain: No Congestive Heart Failure: No COPD: No Cerebrovascular Accident: No Diabetes: Yes Diminished Hearing: No Endocrine: No Gastrointestinal Disorders: Yes (gerd) GERD: Yes Glaucoma: No Genitourinary: No Headaches: No Hepatitis: No Hiatal Hernia: No Hypertension: Yes Immune Disorder: No Kidney Stones: No Musculoskeletal: No Neurologic: No Psychiatric: No Reproductive: No Respiratory: No Integumentary: No Myocardial Infarction: No Pneumonia: Yes Radiation Therapy: No Renal Failure: No Seizures: No Sickle Cell Disease: Yes Sleep Apnea: No Thyroid Disease: No Ulcer: No PNEUMOCCOCAL Vaccine (Year): 2009 Past Surgical History Abdominal Surgery: Yes (GALL BLADER ) AICD: No Cardiac Surgery: No Cholecystectomy: Yes (1979) Ear Surgery: No Endocrine Surgery: No Eye Surgery: Yes (RUPTURED BLOOD VESEL 30 YEARS AGO ) Genitourinary Surgery: No Gynecologic Surgery: No Joint Replacement: No Oral Surgery: Yes (TONSILECTOMY 1973) Pacemaker: No Thoracic Surgery: No Tonsillectomy: Yes (1973) Other Surgery: Yes (rt knee, gallbladder, ) Social History Alcohol Use: No Tobacco Use: No Substance Use: No Allergies-Medications (Allergen,Severity, Reaction): Coded Allergies: cortisone (Verified Allergy, Severe, FLARES UP SICKLE CELL., 05/01/17) erythromycin base (Verified Allergy, Severe, ANAPHALACTIC SHOCK, 05/01/17) azithromycin (Verified Allergy, Intermediate, 05/01/17) Reported Meds & Prescriptions Reported Meds & Active Scripts Active Zofran Odt (Ondansetron Odt) 4 Mg Tab 4 Mg SL Q6HR PRN Dicyclomine (Dicyclomine HCl) 20 Mg Tab 20 Mg PO TID Hydrea (Hydroxyurea) 500 Mg Cap 500 Mg PO BID Folic Acid 1 Mg Tablet 1 Mg PO DAILY 30 Days Reported Dexilant (Dexlansoprazole) 60 Mg Fernandez.bp Aspirin 81 Mg Chew 81 Mg CHEW DAILY Hydrocodone-Acetaminophen 5-325 mg Tab 1 Tab PO Q4H PRN Pioglitazone (Pioglitazone HCl) 15 Mg Tab 15 Mg PO DAILY Glyburide 1.25 Mg Tab 1.25 Mg PO BID Take with meals at the same time each day B Complex (B-Complex Vitamins) 1 Cap 1 Cap PO DAILY Review of Systems Except as stated in HPI: all other systems reviewed are Neg Physical Exam Narrative GENERAL: Well-nourished, well-developed patient. SKIN: Warm and dry. HEAD: Normocephalic and atraumatic. EYES: No injection or drainage. ENT: No nasal drainage noted. NECK: Supple, trachea midline. CARDIOVASCULAR: Regular rate and rhythm RESPIRATORY: Breath sounds equal bilaterally. No accessory muscle use. GASTROINTESTINAL: Abdomen soft, mild periumbilical tenderness, nondistended. EXTREMITIES: No edema. NEUROLOGICAL: Awake and alert. Moves all extremities and sensory grossly within normal limits. Normal speech. Data Data Last Documented VS Vital Signs Date Time Temp Pulse Resp B/P (MAP) Pulse Ox O2 Delivery O2 Flow Rate FiO2 05/10/17 08:48 98.4 84 19 116/66 (83) Room Air 05/10/17 08:46 96 Orders Orders Complete Blood Count With Diff (05/10/17 08:41) Comprehensive Metabolic Panel (05/10/17 08:41) Retic Count (05/10/17 08:41) Ecg Monitoring (05/10/17 08:41) Iv Access Insert/Monitor (05/10/17 08:41) Oximetry (05/10/17 08:41) Sodium Chloride 0.9% Flush (Ns Flush) (05/10/17 08:45) Sodium Chlor 0.9% 1000 Ml Inj (Ns 1000 M (05/10/17 08:41) Lipase (05/10/17 08:41) Ondansetron Inj (Zofran Inj) (05/10/17 08:45) Acetamin-Hydrocod 325-10 Mg ([place] 10-32 (05/10/17 13:30) Ed Discharge Order (05/10/17 13:25) Labs Laboratory Tests Test 05/10/17 09:07 White Blood Count 9.5 TH/MM3 Red Blood Count 3.34 MIL/MM3 Hemoglobin 11.1 GM/DL Hematocrit 32.0 % Mean Corpuscular Volume 95.6 FL Mean Corpuscular Hemoglobin 33.3 PG Mean Corpuscular Hemoglobin Concent 34.8 % Red Cell Distribution Width 20.9 % Platelet Count 263 TH/MM3 Mean Platelet Volume 8.7 FL Neutrophils (%) (Auto) 80.6 % Lymphocytes (%) (Auto) 12.4 % Monocytes (%) (Auto) 6.8 % Eosinophils (%) (Auto) 0.0 % Basophils (%) (Auto) 0.2 % Neutrophils # (Auto) 7.7 TH/MM3 Lymphocytes # (Auto) 1.2 TH/MM3 Monocytes # (Auto) 0.6 TH/MM3 Eosinophils # (Auto) 0.0 TH/MM3 Basophils # (Auto) 0.0 TH/MM3 CBC Comment AUTO DIFF Differential Total Cells Counted 100 Neutrophils % (Manual) 90 % Lymphocytes % 9 % Monocytes % 1 % Neutrophils # (Manual) 8.6 TH/MM3 Nucleated Red Blood Cells 7 /100 WBC Differential Comment FINAL DIFF MANUAL Atypical Lymphocytes % Toxic Vacuolation PRESENT Platelet Estimate NORMAL Platelet Morphology Comment NORMAL Sickle Cells 1+ Target Cells 1+ Rhoades-Fenwood Bodies PRESENT Red Cell Morphology Comment Reticulocyte Count 6.8 % Absolute Reticulocyte Count 227.6 MIL/L Blood Urea Nitrogen 9 MG/DL Creatinine 0.82 MG/DL Random Glucose 143 MG/DL Total Protein 8.0 GM/DL Albumin 4.2 GM/DL Calcium Level 11.7 MG/DL Alkaline Phosphatase 105 U/L Aspartate Amino Transf (AST/SGOT) 73 U/L Alanine Aminotransferase (ALT/SGPT) 28 U/L Total Bilirubin 10.4 MG/DL Sodium Level 139 MEQ/L Potassium Level 4.6 MEQ/L Chloride Level 108 MEQ/L Carbon Dioxide Level 21.3 MEQ/L Anion Gap 10 MEQ/L Estimat Glomerular Filtration Rate 115 ML/MIN Protein Corrected Calcium 11.1 MG/DL Lipase 106 U/L [facility] Medical Decision Making Medical Screen Exam Complete: Yes Emergency Medical Condition: Yes Medical Record Reviewed: Yes (past history confirm, recent visit May 01 reviewed) Interpretation(s) CBC & BMP Diagram 05/10/17 09:07 Total Protein 8.0, Albumin 4.2, Calcium Level 11.7 *H, Alkaline Phosphatase 105 , Aspartate Amino Transf (AST/SGOT) 73 H, Alanine Aminotransferase (ALT/SGPT) 28 , Total Bilirubin 10.4 H Reticulocyte numbers have improved from prior Differential Diagnosis Pancreatitis, gastroenteritis, colitis, sickle cell crisis Narrative Course Will check blood work, urinalysis and dose with Zofran and reevaluate Patient requesting his home pain medication for his sickle cell. Will dose with his hydrocodone home dose No emesis here, patient denies frequent urinary tract infection and is having difficulty giving a urine specimen without diarrhea. He denies any active UTI symptoms. We'll cancel urinalysis and Patient denies any new complaints and states that they are feeling better. Patient happy with care, all questions answered. Patient knows that follow up is incumbent on them and to return to the emergency room immediately if new or worsening symptoms develop. Patient given strict return precautions, vitals reviewed and are normal, agrees to further workup as an outpatient. Diagnosis Primary Impression: Vomiting and diarrhea Patient Instructions: General Instructions Additional Instructions: return as needed, zofran as needed, keep hydrated, follow with primary next friday Med/Other Pt SpecificInfo: Prescription(s) given Scripts Ondansetron Odt (Zofran Odt) 4 Mg Tab 4 MG SL Q6HR Y for Nausea/Vomiting, #10 TAB 0 Refills Prov: Zoe Cedeno MD 05/10/17 Disposition: DISCHARGE HOME Condition: Stable Zoe Cedeno MD May 10, 2017 08:45
[2017-05-10 08:46] VITALS: BP 116/66; PULSE 84; RESP 19; TEMP 98.4; O2SAT 96
[2017-05-10 08:48] VITALS: BP 116/66; PULSE 84; RESP 19; TEMP 98.4
[2017-05-10 09:24] LABS: AUTOMATED NEUTROPHIL # 7.7 TH/MM3 (1.8-7.7); BASOPHIL % 0.2 % (0.0-2.0); HEMOGLOBIN 11.1 GM/DL (13.0-17.0); LYMPH % 12.4 % (9.0-44.0); LYMPHOCYTE # 1.2 TH/MM3 (1.0-4.8); MEAN CELL VOLUME 95.6 FL (80.0-100.0); MEAN CORPUSCULAR HEMOGLOBIN 33.3 PG (27.0-34.0); MEAN CORPUSCULAR HGB CONC 34.8 % (32.0-36.0); MEAN PLATELET VOLUME 8.7 FL (7.0-11.0); MONO % 6.8 % (0.0-8.0); MONOCYTE # 0.6 TH/MM3 (0-0.9); NEUT % 80.6 % (16.0-70.0); PLATELET COUNT 263 TH/MM3 (150-450); RED BLOOD COUNT 3.34 MIL/MM3 (4.50-5.90); RED CELL DISTRIBUTION WIDTH 20.9 % (11.6-17.2); RETIC # 227.6 MIL/L (20.0-150.0); RETIC % 6.8 % (0.4-3.0); WHITE BLOOD COUNT 9.5 TH/MM3 (4.0-11.0)
[2017-05-10 09:46] LABS: ALBUMIN 4.2 GM/DL (3.4-5.0); BICARBONATE 21.3 MEQ/L (21.0-32.0); CALCIUM 11.7 MG/DL (8.5-10.1); CALCIUM-PROTEIN CORRECTED 11.1 MG/DL (8.5-10.1); CREATININE 0.82 MG/DL (0.60-1.30); TOTAL BILIRUBIN ADULT 10.4 MG/DL (0.2-1.0)
[2017-05-10 10:09] LABS: CORRECTED NUCLEATED RBC 7 /100 WBC (0-0); HOWELL-JOLLY BODIES PRESENT (NONE SEEN); LYMPHOCYTES 9 % (9-44); MONOCYTES 1 % (0-8); NEUTROPHIL # MANUAL DIFF 8.6 TH/MM3 (1.8-7.7); NUCLEATED RED BLOOD CELL 7 (0-0); POLYS (SEG NEUTROPHILS) 90 % (16-70); SICKLE CELLS 1+ (NORMAL)
[2017-05-10 10:10] LABS: TARGET CELLS 1+ (NORMAL); TOXIC VACUOLATION PRESENT (NONE SEEN)
[2017-05-10] MEDS ORDERED: ZOFR4TAB3 SL (13:26)
[2017-05-10] MEDS ORDERED: ACETAMINOPHEN/HYDROcodone 325 MG/10 MG TAB PO ONE (13:30)
[2017-05-10 14:47] VITALS: BP 114/61
== END 2017-05-10 14:50 | disposition home or self-care (01) ==
LOC: NEPE 08:25
DX: R11.10 Vomiting, unspecified (principal); R19.7 Diarrhea, unspecified; M19.90 Unspecified osteoarthritis, unspecified site; E78.00 Pure hypercholesterolemia, unspecified; E11.9 Type 2 diabetes mellitus without complications; K21.9 Gastro-esophageal reflux disease without esophagitis; I10 Essential (primary) hypertension; D57.1 Sickle-cell disease without crisis; Z79.82 Long term (current) use of aspirin
CPT/HCPCS: 80053; 83690; 85007; 85027; 85044; 96361; 96374; 99284; J2405; J7030

== ENCOUNTER 2017-08-04 06:14 | Emergency (ER) | payer OTHER ==
[~2017-08-04] VITALS: Ht 177.8 cm; Wt 100.0 kg
[2017-08-04] VITALS (7 sets, daily range): BP systolic 114–133; BP diastolic 62–77; PULSE 88–120; RESP 16–20; O2SAT 97–100
[~2017-08-04 06:14] MED LIST changes: +ZOFR4TAB3 SL
[2017-08-04] MEDS ORDERED: ONDANSETRON HCL 4 MG/2 ML VIAL IVP ONE (06:30)
[2017-08-04] MEDS ORDERED: HYDROmorphone HCL PF 2 MG/ML VIAL IVS ONE ×2 (06:30→06:45)
[2017-08-04] MEDS ORDERED: SODIUM CHLOR 0.9% 1000 ML INJ 1,000 ML IV ONE (06:30)
[2017-08-04] MEDS ORDERED: SODIUM CHLORIDE 0.9% FLUSH 10 ML FLUSH IVF PRN (06:30)
--- NOTE | 2017-08-04 06:46 | PD ---
HPI Chief Complaint: Sickle Cell Time Seen by Provider: 06:24 Travel History International Travel<30 days: No Contact w/Intl Traveler<30days: No Traveled to known affect area: No History of Present Illness HPI 62-year-old man, history of sickle cell/beta thalassemia, presents to the emergency department complaining of diffuse joint pain throughout his body consistent with previous sickle cell pain crises. Patient states his been doing generally well until this morning about 5 AM when he got woke up with this diffuse body pain. Had some sweats but no fever with it. No nausea or vomiting. Pains mostly in the joints throughout the extremities. He was brought in by EMS. Receive 6 morphine in route with minimal relief. History Past Medical History Narrative Medical Sickle cell anemia/beta thalassemia Arthritis CAD Diabetes GERD Hypertension PNEUMOCCOCAL Vaccine (Year): 2009 Social History Alcohol Use: No Tobacco Use: No Allergies-Medications (Allergen,Severity, Reaction): Coded Allergies: cortisone (Verified Allergy, Severe, FLARES UP SICKLE CELL., 08/04/17) erythromycin base (Verified Allergy, Severe, ANAPHALACTIC SHOCK, 08/04/17) azithromycin (Verified Allergy, Intermediate, 08/04/17) Reported Meds & Prescriptions Reported Meds & Active Scripts Active Hydrea (Hydroxyurea) 500 Mg Cap 500 Mg PO BID Folic Acid 1 Mg Tablet 1 Mg PO DAILY 30 Days Reported Dexilant (Dexlansoprazole) 60 Mg Cap. Aspirin 81 Mg Chew 81 Mg CHEW DAILY Pioglitazone (Pioglitazone HCl) 15 Mg Tab 15 Mg PO DAILY Glyburide 1.25 Mg Tab 1.25 Mg PO BID Take with meals at the same time each day B Complex (B-Complex Vitamins) 1 Cap 1 Cap PO DAILY Review of Systems Except as stated in HPI: all other systems reviewed are Neg Physical Exam Narrative GENERAL: 62-year-old man, appears uncomfortable, writhing, nontender nontoxic- appearing. EYES: Pupils equal and round. No scleral icterus. No injection or drainage. ENT: No nasal bleeding or discharge. Mucous membranes pink and moist. NECK: Trachea midline. No JVD. CARDIOVASCULAR: Regular rate and rhythm. No murmur appreciated. RESPIRATORY: No accessory muscle use. Clear to auscultation. Breath sounds equal bilaterally. GASTROINTESTINAL: Abdomen soft, non-tender, nondistended. Hepatic and splenic margins not palpable. MUSCULOSKELETAL: No obvious deformities. No clubbing. No cyanosis. No edema. NEUROLOGICAL: Awake and alert. No obvious cranial nerve deficits. Motor grossly within normal limits. Normal speech. PSYCHIATRIC: Appropriate mood and affect; insight and judgment normal. Data Data Last Documented VS Vital Signs Date Time Temp Pulse Resp B/P (MAP) Pulse Ox O2 Delivery O2 Flow Rate FiO2 08/04/17 06:33 100 Room Air 08/04/17 06:19 114 20 08/04/17 06:15 123/77 (92) Orders Orders Complete Blood Count With Diff (08/04/17 06:30) Comprehensive Metabolic Panel (08/04/17 06:30) Retic Count (08/04/17 06:30) Ecg Monitoring (08/04/17 06:30) Iv Access Insert/Monitor (08/04/17 06:30) Oximetry (08/04/17 06:30) Ondansetron Inj (Zofran Inj) (08/04/17 06:30) Sodium Chloride 0.9% Flush (Ns Flush) (08/04/17 06:30) Sodium Chlor 0.9% 1000 Ml Inj (Ns 1000 M (08/04/17 06:30) Hydromorphone Pf Inj (Dilaudid Pf Inj) (08/04/17 06:30) Hydromorphone Pf Inj (Dilaudid Pf Inj) (08/04/17 06:45) MDM Medical Decision Making Medical Screen Exam Complete: Yes Emergency Medical Condition: Yes Interpretation(s) My review of EKG: A. fib at a rate of 99, QRS is wide about 143, deep S waves in the inferior leads. Left axis deviation. LABS: Differential Diagnosis Vaso-occlusive pain crisis, anemia, infection, other Narrative Course Medical decision making INITIAL: 62-year-old male presents to the emergency department complaining of pain attributable vaso-occlusive pain crisis. Looks uncomfortable but nontoxic. No fevers. Will check labs, pain medicine, reassess. Of note patient appears to be in atrial fibrillation. There is no record of A. fib in the past. Unclear if this is related to his presentation or not. Milo Valle MD Aug 04, 2017 06:46
[2017-08-04 06:58] LABS: AUTOMATED NEUTROPHIL # 6.7 TH/MM3 (1.8-7.7); BASOPHIL # 0.1 TH/MM3 (0-0.2); BASOPHIL % 0.5 % (0.0-2.0); EOSINOPHIL # 0.2 TH/MM3 (0-0.4); EOSINOPHIL % 1.5 % (0.0-4.0); HEMATOCRIT 31.2 % (39.0-51.0); HEMOGLOBIN 10.8 GM/DL (13.0-17.0); LYMPH % 45.6 % (9.0-44.0); LYMPHOCYTE # 7.3 TH/MM3 (1.0-4.8); MEAN CELL VOLUME 90.8 FL (80.0-100.0); MEAN CORPUSCULAR HEMOGLOBIN 31.5 PG (27.0-34.0); MEAN CORPUSCULAR HGB CONC 34.7 % (32.0-36.0); MEAN PLATELET VOLUME 8.5 FL (7.0-11.0); MONO % 10.6 % (0.0-8.0); MONOCYTE # 1.7 TH/MM3 (0-0.9); NEUT % 41.8 % (16.0-70.0); PLATELET COUNT 375 TH/MM3 (150-450); RED BLOOD COUNT 3.44 MIL/MM3 (4.50-5.90); RED CELL DISTRIBUTION WIDTH 18.9 % (11.6-17.2); RETIC # 199.6 MIL/L (20.0-150.0); RETIC % 5.8 % (0.4-3.0); WHITE BLOOD COUNT 15.9 TH/MM3 (4.0-11.0)
[2017-08-04 07:08] LABS: ALBUMIN 3.9 GM/DL (3.4-5.0); ALT (GPT) 26 U/L (12-78); AST (GOT) 54 U/L (15-37); BICARBONATE 22.3 MEQ/L (21.0-32.0); BLOOD UREA NITROGEN 12 MG/DL (7-18); CALCIUM 11.5 MG/DL (8.5-10.1); CHLORIDE 109 MEQ/L (98-107); CREATININE 1.05 MG/DL (0.60-1.30); GLOMERULAR FILTRATION RATE 86 ML/MIN (>89); GLUCOSE,RANDOM 152 MG/DL (74-106); SODIUM (NA) 141 MEQ/L (136-145)
[2017-08-04 07:09] LABS: ALKALINE PHOSPHATASE 158 U/L (45-117); TOTAL BILIRUBIN ADULT 9.1 MG/DL (0.2-1.0); TOTAL PROTEIN 8.1 GM/DL (6.4-8.2)
[2017-08-04] MEDS ORDERED: HYDROmorphone HCL PF 2 MG/ML VIAL IV PUSH ONE ×2 (07:15→09:30)
--- NOTE | 2017-08-04 07:20 | PD ---
Data Data Last Documented VS Vital Signs Date Time Temp Pulse Resp B/P (MAP) Pulse Ox O2 Delivery O2 Flow Rate FiO2 08/04/17 11:34 08/04/17 11:00 94 18 98 Nasal Cannula 2.00 Orders Orders Complete Blood Count With Diff (08/04/17 06:30) Comprehensive Metabolic Panel (08/04/17 06:30) Retic Count (08/04/17 06:30) Ecg Monitoring (08/04/17 06:30) Iv Access Insert/Monitor (08/04/17 06:30) Oximetry (08/04/17 06:30) Ondansetron Inj (Zofran Inj) (08/04/17 06:30) Sodium Chloride 0.9% Flush (Ns Flush) (08/04/17 06:30) Sodium Chlor 0.9% 1000 Ml Inj (Ns 1000 M (08/04/17 06:30) Hydromorphone Pf Inj (Dilaudid Pf Inj) (08/04/17 06:30) Hydromorphone Pf Inj (Dilaudid Pf Inj) (08/04/17 06:45) Hydromorphone Pf Inj (Dilaudid Pf Inj) (08/04/17 07:15) Troponin I (08/04/17 07:17) Electrocardiogram (08/04/17 ) Diltiazem Inj (Cardizem Inj) (08/04/17 09:00) Hydromorphone Pf Inj (Dilaudid Pf Inj) (08/04/17 09:30) Ed Discharge Order (08/04/17 11:03) Electrocardiogram (08/04/17 09:00) Labs Laboratory Tests Test 08/04/17 06:30 White Blood Count 15.9 TH/MM3 Red Blood Count 3.44 MIL/MM3 Hemoglobin 10.8 GM/DL Hematocrit 31.2 % Mean Corpuscular Volume 90.8 FL Mean Corpuscular Hemoglobin 31.5 PG Mean Corpuscular Hemoglobin Concent 34.7 % Red Cell Distribution Width 18.9 % Platelet Count 375 TH/MM3 Mean Platelet Volume 8.5 FL Neutrophils (%) (Auto) 41.8 % Lymphocytes (%) (Auto) 45.6 % Monocytes (%) (Auto) 10.6 % Eosinophils (%) (Auto) 1.5 % Basophils (%) (Auto) 0.5 % Neutrophils # (Auto) 6.7 TH/MM3 Lymphocytes # (Auto) 7.3 TH/MM3 Monocytes # (Auto) 1.7 TH/MM3 Eosinophils # (Auto) 0.2 TH/MM3 Basophils # (Auto) 0.1 TH/MM3 CBC Comment AUTO DIFF Differential Total Cells Counted 100 Neutrophils % (Manual) 59 % Lymphocytes % 32 % Monocytes % 8 % Eosinophils % 1 % Neutrophils # (Manual) 9.4 TH/MM3 Differential Comment FINAL DIFF MANUAL Platelet Estimate NORMAL Platelet Morphology Comment NORMAL Sickle Cells 1+ Target Cells 1+ Reticulocyte Count 5.8 % Absolute Reticulocyte Count 199.6 MIL/L Blood Urea Nitrogen 12 MG/DL Creatinine 1.05 MG/DL Random Glucose 152 MG/DL Total Protein 8.1 GM/DL Albumin 3.9 GM/DL Calcium Level 11.5 MG/DL Alkaline Phosphatase 158 U/L Aspartate Amino Transf (AST/SGOT) 54 U/L Alanine Aminotransferase (ALT/SGPT) 26 U/L Total Bilirubin 9.1 MG/DL Sodium Level 141 MEQ/L Potassium Level 4.1 MEQ/L Chloride Level 109 MEQ/L Carbon Dioxide Level 22.3 MEQ/L Anion Gap 10 MEQ/L Estimat Glomerular Filtration Rate 86 ML/MIN Troponin I LESS THAN 0.02 NG/ML MDM Supervised Visit with TOMMY: No Narrative Course Patient CARE assumed from Dr. avila at 07 100, this is a 62-year-old male with a history of sickle cell beta thalassemia presents emergency department for evaluation of joint pain. He states that his usual presentation is pain in his lower extremity joints but his right upper extremity is hurting him some today as well which is new for him. Found to be in atrial fibrillation fairly well rate controlled with rates between 80s in the low 110s, he has not had any chest pain. Still having some pain after 1 mg of Dilaudid and additional 1 mg of Dilaudid has been ordered, he does appear fairly comfortable at this time. Awaiting for his labs return. We will continue to reassess Patient was observed for the emergency department some time, he was given a dose of Cardizem which seemed to control his heart rate during the remainder of his ER stay. Ultimately his pain did become under control. Troponin was negative. The patient has not had any chest pain while in emergency department nor prior to arrival her presyncopal symptoms CHF symptoms. Patient would like to go home and follow-up these results with his primary care physician his office support. I discussed that he is at increased risk for stroke and needs to follow-up with his primary care physician as soon as possible for evaluation of anticoagulation. He is stable for discharge this time. Discussed returning to criteria Diagnosis Primary Impression: Sickle cell crisis Additional Impression: Atrial fibrillation Additional Instruction: Follow-up with your regular physician and your oncologist as soon as possible to discuss atrial fibrillation. If you have any shortness of breath or chest pain return to the emergency department immediately. Disposition: 01 DISCHARGE HOME Condition: Stable Padilla Arguello MD Aug 04, 2017 07:20
[2017-08-04 07:50] LABS: LYMPHOCYTES 32 % (9-44); MONOCYTES 8 % (0-8); NEUTROPHIL # MANUAL DIFF 9.4 TH/MM3 (1.8-7.7); POLYS (SEG NEUTROPHILS) 59 % (16-70); SICKLE CELLS 1+ (NORMAL); TARGET CELLS 1+ (NORMAL)
[2017-08-04] MEDS ORDERED: DILTIAZEM HCL 25 MG/5 ML VIAL IV PUSH ONE (08:15)
--- NOTE | 2017-08-04 08:20 | EKG ---
Date Performed: 08/04/2017 Time Performed: 06:17:40 PTAGE: 62 years EKG: ATRIAL FIBRILLATION MARKED LEFT AXIS DEVIATION LEFT BUNDLE BRANCH BLOCK ABNORMAL ECG PREVIOUS TRACING : 03/03/2017 18.25 Compared to previous tracing, SR no longer present DOCTOR: Rizwana Huerta Interpretating Date/Time 08/04/2017 08:18:01
[2017-08-04] MEDS ORDERED: DILTIAZEM HCL 50 MG/10 ML VIAL IV PUSH ONE (09:00)
--- NOTE | 2017-08-05 17:22 | EKG ---
Date Performed: 08/04/2017 Time Performed: 09:11:19 PTAGE: 62 years EKG: ATRIAL FIBRILLATION WITH RAPID VENTRICULAR RESPONSE MARKED LEFT AXIS DEVIATION INTRAVENTRIC ULAR CONDUCTION DELAY Since previous tracing, no significant change noted ABNORMAL ECG PREVIOUS TRACING : 08/04/2017 06.17.40 DOCTOR: Hieu Simpson Interpretating Date/Time 08/05/2017 17:20:27
== END 2017-08-04 11:38 | disposition home or self-care (01) ==
LOC: NEPC 06:14
DX: D57.419 Sickle-cell thalassemia, unspecified, with crisis (principal); I48.91 Unspecified atrial fibrillation
CPT/HCPCS: 80053; 84484; 85007; 85027; 85044; 93005; 96361; 96374; 96375; 96376; 99284; J1170; J2405; J7030

== ENCOUNTER 2018-01-02 05:46 | Inpatient (IN) ==
[2018-01-02] MEDS ORDERED: Sod Chloride 0.9% Inj 1,000 ML IV.SIG ONE (06:08)
[2018-01-02] MEDS ORDERED: HYDROmorphone PF Inj 2 MG/ML Vial IV.PUSH ONE (06:08)
--- NOTE | 2018-01-02 06:24 | ED ---
HPI General Chief complaint: Sickle Cell Stated complaint: Sickle cell Time Seen by Provider: 01/02/18 06:08 Source: patient Mode of arrival: ambulatory Limitations: no limitations History of Present Illness HPI narrative: Patient is a 62-year-old male coming in complaining of sickle cell crisis pain pain in his long bones joints back he feels nauseous and diaphoretic from the pain he has hydrocodone p.o. at home it is not helping his alleviate his pain at this time. He is slightly jaundiced in his sclerae of his eyes. Crisis started suddenly in the night. 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 the ER is complaining mainly of bilateral lower knee pain typical of his pain crisis he thinks this is a pain crisis hydrocodone did not help alleviate his symptoms Related Data Home Medications Medication Instructions Recorded Confirmed cholecalciferol (vitamin D3) 3,000 unit PO DAILY 01/03/18 01/03/18 [Vitamin D3] dexlansoprazole [Dexilant] 60 mg PO DAILY 01/03/18 01/03/18 glyburide-metformin 1 tab PO BID 01/03/18 01/03/18 lisinopril 2.5 mg PO DAILY 01/03/18 01/03/18 pioglitazone [Actos] 30 mg PO DAILY 01/03/18 01/03/18 Allergies Allergy/AdvReac Type Severity Reaction Status Date / Time cortisone Allergy Severe FLARES UP Verified 01/02/18 05:53 SICKLE CELL. erythromycin base Allergy Severe ANAPHALACTIC Verified 01/02/18 05:53 SHOCK azithromycin Allergy Intermediate Anaphylaxis Verified 01/02/18 05:53 Review of Systems ROS: all other systems reviewed are negative [facility] Medical History Medical History Sickle cell anemia (Chronic) Diabetes (Chronic) Surgical History Surgical History History of cholecystectomy (Acute) History of parathyroid surgery (Acute) History of surgical procedure on eye proper using laser (Acute) Social History Social History Substance History: No History of Abuse Second Hand Smoke Exposure: No Smoking Status: Never smoker How Often Do You Have a Drink Containing Alcohol: Never Recent Travel in [facility] within the Last 8 Weeks: No Recent Out of Country Travel within the Last 8 Weeks: No Exam Narrative Exam Narrative: GENERAL: appear to be in severe pain leaning over in stretcher holding lower back SKIN: Warm and dry. HEAD: Atraumatic. Normocephalic. EYES: Pupils equal and round. No scleral icterus. No injection or drainage. ENT: No nasal bleeding or discharge. Mucous membranes pink and moist. NECK: Trachea midline. No JVD. CARDIOVASCULAR: Regular rate and rhythm. RESPIRATORY: No accessory muscle use. Clear to auscultation. Breath sounds equal bilaterally. GASTROINTESTINAL: Abdomen soft, non-tender, nondistended. Hepatic and splenic margins not palpable. MUSCULOSKELETAL: Extremities without clubbing, cyanosis, or edema. No obvious deformities. BACK tenderness in lower spine NEUROLOGICAL: Awake and alert. No obvious cranial nerve deficits. Motor grossly within normal limits. Five out of 5 muscle strength in the arms and legs. Normal speech. PSYCHIATRIC: Appropriate mood and affect; insight and judgment normal. Course Initial Documented Vital Signs Temperature 97.6 F 01/02/18 05:48 Pulse Rate 84 01/02/18 05:48 Respiratory Rate 20 01/02/18 05:48 Blood Pressure 140/70 01/02/18 05:48 Pulse Oximetry 99 01/02/18 05:48 Last Documented Vital Signs Temperature 99.3 F 01/05/18 16:00 Pulse Rate 91 H 01/05/18 16:00 Respiratory Rate 18 01/05/18 16:00 Blood Pressure 114/58 L 01/05/18 16:00 Pulse Oximetry 95 01/05/18 16:00 Sign Out Sign Out Data: Patient Sign Out occurred on 01/02/18 at 08:20. Patient's care was discussed, and care was transferred from Juanjose Carranza to Karen Marin MD. Sign Out Comment: Patient is a history of sickle cell disease he is coming in with severe pain crisis long bone knee condyle pain back pain mildly jaundice. Sclerae jaundice labs are sent CBC retake count pending C-reactive protein pending chest x-ray pending patient is given Dilaudid Benadryl 1 L fluid nasal cannula will need to be followed by oncoming attending Last updated by Juanjose Carranza at 01/02/18 06:44 Post-Handoff Eval: Patient was a sign out for labs and XR. Patient states that he is still having leg pain. He denies chest pain, cough, dyspnea, but CXR shows increased opacities. Leukocytosis which appears to be chronic for patient, elevated retic count, decreased hgb/hct (baseline), normal u/a, elevated T bili, CRP, AST, glucose. CXR: FINDINGS: PA and lateral views of the chest demonstrate reduced lung volumes with increased patchy interstitial and airspace opacities throughout both lungs. No definite pleural effusion. Stable enlargement of the cardiac silhouette. Degenerative changes of the spine.CONCLUSION: 1. Reduced lung volumes with increased opacities throughout both lungs. No definite pleural effusion.2. Stable enlargement of the cardiac silhouette. Although patient denies chest pain, dyspnea, concerned about opacities in this sickler and his request for additional pain meds despite 2mg IV dilaudid. Will admit. Medical Decision Making MDM Narrative Medical decision making narrative: pt is given dilaudid and bensdryl and O2 nasal canula cxr and signed out for further eval Medical Screen Exam Complete: Yes Emergency Medical Condition: Yes Differential Diagnosis Differential Diagnosis: SCD and crisis vs lower back pain , vs occlusive crisis vs acute chest vs other Lab Data Result diagrams: 01/05/18 04:33 01/05/18 04:33 Lab Results 01/02/18 01/02/18 01/02/18 Range/Units 06:20 06:20 06:20 WBC 12.6 H (4.0-11.0) th/mm3 RBC 3.52 L (4.50-5.90) mil/mm3 Hgb 10.5 L (13.0-17.0) gm/dL Hct 30.8 L (39.0-51.0) % MCV 87.4 (80.0-100.0) fL MCH 29.9 (27.0-34.0) pg MCHC 34.2 (32.0-36.0) % RDW 18.8 H (11.6-17.2) % Plt Count 227 (150-450) th/mm3 MPV 8.5 (7.0-11.0) fL Prelim Diff (Auto) Slide review pending Neut % (Auto) 40.3 (16.0-70.0) % Lymph % (Auto) 42.7 (9.0-44.0) % [place] % (Auto) 13.8 H (0.0-8.0) % Eos % (Auto) 2.4 (0.0-4.0) % Baso % (Auto) 0.8 (0.0-2.0) % Neut # (Auto) 5.1 (1.8-7.7) th/mm3 Lymph # (Auto) 5.4 H (1.0-4.8) th/mm3 [place] # (Auto) 1.7 H (0.0-0.9) th/mm3 Eos # (Auto) 0.3 (0.0-0.4) th/mm3 Baso # (Auto) 0.1 (0.0-0.2) th/mm3 WBC Differential Manual diff final Seg Neuts % (Manual) 48 (16-70) % Band Neuts % (Manual) 1 (0-6) % Lymphocytes % (Manual) 34 (9-44) % Monocytes % (Manual) 14 H (0-8) % Eosinophils % (Manual) 3 (0-4) % Basophils % (Manual) (0-2) % Abs Neuts (Manual) 6.2 (1.8-7.7) th/mm3 Nucleated RBCs/100 WBC (0-0) /100 WBC Differential Comment . Platelet Estimate Normal (Normal) Platelet Morphology Normal (Normal) Polychromasia (0.0-1.9) % Basophilic Stippling Faint H (None) Spherocytes Occ H (None) Sickle Cells 1+ H (None) Target Cells 1+ H (None) Tear Drop Cells 1+ H (None) Ovalocytes 1+ H (None) [place] Bodies Present H (None) Retic Count 5.4 H (0.4-3.0) % Absolute Retic 188.3 H (20.0-150.0) mil/L Sodium 143 (136-145) meq/L Potassium 4.3 (3.5-5.1) meq/L Chloride 108 H (98-107) meq/L Carbon Dioxide 23.9 (21.0-32.0) meq/L Anion Gap 11 (5-15) meq/L BUN 17 (7-18) mg/dL Creatinine 1.05 (0.60-1.30) mg/dL Estimated GFR 86 L (>89) mL/min POC Glucose (68-110) mg/dl Random Glucose 122 H (74-106) mg/dL Calcium 9.4 (8.5-10.1) mg/dL Total Bilirubin 6.8 H (0.2-1.0) mg/dL AST 67 H (15-37) U/L ALT 24 (12-78) U/L Alkaline Phosphatase 91 (45-117) U/L Lactate Dehydrogenase 570 H (87-241) U/L C-Reactive Protein 1.00 H (0.00-0.30) mg/dL Total Protein 7.5 (6.4-8.2) g/dL Albumin 4.1 (3.4-5.0) g/dL Urine Color (Yellw/Straw) Urine Clarity (Clear) Urine pH (5.0-8.5) Ur Specific [place] (1.002-1.035) Urine Protein (Neg-Trace) mg/dL Urine Glucose (UA) (Negative) mg/dL Urine Ketones (Negative) mg/dL Urine Occult Blood (Negative) Urine Nitrate (Negative) Urine Bilirubin (Negative) Urine Urobilinogen (Less than 2) mg/dL Ur Leukocyte Esterase (Negative) Urine WBC (0-5) /hpf Urine Mucus (Occasional) /lpf Ur Microscopic Review 01/02/18 01/02/18 01/03/18 Range/Units 07:05 21:59 06:50 WBC 10.7 (4.0-11.0) th/mm3 RBC 3.13 L (4.50-5.90) mil/mm3 Hgb 9.5 L (13.0-17.0) gm/dL Hct 27.2 L (39.0-51.0) % MCV 86.8 (80.0-100.0) fL MCH 30.4 (27.0-34.0) pg MCHC 35.0 (32.0-36.0) % RDW 19.1 H (11.6-17.2) % Plt Count 184 (150-450) th/mm3 MPV 8.4 (7.0-11.0) fL Prelim Diff (Auto) Slide review pending Neut % (Auto) 52.3 (16.0-70.0) % Lymph % (Auto) 28.0 (9.0-44.0) % [place] % (Auto) 17.6 H (0.0-8.0) % Eos % (Auto) 1.3 (0.0-4.0) % Baso % (Auto) 0.8 (0.0-2.0) % Neut # (Auto) 5.6 (1.8-7.7) th/mm3 Lymph # (Auto) 3.0 (1.0-4.8) th/mm3 [place] # (Auto) 1.9 H (0.0-0.9) th/mm3 Eos # (Auto) 0.1 (0.0-0.4) th/mm3 Baso # (Auto) 0.1 (0.0-0.2) th/mm3 WBC Differential Manual diff final Seg Neuts % (Manual) 61 (16-70) % Band Neuts % (Manual) (0-6) % Lymphocytes % (Manual) 21 (9-44) % Monocytes % (Manual) 17 H (0-8) % Eosinophils % (Manual) (0-4) % Basophils % (Manual) 1 (0-2) % Abs Neuts (Manual) 6.5 (1.8-7.7) th/mm3 Nucleated RBCs/100 WBC 2 H (0-0) /100 WBC Differential Comment . Platelet Estimate Normal (Normal) Platelet Morphology Normal (Normal) Polychromasia 2.5 H (0.0-1.9) % Basophilic Stippling (None) Spherocytes (None) Sickle Cells 1+ H (None) Target Cells 1+ H (None) Tear Drop Cells (None) Ovalocytes (None) [place] Bodies Present H (None) Retic Count (0.4-3.0) % Absolute Retic (20.0-150.0) mil/L Sodium (136-145) meq/L Potassium (3.5-5.1) meq/L Chloride (98-107) meq/L Carbon Dioxide (21.0-32.0) meq/L Anion Gap (5-15) meq/L BUN (7-18) mg/dL Creatinine (0.60-1.30) mg/dL Estimated GFR (>89) mL/min POC Glucose 104 (68-110) mg/dl Random Glucose (74-106) mg/dL Calcium (8.5-10.1) mg/dL Total Bilirubin (0.2-1.0) mg/dL AST (15-37) U/L ALT (12-78) U/L Alkaline Phosphatase (45-117) U/L Lactate Dehydrogenase (87-241) U/L C-Reactive Protein (0.00-0.30) mg/dL Total Protein (6.4-8.2) g/dL Albumin (3.4-5.0) g/dL Urine Color Yellow (Yellw/Straw) Urine Clarity Clear (Clear) Urine pH 7.0 (5.0-8.5) Ur Specific [place] 1.009 (1.002-1.035) Urine Protein Negative (Neg-Trace) mg/dL Urine Glucose (UA) Negative (Negative) mg/dL Urine Ketones Negative (Negative) mg/dL Urine Occult Blood Negative (Negative) Urine Nitrate Negative (Negative) Urine Bilirubin Negative (Negative) Urine Urobilinogen 4 or greater (Less than 2) mg/dL Ur Leukocyte Esterase Negative (Negative) Urine WBC Less than 1 (0-5) /hpf Urine Mucus Few H (Occasional) /lpf Ur Microscopic Review Not Reportable 01/03/18 01/03/18 01/03/18 Range/Units 06:50 06:50 07:45 WBC (4.0-11.0) th/mm3 RBC (4.50-5.90) mil/mm3 Hgb (13.0-17.0) gm/dL Hct (39.0-51.0) % MCV (80.0-100.0) fL MCH (27.0-34.0) pg MCHC (32.0-36.0) % RDW (11.6-17.2) % Plt Count (150-450) th/mm3 MPV (7.0-11.0) fL Prelim Diff (Auto) Neut % (Auto) (16.0-70.0) % Lymph % (Auto) (9.0-44.0) % [place] % (Auto) (0.0-8.0) % Eos % (Auto) (0.0-4.0) % Baso % (Auto) (0.0-2.0) % Neut # (Auto) (1.8-7.7) th/mm3 Lymph # (Auto) (1.0-4.8) th/mm3 [place] # (Auto) (0.0-0.9) th/mm3 Eos # (Auto) (0.0-0.4) th/mm3 Baso # (Auto) (0.0-0.2) th/mm3 WBC Differential Seg Neuts % (Manual) (16-70) % Band Neuts % (Manual) (0-6) % Lymphocytes % (Manual) (9-44) % Monocytes % (Manual) (0-8) % Eosinophils % (Manual) (0-4) % Basophils % (Manual) (0-2) % Abs Neuts (Manual) (1.8-7.7) th/mm3 Nucleated RBCs/100 WBC (0-0) /100 WBC Differential Comment Platelet Estimate (Normal) Platelet Morphology (Normal) Polychromasia (0.0-1.9) % Basophilic Stippling (None) Spherocytes (None) Sickle Cells (None) Target Cells (None) Tear Drop Cells (None) Ovalocytes (None) [place] Bodies (None) Retic Count 5.2 H (0.4-3.0) % Absolute Retic 162.0 H (20.0-150.0) mil/L Sodium 142 (136-145) meq/L Potassium 3.9 (3.5-5.1) meq/L Chloride 105 (98-107) meq/L Carbon Dioxide 25.7 (21.0-32.0) meq/L Anion Gap 11 (5-15) meq/L BUN 11 (7-18) mg/dL Creatinine 0.94 (0.60-1.30) mg/dL Estimated GFR Greater than 89 (>89) mL/min POC Glucose 103 (68-110) mg/dl Random Glucose 87 (74-106) mg/dL Calcium 8.9 (8.5-10.1) mg/dL Total Bilirubin 6.0 H (0.2-1.0) mg/dL AST 44 H (15-37) U/L ALT 18 (12-78) U/L Alkaline Phosphatase 69 (45-117) U/L Lactate Dehydrogenase (87-241) U/L C-Reactive Protein (0.00-0.30) mg/dL Total Protein 6.9 D (6.4-8.2) g/dL Albumin 3.7 (3.4-5.0) g/dL Urine Color (Yellw/Straw) Urine Clarity (Clear) Urine pH (5.0-8.5) Ur Specific [place] (1.002-1.035) Urine Protein (Neg-Trace) mg/dL Urine Glucose (UA) (Negative) mg/dL Urine Ketones (Negative) mg/dL Urine Occult Blood (Negative) Urine Nitrate (Negative) Urine Bilirubin (Negative) Urine Urobilinogen (Less than 2) mg/dL Ur Leukocyte Esterase (Negative) Urine WBC (0-5) /hpf Urine Mucus (Occasional) /lpf Ur Microscopic Review 01/03/18 01/03/18 01/03/18 Range/Units 11:37 17:14 20:40 WBC (4.0-11.0) th/mm3 RBC (4.50-5.90) mil/mm3 Hgb (13.0-17.0) gm/dL Hct (39.0-51.0) % MCV (80.0-100.0) fL MCH (27.0-34.0) pg MCHC (32.0-36.0) % RDW (11.6-17.2) % Plt Count (150-450) th/mm3 MPV (7.0-11.0) fL Prelim Diff (Auto) Neut % (Auto) (16.0-70.0) % Lymph % (Auto) (9.0-44.0) % [place] % (Auto) (0.0-8.0) % Eos % (Auto) (0.0-4.0) % Baso % (Auto) (0.0-2.0) % Neut # (Auto) (1.8-7.7) th/mm3 Lymph # (Auto) (1.0-4.8) th/mm3 [place] # (Auto) (0.0-0.9) th/mm3 Eos # (Auto) (0.0-0.4) th/mm3 Baso # (Auto) (0.0-0.2) th/mm3 WBC Differential Seg Neuts % (Manual) (16-70) % Band Neuts % (Manual) (0-6) % Lymphocytes % (Manual) (9-44) % Monocytes % (Manual) (0-8) % Eosinophils % (Manual) (0-4) % Basophils % (Manual) (0-2) % Abs Neuts (Manual) (1.8-7.7) th/mm3 Nucleated RBCs/100 WBC (0-0) /100 WBC Differential Comment Platelet Estimate (Normal) Platelet Morphology (Normal) Polychromasia (0.0-1.9) % Basophilic Stippling (None) Spherocytes (None) Sickle Cells (None) Target Cells (None) Tear Drop Cells (None) Ovalocytes (None) [place] Bodies (None) Retic Count (0.4-3.0) % Absolute Retic (20.0-150.0) mil/L Sodium (136-145) meq/L Potassium (3.5-5.1) meq/L Chloride (98-107) meq/L Carbon Dioxide (21.0-32.0) meq/L Anion Gap (5-15) meq/L BUN (7-18) mg/dL Creatinine (0.60-1.30) mg/dL Estimated GFR (>89) mL/min POC Glucose 98 110 101 (68-110) mg/dl Random Glucose (74-106) mg/dL Calcium (8.5-10.1) mg/dL Total Bilirubin (0.2-1.0) mg/dL AST (15-37) U/L ALT (12-78) U/L Alkaline Phosphatase (45-117) U/L Lactate Dehydrogenase (87-241) U/L C-Reactive Protein (0.00-0.30) mg/dL Total Protein (6.4-8.2) g/dL Albumin (3.4-5.0) g/dL Urine Color (Yellw/Straw) Urine Clarity (Clear) Urine pH (5.0-8.5) Ur Specific [place] (1.002-1.035) Urine Protein (Neg-Trace) mg/dL Urine Glucose (UA) (Negative) mg/dL Urine Ketones (Negative) mg/dL Urine Occult Blood (Negative) Urine Nitrate (Negative) Urine Bilirubin (Negative) Urine Urobilinogen (Less than 2) mg/dL Ur Leukocyte Esterase (Negative) Urine WBC (0-5) /hpf Urine Mucus (Occasional) /lpf Ur Microscopic Review 01/04/18 01/04/18 01/04/18 Range/Units 03:57 03:57 08:07 WBC 11.4 H (4.0-11.0) th/mm3 RBC 3.24 L (4.50-5.90) mil/mm3 Hgb 9.7 L (13.0-17.0) gm/dL Hct 28.2 L (39.0-51.0) % MCV 86.9 (80.0-100.0) fL MCH 29.8 (27.0-34.0) pg MCHC 34.3 (32.0-36.0) % RDW 19.4 H (11.6-17.2) % Plt Count 178 (150-450) th/mm3 MPV 8.7 (7.0-11.0) fL Prelim Diff (Auto) Manual diff required Neut % (Auto) (16.0-70.0) % Lymph % (Auto) (9.0-44.0) % [place] % (Auto) (0.0-8.0) % Eos % (Auto) (0.0-4.0) % Baso % (Auto) (0.0-2.0) % Neut # (Auto) (1.8-7.7) th/mm3 Lymph # (Auto) (1.0-4.8) th/mm3 [place] # (Auto) (0.0-0.9) th/mm3 Eos # (Auto) (0.0-0.4) th/mm3 Baso # (Auto) (0.0-0.2) th/mm3 WBC Differential Manual diff final Seg Neuts % (Manual) 52 (16-70) % Band Neuts % (Manual) (0-6) % Lymphocytes % (Manual) 26 (9-44) % Monocytes % (Manual) 22 H (0-8) % Eosinophils % (Manual) (0-4) % Basophils % (Manual) (0-2) % Abs Neuts (Manual) 5.9 (1.8-7.7) th/mm3 Nucleated RBCs/100 WBC 2 H (0-0) /100 WBC Differential Comment . Platelet Estimate Normal (Normal) Platelet Morphology Normal (Normal) Polychromasia 2.3 H (0.0-1.9) % Basophilic Stippling Faint H (None) Spherocytes (None) Sickle Cells 1+ H (None) Target Cells 1+ H (None) Tear Drop Cells (None) Ovalocytes (None) [place] Bodies Present H (None) Retic Count 5.1 H (0.4-3.0) % Absolute Retic 166.3 H (20.0-150.0) mil/L Sodium 140 (136-145) meq/L Potassium 4.4 (3.5-5.1) meq/L Chloride 104 (98-107) meq/L Carbon Dioxide 26.7 (21.0-32.0) meq/L Anion Gap 9 (5-15) meq/L BUN 11 (7-18) mg/dL Creatinine 1.00 (0.60-1.30) mg/dL Estimated GFR Greater than 89 (>89) mL/min POC Glucose 95 (68-110) mg/dl Random Glucose 80 (74-106) mg/dL Calcium 8.8 (8.5-10.1) mg/dL Total Bilirubin 6.9 H (0.2-1.0) mg/dL AST 48 H (15-37) U/L ALT 23 (12-78) U/L Alkaline Phosphatase 69 (45-117) U/L Lactate Dehydrogenase 505 H (87-241) U/L C-Reactive Protein (0.00-0.30) mg/dL Total Protein 7.1 (6.4-8.2) g/dL Albumin 3.7 (3.4-5.0) g/dL Urine Color (Yellw/Straw) Urine Clarity (Clear) Urine pH (5.0-8.5) Ur Specific [place] (1.002-1.035) Urine Protein (Neg-Trace) mg/dL Urine Glucose (UA) (Negative) mg/dL Urine Ketones (Negative) mg/dL Urine Occult Blood (Negative) Urine Nitrate (Negative) Urine Bilirubin (Negative) Urine Urobilinogen (Less than 2) mg/dL Ur Leukocyte Esterase (Negative) Urine WBC (0-5) /hpf Urine Mucus (Occasional) /lpf Ur Microscopic Review 01/04/18 01/04/18 01/04/18 Range/Units 12:31 17:14 19:56 WBC (4.0-11.0) th/mm3 RBC (4.50-5.90) mil/mm3 Hgb (13.0-17.0) gm/dL Hct (39.0-51.0) % MCV (80.0-100.0) fL MCH (27.0-34.0) pg MCHC (32.0-36.0) % RDW (11.6-17.2) % Plt Count (150-450) th/mm3 MPV (7.0-11.0) fL Prelim Diff (Auto) Neut % (Auto) (16.0-70.0) % Lymph % (Auto) (9.0-44.0) % [place] % (Auto) (0.0-8.0) % Eos % (Auto) (0.0-4.0) % Baso % (Auto) (0.0-2.0) % Neut # (Auto) (1.8-7.7) th/mm3 Lymph # (Auto) (1.0-4.8) th/mm3 [place] # (Auto) (0.0-0.9) th/mm3 Eos # (Auto) (0.0-0.4) th/mm3 Baso # (Auto) (0.0-0.2) th/mm3 WBC Differential Seg Neuts % (Manual) (16-70) % Band Neuts % (Manual) (0-6) % Lymphocytes % (Manual) (9-44) % Monocytes % (Manual) (0-8) % Eosinophils % (Manual) (0-4) % Basophils % (Manual) (0-2) % Abs Neuts (Manual) (1.8-7.7) th/mm3 Nucleated RBCs/100 WBC (0-0) /100 WBC Differential Comment Platelet Estimate (Normal) Platelet Morphology (Normal) Polychromasia (0.0-1.9) % Basophilic Stippling (None) Spherocytes (None) Sickle Cells (None) Target Cells (None) Tear Drop Cells (None) Ovalocytes (None) [place] Bodies (None) Retic Count (0.4-3.0) % Absolute Retic (20.0-150.0) mil/L Sodium (136-145) meq/L Potassium (3.5-5.1) meq/L Chloride (98-107) meq/L Carbon Dioxide (21.0-32.0) meq/L Anion Gap (5-15) meq/L BUN (7-18) mg/dL Creatinine (0.60-1.30) mg/dL Estimated GFR (>89) mL/min POC Glucose 119 H 98 138 H (68-110) mg/dl Random Glucose (74-106) mg/dL Calcium (8.5-10.1) mg/dL Total Bilirubin (0.2-1.0) mg/dL AST (15-37) U/L ALT (12-78) U/L Alkaline Phosphatase (45-117) U/L Lactate Dehydrogenase (87-241) U/L C-Reactive Protein (0.00-0.30) mg/dL Total Protein (6.4-8.2) g/dL Albumin (3.4-5.0) g/dL Urine Color (Yellw/Straw) Urine Clarity (Clear) Urine pH (5.0-8.5) Ur Specific [place] (1.002-1.035) Urine Protein (Neg-Trace) mg/dL Urine Glucose (UA) (Negative) mg/dL Urine Ketones (Negative) mg/dL Urine Occult Blood (Negative) Urine Nitrate (Negative) Urine Bilirubin (Negative) Urine Urobilinogen (Less than 2) mg/dL Ur Leukocyte Esterase (Negative) Urine WBC (0-5) /hpf Urine Mucus (Occasional) /lpf Ur Microscopic Review 01/05/18 01/05/18 01/05/18 Range/Units 04:33 04:33 08:19 WBC 14.3 H (4.0-11.0) th/mm3 RBC 3.26 L (4.50-5.90) mil/mm3 Hgb 9.8 L (13.0-17.0) gm/dL Hct 28.5 L (39.0-51.0) % MCV 87.2 (80.0-100.0) fL MCH 30.1 (27.0-34.0) pg MCHC 34.5 (32.0-36.0) % RDW 18.9 H (11.6-17.2) % Plt Count 175 (150-450) th/mm3 MPV 8.6 (7.0-11.0) fL Prelim Diff (Auto) Neut % (Auto) (16.0-70.0) % Lymph % (Auto) (9.0-44.0) % [place] % (Auto) (0.0-8.0) % Eos % (Auto) (0.0-4.0) % Baso % (Auto) (0.0-2.0) % Neut # (Auto) (1.8-7.7) th/mm3 Lymph # (Auto) (1.0-4.8) th/mm3 [place] # (Auto) (0.0-0.9) th/mm3 Eos # (Auto) (0.0-0.4) th/mm3 Baso # (Auto) (0.0-0.2) th/mm3 WBC Differential Seg Neuts % (Manual) (16-70) % Band Neuts % (Manual) (0-6) % Lymphocytes % (Manual) (9-44) % Monocytes % (Manual) (0-8) % Eosinophils % (Manual) (0-4) % Basophils % (Manual) (0-2) % Abs Neuts (Manual) (1.8-7.7) th/mm3 Nucleated RBCs/100 WBC (0-0) /100 WBC Differential Comment Platelet Estimate (Normal) Platelet Morphology (Normal) Polychromasia (0.0-1.9) % Basophilic Stippling (None) Spherocytes (None) Sickle Cells (None) Target Cells (None) Tear Drop Cells (None) Ovalocytes (None) [place] Bodies (None) Retic Count 5.8 H (0.4-3.0) % Absolute Retic 189.3 H (20.0-150.0) mil/L Sodium 137 (136-145) meq/L Potassium 4.0 (3.5-5.1) meq/L Chloride 103 (98-107) meq/L Carbon Dioxide 26.4 (21.0-32.0) meq/L Anion Gap 8 (5-15) meq/L BUN 11 (7-18) mg/dL Creatinine 0.93 (0.60-1.30) mg/dL Estimated GFR Greater than 89 (>89) mL/min POC Glucose 98 (68-110) mg/dl Random Glucose 100 (74-106) mg/dL Calcium 8.9 (8.5-10.1) mg/dL Total Bilirubin 7.2 H (0.2-1.0) mg/dL AST 44 H (15-37) U/L ALT 19 (12-78) U/L Alkaline Phosphatase 75 (45-117) U/L Lactate Dehydrogenase 524 H (87-241) U/L C-Reactive Protein (0.00-0.30) mg/dL Total Protein 7.0 (6.4-8.2) g/dL Albumin 3.6 (3.4-5.0) g/dL Urine Color (Yellw/Straw) Urine Clarity (Clear) Urine pH (5.0-8.5) Ur Specific [place] (1.002-1.035) Urine Protein (Neg-Trace) mg/dL Urine Glucose (UA) (Negative) mg/dL Urine Ketones (Negative) mg/dL Urine Occult Blood (Negative) Urine Nitrate (Negative) Urine Bilirubin (Negative) Urine Urobilinogen (Less than 2) mg/dL Ur Leukocyte Esterase (Negative) Urine WBC (0-5) /hpf Urine Mucus (Occasional) /lpf Ur Microscopic Review 01/05/18 01/05/18 Range/Units 11:39 16:59 WBC (4.0-11.0) th/mm3 RBC (4.50-5.90) mil/mm3 Hgb (13.0-17.0) gm/dL Hct (39.0-51.0) % MCV (80.0-100.0) fL MCH (27.0-34.0) pg MCHC (32.0-36.0) % RDW (11.6-17.2) % Plt Count (150-450) th/mm3 MPV (7.0-11.0) fL Prelim Diff (Auto) Neut % (Auto) (16.0-70.0) % Lymph % (Auto) (9.0-44.0) % [place] % (Auto) (0.0-8.0) % Eos % (Auto) (0.0-4.0) % Baso % (Auto) (0.0-2.0) % Neut # (Auto) (1.8-7.7) th/mm3 Lymph # (Auto) (1.0-4.8) th/mm3 [place] # (Auto) (0.0-0.9) th/mm3 Eos # (Auto) (0.0-0.4) th/mm3 Baso # (Auto) (0.0-0.2) th/mm3 WBC Differential Seg Neuts % (Manual) (16-70) % Band Neuts % (Manual) (0-6) % Lymphocytes % (Manual) (9-44) % Monocytes % (Manual) (0-8) % Eosinophils % (Manual) (0-4) % Basophils % (Manual) (0-2) % Abs Neuts (Manual) (1.8-7.7) th/mm3 Nucleated RBCs/100 WBC (0-0) /100 WBC Differential Comment Platelet Estimate (Normal) Platelet Morphology (Normal) Polychromasia (0.0-1.9) % Basophilic Stippling (None) Spherocytes (None) Sickle Cells (None) Target Cells (None) Tear Drop Cells (None) Ovalocytes (None) [place] Bodies (None) Retic Count (0.4-3.0) % Absolute Retic (20.0-150.0) mil/L Sodium (136-145) meq/L Potassium (3.5-5.1) meq/L Chloride (98-107) meq/L Carbon Dioxide (21.0-32.0) meq/L Anion Gap (5-15) meq/L BUN (7-18) mg/dL Creatinine (0.60-1.30) mg/dL Estimated GFR (>89) mL/min POC Glucose 115 H 100 (68-110) mg/dl Random Glucose (74-106) mg/dL Calcium (8.5-10.1) mg/dL Total Bilirubin (0.2-1.0) mg/dL AST (15-37) U/L ALT (12-78) U/L Alkaline Phosphatase (45-117) U/L Lactate Dehydrogenase (87-241) U/L C-Reactive Protein (0.00-0.30) mg/dL Total Protein (6.4-8.2) g/dL Albumin (3.4-5.0) g/dL Urine Color (Yellw/Straw) Urine Clarity (Clear) Urine pH (5.0-8.5) Ur Specific [place] (1.002-1.035) Urine Protein (Neg-Trace) mg/dL Urine Glucose (UA) (Negative) mg/dL Urine Ketones (Negative) mg/dL Urine Occult Blood (Negative) Urine Nitrate (Negative) Urine Bilirubin (Negative) Urine Urobilinogen (Less than 2) mg/dL Ur Leukocyte Esterase (Negative) Urine WBC (0-5) /hpf Urine Mucus (Occasional) /lpf Ur Microscopic Review Imaging Data Radiologist's impression: Chest X-Ray 01/02/18 06:56 CONCLUSION: 1. Reduced lung volumes with increased opacities throughout both lungs. No definite pleural effusion. 2. Stable enlargement of the cardiac silhouette. Chest X-Ray 01/05/18 00:00 CONCLUSION: Negative examination. Discharge Plan Discharge Disposition Patient Disposition: 30 Still Patient Discharge Condition Condition: Stable Discharge Details Diagnosis: Sickle cell pain crisis Physicians Team ED Provider: Karen Marin Primary Care Provider: UNKNOWN, Attending Provider: Cristina Richmond Other Providers: Janak Rowell ; [facility],Insurance Status ED Status: Left Department Discharge Information Discharge Date/Time: 01/02/18 12:33
[2018-01-02 07:01] LABS: Baso # (Auto) 0.1 th/mm3 (0.0-0.2); Baso % (Auto) 0.8 % (0.0-2.0); Eos # (Auto) 0.3 th/mm3 (0.0-0.4); Eos % (Auto) 2.4 % (0.0-4.0); Hematocrit 30.8 % (39.0-51.0); Hemoglobin 10.5 gm/dL (13.0-17.0); Lymph # (Auto) 5.4 th/mm3 (1.0-4.8); Lymph % (Auto) 42.7 % (9.0-44.0); Mean Corpuscular HGB Conc 34.2 % (32.0-36.0); Mean Corpuscular Hemoglobin 29.9 pg (27.0-34.0); Mean Corpuscular Volume 87.4 fL (80.0-100.0); Mean Platelet Volume 8.5 fL (7.0-11.0); Mono # (Auto) 1.7 th/mm3 (0.0-0.9); Mono % (Auto) 13.8 % (0.0-8.0); Neut # (Auto) 5.1 th/mm3 (1.8-7.7); Neut % (Auto) 40.3 % (16.0-70.0); Platelet Count 227 th/mm3 (150-450); Red Blood Count 3.52 mil/mm3 (4.50-5.90); Red Cell Distribution Width 18.8 % (11.6-17.2); Reticulocyte Percent 5.4 % (0.4-3.0); White Blood Count 12.6 th/mm3 (4.0-11.0)
[2018-01-02 07:15] LABS: Alkaline Phosphatase 91 U/L (45-117); Total Protein 7.5 g/dL (6.4-8.2)
[2018-01-02 07:20] LABS: Alanine Aminotransferase 24 U/L (12-78); Albumin 4.1 g/dL (3.4-5.0); Anion Gap 11 meq/L (5-15); Aspartate Aminotransferase 67 U/L (15-37); Blood Urea Nitrogen 17 mg/dL (7-18); Calcium 9.4 mg/dL (8.5-10.1); Carbon Dioxide 23.9 meq/L (21.0-32.0); Chloride 108 meq/L (98-107); Glomerular Filtration Rate 86 mL/min (>89); Glucose,Random 122 mg/dL (74-106); Potassium 4.3 meq/L (3.5-5.1); Sodium 143 meq/L (136-145)
[2018-01-02 07:42] LABS: Bilirubin,Urine Negative (Negative); Clarity,Urine Clear (Clear); Color,Urine Yellow (Yellw/Straw); Glucose,Urine (UA) Negative (Negative); Leukocyte Esterase,Urine Negative (Negative); Mucus,Urine Few /lpf (Occasional); Nitrite,Urine Negative (Negative); Specific Gravity,Urine 1.009 (1.002-1.035); Urobilinogen,Urine 4 or Greater mg/dL (Less than 2)
[2018-01-02 07:44] LABS: Eosinophils 3 % (0-4); Lymphocytes 34 % (9-44); Monocytes 14 % (0-8); Target Cells 1+
--- NOTE | 2018-01-02 07:44 | XR ---
EXAM DATE: 01/02/2018 7:39 AM EDT AGE/SEX: 62 years / Male INDICATIONS: . CLINICAL DATA: This is the patient's initial encounter. Patient reports that signs and symptoms have been present for 1 day and indicates a pain score of 0/10. MEDICAL/SURGICAL HISTORY: Hypertension. Diabetes mellitus type II. Sickle Cell disease. GERD Cholecystectomy. [place] [facility] [place]. . FINDINGS: PA and lateral views of the chest demonstrate reduced lung volumes with increased patchy interstitial and airspace opacities throughout both lungs. No definite pleural effusion. Stable enlargement of th e cardiac silhouette. Degenerative changes of the spine. CONCLUSION: 1. Reduced lung volumes with increased opacities throughout both lungs. No definite pleural effusion . 2. Stable enlargement of the cardiac silhouette. Electronically signed by: Yanira Adorno MD 01/02/2018 7:43 AM EDT
[2018-01-02 07:45] LABS: Howell-Jolly Bodies Present; Ovalocytes 1+; Platelet Estimate Normal (Normal); Platelet Morphology Normal (Normal); Sickle Cells 1+; Spherocytes Occ; Tear Drop Cells 1+
--- NOTE | 2018-01-02 09:01 | P.HPFP ---
History of Present Illness Primary Care Physician: UNKNOWN <BasilioCristina - 01/02/18 20:56> UNKNOWN <Ml Garay - 01/02/18 09:01> Chief Complaint: pain <Ml Garay - 01/02/18 11:11> History of Present Illness: Mr. Meier is a 62yo male with a PMH of sickle cell disease, hypertension, diabetes presenting with pain in his hips and legs. He states that yesterday he was at work when he started having aches and pains. When he got home he drank some fluids and started to feel better. However, around 5 AM this morning he started having pain in the right elbow, shoulder, and knee. This then spread to his whole right arm, his hips, and legs. He says that he usually has pain in his joints, but has been having muscle pain in his glutes. He usually takes hydrocodone 10 mg/325 mg at home but that did not help so he came to the ED. He is currently only having pain in his hips and legs. He is not experiencing any chest pain, no shortness of breath, no cough. He did have some night sweats this morning when the pain worsened. He has been doing more heavy lifting at work this week. He is also been experiencing more stress from issues surrounding his brother who is in hospice and traveling to see him. Sees Dr. Rowell for hematology. He last saw him in June. His last sickle cell crisis was in May and last blood transfusion was in February.. PMH: Sickle Cell DM PSH: Arthroscopy on right knee Tonsillectomy cholecystectomy Laser in right eye for blood vessel rupture Parathyroidectomy (removed 06/08) in September 2017, Tumor FHx: Prostate ca Sickle cell Meds: lisinopril glyburide hydroxyurea vitamin ASA All: Cortisone Erythromycin Soc: Lives with Works at [employer] Alcohol- none Tobacco- none Illicit drugs- none <Ml Garay - 01/02/18 17:28> - Diagnosis (1) Acute chest syndrome due to sickle cell crisis (2) Bilateral pneumonia (3) Sickle cell pain crisis (4) Sickle cell anemia (5) Hypertension (6) Diabetes (7) Nutrition, metabolism, and development symptoms (8) DVT prophylaxis <Cristina Richmond - 01/02/18 20:56> (1) Acute chest syndrome due to sickle cell crisis (2) Bilateral pneumonia (3) Sickle cell pain crisis (4) Sickle cell anemia (5) Hypertension (6) Diabetes (7) Nutrition, metabolism, and development symptoms (8) DVT prophylaxis <Ml Garay 01/02/18 17:34> Inpatient Certification: I certify that the inpatient services were ordered in accordance with Medicare regulations governing the order. This includes certification that hospital inpatient services are reasonable and necessary and in the case of services not specified as inpatient-only under 42 CFR 419.22(n), that they are appropriately provided as inpatient services in accordance to with the 2-midnight benchmark under 43 CFR 412.3(e) <Jessi Richmonde 01/02/18 20:56> Review of Systems Constitutional: Reports night sweats, Denies chills, Denies fever(s), Denies headache(s) <Ml Garay 01/02/18 09:05> Eyes: Denies blurry vision <Ml Garay 01/02/18 09:05> Ears, Nose, Mouth, and Throat: Denies difficulty swallowing <Ml Garay 09:05> Cardiovascular: Denies chest pain, Denies lightheadedness <Ml Garay 09:05> Respiratory: Denies cough, Denies shortness of breath <Ml Garay 09:05> Gastrointestinal: Denies change in bowel habits <Ml Garay 01/02/18 09:05 > Genitourinary: Denies difficulty urinating <Ml Garay 01/02/18 09:05> Musculoskeletal: Reports body aches, Reports joint pain <Ml Garay 09:05> Skin/Breast: Denies rash <Ml Garay 01/02/18 09:05> Neurologic: Denies tingling/numbness/burning sensations <Ml Garay 09:05> PMFSH - History History Provided By: Patient <Ml Garay 01/02/18 09:01> - Medical History Medical History: Medical History (Last Reviewed 01/02/18 @ 06:21 by Elizabeth Li) Sickle cell anemia (Chronic) Diabetes (Chronic) <Cristina Richmond - 01/02/18 20:56> Medical History (Last Reviewed 01/02/18 @ 06:21 by Elizabeth Li) Sickle cell anemia (Chronic) Diabetes (Chronic) <Jarrod,Ml Edin - 01/02/18 17:34> - Surgical History Surgical History: Surgical History (Last Updated 01/02/18 @ 06:21 by Elizabeth Li) History of cholecystectomy (Acute) History of parathyroid surgery History of surgical procedure on eye proper using laser <Cristina Richmond - 01/02/18 20:56> Surgical History (Last Updated 01/02/18 @ 06:21 by Elizabeth Li) History of cholecystectomy (Acute) History of parathyroid surgery History of surgical procedure on eye proper using laser <Ml Garay - 01/02/18 09:01> - Tobacco History Second Hand Smoke Exposure: No <JarrodMl Edin - 01/02/18 09:01> Smoking Status: Never smoker <TallaboaDharmeshMl Edin - 01/02/18 09:01> - Alcohol History How Often Do You Have a Drink Containing Alcohol: Never <Ml Garay - 09:01> - Substance Use History Substance History: No History of Abuse <Tallaboa,Ml Edin - 01/02/18 09:01> - Travel History Recent Travel in the [facility] Within the Last 8 Weeks: No <JarrodMl Edin 01/02/18 09:01> Recent Travel Out of the Country Within the Last 8 Weeks: No <JarrodMl Edin - 01/02/18 09:01> - Immunization History Tetanus Immunization: <5 Years <JarrodMl Edin - 01/02/18 09:01> Hx Influenza Vaccine This Season: No <JarrodMl Edin 01/02/18 09:01> Medications and Allergies Allergies Allergy/AdvReac Type Severity Reaction Status Date / Time cortisone Allergy Severe FLARES UP Verified 01/02/18 05:53 SICKLE CELL. erythromycin base Allergy Severe ANAPHALACTIC Verified 01/02/18 05:53 SHOCK azithromycin Allergy Intermediate Anaphylaxis Verified 01/02/18 05:53 <Cristina Richmond - 01/02/18 20:56> Home Medications Medication Instructions Recorded Confirmed Type Unable to Obtain Home Meds 01/02/18 01/02/18 History <Cristina Richmond - 01/02/18 20:56> Active Medications: Active Medications Acetaminophen (Tylenol) 650 mg PO Q4H PRN PRN Reason: Temp > 100.4 Al Hydroxide/Mg Hydroxide (Milk Of Magngabriella Liq) 30 ml PO Q12H PRN PRN Reason: Mild Constipation Dextrose (D50w Vial) 50 ml IV.PUSH UNSCH PRN PRN Reason: PER HYPOGLYCEMIA PROTOCOL Enalaprilat (Vasotec Inj) 1.25 mg IV.PUSH Q6H PRN PRN Reason: SEE LABEL COMMENTS Enoxaparin Sodium (Lovenox Inj) 40 mg SQ DAILY [facility] Last Admin: 01/02/18 19:13 Dose: 40 mg Folic Acid (Folic Acid) 1 mg PO DAILY [facility] Last Admin: 01/02/18 11:10 Dose: 1 mg Glucagon (Glucagon Inj) 1 mg OTHER PRN PRN PRN Reason: for Hypoglycemia Protocol Hydromorphone HCl (Dilaudid Pf Inj) 2 mg IV.PUSH Q3H PRN PRN Reason: PAIN SCALE 6 TO 10 Last Admin: 01/02/18 17:58 Dose: 2 mg Hydroxyurea (Hydrea) 500 mg PO DAILY [facility] Last Admin: 01/02/18 11:10 Dose: 500 mg Levofloxacin/Dextrose (Levaquin 750 Mg Premix Inj) 150 mls @ 100 mls/hr IV.SIG Q24H [facility] Last Infusion: 01/02/18 15:44 Dose: Infused Sodium Chloride (1/2 Normal Saline Inj) 1,000 mls @ 150 mls/hr IV.CONT .Q6H40M [facility] Last Admin: 01/02/18 19:32 Dose: 150 mls/hr Insulin Aspart (Novolog Insulin Correctional Sugar Inj) 0 unit SQ ACHS [facility]; Protocol Last Admin: 01/02/18 19:31 Dose: Not Given Multivitamins (Theragran) 1 tab PO DAILY [facility] Last Admin: 01/02/18 11:10 Dose: 1 tab Ondansetron HCl (Zofran Inj) 4 mg IV.PUSH Q6H PRN PRN Reason: NAUSEA OR VOMITING Senna/Docusate Sodium (Ami-Colace) 1 tab PO BID [facility] Sennosides (Senokot) 17.2 mg PO Q12H PRN PRN Reason: Moderate Constipation Sodium Chloride (Ns Flush) 2 ml IV.FLUSH PRN PRN PRN Reason: FLUSH AFTER USING IV ACCESS Sodium Chloride (Ns Flush) 2 ml IV.FLUSH BID [facility] <Cristina Richmond - 01/02/18 20:56> Exam Vital signs: Vital Signs 01/02/18 05:48 01/02/18 06:19 01/02/18 07:15 Temperature 97.6 F Pulse Rate 84 85 84 Respiratory Rate 20 16 16 Blood Pressure 140/70 124/81 124/81 Pulse Oximetry 99 98 98 01/02/18 08:16 01/02/18 11:15 01/02/18 12:00 Temperature 97.8 F Pulse Rate 79 72 67 Respiratory Rate 18 17 20 Blood Pressure 119/60 123/61 115/53 L Pulse Oximetry 97 97 94 L 01/02/18 16:00 01/02/18 20:09 Temperature 97.8 F 99.0 F Pulse Rate 70 84 Respiratory Rate 18 18 Blood Pressure 97/55 L 113/54 L Pulse Oximetry 96 95 Intake & Output 01/02/18 01/02/18 01/03/18 06:59 18:59 06:59 Intake Total 1390 / 1390 Output Total 600 / 600 Balance 790 / 790 Weight 102.058 kg 102.58 kg Intake: IV 1150 / 1150 Levaquin 750 mg Premix Inj 150 150 / 150 ML @ 100 mls/hr IV.SIG Q24H MICHAEL Rx#:[id number] NS Inj 1,000 ML @ Wide Open IV. 1000 / 1000 SIG BOLUS ONE Rx#:[id number] Oral 240 / 240 Output: Urine 600 / 600 Other: Date of Last Bowel Movement 01/01/18 Weight On Admission 102.58 kg <Cristina Richmond - 01/02/18 20:56> Vital Signs 01/02/18 05:48 01/02/18 06:19 01/02/18 07:15 Temperature 97.6 F Pulse Rate 84 85 84 Respiratory Rate 20 16 16 Blood Pressure 140/70 124/81 124/81 Pulse Oximetry 99 98 98 01/02/18 08:16 Temperature Pulse Rate 79 Respiratory Rate 18 Blood Pressure 119/60 Pulse Oximetry 97 Intake & Output 01/01/18 01/02/18 01/02/18 18:59 06:59 18:59 Intake Total 1000 / 1000 Balance 1000 / 1000 Weight 102.058 kg Intake: IV 1000 / 1000 NS Inj 1,000 ML @ Wide Open IV. 1000 / 1000 SIG BOLUS ONE Rx#:[id number] <Ml Garay - 01/02/18 09:01> Narrative: GENERAL: Obese -Congolese male laying in bed, in no acute distress SKIN: Warm and dry. HEAD: Atraumatic. Normocephalic. EYES: Pupils equal and round. Scleral icterus. No injection or drainage. ENT: No nasal bleeding or discharge. Mucous membranes pink and moist. NECK: Trachea midline. No JVD. CARDIOVASCULAR: Regular rate and rhythm. 2/6 holosystolic murmur RESPIRATORY: No accessory muscle use. Clear to auscultation. Breath sounds equal bilaterally. GASTROINTESTINAL: Abdomen soft, non-tender, nondistended. Hepatic and splenic margins not palpable. MUSCULOSKELETAL: Extremities without clubbing, cyanosis, or edema. No obvious deformities. 2x2cm cyst on right elbow. NEUROLOGICAL: Awake and alert. No obvious cranial nerve deficits. Motor grossly within normal limits. Normal speech. PSYCHIATRIC: Appropriate mood and affect; insight and judgment normal. <Ml Garay - 01/02/18 17:28> Results - Labs Result diagrams: 01/02/18 06:20 01/02/18 06:20 <Cristina Richmond - 01/02/18 20:56> Abnormal lab results 01/02/18 01/02/18 01/02/18 Range/Units 06:20 06:20 06:20 WBC 12.6 H (4.0-11.0) th/mm3 RBC 3.52 L (4.50-5.90) mil/mm3 Hgb 10.5 L (13.0-17.0) gm/dL Hct 30.8 L (39.0-51.0) % RDW 18.8 H (11.6-17.2) % Dane % (Auto) 13.8 H (0.0-8.0) % Lymph # (Auto) 5.4 H (1.0-4.8) th/mm3 Dane # (Auto) 1.7 H (0.0-0.9) th/mm3 Monocytes % (Manual) 14 H (0-8) % Basophilic Stippling Faint H (None) Spherocytes Occ H (None) Sickle Cells 1+ H (None) Target Cells 1+ H (None) Tear Drop Cells 1+ H (None) Ovalocytes 1+ H (None) Rhoades[place] Bodies Present H (None) Retic Count 5.4 H (0.4-3.0) % Absolute Retic 188.3 H (20.0-150.0) mil/L Chloride 108 H (98-107) meq/L Estimated GFR 86 L (>89) mL/min Random Glucose 122 H (74-106) mg/dL Total Bilirubin 6.8 H (0.2-1.0) mg/dL AST 67 H (15-37) U/L Lactate Dehydrogenase 570 H (87-241) U/L C-Reactive Protein 1.00 H (0.00-0.30) mg/dL Urine Mucus (Occasional) /lpf 01/02/18 Range/Units 07:05 WBC (4.0-11.0) th/mm3 RBC (4.50-5.90) mil/mm3 Hgb (13.0-17.0) gm/dL Hct (39.0-51.0) % RDW (11.6-17.2) % Dane % (Auto) (0.0-8.0) % Lymph # (Auto) (1.0-4.8) th/mm3 Dane # (Auto) (0.0-0.9) th/mm3 Monocytes % (Manual) (0-8) % Basophilic Stippling (None) Spherocytes (None) Sickle Cells (None) Target Cells (None) Tear Drop Cells (None) Ovalocytes (None) [place] Bodies (None) Retic Count (0.4-3.0) % Absolute Retic (20.0-150.0) mil/L Chloride (98-107) meq/L Estimated GFR (>89) mL/min Random Glucose (74-106) mg/dL Total Bilirubin (0.2-1.0) mg/dL AST (15-37) U/L Lactate Dehydrogenase (87-241) U/L C-Reactive Protein (0.00-0.30) mg/dL Urine Mucus Few H (Occasional) /lpf Short CBC 01/02/18 Range/Units 06:20 WBC 12.6 H (4.0-11.0) th/mm3 Hgb 10.5 L (13.0-17.0) gm/dL Hct 30.8 L (39.0-51.0) % Plt Count 227 (150-450) th/mm3 BMP 01/02/18 06:20 Sodium 143 Potassium 4.3 Chloride 108 H Carbon Dioxide 23.9 BUN 17 Creatinine 1.05 Calcium 9.4 Liver Function 01/02/18 Range/Units 06:20 Total Bilirubin 6.8 H (0.2-1.0) mg/dL AST 67 H (15-37) U/L ALT 24 (12-78) U/L Alkaline Phosphatase 91 (45-117) U/L Albumin 4.1 (3.4-5.0) g/dL Urine 01/02/18 Range/Units 07:05 Urine Color Yellow (Yellw/Straw) Urine Clarity Clear (Clear) Urine pH 7.0 (5.0-8.5) Ur Specific Marlow 1.009 (1.002-1.035) Urine Protein Negative (Neg-Trace) mg/dL Urine Glucose (UA) Negative (Negative) mg/dL <Cristina Richmond - 01/02/18 20:56> Abnormal lab results 01/02/18 01/02/18 01/02/18 Range/Units 06:20 06:20 07:05 WBC 12.6 H (4.0-11.0) th/mm3 RBC 3.52 L (4.50-5.90) mil/mm3 Hgb 10.5 L (13.0-17.0) gm/dL Hct 30.8 L (39.0-51.0) % RDW 18.8 H (11.6-17.2) % Dane % (Auto) 13.8 H (0.0-8.0) % Lymph # (Auto) 5.4 H (1.0-4.8) th/mm3 Dane # (Auto) 1.7 H (0.0-0.9) th/mm3 Monocytes % (Manual) 14 H (0-8) % Basophilic Stippling Faint H (None) Spherocytes Occ H (None) Sickle Cells 1+ H (None) Target Cells 1+ H (None) Tear Drop Cells 1+ H (None) Ovalocytes 1+ H (None) [place] Bodies Present H (None) Retic Count 5.4 H (0.4-3.0) % Absolute Retic 188.3 H (20.0-150.0) mil/L Chloride 108 H (98-107) meq/L Estimated GFR 86 L (>89) mL/min Random Glucose 122 H (74-106) mg/dL Total Bilirubin 6.8 H (0.2-1.0) mg/dL AST 67 H (15-37) U/L C-Reactive Protein 1.00 H (0.00-0.30) mg/dL Urine Mucus Few H (Occasional) /lpf Short CBC 01/02/18 Range/Units 06:20 WBC 12.6 H (4.0-11.0) th/mm3 Hgb 10.5 L (13.0-17.0) gm/dL Hct 30.8 L (39.0-51.0) % Plt Count 227 (150-450) th/mm3 BMP 01/02/18 06:20 Sodium 143 Potassium 4.3 Chloride 108 H Carbon Dioxide 23.9 BUN 17 Creatinine 1.05 Calcium 9.4 Liver Function 01/02/18 Range/Units 06:20 Total Bilirubin 6.8 H (0.2-1.0) mg/dL AST 67 H (15-37) U/L ALT 24 (12-78) U/L Alkaline Phosphatase 91 (45-117) U/L Albumin 4.1 (3.4-5.0) g/dL Urine 01/02/18 Range/Units 07:05 Urine Color Yellow (Yellw/Straw) Urine Clarity Clear (Clear) Urine pH 7.0 (5.0-8.5) Ur Specific Marlow 1.009 (1.002-1.035) Urine Protein Negative (Neg-Trace) mg/dL Urine Glucose (UA) Negative (Negative) mg/dL <Ml Garay - 01/02/18 09:01> - Imaging Impressions Chest X-Ray 01/02/18 06:56 CONCLUSION: 1. Reduced lung volumes with increased opacities throughout both lungs. No definite pleural effusion. 2. Stable enlargement of the cardiac silhouette. <Cristina Richmond - 01/02/18 20:56> Impressions Chest X-Ray 01/02/18 06:56 CONCLUSION: 1. Reduced lung volumes with increased opacities throughout both lungs. No definite pleural effusion. 2. Stable enlargement of the cardiac silhouette. <Ml Garay Edin - 01/02/18 09:01> Caprini VTE Risk Assessment Caprini VTE Risk Assessment: Moderate/High Risk (score >= 2) <Ml Garay Edin - 01/02/18 17:28> Caprini Risk Assessment Model: Point Value = 1 Point Value = 2 Point Value = 3 Point Value = 5 Age 41-60 Minor surgery BMI > 25 kg/m2 Swollen legs Varicose veins or History of unexplained or recurrent spontaneous Oral contraceptives or hormone replacement Sepsis (< 1 month) Serious lung disease, including pneumonia (< 1 month) Abnormal pulmonary function Acute myocardial infarction Congestive heart failure (< 1 month) History of inflammatory bowel disease Medical patient at bed rest Age 61-74 Arthroscopic surgery Major open surgery (> 45 min) Laparoscopic surgery (> 45 min) Malignancy Confined to bed (> 72 hours) Immobilizing plaster cast Central venous access Age >= 75 History of VTE Family history of VTE Factor V Leiden Prothrombin [id number] Lupus anticoagulant Anticardiolipin antibodies Elevated serum homocysteine Heparin-induced thrombocytopenia Other congenital or acquired thrombophilia Stroke (< 1 month) Elective arthroplasty Hip, pelvis, or leg fracture Acute spinal cord injury (< 1 month) <Cristina Richmond - 01/02/18 20:56> Point Value = 1 Point Value = 2 Point Value = 3 Point Value = 5 Age 41-60 Minor surgery BMI > 25 kg/m2 Swollen legs Varicose veins or History of unexplained or recurrent spontaneous Oral contraceptives or hormone replacement Sepsis (< 1 month) Serious lung disease, including pneumonia (< 1 month) Abnormal pulmonary function Acute myocardial infarction Congestive heart failure (< 1 month) History of inflammatory bowel disease Medical patient at bed rest Age 61-74 Arthroscopic surgery Major open surgery (> 45 min) Laparoscopic surgery (> 45 min) Malignancy Confined to bed (> 72 hours) Immobilizing plaster cast Central venous access Age >= 75 History of VTE Family history of VTE Factor V Leiden Prothrombin [id number] Lupus anticoagulant Anticardiolipin antibodies Elevated serum homocysteine Heparin-induced thrombocytopenia Other congenital or acquired thrombophilia Stroke (< 1 month) Elective arthroplasty Hip, pelvis, or leg fracture Acute spinal cord injury (< 1 month) <Ml Garay - 01/02/18 09:01> Prophylaxis Regimen: Total Risk Factor Score Risk Level Prophylaxis Regimen 0-1 Low Early ambulation 2 Moderate Order ONE of the following: *Sequential Compression Device (SCD) *Heparin 5000 units SQ BID 3-4 Higher Order ONE of the following medications: *Heparin 5000 units SQ TID *Enoxaparin/Lovenox 40 mg SQ daily (WT < 150 kg, CrCl > 30 mL/min) *Enoxaparin/Lovenox 30 mg SQ daily (WT < 150 kg, CrCl > 10-29 mL/min) *Enoxaparin/Lovenox 30 mg SQ BID (WT < 150 kg, CrCl > 30 mL/min) AND/OR *Sequential Compression Device (SCD) 5 or more Highest Order ONE of the following medications: *Heparin 5000 units SQ TID (Preferred with Epidurals) *Enoxaparin/Lovenox 40 mg SQ daily (WT < 150 kg, CrCl > 30 mL/min) *Enoxaparin/Lovenox 30 mg SQ daily (WT < 150 kg, CrCl > 10-29 mL/min) *Enoxaparin/Lovenox 30 mg SQ BID (WT < 150 kg, CrCl > 30 mL/min) AND *Sequential Compression Device (SCD) <Cristina Richmond - 01/02/18 20:56> Total Risk Factor Score Risk Level Prophylaxis Regimen 0-1 Low Early ambulation 2 Moderate Order ONE of the following: *Sequential Compression Device (SCD) *Heparin 5000 units SQ BID 3-4 Higher Order ONE of the following medications: *Heparin 5000 units SQ TID *Enoxaparin/Lovenox 40 mg SQ daily (WT < 150 kg, CrCl > 30 mL/min) *Enoxaparin/Lovenox 30 mg SQ daily (WT < 150 kg, CrCl > 10-29 mL/min) *Enoxaparin/Lovenox 30 mg SQ BID (WT < 150 kg, CrCl > 30 mL/min) AND/OR *Sequential Compression Device (SCD) 5 or more Highest Order ONE of the following medications: *Heparin 5000 units SQ TID (Preferred with Epidurals) *Enoxaparin/Lovenox 40 mg SQ daily (WT < 150 kg, CrCl > 30 mL/min) *Enoxaparin/Lovenox 30 mg SQ daily (WT < 150 kg, CrCl > 10-29 mL/min) *Enoxaparin/Lovenox 30 mg SQ BID (WT < 150 kg, CrCl > 30 mL/min) AND *Sequential Compression Device (SCD) <Ml Garay - 01/02/18 09:01> Assessment and Plan - Assessment (1) Acute chest syndrome due to sickle cell crisis Code(s): D57.01 - Hb-SS disease with acute chest syndrome Status: Acute (2) Bilateral pneumonia Code(s): J18.9 - Pneumonia, unspecified organism Status: Acute (3) Sickle cell pain crisis Code(s): D57.00 - Hb-SS disease with crisis, unspecified Status: Acute (4) Sickle cell anemia Code(s): D57.1 - Sickle-cell disease without crisis Status: Chronic (5) Hypertension Code(s): I10 - Essential (primary) hypertension Status: Chronic (6) Diabetes Code(s): E11.9 - Type 2 diabetes mellitus without complications Status: Chronic (7) Nutrition, metabolism, and development symptoms Code(s): R63.8 - Other symptoms and signs concerning food and fluid intake Status: Acute (8) DVT prophylaxis Status: Acute <Cristina Richmond - 01/02/18 20:56> (1) Acute chest syndrome due to sickle cell crisis Code(s): D57.01 - Hb-SS disease with acute chest syndrome Status: Acute Plan: 62-year-old male with PMH of sickle cell presenting in sickle cell vaso- occlusive pain crisis. CXR on admission show reduced lung volumes with increased opacities throughout both lungs. Patient zones are relatively clear on exam, but did have to be placed on 2L NC on admission for short period of time due to her likely decrease in SPO2. Therefore, he meets the criteria for ACS. Labs do show leukocytosis to 12.6. Hemoglobin is 10.5 with elevated reticulocyte count of 5.4. CRP at 1.00 and LDH at 570. Tbili is elevated at 6.8. Will begin empiric antibiotic therapy for CAP. Unable to do azithromycin for atypical coverage due to patient's allergy. -Levofloxacin 750 mg IV every 24 hours (01/02-) -1/2 NS at 150 mL/hour -Dilaudid 2 mg IV every 3 hours as needed -hydroxyurea 500 mg p.o. daily -Folic acid 1 mg p.o. 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 Rowell, for any further recommendations in his care (2) Bilateral pneumonia Code(s): J18.9 - Pneumonia, unspecified organism Status: Acute Plan: See above for plan (3) Sickle cell pain crisis Code(s): D57.00 - Hb-SS disease with crisis, unspecified Status: Acute Plan: See above for plan (4) Sickle cell anemia Code(s): D57.1 - Sickle-cell disease without crisis Status: Chronic Plan: Patient sees Dr. Rowell for Hematology. Has not had a vaso-occlusive pain crisis since May. -Condition is usually stable -See above for vaso-occlusive pain crisis plan (5) Hypertension Code(s): I10 - Essential (primary) hypertension Status: Chronic Plan: Patient unsure of his home dosages of medications, but BP has been stable since his admission. -Will add on as needed Vasotec (6) Diabetes Code(s): E11.9 - Type 2 diabetes mellitus without complications Status: Chronic Plan: Patient is on oral medications at home -NovoLog low-dose SSI -Hypoglycemia protocol -Bedside Accu-Cheks (7) Nutrition, metabolism, and development symptoms Code(s): R63.8 - Other symptoms and signs concerning food and fluid intake Status: Acute Plan: Fluids: 1/2 NS @ 150ml/hr Electrolytes: monitor and replete as needed Nutrition: diabetic diet (8) DVT prophylaxis Status: Acute Plan: DVT Prophylaxis: Early ambulation. bilateral SCDs <Ml Garay - 01/02/18 17:34> - Assessment and Plan Discussed Condition With: Dr. Richmond, Dr. Archuleta <Ml Garay - 01/02/18 17:28> Discharge Planning: pending clinical course <Ml Garay 01/02/18 17:28> - Attending Attestation Patient seen and examined, and discussed with resident team. I agree with assessment and management as documented and discussed with me. Basilio Meier is a 62yo gentleman admitted for acute chest syndrome , bilateral pneumonia secondary to sickle cell pain crisis. Pt seen around 3:30PM this afternoon. He reporst continued pain in his legs, relieved only briefly by Dilaudid; he requests increase in frequency of this medication. In addition, he tells me that yesterday he did have some respiratory symptoms, with some SOB and cough after inhaling "magic spill" powder at his work. He denies SOB, cough, or chest pain today. Continue Levaquin as ordered. Add incentive spirometry. Adjust pain medications as needed for pain. I certify that inpatient stay is warranted and that pt is to remain in the hospital for at least two midnights. <Cristina Richmond - 01/02/18 20:56>
[2018-01-02] MEDS ORDERED: Acetaminophen 325 MG Tablet PO PRN (09:14)
[2018-01-02] MEDS ORDERED: Dextrose 50% in Water 50 ML Vial IV.PUSH PRN (09:26)
[2018-01-02] MEDS: Folic Acid 1 MG Tablet PO SCH (11:10)
[2018-01-02] MEDS: Hydroxyurea 500 MG Capsule PO SCH (11:10)
[2018-01-02] MEDS: HYDROmorphone PF Inj 2 MG/ML Vial IV.PUSH PRN ×4 (11:11→21:50)
[2018-01-02] MEDS: Insulin NovoLOG Aspart Correctional Sugar Inj SQ SCH ×3 (19:12→22:00)
[2018-01-02] MEDS: Enoxaparin Inj 40 MG/0.4 ML Syringe SQ SCH (19:13)
[2018-01-02] MEDS: Sodium Chloride 0.45 % Inj 1,000 ML IV.CONT SCH (19:32)
[2018-01-02] MEDS: Senna/Docusate Sodium 8.6/50 MG Tablet PO SCH (21:50)
--- NOTE | 2018-01-03 00:34 | MB ---
cc: Juan Rowell MD DATE: 01/02/2018 REASON FOR CONSULTATION: Consult requested by hospitalist for evaluation of a sickle cell painful crisis. HISTORY OF PRESENT ILLNESS: This is a 62-year-old, very pleasant male. He is well known to me. 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 He has been maintained on Hydrea, folic acid and Lortab for his sickle cell disease. Due to the persistence of hemoglobin F, he does not usually gets frequent painful crisis. His last crisis was 4-5 months ago. The patient was in his usual status of health up until this morning when he woke up, he started having severe pain in his lower legs. It was difficult for him to move around. He knew that this is one of the sickle cell painful crisis episodes. He decided to come to the emergency room as his pain was not getting better with the oral hydrocodone. The patient was admitted to the hospital. I have been asked to see him for further evaluation. The patient has been complaining of pain in both legs, especially the back of both thighs and knees. He denies any shortness of breath. He denies any fevers or chills. His appetite is okay. The rest of the review of systems is negative. PAST MEDICAL HISTORY: 1. Sickle cell disease with persistence of hemoglobin F and thalassemia minor. 2. Arthritis. 3. Coronary artery disease. 4. Diabetes mellitus. 5. Gastroesophageal reflux disease. 6. Hypertension. PAST SURGICAL HISTORY: Cardiac catheterization, cholecystectomy, eye surgery, right knee surgery. ALLERGIES: AZITHROMYCIN, CORTISONE, ACETATE, ERYTHROMYCIN. MEDICATIONS PRIOR TO GOING IN THE HOSPITAL: 1. Aspirin. 2. Bystolic. 3. . 4. Folic acid. 5. Glyburide. 6. Lortab. 7. Hydrea. 8. Lisinopril. 9. Pioglitazone. 10. B complex. 11. Vitamin D3. FAMILY HISTORY: Both his parents have . His father from prostate cancer. SOCIAL HISTORY: The patient is , lives with his . He used to smoke cigarettes, but quit several years ago. He does not drink alcohol. PHYSICAL EXAMINATION: GENERAL: Reveals a well-developed, well-nourished male in mild to moderate distress because of the painful crisis. VITAL SIGNS: Temperature 97.8, heart rate is 67, blood pressure 115/53, O2 saturation 94%. HEENT: PERRLA. EOMI. Sclerae is deeply icteric. No oral lesions noted. NECK: No lymphadenopathy noted. LUNGS: Clear. No wheezing, rhonchi or rales. CARDIOVASCULAR: Regular rate and rhythm. ABDOMEN: Soft, nontender. EXTREMITIES: No pedal edema. NEUROLOGIC: Awake, alert, oriented x3. SKIN: No significant lesions are noted. ASSESSMENT AND PLAN: 1. Sickle cell painful hemolytic crisis. 2. Sickle cell disease with persistence of hemoglobin F and thalassemia minor. PLAN: I have reviewed his available records, and I have discussed with the patient regarding the sickle cell painful crisis episode. He came into the emergency room early this morning. His CBC showed white count 12.6, hemoglobin is 10.5, platelet count is 227. The patient does not require any blood transfusion, given that the hemoglobin is 10.5. We also reviewed his comprehensive metabolic profile from this morning. The total bilirubin is high at 6.8. AST is 67. The patient has hemolysis from sickle cell disease. His LDH is high at 570. The patient is having hemolytic painful crisis from sickle cell disease. RECOMMENDATION: Continue to monitor CBC and continue IV narcotics, folic acid, hydration, oxygen. It will take a few days for his crisis to go away. Therefore, the patient will stay in the hospital for the next several days and then he will be discharged to home. Our team will follow while he is in the hospital. Thank you for asking my opinion. MD SOPHIE Fair/kiah/ , 10:35 PM , 10:51 PM KILEY
[2018-01-03] MEDS: HYDROmorphone PF Inj 2 MG/ML Vial IV.PUSH PRN ×7 (02:33→23:42)
[2018-01-03] MEDS: Sodium Chloride 0.45 % Inj 1,000 ML IV.CONT SCH ×5 (04:03→23:45)
[2018-01-03 07:45] LABS: Baso # (Auto) 0.1 th/mm3 (0.0-0.2); Baso % (Auto) 0.8 % (0.0-2.0); Eos # (Auto) 0.1 th/mm3 (0.0-0.4); Eos % (Auto) 1.3 % (0.0-4.0); Hematocrit 27.2 % (39.0-51.0); Hemoglobin 9.5 gm/dL (13.0-17.0); Mean Corpuscular Hemoglobin 30.4 pg (27.0-34.0); Mean Corpuscular Volume 86.8 fL (80.0-100.0); Mean Platelet Volume 8.4 fL (7.0-11.0); Mono # (Auto) 1.9 th/mm3 (0.0-0.9); Mono % (Auto) 17.6 % (0.0-8.0); Neut # (Auto) 5.6 th/mm3 (1.8-7.7); Neut % (Auto) 52.3 % (16.0-70.0); Platelet Count 184 th/mm3 (150-450); Red Blood Count 3.13 mil/mm3 (4.50-5.90); Red Cell Distribution Width 19.1 % (11.6-17.2); White Blood Count 10.7 th/mm3 (4.0-11.0)
[2018-01-03 07:51] LABS: Reticulocyte Percent 5.2 % (0.4-3.0)
[2018-01-03 08:01] LABS: Albumin 3.7 g/dL (3.4-5.0); Anion Gap 11 meq/L (5-15); Aspartate Aminotransferase 44 U/L (15-37); Blood Urea Nitrogen 11 mg/dL (7-18); Calcium 8.9 mg/dL (8.5-10.1); Carbon Dioxide 25.7 meq/L (21.0-32.0); Chloride 105 meq/L (98-107); Glomerular Filtration Rate Greater Than 89 mL/min (>89); Glucose,Random 87 mg/dL (74-106); Potassium 3.9 meq/L (3.5-5.1); Sodium 142 meq/L (136-145)
[2018-01-03 08:06] LABS: Alanine Aminotransferase 18 U/L (12-78); Alkaline Phosphatase 69 U/L (45-117); Total Protein 6.9 g/dL (6.4-8.2)
--- NOTE | 2018-01-03 08:30 | P.PN ---
Subjective Interval history: Patient reports continued pain in his legs. He denies SOB, cough, fever. Last BM 2 days ago. Urine is light. Physical Exam Vital signs: Vital Signs 01/02/18 11:15 01/02/18 12:00 01/02/18 16:00 Temperature 97.8 F 97.8 F Pulse Rate 72 67 70 Respiratory Rate 17 20 18 Blood Pressure 123/61 115/53 L 97/55 L Pulse Oximetry 97 94 L 96 01/02/18 20:09 01/02/18 21:29 01/02/18 23:17 Temperature 99.0 F 98.9 F Pulse Rate 84 87 Respiratory Rate 18 18 Blood Pressure 113/54 L 120/55 L Pulse Oximetry 95 98 97 01/03/18 03:19 Temperature 98.7 F Pulse Rate 84 Respiratory Rate 18 Blood Pressure 103/52 L Pulse Oximetry 95 Intake & Output 01/02/18 01/03/18 01/03/18 18:59 06:59 18:59 Intake Total 1390 / 1390 1360 / 1360 Output Total 600 / 600 800 / 800 Balance 790 / 790 560 / 560 Weight 102.58 kg 97.4 kg Intake: IV 1150 / 1150 1000 / 1000 1/2 Normal Saline Inj 1,000 ML 1000 / 1000 @ 150 mls/hr IV.CONT .Q6H40M [facility] Rx#:[id number] Levaquin 750 mg Premix Inj 150 150 / 150 ML @ 100 mls/hr IV.SIG Q24H [facility] Rx#:[id number] NS Inj 1,000 ML @ Wide Open IV. 1000 / 1000 SIG BOLUS ONE Rx#:[id number] Oral 240 / 240 360 / 360 Output: Urine 600 / 600 800 / 800 Other: Date of Last Bowel Movement 01/01/18 01/01/18 # Bowel Movements 0 Weight On Admission 102.58 kg Narrative: GENERAL: Obese -Jordanian male laying in bed, clearly uncomfortable. SKIN: Warm and dry. No jaundice. HEAD: Atraumatic. Normocephalic. EYES: Pupils equal and round. + Scleral icterus. No injection or drainage. ENT: No nasal bleeding or discharge. Mucous membranes pink and moist. NECK: Trachea midline. No JVD. CARDIOVASCULAR: Regular rate and rhythm. 2/6 holosystolic murmur, unchanged RESPIRATORY: No accessory muscle use. Clear to auscultation. Breath sounds equal bilaterally. GASTROINTESTINAL: Abdomen soft, non-tender, nondistended. MUSCULOSKELETAL: Extremities without clubbing, cyanosis, or edema. + tenderness to palpation throughout his legs. No obvious deformities. 2x2cm cyst on right elbow. NEUROLOGICAL: Awake and alert. No obvious cranial nerve deficits. Motor grossly within normal limits. Normal speech. PSYCHIATRIC: Appropriate mood and affect; insight and judgment normal. Results - Labs CBC & Chem 7: 01/03/18 06:50 01/03/18 06:50 Laboratory Results - last 24 hr 01/02/18 01/02/18 01/03/18 06:20 21:59 06:50 WBC 10.7 RBC 3.13 L Hgb 9.5 L Hct 27.2 L MCV 86.8 MCH 30.4 MCHC 35.0 RDW 19.1 H Plt Count 184 MPV 8.4 Prelim Diff (Auto) Slide review pending Neut % (Auto) 52.3 Lymph % (Auto) 28.0 [place] % (Auto) 17.6 H Eos % (Auto) 1.3 Baso % (Auto) 0.8 Neut # (Auto) 5.6 Lymph # (Auto) 3.0 [place] # (Auto) 1.9 H Eos # (Auto) 0.1 Baso # (Auto) 0.1 Differential Comment . Retic Count Absolute Retic Sodium Potassium Chloride Carbon Dioxide Anion Gap BUN Creatinine Estimated GFR POC Glucose 104 Random Glucose Calcium Total Bilirubin AST ALT Alkaline Phosphatase Lactate Dehydrogenase 570 H Total Protein Albumin 01/03/18 01/03/18 01/03/18 06:50 06:50 07:45 WBC RBC Hgb Hct MCV MCH MCHC RDW Plt Count MPV Prelim Diff (Auto) Neut % (Auto) Lymph % (Auto) [place] % (Auto) Eos % (Auto) Baso % (Auto) Neut # (Auto) Lymph # (Auto) [place] # (Auto) Eos # (Auto) Baso # (Auto) Differential Comment Retic Count 5.2 H Absolute Retic 162.0 H Sodium 142 Potassium 3.9 Chloride 105 Carbon Dioxide 25.7 Anion Gap 11 BUN 11 Creatinine 0.94 Estimated GFR Greater than 89 POC Glucose 103 Random Glucose 87 Calcium 8.9 Total Bilirubin 6.0 H AST 44 H ALT 18 Alkaline Phosphatase 69 Lactate Dehydrogenase Total Protein 6.9 D Albumin 3.7 Assessment and Plan - Assessment (1) Acute chest syndrome due to sickle cell crisis Code(s): D57.01 - Hb-SS disease with acute chest syndrome Status: Acute Plan: 62-year-old male with PMH of sickle cell presenting in sickle cell vaso- occlusive pain crisis, with CXR demonstrating increased opacities in bilateral lung willis. Will continue empiric antibiotic therapy for CAP. Unable to do azithromycin for atypical coverage due to patient's allergy. -Levofloxacin 750 mg IV every 24 hours (01/02-) -1/2 NS at 150 mL/hour -Increase Dilaudid to 3 mg IV every 3 hours as needed -Continue home [place], Q8 scheduled -Provide one time dose of IV Acetaminophen, to see if this provides relief. Will be cautious with acetaminophen limit, as pt is receiving [place]. -hydroxyurea 500 mg p.o. daily -Folic acid 1 mg p.o. 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 Rowell, for any further recommendations in his care (2) Bilateral pneumonia Code(s): J18.9 - Pneumonia, unspecified organism Status: Acute Plan: See management as above. Continue Levaquin. Incentive spirometer. (3) Sickle cell pain crisis Code(s): D57.00 - Hb-SS disease with crisis, unspecified Status: Acute Plan: See management as above. Last pain crisis was 7 months ago. (4) Sickle cell anemia Code(s): D57.1 - Sickle-cell disease without crisis Status: Chronic Plan: Appreciate hematology. Continue home meds including hydroxyurea and folic acid. (5) Hypertension Code(s): I10 - Essential (primary) hypertension Status: Chronic Plan: Under good control in the hospital. PRN vasotec. (6) Diabetes Code(s): E11.9 - Type 2 diabetes mellitus without complications Status: Chronic Plan: On oral medications at home. Continue Novolog low dose sliding scale. Hypoglycemia protocol; accuchecks. (7) History of parathyroid cancer Code(s): Z85.858 - Personal history of malignant neoplasm of other endocrine glands Status: Chronic Plan: Restart home calcium. (8) DVT prophylaxis Status: Chronic Plan: SQ Lovenox. - Plan Discharge Planning: Anticipate discharge in 2-3 days, once pain is improved. - Attending Attestation Patient seen and examined with Dr Garay. 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
[2018-01-03 09:13] LABS: Lymphocytes 21 % (9-44); Monocytes 17 % (0-8); Tallied Nucleated RBC 2 (0-0)
[2018-01-03 09:14] LABS: Platelet Estimate Normal (Normal); Platelet Morphology Normal (Normal); Sickle Cells 1+
[2018-01-03 09:15] LABS: Howell-Jolly Bodies Present; Polychromasia 2.5 % (0.0-1.9); Target Cells 1+
[2018-01-03] MEDS: Enoxaparin Inj 40 MG/0.4 ML Syringe SQ SCH (09:55)
[2018-01-03] MEDS: Hydroxyurea 500 MG Capsule PO SCH (09:55)
[2018-01-03] MEDS: Folic Acid 1 MG Tablet PO SCH (09:57)
[2018-01-03] MEDS: Calcium Carbonate 500 MG Tablet PO SCH ×2 (09:57→20:35)
[2018-01-03] MEDS: Senna/Docusate Sodium 8.6/50 MG Tablet PO SCH ×2 (09:59→20:35)
[2018-01-03] MEDS: Insulin NovoLOG Aspart Correctional Sugar Inj SQ SCH ×4 (09:59→20:41)
[2018-01-03] MEDS ORDERED: Naloxone Inj 0.4 MG/ML Vial IV.PUSH PRN (10:42)
--- NOTE | 2018-01-03 12:10 | P.PNONC ---
Subjective Interval history: Afebrile Patient reports he feels somewhat better today; he is just received something for pain States his pain is localized in his bilateral hips and knees Denies shortness of breath or chest pain Objective Vital Signs/Intake & Output: Vital Signs 01/02/18 16:00 01/02/18 20:09 01/02/18 21:29 Temperature 97.8 F 99.0 F Pulse Rate 70 84 Respiratory Rate 18 18 Blood Pressure 97/55 L 113/54 L Pulse Oximetry 96 95 98 01/02/18 23:17 01/03/18 03:19 01/03/18 08:00 Temperature 98.9 F 98.7 F 99.1 F Pulse Rate 87 84 77 Respiratory Rate 18 18 18 Blood Pressure 120/55 L 103/52 L 115/54 L Pulse Oximetry 97 95 96 01/03/18 09:28 01/03/18 10:17 01/03/18 10:26 Temperature Pulse Rate Respiratory Rate 18 18 Blood Pressure Pulse Oximetry 95 Intake & Output 01/02/18 01/03/18 01/03/18 18:59 06:59 18:59 Intake Total 1390 / 1390 1360 / 1360 1100 / 1100 Output Total 600 / 600 800 / 800 Balance 790 / 790 560 / 560 1100 / 1100 Weight 226 lb 2.403 oz 214 lb 11.684 oz Intake: IV 1150 / 1150 1000 / 1000 1100 / 1100 1/2 Normal Saline Inj 1,000 ML 1000 / 1000 1000 / 1000 @ 150 mls/hr IV.CONT .Q6H40M [facility] Rx#:[id number] Ofirmev Inj 1,000 mg In 100 ml 100 / 100 @ 400 mls/hr IV.SIG ONCE ONE Rx #:[id number] Levaquin 750 mg Premix Inj 150 150 / 150 ML @ 100 mls/hr IV.SIG Q24H [facility] Rx#:[id number] NS Inj 1,000 ML @ Wide Open IV. 1000 / 1000 SIG BOLUS ONE Rx#:[id number] Oral 240 / 240 360 / 360 Output: Urine 600 / 600 800 / 800 Other: Date of Last Bowel Movement 01/01/18 01/01/18 # Bowel Movements 0 Weight On Admission 226 lb 2.403 oz Result Diagrams: 01/03/18 06:50 01/03/18 06:50 Laboratory Results: Laboratory Results - last 24 hr 01/02/18 01/03/18 01/03/18 21:59 06:50 06:50 WBC 10.7 RBC 3.13 L Hgb 9.5 L Hct 27.2 L MCV 86.8 MCH 30.4 MCHC 35.0 RDW 19.1 H Plt Count 184 MPV 8.4 Prelim Diff (Auto) Slide review pending Neut % (Auto) 52.3 Lymph % (Auto) 28.0 [place] % (Auto) 17.6 H Eos % (Auto) 1.3 Baso % (Auto) 0.8 Neut # (Auto) 5.6 Lymph # (Auto) 3.0 [place] # (Auto) 1.9 H Eos # (Auto) 0.1 Baso # (Auto) 0.1 WBC Differential Manual diff final Seg Neuts % (Manual) 61 Lymphocytes % (Manual) 21 Monocytes % (Manual) 17 H Basophils % (Manual) 1 Abs Neuts (Manual) 6.5 Nucleated RBCs/100 WBC 2 H Differential Comment . Platelet Estimate Normal Platelet Morphology Normal Polychromasia 2.5 H Sickle Cells 1+ H Target Cells 1+ H [place] Bodies Present H Retic Count Absolute Retic Sodium 142 Potassium 3.9 Chloride 105 Carbon Dioxide 25.7 Anion Gap 11 BUN 11 Creatinine 0.94 Estimated GFR Greater than 89 POC Glucose 104 Random Glucose 87 Calcium 8.9 Total Bilirubin 6.0 H AST 44 H ALT 18 Alkaline Phosphatase 69 Total Protein 6.9 D Albumin 3.7 01/03/18 01/03/18 01/03/18 06:50 07:45 11:37 WBC RBC Hgb Hct MCV MCH MCHC RDW Plt Count MPV Prelim Diff (Auto) Neut % (Auto) Lymph % (Auto) [place] % (Auto) Eos % (Auto) Baso % (Auto) Neut # (Auto) Lymph # (Auto) [place] # (Auto) Eos # (Auto) Baso # (Auto) WBC Differential Seg Neuts % (Manual) Lymphocytes % (Manual) Monocytes % (Manual) Basophils % (Manual) Abs Neuts (Manual) Nucleated RBCs/100 WBC Differential Comment Platelet Estimate Platelet Morphology Polychromasia Sickle Cells Target Cells [place] Bodies Retic Count 5.2 H Absolute Retic 162.0 H Sodium Potassium Chloride Carbon Dioxide Anion Gap BUN Creatinine Estimated GFR POC Glucose 103 98 Random Glucose Calcium Total Bilirubin AST ALT Alkaline Phosphatase Total Protein Albumin Medications: Active Medications Generic Name Dose Route Start Last Admin Trade Name Freq PRN Reason Stop Dose Admin Hydrocodone Bitart/Acetaminophen 1 tab 01/03/18 09:00 01/03/18 09:56 Crane 10/325 PO 1 tab Q8H MICHAEL Administration Enoxaparin Sodium 40 mg 01/02/18 17:30 01/03/18 09:55 Lovenox Inj SQ 40 mg DAILY MICHAEL Administration Folic Acid 1 mg 01/02/18 09:30 01/03/18 09:57 Folic Acid PO 1 mg DAILY MICHAEL Administration Hydromorphone HCl 3 mg 01/03/18 08:33 01/03/18 09:47 Dilaudid Pf Inj IV.PUSH 3 mg Q3H PRN Administration PAIN SCALE 6 TO 10 Hydroxyurea 500 mg 01/02/18 09:30 01/03/18 09:55 Hydrea PO 500 mg DAILY MICHAEL Administration Levofloxacin/Dextrose 150 mls @ 100 mls/hr 01/02/18 11:30 01/03/18 11:31 Levaquin 750 Mg Premix Inj IV.SIG 100 mls/hr Q24H MICHAEL Administration Sodium Chloride 1,000 mls @ 150 mls/hr 01/02/18 14:30 01/03/18 11:35 1/2 Normal Saline Inj IV.CONT 0 mls/hr .Q6H40M MICHAEL Infusion Insulin Aspart 0 unit 01/02/18 12:00 01/03/18 11:38 Novolog Insulin Correctional Sugar Inj SQ Not Given ACHS [facility] Protocol Multivitamins 1 tab 01/02/18 09:30 01/03/18 09:57 Theragran PO 1 tab DAILY MICHAEL Administration Senna/Docusate Sodium 1 tab 01/02/18 21:00 01/03/18 09:59 Ami-Colace PO 1 tab BID MICHAEL Administration Sodium Chloride 2 ml 01/02/18 09:19 01/03/18 09:58 Ns Flush IV.FLUSH 2 ml PRN PRN Administration FLUSH AFTER USING IV ACCESS Sodium Chloride 2 ml 01/02/18 21:00 01/03/18 09:59 Ns Flush IV.FLUSH 2 ml BID MICHAEL Administration Objective Remarks: GENERAL: Older male resting in bed in no obvious distress SKIN: Warm and dry. HEAD: Normocephalic. EYES: No scleral icterus. No injection or drainage. NECK: Supple, trachea midline. No JVD or lymphadenopathy. CARDIOVASCULAR: Regular rate and rhythm without murmurs. RESPIRATORY: Clear anteriorly. Breathing unlabored at rest. GASTROINTESTINAL: Abdomen protuberant but soft. Nontender. EXTREMITIES: No cyanosis, or edema. MUSCULOSKELETAL: Adequate muscle tone. NEUROLOGICAL: No obvious focal deficit. Awake, alert, and oriented x3. 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 On outpatient basis he is maintained on Hydrea, folic acid and Lortab for the sickle cell disease. He has infrequent crises due to elevated hemoglobin F. 1. Continue IV fluids. Patient reports he is improving on current pain regimen of Dilaudid 3 mg as needed every 3 hours as well as [place] 10 as needed. It appears as though he is only taking these medications sparingly. 2. Continue folic acid and Hydrea 3. Noted chest x-ray with increased opacities; patient on Levaquin. 4. Decrease in hemoglobin likely due to dilutional effect. No need for transfusion. Monitor CBC, LDH and reticulocyte count. - Attending Statement The exam, history, and the medical decision-making described in the above note were completed with the assistance of the mid-level provider. I reviewed and agree with the findings presented. I attest that I had a [id number] encounter with the patient on the same day, and personally performed and documented my assessment and findings in the medical record. Feels more comfortable with increased pain medication and decrease in the time interval. Discussed continued supportive treatment for vaso-occlusive pain symptoms.
--- NOTE | 2018-01-03 14:29 | ECG ---
Date Performed: 01/02/2018 Time Performed: 14:55:33 PTAGE: 62 years EKG: Sinus rhythm WITH FIRST DEGREE AV BLOCK MARKED LEFT AXIS DEVIATION INTRAVENTRICULAR CONDUCTION DELAY NONSPECIFIC T-WAVE CHANGE PERHAPS RELATED TO THE CONDUCTION DELAY Compared to previous tracing, the T-wave change s laterally are new. Previous tracing was said to be probable atrial fibrillation, but it appears to be sinus rhythm with frequent PACs as well. Otherwise no significant change. ABNORMAL ECG PREVIOUS TRACING : 11/01/2017 03.20 DOCTOR: Gabino Mitchell Interpretating Date/Time 01/03/2018 14:27:58
[2018-01-04] MEDS: HYDROmorphone PF Inj 2 MG/ML Vial IV.PUSH PRN ×5 (04:17→21:24)
[2018-01-04 05:47] LABS: Hematocrit 28.2 % (39.0-51.0); Hemoglobin 9.7 gm/dL (13.0-17.0); Mean Corpuscular HGB Conc 34.3 % (32.0-36.0); Mean Corpuscular Hemoglobin 29.8 pg (27.0-34.0); Mean Corpuscular Volume 86.9 fL (80.0-100.0); Mean Platelet Volume 8.7 fL (7.0-11.0); Platelet Count 178 th/mm3 (150-450); Red Blood Count 3.24 mil/mm3 (4.50-5.90); Red Cell Distribution Width 19.4 % (11.6-17.2); Reticulocyte Percent 5.1 % (0.4-3.0); White Blood Count 11.4 th/mm3 (4.0-11.0)
[2018-01-04 06:06] LABS: Alanine Aminotransferase 23 U/L (12-78); Albumin 3.7 g/dL (3.4-5.0); Anion Gap 9 meq/L (5-15); Aspartate Aminotransferase 48 U/L (15-37); Blood Urea Nitrogen 11 mg/dL (7-18); Calcium 8.8 mg/dL (8.5-10.1); Carbon Dioxide 26.7 meq/L (21.0-32.0); Chloride 104 meq/L (98-107); Glomerular Filtration Rate Greater Than 89 mL/min (>89); Glucose,Random 80 mg/dL (74-106); Potassium 4.4 meq/L (3.5-5.1); Sodium 140 meq/L (136-145)
[2018-01-04 06:09] LABS: Alkaline Phosphatase 69 U/L (45-117); Lactate Dehydrogenase 505 U/L (87-241); Total Protein 7.1 g/dL (6.4-8.2)
[2018-01-04] MEDS: Sodium Chloride 0.45 % Inj 1,000 ML IV.CONT SCH ×3 (06:34→21:23)
[2018-01-04] MEDS: Folic Acid 1 MG Tablet PO SCH (08:09)
[2018-01-04] MEDS: Calcium Carbonate 500 MG Tablet PO SCH ×2 (08:09→20:13)
[2018-01-04] MEDS: Enoxaparin Inj 40 MG/0.4 ML Syringe SQ SCH (08:09)
[2018-01-04] MEDS: Hydroxyurea 500 MG Capsule PO SCH (08:09)
[2018-01-04] MEDS: Senna/Docusate Sodium 8.6/50 MG Tablet PO SCH ×2 (08:09→20:13)
[2018-01-04] MEDS: Insulin NovoLOG Aspart Correctional Sugar Inj SQ SCH ×4 (08:13→20:13)
--- NOTE | 2018-01-04 09:16 | P.PNFP ---
Subjective Interval history: Patient seen and examined this morning. He states that his new regimen is helping with his pain. However, he is still not getting his medications on time, especially overnight. Is feeling new pain in his left knee and right ankle. Otherwise, no chest pain, no shortness of breath, no cough. <Ml Garay - 01/04/18 11:43> Results - Labs Result diagrams: 01/04/18 03:57 01/04/18 03:57 <Cristina Richmond - 01/04/18 14:28> Abnormal lab results 01/04/18 01/04/18 01/04/18 Range/Units 03:57 03:57 12:31 WBC 11.4 H (4.0-11.0) th/mm3 RBC 3.24 L (4.50-5.90) mil/mm3 Hgb 9.7 L (13.0-17.0) gm/dL Hct 28.2 L (39.0-51.0) % RDW 19.4 H (11.6-17.2) % Monocytes % (Manual) 22 H (0-8) % Nucleated RBCs/100 WBC 2 H (0-0) /100 WBC Polychromasia 2.3 H (0.0-1.9) % Basophilic Stippling Faint H (None) Sickle Cells 1+ H (None) Target Cells 1+ H (None) Rhoades-Valera Bodies Present H (None) Retic Count 5.1 H (0.4-3.0) % Absolute Retic 166.3 H (20.0-150.0) mil/L POC Glucose 119 H (68-110) mg/dl Total Bilirubin 6.9 H (0.2-1.0) mg/dL AST 48 H (15-37) U/L Lactate Dehydrogenase 505 H (87-241) U/L Short CBC 01/04/18 Range/Units 03:57 WBC 11.4 H (4.0-11.0) th/mm3 Hgb 9.7 L (13.0-17.0) gm/dL Hct 28.2 L (39.0-51.0) % Plt Count 178 (150-450) th/mm3 [facility] 01/04/18 03:57 Sodium 140 Potassium 4.4 Chloride 104 Carbon Dioxide 26.7 BUN 11 Creatinine 1.00 Calcium 8.8 Liver Function 01/04/18 Range/Units 03:57 Total Bilirubin 6.9 H (0.2-1.0) mg/dL AST 48 H (15-37) U/L ALT 23 (12-78) U/L Alkaline Phosphatase 69 (45-117) U/L Albumin 3.7 (3.4-5.0) g/dL <Cristina Richmond - 01/04/18 14:28> Abnormal lab results 01/04/18 01/04/18 Range/Units 03:57 03:57 WBC 11.4 H (4.0-11.0) th/mm3 RBC 3.24 L (4.50-5.90) mil/mm3 Hgb 9.7 L (13.0-17.0) gm/dL Hct 28.2 L (39.0-51.0) % RDW 19.4 H (11.6-17.2) % Retic Count 5.1 H (0.4-3.0) % Absolute Retic 166.3 H (20.0-150.0) mil/L Total Bilirubin 6.9 H (0.2-1.0) mg/dL AST 48 H (15-37) U/L Lactate Dehydrogenase 505 H (87-241) U/L Short CBC 01/04/18 Range/Units 03:57 WBC 11.4 H (4.0-11.0) th/mm3 Hgb 9.7 L (13.0-17.0) gm/dL Hct 28.2 L (39.0-51.0) % Plt Count 178 (150-450) th/mm3 [facility] 01/04/18 03:57 Sodium 140 Potassium 4.4 Chloride 104 Carbon Dioxide 26.7 BUN 11 Creatinine 1.00 Calcium 8.8 Liver Function 01/04/18 Range/Units 03:57 Total Bilirubin 6.9 H (0.2-1.0) mg/dL AST 48 H (15-37) U/L ALT 23 (12-78) U/L Alkaline Phosphatase 69 (45-117) U/L Albumin 3.7 (3.4-5.0) g/dL <Ml Garay G - 01/04/18 09:16> Physical Exam Vital signs: Vital Signs 01/03/18 16:00 01/03/18 17:40 01/03/18 20:00 Temperature 98.1 F 97.8 F Pulse Rate 78 77 Respiratory Rate 18 17 20 Blood Pressure 111/53 L 111/56 L Pulse Oximetry 96 96 01/04/18 00:00 01/04/18 04:00 01/04/18 08:00 Temperature 99.8 F H 98.1 F 98.4 F Pulse Rate 82 80 88 Respiratory Rate 20 20 14 Blood Pressure 115/55 L 123/62 109/51 L Pulse Oximetry 96 94 L 90 L 01/04/18 08:30 01/04/18 12:00 Temperature 97.8 F Pulse Rate 80 Respiratory Rate 14 Blood Pressure 106/57 L Pulse Oximetry 94 L 95 Intake & Output 01/03/18 01/04/18 01/04/18 18:59 06:59 18:59 Intake Total 2470 / 2470 2720 / 2720 230 / 230 Output Total 1400 / 1400 Balance 2470 / 2470 1320 / 1320 230 / 230 Weight 94.7 kg Intake: IV 1250 / 1250 2000 / 2000 230 / 230 1/2 Normal Saline Inj 1,000 ML 1000 / 1000 2000 / 2000 230 / 230 @ 150 mls/hr IV.CONT .Q6H40M [facility] Rx#:[id number] Ofirmev Inj 1,000 mg In 100 ml 100 / 100 @ 400 mls/hr IV.SIG ONCE ONE Rx #:[id number] Levaquin 750 mg Premix Inj 150 150 / 150 ML @ 100 mls/hr IV.SIG Q24H [facility] Rx#:[id number] Oral 1220 / 1220 720 / 720 Output: Urine 1400 / 1400 Other: # Voids 4 Date of Last Bowel Movement 01/01/18 # Bowel Movements 0 <VeyCristina - 01/04/18 14:28> Vital Signs 01/03/18 09:28 01/03/18 10:17 01/03/18 10:26 Temperature Pulse Rate Respiratory Rate 18 18 Blood Pressure Pulse Oximetry 95 01/03/18 12:00 01/03/18 14:00 01/03/18 16:00 Temperature 98.2 F 98.1 F Pulse Rate 74 78 Respiratory Rate 16 18 18 Blood Pressure 119/57 L 111/53 L Pulse Oximetry 94 L 96 01/03/18 17:40 01/03/18 20:00 01/04/18 00:00 Temperature 97.8 F 99.8 F H Pulse Rate 77 82 Respiratory Rate 17 20 20 Blood Pressure 111/56 L 115/55 L Pulse Oximetry 96 96 01/04/18 04:00 01/04/18 08:30 Temperature 98.1 F Pulse Rate 80 Respiratory Rate 20 Blood Pressure 123/62 Pulse Oximetry 94 L 94 L Intake & Output 01/03/18 01/04/18 01/04/18 18:59 06:59 18:59 Intake Total 2470 / 2470 2720 / 2720 230 / 230 Output Total 1400 / 1400 Balance 2470 / 2470 1320 / 1320 230 / 230 Weight 94.7 kg Intake: IV 1250 / 1250 2000 / 2000 230 / 230 1/2 Normal Saline Inj 1,000 ML 1000 / 1000 1999 / 2000 230 / 230 @ 150 mls/hr IV.CONT .Q6H40M [facility] Rx#:[id number] Ofirmev Inj 1,000 mg In 100 ml 100 / 100 @ 400 mls/hr IV.SIG ONCE ONE Rx #:[id number] Levaquin 750 mg Premix Inj 150 150 / 150 ML @ 100 mls/hr IV.SIG Q24H [facility] Rx#:[id number] Oral 1220 / 1220 720 / 720 Output: Urine 1400 / 1400 Other: # Voids 4 Date of Last Bowel Movement 01/01/18 # Bowel Movements 0 <JarrodMl G - 01/04/18 09:16> Narrative: GENERAL: Obese -Spanish male laying in bed, frequently repositioning his body due to pain and being uncomfortable. SKIN: Warm and dry. No jaundice. HEAD: Atraumatic. Normocephalic. EYES: Pupils equal and round. + Scleral icterus. No injection or drainage. ENT: No nasal bleeding or discharge. Mucous membranes pink and moist. NECK: Trachea midline. No JVD. CARDIOVASCULAR: Regular rate and rhythm. 2/6 holosystolic murmur, unchanged RESPIRATORY: No accessory muscle use. Clear to auscultation. Breath sounds equal bilaterally. GASTROINTESTINAL: Abdomen soft, non-tender, nondistended. MUSCULOSKELETAL: Extremities without clubbing, cyanosis, or edema. + tenderness to palpation throughout his legs. No obvious deformities. 2x2cm cyst on right elbow. NEUROLOGICAL: Awake and alert. No obvious cranial nerve deficits. Motor grossly within normal limits. Normal speech. PSYCHIATRIC: Appropriate mood and affect; insight and judgment normal. <Ml Garay - 01/04/18 11:43> Assessment and Plan - Assessment (1) Acute chest syndrome due to sickle cell crisis Code(s): D57.01 - Hb-SS disease with acute chest syndrome Status: Acute (2) Bilateral pneumonia Code(s): J18.9 - Pneumonia, unspecified organism Status: Acute (3) Sickle cell pain crisis Code(s): D57.00 - Hb-SS disease with crisis, unspecified Status: Acute (4) Sickle cell anemia Code(s): D57.1 - Sickle-cell disease without crisis Status: Chronic (5) Hypertension Code(s): I10 - Essential (primary) hypertension Status: Chronic (6) Diabetes Code(s): E11.9 - Type 2 diabetes mellitus without complications Status: Chronic (7) History of parathyroid cancer Code(s): Z85.858 - Personal history of malignant neoplasm of other endocrine glands Status: Chronic (8) DVT prophylaxis Status: Chronic <Crisitna Richmond - 01/04/18 14:28> (1) Acute chest syndrome due to sickle cell crisis Code(s): D57.01 - Hb-SS disease with acute chest syndrome Status: Acute Plan: 62-year-old male with PMH of sickle cell presenting in sickle cell vaso- occlusive pain crisis. CXR on admission show reduced lung volumes with increased opacities throughout both lungs. Patient zones are relatively clear on exam, but did have to be placed on 2L NC on admission for short period of time due to a likely decrease in SPO2. Therefore, he meets the criteria for ACS. Labs on admission did show leukocytosis to 12.6. Hemoglobin is 10.5 with elevated reticulocyte count of 5.4. CRP at 1.00 and LDH at 570. Tbili is elevated at 6.8. Will begin empiric antibiotic therapy for CAP. Unable to do azithromycin for atypical coverage due to patient's allergy. -Levofloxacin 750 mg IV every 24 hours (01/02-) -1/2 NS at 150 mL/hour -Dilaudid 2 mg IV every 3 hours as needed -hydroxyurea 500 mg p.o. daily -Folic acid 1 mg p.o. daily -Recheck CBC, CMP, reticulocyte count, LDH daily -Consult patient's occasional caregiver, Dr. Rowell, for any further recommendations in his care -decrease in hemoglobin likely due to dilutional effect. No need for transfusion. (2) Bilateral pneumonia Code(s): J18.9 - Pneumonia, unspecified organism Status: Acute Plan: See above for plan (3) Sickle cell pain crisis Code(s): D57.00 - Hb-SS disease with crisis, unspecified Status: Acute Plan: See above for plan (4) Sickle cell anemia Code(s): D57.1 - Sickle-cell disease without crisis Status: Chronic Plan: Patient sees Dr. Rowell for Hematology. Has not had a vaso-occlusive pain crisis since May. -Condition is usually stable -See above for vaso-occlusive pain crisis plan (5) Hypertension Code(s): I10 - Essential (primary) hypertension Status: Chronic Plan: Patient unsure of his home dosages of medications, but BP has been stable since his admission. -Will add on as needed Vasotec (6) Diabetes Code(s): E11.9 - Type 2 diabetes mellitus without complications Status: Chronic Plan: Patient is on oral medications at home -NovoLog low-dose SSI -Hypoglycemia protocol -Bedside Accu-Cheks (7) History of parathyroid cancer Code(s): Z85.858 - Personal history of malignant neoplasm of other endocrine glands Status: Chronic Plan: Pt takes calcium supplements at home. -Oscal 500mg po BID (8) DVT prophylaxis Status: Chronic Plan: DVT Prophylaxis: Early ambulation. bilateral SCDs, Lovenox 40mg SQ qD <Ml Garay - 01/04/18 11:36> - Assessment and Plan Discussed Condition With: Dr. Richmond <Ml Garay - 01/04/18 11:43> Discharge Planning: pending clinical course <Ml Garay - 01/04/18 11:43> - Attending Attestation Patient seen and examined this afternoon, discussed with Dr Garay. I agree with assessment and management as documented and discussed with me. Pt reports he is more comfortable than yesterday. He denies SOB, cough. No BM since admission. Encouraged pt to use PRN medication for this. His is at the bedside; all questions answered to the best of my abilities. <Cristina Richmond - 01/04/18 14:28> <Ml Garay G - Last Filed: 01/04/18 11:36> (2) Bilateral pneumonia Qualifiers: Pneumonia type: due to unspecified organism Lung location: unspecified part of lung Qualified Code(s): J18.9 - Pneumonia, unspecified organism (4) Sickle cell anemia Qualifiers: Sickle-cell associated disorders: with acute chest syndrome Qualified Code(s) : D57.01 - Hb-SS disease with acute chest syndrome (5) Hypertension Qualifiers: Hypertension type: essential hypertension Qualified Code(s): I10 - Essential (primary) hypertension (6) Diabetes Qualifiers: Diabetes mellitus type: type 2 Diabetes mellitus senior living insulin use: without senior living use Diabetes mellitus complication status: without complication Qualified Code(s): E11.9 - Type 2 diabetes mellitus without complications <Cristina Richmond - Last Filed: 01/04/18 14:28> (2) Bilateral pneumonia Qualifiers: Pneumonia type: due to unspecified organism Lung location: unspecified part of lung Qualified Code(s): J18.9 - Pneumonia, unspecified organism (4) Sickle cell anemia Qualifiers: Sickle-cell associated disorders: with acute chest syndrome Qualified Code(s) : D57.01 - Hb-SS disease with acute chest syndrome (5) Hypertension Qualifiers: Hypertension type: essential hypertension Qualified Code(s): I10 - Essential (primary) hypertension (6) Diabetes Qualifiers: Diabetes mellitus type: type 2 Diabetes mellitus intermediate accountant insulin use: without intermediate accountant use Diabetes mellitus complication status: without complication Qualified Code(s): E11.9 - Type 2 diabetes mellitus without complications <JarrodMl Jesus - Last Filed: 01/04/18 11:36> (2) Bilateral pneumonia Qualifiers: Pneumonia type: due to unspecified organism Lung location: unspecified part of lung Qualified Code(s): J18.9 - Pneumonia, unspecified organism (4) Sickle cell anemia Qualifiers: Sickle-cell associated disorders: with acute chest syndrome Qualified Code(s) : D57.01 - Hb-SS disease with acute chest syndrome (5) Hypertension Qualifiers: Hypertension type: essential hypertension Qualified Code(s): I10 - Essential (primary) hypertension (6) Diabetes Qualifiers: Diabetes mellitus type: type 2 Diabetes mellitus senior living insulin use: without intermediate accountant use Diabetes mellitus complication status: without complication Qualified Code(s): E11.9 - Type 2 diabetes mellitus without complications <Cristina Richmond - Last Filed: 01/04/18 14:28> (2) Bilateral pneumonia Qualifiers: Pneumonia type: due to unspecified organism Lung location: unspecified part of lung Qualified Code(s): J18.9 - Pneumonia, unspecified organism (4) Sickle cell anemia Qualifiers: Sickle-cell associated disorders: with acute chest syndrome Qualified Code(s) : D57.01 - Hb-SS disease with acute chest syndrome (5) Hypertension Qualifiers: Hypertension type: essential hypertension Qualified Code(s): I10 - Essential (primary) hypertension (6) Diabetes Qualifiers: Diabetes mellitus type: type 2 Diabetes mellitus intermediate accountant insulin use: without senior living use Diabetes mellitus complication status: without complication Qualified Code(s): E11.9 - Type 2 diabetes mellitus without complications
[2018-01-04 10:16] LABS: Lymphocytes 26 % (9-44); Monocytes 22 % (0-8); Tallied Nucleated RBC 2 (0-0)
[2018-01-04 10:18] LABS: Howell-Jolly Bodies Present; Platelet Estimate Normal (Normal); Platelet Morphology Normal (Normal); Polychromasia 2.3 % (0.0-1.9); Sickle Cells 1+; Target Cells 1+
[2018-01-05] MEDS: HYDROmorphone PF Inj 2 MG/ML Vial IV.PUSH PRN ×6 (00:31→21:11)
[2018-01-05] MEDS: Sodium Chloride 0.45 % Inj 1,000 ML IV.CONT SCH ×3 (02:55→18:00)
[2018-01-05 05:18] LABS: Hematocrit 28.5 % (39.0-51.0); Hemoglobin 9.8 gm/dL (13.0-17.0); Mean Corpuscular HGB Conc 34.5 % (32.0-36.0); Mean Corpuscular Hemoglobin 30.1 pg (27.0-34.0); Mean Corpuscular Volume 87.2 fL (80.0-100.0); Mean Platelet Volume 8.6 fL (7.0-11.0); Platelet Count 175 th/mm3 (150-450); Red Blood Count 3.26 mil/mm3 (4.50-5.90); Red Cell Distribution Width 18.9 % (11.6-17.2); Reticulocyte Percent 5.8 % (0.4-3.0); White Blood Count 14.3 th/mm3 (4.0-11.0)
[2018-01-05 05:26] LABS: Alanine Aminotransferase 19 U/L (12-78); Albumin 3.6 g/dL (3.4-5.0); Anion Gap 8 meq/L (5-15); Aspartate Aminotransferase 44 U/L (15-37); Blood Urea Nitrogen 11 mg/dL (7-18); Calcium 8.9 mg/dL (8.5-10.1); Carbon Dioxide 26.4 meq/L (21.0-32.0); Chloride 103 meq/L (98-107); Glomerular Filtration Rate Greater Than 89 mL/min (>89); Glucose,Random 100 mg/dL (74-106); Lactate Dehydrogenase 524 U/L (87-241); Sodium 137 meq/L (136-145)
[2018-01-05 05:27] LABS: Alkaline Phosphatase 75 U/L (45-117)
[2018-01-05] MEDS: Insulin NovoLOG Aspart Correctional Sugar Inj SQ SCH ×4 (08:20→21:42)
[2018-01-05] MEDS: Enoxaparin Inj 40 MG/0.4 ML Syringe SQ SCH (09:14)
[2018-01-05] MEDS: Senna/Docusate Sodium 8.6/50 MG Tablet PO SCH ×2 (09:15→21:11)
[2018-01-05] MEDS: Calcium Carbonate 500 MG Tablet PO SCH ×2 (09:15→21:10)
[2018-01-05] MEDS: Hydroxyurea 500 MG Capsule PO SCH (09:15)
[2018-01-05] MEDS: Folic Acid 1 MG Tablet PO SCH (09:15)
--- NOTE | 2018-01-05 09:20 | P.PNFP ---
Subjective Interval history: Patient seen and examined bedside today. Patient continues to have 8 out of 10 pain, worst in his back and hip and knee joint areas. The pain is relieved by medication administration. His pain is well controlled on current medications. He is willing to slightly decrease the pain medications in anticipation of soon discharge. He denies any chest pain/shortness of breath/dizziness. Eating and drinking without difficulty. He has not had a bowel movement in 4 days but does not want to try any more stool softeners because he is concerned he will not make it to the bathroom on time. <Verito Knox - 01/05/18 09:20> Results - Labs Result diagrams: 01/06/18 05:34 01/06/18 05:34 <Cristina Richmond - 01/06/18 12:01> Abnormal lab results 01/05/18 01/06/18 01/06/18 Range/Units 21:16 05:34 05:34 WBC 14.5 H (4.0-11.0) th/mm3 RBC 3.11 L (4.50-5.90) mil/mm3 Hgb 9.3 L (13.0-17.0) gm/dL Hct 27.6 L (39.0-51.0) % RDW 19.3 H (11.6-17.2) % [place] % (Auto) 18.9 H (0.0-8.0) % Neut # (Auto) 8.3 H (1.8-7.7) th/mm3 [place] # (Auto) 2.7 H (0.0-0.9) th/mm3 Sickle Cells 1+ H (None) Target Cells 1+ H (None) [place] Bodies Present H (None) Retic Count 6.0 H (0.4-3.0) % Absolute Retic 185.9 H (20.0-150.0) mil/L POC Glucose 132 H (68-110) mg/dl Calcium 8.1 L D (8.5-10.1) mg/dL Total Bilirubin 6.9 H (0.2-1.0) mg/dL Lactate Dehydrogenase 498 H (87-241) U/L C-Reactive Protein 14.10 H (0.00-0.30) mg/dL Albumin 3.2 L (3.4-5.0) g/dL 01/06/18 01/06/18 Range/Units 07:47 11:37 WBC (4.0-11.0) th/mm3 RBC (4.50-5.90) mil/mm3 Hgb (13.0-17.0) gm/dL Hct (39.0-51.0) % RDW (11.6-17.2) % [place] % (Auto) (0.0-8.0) % Neut # (Auto) (1.8-7.7) th/mm3 [place] # (Auto) (0.0-0.9) th/mm3 Sickle Cells (None) Target Cells (None) [place] Bodies (None) Retic Count (0.4-3.0) % Absolute Retic (20.0-150.0) mil/L POC Glucose 117 H 120 H (68-110) mg/dl Calcium (8.5-10.1) mg/dL Total Bilirubin (0.2-1.0) mg/dL Lactate Dehydrogenase (87-241) U/L C-Reactive Protein (0.00-0.30) mg/dL Albumin (3.4-5.0) g/dL Short CBC 01/06/18 Range/Units 05:34 WBC 14.5 H (4.0-11.0) th/mm3 Hgb 9.3 L (13.0-17.0) gm/dL Hct 27.6 L (39.0-51.0) % Plt Count 178 (150-450) th/mm3 BMP 01/06/18 05:34 Sodium 140 Potassium 4.0 Chloride 105 Carbon Dioxide 26.8 BUN 11 Creatinine 0.93 Calcium 8.1 L D Liver Function 01/06/18 Range/Units 05:34 Total Bilirubin 6.9 H (0.2-1.0) mg/dL AST 36 (15-37) U/L ALT 18 (12-78) U/L Alkaline Phosphatase 65 (45-117) U/L Albumin 3.2 L (3.4-5.0) g/dL <Cristina Richmond - 01/06/18 12:01> Abnormal lab results 01/04/18 01/04/18 01/04/18 Range/Units 03:57 12:31 19:56 WBC (4.0-11.0) th/mm3 RBC (4.50-5.90) mil/mm3 Hgb (13.0-17.0) gm/dL Hct (39.0-51.0) % RDW (11.6-17.2) % Monocytes % (Manual) 22 H (0-8) % Nucleated RBCs/100 WBC 2 H (0-0) /100 WBC Polychromasia 2.3 H (0.0-1.9) % Basophilic Stippling Faint H (None) Sickle Cells 1+ H (None) Target Cells 1+ H (None) [place] Bodies Present H (None) Retic Count (0.4-3.0) % Absolute Retic (20.0-150.0) mil/L POC Glucose 119 H 138 H (68-110) mg/dl Total Bilirubin (0.2-1.0) mg/dL AST (15-37) U/L Lactate Dehydrogenase (87-241) U/L 01/05/18 01/05/18 Range/Units 04:33 04:33 WBC 14.3 H (4.0-11.0) th/mm3 RBC 3.26 L (4.50-5.90) mil/mm3 Hgb 9.8 L (13.0-17.0) gm/dL Hct 28.5 L (39.0-51.0) % RDW 18.9 H (11.6-17.2) % Monocytes % (Manual) (0-8) % Nucleated RBCs/100 WBC (0-0) /100 WBC Polychromasia (0.0-1.9) % Basophilic Stippling (None) Sickle Cells (None) Target Cells (None) [place] Bodies (None) Retic Count 5.8 H (0.4-3.0) % Absolute Retic 189.3 H (20.0-150.0) mil/L POC Glucose (68-110) mg/dl Total Bilirubin 7.2 H (0.2-1.0) mg/dL AST 44 H (15-37) U/L Lactate Dehydrogenase 524 H (87-241) U/L Short CBC 01/05/18 Range/Units 04:33 WBC 14.3 H (4.0-11.0) th/mm3 Hgb 9.8 L (13.0-17.0) gm/dL Hct 28.5 L (39.0-51.0) % Plt Count 175 (150-450) th/mm3 BMP 01/05/18 04:33 Sodium 137 Potassium 4.0 Chloride 103 Carbon Dioxide 26.4 BUN 11 Creatinine 0.93 Calcium 8.9 Liver Function 01/05/18 Range/Units 04:33 Total Bilirubin 7.2 H (0.2-1.0) mg/dL AST 44 H (15-37) U/L ALT 19 (12-78) U/L Alkaline Phosphatase 75 (45-117) U/L Albumin 3.6 (3.4-5.0) g/dL <Verito Knox - 01/05/18 09:20> Physical Exam Vital signs: Vital Signs 01/05/18 16:00 01/05/18 20:00 01/06/18 00:00 Temperature 99.3 F 99.4 F 101.6 F H Pulse Rate 91 H 84 85 Respiratory Rate 18 16 16 Blood Pressure 114/58 L 99/56 L 123/56 L Pulse Oximetry 95 97 93 L 01/06/18 04:00 01/06/18 08:00 01/06/18 11:43 Temperature 99.8 F H 98.5 F Pulse Rate 87 76 Respiratory Rate 16 18 Blood Pressure 107/57 L 107/64 Pulse Oximetry 96 94 L 96 Intake & Output 01/05/18 01/06/18 01/06/18 18:59 06:59 18:59 Intake Total 1750 / 1750 2560 / 2560 1000 / 1000 Output Total 900 / 900 1200 / 1200 Balance 1750 / 1750 1660 / 1660 -200 / -200 Intake: IV 1150 / 1150 2000 / 2000 1000 / 1000 1/2 Normal Saline Inj 1,000 ML 1000 / 1000 2000 / 2000 1000 / 1000 @ 175 mls/hr IV.CONT .Q5H43M [facility] Rx#:[id number] Levaquin 750 mg Premix Inj 150 150 / 150 ML @ 100 mls/hr IV.SIG Q24H [facility] Rx#:[id number] Oral 600 / 600 560 / 560 Output: Urine 900 / 900 1200 / 1200 Other: # Voids 4 <Cristina Richmond - 01/06/18 12:01> Vital Signs 01/04/18 12:00 09/02/18 16:00 01/04/18 20:00 Temperature 97.8 F 98.6 F 99.7 F H Pulse Rate 80 80 96 H Respiratory Rate 14 16 16 Blood Pressure 106/57 L 122/66 117/57 L Pulse Oximetry 95 93 L 92 L 01/05/18 00:00 01/05/18 04:00 01/05/18 08:00 Temperature 99.5 F 98.5 F 98.6 F Pulse Rate 85 110 H 86 Respiratory Rate 20 16 18 Blood Pressure 109/65 142/70 H 112/58 L Pulse Oximetry 95 94 L 92 L Intake & Output 01/04/18 01/05/18 01/05/18 18:59 06:59 18:59 Intake Total 2610 / 2610 3310 / 3310 Output Total 300 / 300 Balance 2610 / 2610 3010 / 3010 Intake: IV 1230 / 1230 2110 / 2110 1/2 Normal Saline Inj 1,000 ML 1230 / 1230 1960 / 1960 @ 150 mls/hr IV.CONT .Q6H40M [facility] Rx#:[id number] Levaquin 750 mg Premix Inj 150 0 / 0 150 / 150 ML @ 100 mls/hr IV.SIG Q24H [facility] Rx#:[id number] Oral 1200 / 1200 Other 1380 / 1380 Output: Urine 300 / 300 Other: Other Intake Source Saline Solution Date of Last Bowel Movement 01/01/18 <Verito Knox 01/05/18 09:20> - Constitutional no acute distress [facility] - Routine Respiratory Exam Present: CTA bilaterally. Absent: decreased breath sounds, wheezes, crackles [facility] 09[facility]20> - Routine Cardiovascular Exam Present: murmur (3 out of 6 systolic murmur) <Verito Knox 01/05/18 09:20 > - Routine Abdominal Exam Present: soft, normoactive bowel sounds. Absent: tenderness [facility]> - Routine Extremities Exam Present: normal capillary refill, calf tenderness (Tenderness of the knees, shins, calves equally. 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 CXR on admission show reduced lung volumes with increased opacities throughout both lungs. Patient zones are relatively clear on exam, but did have to be placed on 2L NC on admission for short period of time due to a likely decrease in SPO2. Therefore, he meets the criteria for ACS. Labs on admission did show leukocytosis to 12.6. Hemoglobin is 10.5 with elevated reticulocyte count of 5.4. CRP at 1.00 and LDH at 570. Tbili is elevated at 6.8. Will begin empiric antibiotic therapy for CAP. Unable to do azithromycin for atypical coverage due to patient's allergy. -Levofloxacin 750 mg IV every 24 hours (01/02-),plan for complete 5-7 day course -1/2 NS at 150 mL/hour -Dilaudid 3 mg IV every 3 hours PRN--> decreased to Dilaudid 2 mg IV every 3 hours PRN, patient encouraged to take sparingly -[place] 10 every 6 hours scheduled --> decrease to [place] 10 every 8 hours scheduled -hydroxyurea 500 mg p.o. daily -Folic acid 1 mg p.o. daily -Recheck CBC, CMP, reticulocyte count, LDH daily: Labs stable -Consult patient's sales representative facility services, Dr. Rowell, for any further recommendations in his care -decrease in hemoglobin likely due to dilutional effect. No need for transfusion. Continue IV fluids. Continue folic acid and Hydrea. Chest x-ray 01/02: Reduced lung volumes with increased opacities throughout lungs , stable enlargement of cardiac silhouette (2) Bilateral pneumonia Code(s): J18.9 - Pneumonia, unspecified organism Status: Acute Plan: See above for plan f/u repeat CXR to eval for resolution vs worsening - Will increase IVF if CXR is stable (3) Sickle cell pain crisis Code(s): D57.00 - Hb-SS disease with crisis, unspecified Status: Acute Plan: See above for plan (4) Sickle cell anemia Code(s): D57.1 - Sickle-cell disease without crisis Status: Chronic Plan: Patient sees Dr. Rowell for Hematology. Has not had a vaso-occlusive pain crisis since May. -Condition is usually stable -See above for vaso-occlusive pain crisis plan (5) Hypertension Code(s): I10 - Essential (primary) hypertension Status: Chronic Plan: Patient unsure of his home dosages of medications, but BP has been stable since his admission. -Will add on as needed Vasotec (6) Diabetes Code(s): E11.9 - Type 2 diabetes mellitus without complications Status: Chronic Plan: Patient is on oral medications at home -NovoLog low-dose SSI -Hypoglycemia protocol -Bedside Accu-Cheks (7) History of parathyroid cancer Code(s): Z85.858 - Personal history of malignant neoplasm of other endocrine glands Status: Chronic Plan: Pt takes calcium supplements at home. -Oscal 500mg po BID (8) DVT prophylaxis Status: Chronic Plan: DVT Prophylaxis: Early ambulation. bilateral SCDs, Lovenox 40mg SQ qD <Verito Knox - 01/05/18 09:55> (1) Fever Code(s): R50.9 - Fever, unspecified Status: Acute (2) Acute chest syndrome due to sickle cell crisis Code(s): D57.01 - Hb-SS disease with acute chest syndrome Status: Acute (3) Bilateral pneumonia Code(s): J18.9 - Pneumonia, unspecified organism Status: Acute (4) Sickle cell pain crisis Code(s): D57.00 - Hb-SS disease with crisis, unspecified Status: Acute (5) Sickle cell anemia Code(s): D57.1 - Sickle-cell disease without crisis Status: Chronic (6) Hypertension Code(s): I10 - Essential (primary) hypertension Status: Chronic (7) Diabetes Code(s): E11.9 - Type 2 diabetes mellitus without complications Status: Chronic (8) History of parathyroid cancer Code(s): Z85.858 - Personal history of malignant neoplasm of other endocrine glands Status: Chronic (9) DVT prophylaxis Status: Chronic <Cristina Richmond - 01/06/18 12:01> - Assessment and Plan Discharge Planning: anticipate d/c with adequate pain management and heme/onc clearance, likely in the next 1-2 days <Verito Knox - 01/05/18 09:55> - Attending Attestation Patient seen and examined, discussed with resident team in the morning of documentation. I agree with assessment and management as documented and discussed with me. Pt reports pain is a little improved from admission. Still no BM. Continue current regiment. Increase IV fluid, if repeat CXR reassuring. <Cristina Richmond - 01/06/18 12:01> <Verito Knox - Last Filed: 01/05/18 09:55> (2) Bilateral pneumonia Qualifiers: Pneumonia type: due to unspecified organism Lung location: unspecified part of lung Qualified Code(s): J18.9 - Pneumonia, unspecified organism (4) Sickle cell anemia Qualifiers: Sickle-cell associated disorders: with acute chest syndrome Qualified Code(s) : D57.01 - Hb-SS disease with acute chest syndrome (5) Hypertension Qualifiers: Hypertension type: essential hypertension Qualified Code(s): I10 - Essential (primary) hypertension (6) Diabetes Qualifiers: Diabetes mellitus type: type 2 Diabetes mellitus intermediate project manager insulin use: without jail use Diabetes mellitus complication status: without complication Qualified Code(s): E11.9 - Type 2 diabetes mellitus without complications <Cristina Richmond - Last Filed: 01/06/18 12:01> (3) Bilateral pneumonia Qualifiers: Pneumonia type: due to unspecified organism Lung location: unspecified part of lung Qualified Code(s): J18.9 - Pneumonia, unspecified organism (5) Sickle cell anemia Qualifiers: Sickle-cell associated disorders: with acute chest syndrome Qualified Code(s) : D57.01 - Hb-SS disease with acute chest syndrome (6) Hypertension Qualifiers: Hypertension type: essential hypertension Qualified Code(s): I10 - Essential (primary) hypertension (7) Diabetes Qualifiers: Diabetes mellitus type: type 2 Diabetes mellitus jail insulin use: without intermediate project manager use Diabetes mellitus complication status: without complication Qualified Code(s): E11.9 - Type 2 diabetes mellitus without complications <Verito Knox - Last Filed: 01/05/18 09:55> (2) Bilateral pneumonia Qualifiers: Pneumonia type: due to unspecified organism Lung location: unspecified part of lung Qualified Code(s): J18.9 - Pneumonia, unspecified organism (4) Sickle cell anemia Qualifiers: Sickle-cell associated disorders: with acute chest syndrome Qualified Code(s) : D57.01 - Hb-SS disease with acute chest syndrome (5) Hypertension Qualifiers: Hypertension type: essential hypertension Qualified Code(s): I10 - Essential (primary) hypertension (6) Diabetes Qualifiers: Diabetes mellitus type: type 2 Diabetes mellitus intermediate project manager insulin use: without intermediate project manager use Diabetes mellitus complication status: without complication Qualified Code(s): E11.9 - Type 2 diabetes mellitus without complications <Cristina Richmond - Last Filed: 01/06/18 12:01> (3) Bilateral pneumonia Qualifiers: Pneumonia type: due to unspecified organism Lung location: unspecified part of lung Qualified Code(s): J18.9 - Pneumonia, unspecified organism (5) Sickle cell anemia Qualifiers: Sickle-cell associated disorders: with acute chest syndrome Qualified Code(s) : D57.01 - Hb-SS disease with acute chest syndrome (6) Hypertension Qualifiers: Hypertension type: essential hypertension Qualified Code(s): I10 - Essential (primary) hypertension (7) Diabetes Qualifiers: Diabetes mellitus type: type 2 Diabetes mellitus intermediate project manager insulin use: without jail use Diabetes mellitus complication status: without complication Qualified Code(s): E11.9 - Type 2 diabetes mellitus without complications
--- NOTE | 2018-01-05 10:20 | XR ---
EXAM DATE: 01/05/2018 10:11 AM EDT AGE/SEX: 62 years / Male INDICATIONS: . Cough and congestion. CLINICAL DATA: This is the patient's initial encounter. Patient reports that signs and symptoms have been present for 1 day and indicates a pain score of 0/10. MEDICAL/SURGICAL HISTORY: . Hypertension. Diabetes mellitus type II. Sickle Cell disease. GERD None. COMPARISON: [facility] – [place] CHEST 2V PA&LAT, 01/02/2018. . FINDINGS: AP and lateral views of the chest demonstrate the lungs to be symmetrically aerated without evidence of mass, infiltrate or effusion. The cardiomediastinal contours are unremarkable. Osseous structure s are intact. CONCLUSION: Negative examination. Electronically signed by: Fred Kumar MD 01/05/2018 10:19 AM EDT
--- NOTE | 2018-01-05 11:14 | P.PNONC ---
Subjective Interval history: Afebrile Patient sitting up in bed texting on his phone Reports he is feeling somewhat better but is not quite yet ready to go home Noted his IV Dilaudid has recently been decreased by primary team Objective Vital Signs/Intake & Output: Vital Signs 01/04/18 12:00 01/04/18 16:00 01/04/18 20:00 Temperature 97.8 F 98.6 F 99.7 F H Pulse Rate 80 80 96 H Respiratory Rate 14 16 16 Blood Pressure 106/57 L 122/66 117/57 L Pulse Oximetry 95 93 L 92 L 01/05/18 00:00 01/05/18 04:00 01/05/18 08:00 Temperature 99.5 F 98.5 F 98.6 F Pulse Rate 85 110 H 86 Respiratory Rate 20 16 18 Blood Pressure 109/65 142/70 H 112/58 L Pulse Oximetry 95 94 L 92 L Intake & Output 01/04/18 01/05/18 01/05/18 18:59 06:59 18:59 Intake Total 2610 / 2610 3310 / 3310 Output Total 300 / 300 Balance 2610 / 2610 3010 / 3010 Intake: IV 1230 / 1230 2110 / 2110 1/2 Normal Saline Inj 1,000 ML 1230 / 1230 1960 / 1960 @ 150 mls/hr IV.CONT .Q6H40M [facility] Rx#:[id number] Levaquin 750 mg Premix Inj 150 0 / 0 150 / 150 ML @ 100 mls/hr IV.SIG Q24H [facility] Rx#:[id number] Oral 1200 / 1200 Other 1380 / 1380 Output: Urine 300 / 300 Other: Other Intake Source Saline Solution Date of Last Bowel Movement 01/01/18 Result Diagrams: 01/05/18 04:33 01/05/18 04:33 Laboratory Results: Laboratory Results - last 24 hr 01/04/18 01/04/18 01/04/18 12:31 17:14 19:56 WBC RBC Hgb Hct MCV MCH MCHC RDW Plt Count MPV Retic Count Absolute Retic Sodium Potassium Chloride Carbon Dioxide Anion Gap BUN Creatinine Estimated GFR POC Glucose 119 H 98 138 H Random Glucose Calcium Total Bilirubin AST ALT Alkaline Phosphatase Lactate Dehydrogenase Total Protein Albumin 01/05/18 01/05/18 01/05/18 04:33 04:33 08:19 WBC 14.3 H RBC 3.26 L Hgb 9.8 L Hct 28.5 L MCV 87.2 MCH 30.1 MCHC 34.5 RDW 18.9 H Plt Count 175 MPV 8.6 Retic Count 5.8 H Absolute Retic 189.3 H Sodium 137 Potassium 4.0 Chloride 103 Carbon Dioxide 26.4 Anion Gap 8 BUN 11 Creatinine 0.93 Estimated GFR Greater than 89 POC Glucose 98 Random Glucose 100 Calcium 8.9 Total Bilirubin 7.2 H AST 44 H ALT 19 Alkaline Phosphatase 75 Lactate Dehydrogenase 524 H Total Protein 7.0 Albumin 3.6 Imaging Studies: Impressions Chest X-Ray 01/05/18 00:00 CONCLUSION: Negative examination. Medications: Active Medications Generic Name Dose Route Start Last Admin Trade Name Freq PRN Reason Stop Dose Admin Hydrocodone Bitart/Acetaminophen 1 tab 01/05/18 10:00 01/05/18 10:34 [place] 10/325 PO Not Given Q8H [facility] Enoxaparin Sodium 40 mg 01/02/18 17:30 01/05/18 09:14 Lovenox Inj SQ 40 mg DAILY MICHAEL Administration Folic Acid 1 mg 01/02/18 09:30 01/05/18 09:15 Folic Acid PO 1 mg DAILY MICHAEL Administration Hydroxyurea 500 mg 01/02/18 09:30 01/05/18 09:15 Hydrea PO 500 mg DAILY MICHAEL Administration Levofloxacin/Dextrose 150 mls @ 100 mls/hr 01/02/18 11:30 01/04/18 20:14 Levaquin 750 Mg Premix Inj IV.SIG Infused Q24H [facility] Infusion Sodium Chloride 1,000 mls @ 150 mls/hr 01/02/18 14:30 01/05/18 06:26 1/2 Normal Saline Inj IV.CONT Infused .Q6H40M [facility] Infusion Insulin Aspart 0 unit 01/02/18 12:00 01/05/18 08:20 Novolog Insulin Correctional Sugar Inj SQ Not Given ACHS [facility] Protocol Multivitamins 1 tab 01/02/18 09:30 01/05/18 09:15 Theragran PO 1 tab DAILY MICHAEL Administration Pantoprazole Sodium 40 mg 01/04/18 10:15 01/05/18 09:15 Protonix PO 40 mg DAILY MIHCAEL Administration Senna/Docusate Sodium 1 tab 01/02/18 21:00 01/05/18 09:15 Ami-Colace PO 1 tab BID MICHAEL Administration Sodium Chloride 2 ml 01/02/18 09:19 01/04/18 16:27 Ns Flush IV.FLUSH 2 ml PRN PRN Administration FLUSH AFTER USING IV ACCESS Sodium Chloride 2 ml 01/02/18 21:00 01/05/18 10:31 Ns Flush IV.FLUSH Not Given BID [facility] Vitamin D 3,000 unit 01/04/18 10:15 01/05/18 09:14 Vitamin D3 PO 3,000 unit DAILY MICHAEL Administration Objective Remarks: GENERAL: Older male resting in bed in no obvious distress SKIN: Warm and dry. HEAD: Normocephalic. EYES: No scleral icterus. No injection or drainage. NECK: Supple, trachea midline. No JVD or lymphadenopathy. CARDIOVASCULAR: Regular rate and rhythm without murmurs. RESPIRATORY: Clear anteriorly. Breathing unlabored at rest. GASTROINTESTINAL: Abdomen protuberant but soft. Nontender. EXTREMITIES: No cyanosis, or edema. MUSCULOSKELETAL: Adequate muscle tone. NEUROLOGICAL: No obvious focal deficit. Awake, alert, and oriented x3. 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 On outpatient basis he is maintained on Hydrea, folic acid and Lortab for the sickle cell disease. He has infrequent crises due to elevated hemoglobin F. 1. Continue IV fluids. Agree with decreasing IV Dilaudid in anticipation of possible discharge this week. 2. Noted chest x-ray today shows improvement. Patient remains on Levaquin. 3. Monitor CBC.
[2018-01-06] MEDS: HYDROmorphone PF Inj 2 MG/ML Vial IV.PUSH PRN ×3 (00:26→09:16)
[2018-01-06] MEDS: Sodium Chloride 0.45 % Inj 1,000 ML IV.CONT SCH ×5 (00:31→21:49)
[2018-01-06 07:17] LABS: Baso # (Auto) 0.1 th/mm3 (0.0-0.2); Baso % (Auto) 0.5 % (0.0-2.0); Eos # (Auto) 0.1 th/mm3 (0.0-0.4); Eos % (Auto) 0.9 % (0.0-4.0); Hematocrit 27.6 % (39.0-51.0); Hemoglobin 9.3 gm/dL (13.0-17.0); Lymph # (Auto) 3.3 th/mm3 (1.0-4.8); Lymph % (Auto) 22.8 % (9.0-44.0); Mean Corpuscular HGB Conc 33.8 % (32.0-36.0); Mean Corpuscular Volume 88.9 fL (80.0-100.0); Mean Platelet Volume 8.6 fL (7.0-11.0); Mono # (Auto) 2.7 th/mm3 (0.0-0.9); Mono % (Auto) 18.9 % (0.0-8.0); Neut # (Auto) 8.3 th/mm3 (1.8-7.7); Neut % (Auto) 56.9 % (16.0-70.0); Platelet Count 178 th/mm3 (150-450); Red Blood Count 3.11 mil/mm3 (4.50-5.90); Red Cell Distribution Width 19.3 % (11.6-17.2); White Blood Count 14.5 th/mm3 (4.0-11.0)
[2018-01-06 07:43] LABS: Alanine Aminotransferase 18 U/L (12-78); Albumin 3.2 g/dL (3.4-5.0); Alkaline Phosphatase 65 U/L (45-117); Anion Gap 8 meq/L (5-15); Aspartate Aminotransferase 36 U/L (15-37); Blood Urea Nitrogen 11 mg/dL (7-18); Calcium 8.1 mg/dL (8.5-10.1); Carbon Dioxide 26.8 meq/L (21.0-32.0); Chloride 105 meq/L (98-107); Glomerular Filtration Rate Greater Than 89 mL/min (>89); Glucose,Random 95 mg/dL (74-106); Lactate Dehydrogenase 498 U/L (87-241); Sodium 140 meq/L (136-145); Total Protein 6.9 g/dL (6.4-8.2)
[2018-01-06 08:14] LABS: Howell-Jolly Bodies Present; Platelet Estimate Normal (Normal); Sickle Cells 1+; Target Cells 1+
[2018-01-06 08:15] LABS: Platelet Morphology Normal (Normal)
[2018-01-06] MEDS: Enoxaparin Inj 40 MG/0.4 ML Syringe SQ SCH (09:15)
[2018-01-06] MEDS: Hydroxyurea 500 MG Capsule PO SCH (09:15)
[2018-01-06] MEDS: Calcium Carbonate 500 MG Tablet PO SCH ×2 (09:16→21:50)
[2018-01-06] MEDS: Senna/Docusate Sodium 8.6/50 MG Tablet PO SCH ×2 (09:16→21:50)
[2018-01-06] MEDS: Folic Acid 1 MG Tablet PO SCH (09:16)
[2018-01-06] MEDS: Insulin NovoLOG Aspart Correctional Sugar Inj SQ SCH ×4 (09:17→21:51)
[2018-01-06] MEDS ORDERED: Ketorolac 10 MG Tablet PO SCH (10:00)
--- NOTE | 2018-01-06 10:18 | P.PNFP ---
Subjective Interval history: Patient seen and examined bedside this morning. Patient continues to state that his pain is improving, despite weaning his pain medications. He is comfortable with leaving today if his Hemoccult doctor is okay with discharging him today and they have a good discharge plan. He did have a short period of night sweats overnight. No nausea or vomiting. No chest pain or shortness of breath. No dizziness. He currently is asymptomatic. <Verito Knox - 01/06/18 10:18> Results - Labs Result diagrams: 01/06/18 05:34 01/06/18 05:34 <Cristina Richmond - 01/06/18 13:02> Abnormal lab results 01/05/18 01/06/18 01/06/18 Range/Units 21:16 05:34 05:34 WBC 14.5 H (4.0-11.0) th/mm3 RBC 3.11 L (4.50-5.90) mil/mm3 Hgb 9.3 L (13.0-17.0) gm/dL Hct 27.6 L (39.0-51.0) % RDW 19.3 H (11.6-17.2) % [place] % (Auto) 18.9 H (0.0-8.0) % Neut # (Auto) 8.3 H (1.8-7.7) th/mm3 [place] # (Auto) 2.7 H (0.0-0.9) th/mm3 Sickle Cells 1+ H (None) Target Cells 1+ H (None) [place] Bodies Present H (None) Retic Count 6.0 H (0.4-3.0) % Absolute Retic 185.9 H (20.0-150.0) mil/L POC Glucose 132 H (68-110) mg/dl Calcium 8.1 L D (8.5-10.1) mg/dL Total Bilirubin 6.9 H (0.2-1.0) mg/dL Lactate Dehydrogenase 498 H (87-241) U/L C-Reactive Protein 14.10 H (0.00-0.30) mg/dL Albumin 3.2 L (3.4-5.0) g/dL 01/06/18 01/06/18 Range/Units 07:47 11:37 WBC (4.0-11.0) th/mm3 RBC (4.50-5.90) mil/mm3 Hgb (13.0-17.0) gm/dL Hct (39.0-51.0) % RDW (11.6-17.2) % [place] % (Auto) (0.0-8.0) % Neut # (Auto) (1.8-7.7) th/mm3 [place] # (Auto) (0.0-0.9) th/mm3 Sickle Cells (None) Target Cells (None) [place] Bodies (None) Retic Count (0.4-3.0) % Absolute Retic (20.0-150.0) mil/L POC Glucose 117 H 120 H (68-110) mg/dl Calcium (8.5-10.1) mg/dL Total Bilirubin (0.2-1.0) mg/dL Lactate Dehydrogenase (87-241) U/L C-Reactive Protein (0.00-0.30) mg/dL Albumin (3.4-5.0) g/dL Short CBC 01/06/18 Range/Units 05:34 WBC 14.5 H (4.0-11.0) th/mm3 Hgb 9.3 L (13.0-17.0) gm/dL Hct 27.6 L (39.0-51.0) % Plt Count 178 (150-450) th/mm3 BMP 01/06/18 05:34 Sodium 140 Potassium 4.0 Chloride 105 Carbon Dioxide 26.8 BUN 11 Creatinine 0.93 Calcium 8.1 L D Liver Function 01/06/18 Range/Units 05:34 Total Bilirubin 6.9 H (0.2-1.0) mg/dL AST 36 (15-37) U/L ALT 18 (12-78) U/L Alkaline Phosphatase 65 (45-117) U/L Albumin 3.2 L (3.4-5.0) g/dL <Cristina Richmond - 01/06/18 13:02> Abnormal lab results 01/05/18 01/05/18 01/06/18 Range/Units 11:39 21:16 05:34 WBC 14.5 H (4.0-11.0) th/mm3 RBC 3.11 L (4.50-5.90) mil/mm3 Hgb 9.3 L (13.0-17.0) gm/dL Hct 27.6 L (39.0-51.0) % RDW 19.3 H (11.6-17.2) % [place] % (Auto) 18.9 H (0.0-8.0) % Neut # (Auto) 8.3 H (1.8-7.7) th/mm3 [place] # (Auto) 2.7 H (0.0-0.9) th/mm3 Sickle Cells 1+ H (None) Target Cells 1+ H (None) [place] Bodies Present H (None) Retic Count 6.0 H (0.4-3.0) % Absolute Retic 185.9 H (20.0-150.0) mil/L POC Glucose 115 H 132 H (68-110) mg/dl Calcium (8.5-10.1) mg/dL Total Bilirubin (0.2-1.0) mg/dL Lactate Dehydrogenase (87-241) U/L C-Reactive Protein (0.00-0.30) mg/dL Albumin (3.4-5.0) g/dL 01/06/18 01/06/18 Range/Units 05:34 07:47 WBC (4.0-11.0) th/mm3 RBC (4.50-5.90) mil/mm3 Hgb (13.0-17.0) gm/dL Hct (39.0-51.0) % RDW (11.6-17.2) % [place] % (Auto) (0.0-8.0) % Neut # (Auto) (1.8-7.7) th/mm3 [place] # (Auto) (0.0-0.9) th/mm3 Sickle Cells (None) Target Cells (None) [place] Bodies (None) Retic Count (0.4-3.0) % Absolute Retic (20.0-150.0) mil/L POC Glucose 117 H (68-110) mg/dl Calcium 8.1 L D (8.5-10.1) mg/dL Total Bilirubin 6.9 H (0.2-1.0) mg/dL Lactate Dehydrogenase 498 H (87-241) U/L C-Reactive Protein 14.10 H (0.00-0.30) mg/dL Albumin 3.2 L (3.4-5.0) g/dL Short CBC 01/06/18 Range/Units 05:34 WBC 14.5 H (4.0-11.0) th/mm3 Hgb 9.3 L (13.0-17.0) gm/dL Hct 27.6 L (39.0-51.0) % Plt Count 178 (150-450) th/mm3 BMP 01/06/18 05:34 Sodium 140 Potassium 4.0 Chloride 105 Carbon Dioxide 26.8 BUN 11 Creatinine 0.93 Calcium 8.1 L D Liver Function 01/06/18 Range/Units 05:34 Total Bilirubin 6.9 H (0.2-1.0) mg/dL AST 36 (15-37) U/L ALT 18 (12-78) U/L Alkaline Phosphatase 65 (45-117) U/L Albumin 3.2 L (3.4-5.0) g/dL <Verito Knox - 01/06/18 10:18> - Imaging Impressions Chest X-Ray 01/05/18 00:00 CONCLUSION: Negative examination. <Verito Knox - 01/06/18 10:18> Physical Exam Vital signs: Vital Signs 01/05/18 16:00 01/05/18 20:00 01/06/18 00:00 Temperature 99.3 F 99.4 F 101.6 F H Pulse Rate 91 H 84 85 Respiratory Rate 18 16 16 Blood Pressure 114/58 L 99/56 L 123/56 L Pulse Oximetry 95 97 93 L 01/06/18 04:00 01/06/18 08:00 01/06/18 11:43 Temperature 99.8 F H 98.5 F Pulse Rate 87 76 Respiratory Rate 16 18 Blood Pressure 107/57 L 107/64 Pulse Oximetry 96 94 L 96 Intake & Output 01/05/18 01/06/18 01/06/18 18:59 06:59 18:59 Intake Total 1750 / 1750 2560 / 2560 1000 / 1000 Output Total 900 / 900 1200 / 1200 Balance 1750 / 1750 1660 / 1660 -200 / -200 Intake: IV 1150 / 1150 2000 / 2000 1000 / 1000 1/2 Normal Saline Inj 1,000 ML 1000 / 1000 2000 / 2000 1000 / 1000 @ 175 mls/hr IV.CONT .Q5H43M MICHAEL Rx#:[id number] Levaquin 750 mg Premix Inj 150 150 / 150 ML @ 100 mls/hr IV.SIG Q24H MICHAEL Rx#:[id number] Oral 600 / 600 560 / 560 Output: Urine 900 / 900 1200 / 1200 Other: # Voids 4 <Cristina Richmond - 01/06/18 13:02> Vital Signs 01/05/18 12:00 01/05/18 16:00 01/05/18 20:00 Temperature 99.0 F 99.3 F 99.4 F Pulse Rate 94 H 91 H 84 Respiratory Rate 18 18 16 Blood Pressure 122/70 114/58 L 99/56 L Pulse Oximetry 95 95 97 01/06/18 00:00 01/06/18 04:00 Temperature 101.6 F H 99.8 F H Pulse Rate 85 87 Respiratory Rate 16 16 Blood Pressure 123/56 L 107/57 L Pulse Oximetry 93 L 96 Intake & Output 01/05/18 01/06/18 01/06/18 18:59 06:59 18:59 Intake Total 1750 / 1750 2560 / 2560 Output Total 900 / 900 Balance 1750 / 1750 1660 / 1660 Intake: IV 1150 / 1150 2000 / 2000 1/2 Normal Saline Inj 1,000 ML 1000 / 1000 1999 / 2000 @ 175 mls/hr IV.CONT .Q5H43M MICHAEL Rx#:[id number] Levaquin 750 mg Premix Inj 150 150 / 150 ML @ 100 mls/hr IV.SIG Q24H MICHAEL Rx#:[id number] Oral 600 / 600 560 / 560 Output: Urine 900 / 900 Other: # Voids 4 <BeverlyelizabethVerito - 01/06/18 10:18> Narrative: GENERAL: Obese -Citizen Of [place] male laying in bed, frequently repositioning his body due to pain and being uncomfortable. SKIN: Warm and dry. No jaundice. HEAD: Atraumatic. Normocephalic. EYES: Pupils equal and round. No injection or drainage. ENT: No nasal bleeding or discharge. Mucous membranes pink and moist. NECK: Trachea midline. No JVD. CARDIOVASCULAR: Regular rate and rhythm. 3/6 holosystolic murmur, unchanged RESPIRATORY: No accessory muscle use. Clear to auscultation. Breath sounds equal bilaterally. GASTROINTESTINAL: Abdomen soft, non-tender, nondistended. Positive bowel sounds MUSCULOSKELETAL: Extremities without clubbing, cyanosis, or edema. No tenderness to palpation throughout his legs. No obvious deformities. NEUROLOGICAL: Awake and alert. No obvious cranial nerve deficits. Motor grossly within normal limits. Normal speech. PSYCHIATRIC: Appropriate mood and affect; insight and judgment normal. <Verito Knox - 01/06/18 10:18> Assessment and Plan - Assessment (1) Fever Code(s): R50.9 - Fever, unspecified Status: Acute (2) Acute chest syndrome due to sickle cell crisis Code(s): D57.01 - Hb-SS disease with acute chest syndrome Status: Acute (3) Bilateral pneumonia Code(s): J18.9 - Pneumonia, unspecified organism Status: Acute (4) Sickle cell pain crisis Code(s): D57.00 - Hb-SS disease with crisis, unspecified Status: Acute (5) Sickle cell anemia Code(s): D57.1 - Sickle-cell disease without crisis Status: Chronic (6) Hypertension Code(s): I10 - Essential (primary) hypertension Status: Chronic (7) Diabetes Code(s): E11.9 - Type 2 diabetes mellitus without complications Status: Chronic (8) History of parathyroid cancer Code(s): Z85.858 - Personal history of malignant neoplasm of other endocrine glands Status: Chronic (9) DVT prophylaxis Status: Chronic <Cristina Richmond - 01/06/18 13:02> (1) Fever Code(s): R50.9 - Fever, unspecified Status: Acute Plan: Temp of 101.6 at 00: 00 on 01/06, patient experienced night sweats Differential includes infection versus atelectasis versus DVT Afebrile this morning at 99.8, no calf tenderness, no shortness of breath, asymptomatic WBC 14.5, stable from 14.3 yesterday Follow-up blood cultures Follow-up repeat UA Chest x-ray 01/05: Negative. 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 CXR on admission show reduced lung volumes with increased opacities throughout both lungs. Patient did have to be placed on 2L NC on admission for short period of time due to a likely decrease in SPO2. Therefore, he meets the criteria for acute chest syndrome. Labs on admission did show leukocytosis to 12.6. Hemoglobin is 10.5 with elevated reticulocyte count of 5.4. CRP at 1.00 and LDH at 570. Tbili is elevated at 6.8. Empiric antibiotic therapy for CAP. Unable to do azithromycin for atypical coverage due to patient's allergy. -Levofloxacin 750 mg IV every 24 hours (01/02-),plan for complete 7 day course -1/2 NS at 175 mL/hour -Dilaudid 2 mg IV every 3 hours PRN--> decreased to Dilaudid 1 mg IV every 3 hours PRN, patient encouraged to take sparingly -Continue Walker 10 every 8 hours scheduled -hydroxyurea 500 mg p.o. daily -Folic acid 1 mg p.o. 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 Rowell, for any further recommendations in his care -decrease in hemoglobin likely due to dilutional effect. No need for transfusion. Continue IV fluids. Continue folic acid and Hydrea. Chest x-ray 01/02: Reduced lung volumes with increased opacities throughout lungs , stable enlargement of cardiac silhouette Chest x-ray 01/05: Negative. No opacities. (3) Bilateral pneumonia Code(s): J18.9 - Pneumonia, unspecified organism Status: Acute Plan: See above for plan Differential includes pneumonitis versus pneumonia/acute chest syndrome Opacities resolved Continue plan as above (4) Sickle cell pain crisis Code(s): D57.00 - Hb-SS disease with crisis, unspecified Status: Acute Plan: See above for plan (5) Sickle cell anemia Code(s): D57.1 - Sickle-cell disease without crisis Status: Chronic Plan: Patient sees Dr. Rowell for Hematology. Has not had a vaso-occlusive pain crisis since May. -Condition is usually stable -See above for vaso-occlusive pain crisis plan (6) Hypertension Code(s): I10 - Essential (primary) hypertension Status: Chronic Plan: Patient unsure of his home dosages of medications, but BP has been stable since his admission. -Will add on as needed Vasotec (7) Diabetes Code(s): E11.9 - Type 2 diabetes mellitus without complications Status: Chronic Plan: Patient is on oral medications at home -NovoLog low-dose SSI -Hypoglycemia protocol -Bedside Accu-Cheks (8) History of parathyroid cancer Code(s): Z85.858 - Personal history of malignant neoplasm of other endocrine glands Status: Chronic Plan: Pt takes calcium supplements at home. -Oscal 500mg po BID (9) DVT prophylaxis Status: Chronic Plan: DVT Prophylaxis: Early ambulation. bilateral SCDs, Lovenox 40mg SQ qD <Verito Knox - 01/06/18 10:04> - Assessment and Plan Discharge Planning: anticipate d/c with adequate pain management and heme/onc clearance, likely in the next 1-2 days <Verito Knox - 01/06/18 10:18> - Attending Attestation Patient seen and examined this morning, discussed with resident team. I agree with assessment and management as documented and discussed with me. Pt reports pain is improved. He did have fever overnight, but remains asymptomatic from this perspective. CXR done yesterday reassuring. Check blood cx, U/A. Continue levaquin. Anticipate discharge in 1-2 days. <Cristina Richmond - 01/06/18 13:02> <Verito Knox - Last Filed: 01/06/18 10:04> (3) Bilateral pneumonia Qualifiers: Pneumonia type: due to unspecified organism Lung location: unspecified part of lung Qualified Code(s): J18.9 - Pneumonia, unspecified organism (5) Sickle cell anemia Qualifiers: Sickle-cell associated disorders: with acute chest syndrome Qualified Code(s) : D57.01 - Hb-SS disease with acute chest syndrome (6) Hypertension Qualifiers: Hypertension type: essential hypertension Qualified Code(s): I10 - Essential (primary) hypertension (7) Diabetes Qualifiers: Diabetes mellitus type: type 2 Diabetes mellitus half-way insulin use: without half-way use Diabetes mellitus complication status: without complication Qualified Code(s): E11.9 - Type 2 diabetes mellitus without complications <Cristina Richmond - Last Filed: 01/06/18 13:02> (3) Bilateral pneumonia Qualifiers: Pneumonia type: due to unspecified organism Lung location: unspecified part of lung Qualified Code(s): J18.9 - Pneumonia, unspecified organism (5) Sickle cell anemia Qualifiers: Sickle-cell associated disorders: with acute chest syndrome Qualified Code(s) : D57.01 - Hb-SS disease with acute chest syndrome (6) Hypertension Qualifiers: Hypertension type: essential hypertension Qualified Code(s): I10 - Essential (primary) hypertension (7) Diabetes Qualifiers: Diabetes mellitus type: type 2 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 insulin use: without half-way use Diabetes mellitus complication status: without complication Qualified Code(s): E11.9 - Type 2 diabetes mellitus without complications <Verito Knox - Last Filed: 01/06/18 10:04> (3) Bilateral pneumonia Qualifiers: Pneumonia type: due to unspecified organism Lung location: unspecified part of lung Qualified Code(s): J18.9 - Pneumonia, unspecified organism (5) Sickle cell anemia Qualifiers: Sickle-cell associated disorders: with acute chest syndrome Qualified Code(s) : D57.01 - Hb-SS disease with acute chest syndrome (6) Hypertension Qualifiers: Hypertension type: essential hypertension Qualified Code(s): I10 - Essential (primary) hypertension (7) Diabetes Qualifiers: Diabetes mellitus type: type 2 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 insulin use: without half-way use Diabetes mellitus complication status: without complication Qualified Code(s): E11.9 - Type 2 diabetes mellitus without complications <Cristina Richmond - Last Filed: 01/06/18 13:02> (3) Bilateral pneumonia Qualifiers: Pneumonia type: due to unspecified organism Lung location: unspecified part of lung Qualified Code(s): J18.9 - Pneumonia, unspecified organism (5) Sickle cell anemia Qualifiers: Sickle-cell associated disorders: with acute chest syndrome Qualified Code(s) : D57.01 - Hb-SS disease with acute chest syndrome (6) Hypertension Qualifiers: Hypertension type: essential hypertension Qualified Code(s): I10 - Essential (primary) hypertension (7) Diabetes Qualifiers: Diabetes mellitus type: type 2 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 insulin use: without jewish history professor use Diabetes mellitus complication status: without complication Qualified Code(s): E11.9 - Type 2 diabetes mellitus without complications
[2018-01-06 10:21] VITALS: RESP 18
[2018-01-06] MEDS ORDERED: HYDROmorphone PF Inj 2 MG/ML Vial IV.PUSH PRN (11:00)
[2018-01-06] MEDS: Ketorolac 10 MG Tablet PO SCH ×2 (11:31→17:19)
--- NOTE | 2018-01-06 13:45 | P.PNONC ---
Subjective Interval history: T-max 101.6F. Patient lying in bed with eyes closed on approach, awakens easily to voice. Pain is currently controlled. He denies any shortness of breath. Attending has decreased dosing of IV Dilaudid. Objective Vital Signs/Intake & Output: Vital Signs 01/05/18 16:00 01/05/18 20:00 01/06/18 00:00 Temperature 99.3 F 99.4 F 101.6 F H Pulse Rate 91 H 84 85 Respiratory Rate 18 16 16 Blood Pressure 114/58 L 99/56 L 123/56 L Pulse Oximetry 95 97 93 L 01/06/18 04:00 01/06/18 08:00 01/06/18 11:43 Temperature 99.8 F H 98.5 F Pulse Rate 87 76 Respiratory Rate 16 18 Blood Pressure 107/57 L 107/64 Pulse Oximetry 96 94 L 96 Intake & Output 01/05/18 01/06/18 01/06/18 18:59 06:59 18:59 Intake Total 1750 / 1750 2560 / 2560 1150 / 1150 Output Total 900 / 900 1200 / 1200 Balance 1750 / 1750 1660 / 1660 -50 / -50 Intake: IV 1150 / 1150 2000 / 2000 1150 / 1150 1/2 Normal Saline Inj 1,000 ML 1000 / 1000 2000 / 2000 1000 / 1000 @ 175 mls/hr IV.CONT .Q5H43M MICHAEL Rx#:[id number] Levaquin 750 mg Premix Inj 150 150 / 150 150 / 150 ML @ 100 mls/hr IV.SIG Q24H MICHAEL Rx#:[id number] Oral 600 / 600 560 / 560 Output: Urine 900 / 900 1200 / 1200 Other: # Voids 4 Result Diagrams: 01/06/18 05:34 01/06/18 05:34 Laboratory Results: Laboratory Results - last 24 hr 01/05/18 01/05/18 01/06/18 16:59 21:16 05:34 WBC 14.5 H RBC 3.11 L Hgb 9.3 L Hct 27.6 L MCV 88.9 MCH 30.0 MCHC 33.8 RDW 19.3 H Plt Count 178 MPV 8.6 Prelim Diff (Auto) Slide review pending Neut % (Auto) 56.9 Lymph % (Auto) 22.8 [place] % (Auto) 18.9 H Eos % (Auto) 0.9 Baso % (Auto) 0.5 Neut # (Auto) 8.3 H Lymph # (Auto) 3.3 [place] # (Auto) 2.7 H Eos # (Auto) 0.1 Baso # (Auto) 0.1 WBC Differential . Diff Scan Auto diff confirmed Differential Comment . Platelet Estimate Normal Platelet Morphology Normal Sickle Cells 1+ H Target Cells 1+ H [place] Bodies Present H Retic Count 6.0 H Absolute Retic 185.9 H Sodium Potassium Chloride Carbon Dioxide Anion Gap BUN Creatinine Estimated GFR POC Glucose 100 132 H Random Glucose Calcium Total Bilirubin AST ALT Alkaline Phosphatase Lactate Dehydrogenase C-Reactive Protein Total Protein Albumin 01/06/18 01/06/18 01/06/18 05:34 07:47 11:37 WBC RBC Hgb Hct MCV MCH MCHC RDW Plt Count MPV Prelim Diff (Auto) Neut % (Auto) Lymph % (Auto) [place] % (Auto) Eos % (Auto) Baso % (Auto) Neut # (Auto) Lymph # (Auto) [place] # (Auto) Eos # (Auto) Baso # (Auto) WBC Differential Diff Scan Differential Comment Platelet Estimate Platelet Morphology Sickle Cells Target Cells [place] Bodies Retic Count Absolute Retic Sodium 140 Potassium 4.0 Chloride 105 Carbon Dioxide 26.8 Anion Gap 8 BUN 11 Creatinine 0.93 Estimated GFR Greater than 89 POC Glucose 117 H 120 H Random Glucose 95 Calcium 8.1 L D Total Bilirubin 6.9 H AST 36 ALT 18 Alkaline Phosphatase 65 Lactate Dehydrogenase 498 H C-Reactive Protein 14.10 H Total Protein 6.9 Albumin 3.2 L Medications: Active Medications Generic Name Dose Route Start Last Admin Trade Name Patricioq PRN Reason Stop Dose Admin Hydrocodone Bitart/Acetaminophen 1 tab 01/05/18 10:00 01/06/18 10:03 [place] 10/325 PO 1 tab Q8H MICHAEL Administration Enoxaparin Sodium 40 mg 01/02/18 17:30 01/06/18 09:15 Lovenox Inj SQ 40 mg DAILY MICHAEL Administration Folic Acid 1 mg 01/02/18 09:30 01/06/18 09:16 Folic Acid PO 1 mg DAILY MICHAEL Administration Hydroxyurea 500 mg 01/02/18 09:30 01/06/18 09:15 Hydrea PO 500 mg DAILY MICHAEL Administration Levofloxacin/Dextrose 150 mls @ 100 mls/hr 01/02/18 11:30 01/06/18 13:13 Levaquin 750 Mg Premix Inj IV.SIG Infused Q24H MICHAEL Infusion Sodium Chloride 1,000 mls @ 175 mls/hr 01/02/18 14:30 01/06/18 10:03 1/2 Normal Saline Inj IV.CONT 175 mls/hr .Q5H43M MICHAEL Administration Insulin Aspart 0 unit 01/02/18 12:00 01/06/18 11:37 Novolog Insulin Correctional Sugar Inj SQ Not Given ACHS [facility] Protocol Ketorolac Tromethamine 10 mg 01/06/18 11:00 01/06/18 11:31 Toradol PO 01/11/18 10:59 10 mg Q6H MICHAEL Administration Multivitamins 1 tab 01/02/18 09:30 01/06/18 09:16 Theragran PO 1 tab DAILY MICHAEL Administration Pantoprazole Sodium 40 mg 01/04/18 10:15 01/06/18 09:16 Protonix PO 40 mg DAILY MICHAEL Administration Senna/Docusate Sodium 1 tab 01/02/18 21:00 01/06/18 09:16 Ami-Colace PO 1 tab BID MICHAEL Administration Sodium Chloride 2 ml 01/02/18 09:19 01/04/18 16:27 Ns Flush IV.FLUSH 2 ml PRN PRN Administration FLUSH AFTER USING IV ACCESS Sodium Chloride 2 ml 01/02/18 21:00 01/06/18 10:03 Ns Flush IV.FLUSH 2 ml BID MICHAEL Administration Vitamin D 3,000 unit 01/04/18 10:15 01/06/18 10:03 Vitamin D3 PO 3,000 unit DAILY MICHAEL Administration Objective Remarks: GENERAL: Well-nourished, well-developed male patient, in no acute distress. SKIN: Warm and dry. HEAD: Normocephalic. EYES: No scleral icterus. No injection or drainage. NECK: Supple, trachea midline. CARDIOVASCULAR: Regular rate and rhythm without murmurs. RESPIRATORY: Anterior breath sounds clear, equal bilaterally. No accessory muscle use. GASTROINTESTINAL: Abdomen soft, non-tender, nondistended. EXTREMITIES: No cyanosis, or edema. MUSCULOSKELETAL: Adequate muscle tone. NEUROLOGICAL: No obvious focal deficit. Awake, alert, and oriented x3. PSYCHIATRIC: Appropriate mood and affect; insight and judgment normal. 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 On outpatient basis he is maintained on Hydrea, folic acid and Lortab for the sickle cell disease. He has infrequent crises due to elevated hemoglobin F. 1. Continue IV fluids. Agree with continued decrease of IV Dilaudid in anticipation of possible discharge this week. 2. Febrile, T-max 101.6F, chest x-ray on 01/06/18 shows improvement. Blood cultures and urine cultures pending. Patient remains on Levaquin. 3. Monitor CBC, LDH and reticulocyte count. - Attending Statement The exam, history, and the medical decision-making described in the above note were completed with the assistance of the mid-level provider. I reviewed and agree with the findings presented. I attest that I had a [id number] encounter with the patient on the same day, and personally performed and documented my assessment and findings in the medical record. left Knee pain has improved. C/O right ankle pain and has difficulty walking. Try toradol PO for right ankle pain . Home in 1-2 days.
[2018-01-06 20:57] LABS: Bilirubin,Urine Negative (Negative); Clarity,Urine Hazy (Clear); Color,Urine Yellow (Yellw/Straw); Glucose,Urine (UA) Negative (Negative); Leukocyte Esterase,Urine Negative (Negative); Nitrite,Urine Negative (Negative); Specific Gravity,Urine 1.011 (1.002-1.035); Squamous Epithelial Cell,Urine <1 /hpf (0-5)
[2018-01-07] MEDS: Ketorolac 10 MG Tablet PO SCH ×3 (01:13→11:49)
[2018-01-07 05:19] LABS: Baso # (Auto) 0.1 th/mm3 (0.0-0.2); Baso % (Auto) 0.7 % (0.0-2.0); Eos # (Auto) 0.5 th/mm3 (0.0-0.4); Eos % (Auto) 3.8 % (0.0-4.0); Hematocrit 26.3 % (39.0-51.0); Hemoglobin 8.8 gm/dL (13.0-17.0); Lymph # (Auto) 3.6 th/mm3 (1.0-4.8); Mean Corpuscular HGB Conc 33.6 % (32.0-36.0); Mean Corpuscular Hemoglobin 30.2 pg (27.0-34.0); Mean Corpuscular Volume 90.1 fL (80.0-100.0); Mono # (Auto) 1.6 th/mm3 (0.0-0.9); Mono % (Auto) 12.2 % (0.0-8.0); Neut # (Auto) 7.1 th/mm3 (1.8-7.7); Neut % (Auto) 55.3 % (16.0-70.0); Platelet Count 193 th/mm3 (150-450); Red Blood Count 2.92 mil/mm3 (4.50-5.90); Red Cell Distribution Width 19.3 % (11.6-17.2); Reticulocyte Percent 7.3 % (0.4-3.0); White Blood Count 12.8 th/mm3 (4.0-11.0)
[2018-01-07] MEDS: Sodium Chloride 0.45 % Inj 1,000 ML IV.CONT SCH ×2 (06:01→09:24)
[2018-01-07 09:06] LABS: Target Cells 1+
[2018-01-07 09:07] LABS: Howell-Jolly Bodies Present; Polychromasia 2.6 % (0.0-1.9); Sickle Cells 1+
[2018-01-07] MEDS: Hydroxyurea 500 MG Capsule PO SCH (09:10)
[2018-01-07] MEDS: Enoxaparin Inj 40 MG/0.4 ML Syringe SQ SCH (09:10)
[2018-01-07] MEDS: Calcium Carbonate 500 MG Tablet PO SCH (09:10)
[2018-01-07] MEDS: Folic Acid 1 MG Tablet PO SCH (09:10)
[2018-01-07] MEDS: Senna/Docusate Sodium 8.6/50 MG Tablet PO SCH (09:10)
[2018-01-07] MEDS: Insulin NovoLOG Aspart Correctional Sugar Inj SQ SCH (09:18)
[2018-01-07 09:41] VITALS: O2SAT 98
--- NOTE | 2018-01-07 11:48 | P.PNFP ---
Subjective Interval history: Patient seen and examined bedside this morning. Patient continues to state that his pain is getting better every day. He does hope to go home today. He is on the medications he needs at home. He no longer needs any IV pain medications. He continues to complain of right ankle pain, and this pain started in the hospital. He requests an x-ray before he leaves because he feels like he may have sprained his ankle. He denies any nausea or vomiting. Denies any chest pain/shortness of breath/dizziness. No difficulties breathing whatsoever. <Verito Knox - 01/07/18 11:47> Results - Labs Result diagrams: 01/07/18 12:30 01/06/18 05:34 <Cristina Richmond - 01/07/18 16:57> Abnormal lab results 01/06/18 01/06/18 01/06/18 Range/Units 17:21 19:36 21:48 WBC (4.0-11.0) th/mm3 RBC (4.50-5.90) mil/mm3 Hgb (13.0-17.0) gm/dL Hct (39.0-51.0) % RDW (11.6-17.2) % [place]ckenzie % (Auto) (0.0-8.0) % [place]enzie # (Auto) (0.0-0.9) th/mm3 Eos # (Auto) (0.0-0.4) th/mm3 Polychromasia (0.0-1.9) % Sickle Cells (None) Target Cells (None) [place]oad[place] Bodies (None) Retic Count (0.4-3.0) % Absolute Retic (20.0-150.0) mil/L POC Glucose 140 H 150 H (68-110) mg/dl Lactate Dehydrogenase (87-241) U/L Urine Clarity Hazy H (Clear) Urine Urobilinogen 2.0 H (Less than 2) mg/dL 01/07/18 01/07/18 01/07/18 Range/Units 04:54 04:54 09:16 WBC 12.8 H (4.0-11.0) th/mm3 RBC 2.92 L (4.50-5.90) mil/mm3 Hgb 8.8 L (13.0-17.0) gm/dL Hct 26.3 L (39.0-51.0) % RDW 19.3 H (11.6-17.2) % Mckenzie % (Auto) 12.2 H (0.0-8.0) % Mckenzie # (Auto) 1.6 H (0.0-0.9) th/mm3 Eos # (Auto) 0.5 H (0.0-0.4) th/mm3 Polychromasia 2.6 H (0.0-1.9) % Sickle Cells 1+ H (None) Target Cells 1+ H (None) Rhoades-[place] Bodies Present H (None) Retic Count 7.3 H (0.4-3.0) % Absolute Retic 213.7 H (20.0-150.0) mil/L POC Glucose 123 H (68-110) mg/dl Lactate Dehydrogenase 403 H (87-241) U/L Urine Clarity (Clear) Urine Urobilinogen (Less than 2) mg/dL 01/07/18 Range/Units 12:30 WBC 11.9 H (4.0-11.0) th/mm3 RBC 3.10 L (4.50-5.90) mil/mm3 Hgb 9.3 L (13.0-17.0) gm/dL Hct 27.5 L (39.0-51.0) % RDW 18.8 H (11.6-17.2) % Mckenzie % (Auto) 11.2 H (0.0-8.0) % Mckenzie # (Auto) 1.3 H (0.0-0.9) th/mm3 Eos # (Auto) (0.0-0.4) th/mm3 Polychromasia (0.0-1.9) % Sickle Cells (None) Target Cells (None) Rhoad[place] Bodies (None) Retic Count (0.4-3.0) % Absolute Retic (20.0-150.0) mil/L POC Glucose (68-110) mg/dl Lactate Dehydrogenase (87-241) U/L Urine Clarity (Clear) Urine Urobilinogen (Less than 2) mg/dL Short CBC 01/07/18 01/07/18 Range/Units 04:54 12:30 WBC 12.8 H 11.9 H (4.0-11.0) th/mm3 Hgb 8.8 L 9.3 L (13.0-17.0) gm/dL Hct 26.3 L 27.5 L (39.0-51.0) % Plt Count 193 207 (150-450) th/mm3 Urine 01/06/18 Range/Units 19:36 Urine Color Yellow (Yellw/Straw) Urine Clarity Hazy H (Clear) Urine pH 5.0 (5.0-8.5) Ur Specific [place] 1.011 (1.002-1.035) Urine Protein Negative (Neg-Trace) mg/dL Urine Glucose (UA) Negative (Negative) mg/dL <Cristina Richmond - 01/07/18 16:57> Abnormal lab results 01/06/18 01/06/18 01/06/18 Range/Units 11:37 17:21 19:36 WBC (4.0-11.0) th/mm3 RBC (4.50-5.90) mil/mm3 Hgb (13.0-17.0) gm/dL Hct (39.0-51.0) % RDW (11.6-17.2) % Mckenzie % (Auto) (0.0-8.0) % [place] # (Auto) (0.0-0.9) th/mm3 Eos # (Auto) (0.0-0.4) th/mm3 Polychromasia (0.0-1.9) % Sickle Cells (None) Target Cells (None) Rhoad[place] Bodies (None) Retic Count (0.4-3.0) % Absolute Retic (20.0-150.0) mil/L POC Glucose 120 H 140 H (68-110) mg/dl Lactate Dehydrogenase (87-241) U/L Urine Clarity Hazy H (Clear) Urine Urobilinogen 2.0 H (Less than 2) mg/dL 01/06/18 01/07/18 01/07/18 Range/Units 21:48 04:54 04:54 WBC 12.8 H (4.0-11.0) th/mm3 RBC 2.92 L (4.50-5.90) mil/mm3 Hgb 8.8 L (13.0-17.0) gm/dL Hct 26.3 L (39.0-51.0) % RDW 19.3 H (11.6-17.2) % Mckenzie % (Auto) 12.2 H (0.0-8.0) % [place] # (Auto) 1.6 H (0.0-0.9) th/mm3 Eos # (Auto) 0.5 H (0.0-0.4) th/mm3 Polychromasia 2.6 H (0.0-1.9) % Sickle Cells 1+ H (None) Target Cells 1+ H (None) [place]oad[place] Bodies Present H (None) Retic Count 7.3 H (0.4-3.0) % Absolute Retic 213.7 H (20.0-150.0) mil/L POC Glucose 150 H (68-110) mg/dl Lactate Dehydrogenase 403 H (87-241) U/L Urine Clarity (Clear) Urine Urobilinogen (Less than 2) mg/dL 01/07/18 Range/Units 09:16 WBC (4.0-11.0) th/mm3 RBC (4.50-5.90) mil/mm3 Hgb (13.0-17.0) gm/dL Hct (39.0-51.0) % RDW (11.6-17.2) % Mckenzie % (Auto) (0.0-8.0) % [place] # (Auto) (0.0-0.9) th/mm3 Eos # (Auto) (0.0-0.4) th/mm3 Polychromasia (0.0-1.9) % Sickle Cells (None) Target Cells (None) [place] Bodies (None) Retic Count (0.4-3.0) % Absolute Retic (20.0-150.0) mil/L POC Glucose 123 H (68-110) mg/dl Lactate Dehydrogenase (87-241) U/L Urine Clarity (Clear) Urine Urobilinogen (Less than 2) mg/dL Short CBC 01/07/18 Range/Units 04:54 WBC 12.8 H (4.0-11.0) th/mm3 Hgb 8.8 L (13.0-17.0) gm/dL Hct 26.3 L (39.0-51.0) % Plt Count 193 (150-450) th/mm3 Urine 01/06/18 Range/Units 19:36 Urine Color Yellow (Yellw/Straw) Urine Clarity Hazy H (Clear) Urine pH 5.0 (5.0-8.5) Ur Specific [place] 1.011 (1.002-1.035) Urine Protein Negative (Neg-Trace) mg/dL Urine Glucose (UA) Negative (Negative) mg/dL <Verito Knox - 01/07/18 11:47> - Imaging Impressions Ankle X-Ray 01/07/18 00:00 CONCLUSION: No evidence of recent bony injury. <Cristina Richmond - 01/07/18 16:57> Physical Exam Vital signs: Vital Signs 01/06/18 20:00 01/07/18 00:00 01/07/18 04:40 Temperature 98.2 F 98.5 F Pulse Rate 71 71 Respiratory Rate 18 18 Blood Pressure 115/58 L 113/65 Pulse Oximetry 98 99 99 01/07/18 08:00 01/07/18 09:41 01/07/18 12:00 Temperature 99.3 F 98.3 F Pulse Rate 86 91 H Respiratory Rate 18 18 Blood Pressure 122/59 L 133/84 Pulse Oximetry 96 98 98 Intake & Output 01/06/18 01/07/18 01/07/18 18:59 06:59 18:59 Intake Total 2150 / 2150 5293 / 5293 Output Total 1200 / 1200 450 / 450 Balance 950 / 950 4843 / 4843 Intake: IV 2150 / 2150 5293 / 5293 1/2 Normal Saline Inj 1,000 ML 2000 / 1999 5293 / 5293 @ 175 mls/hr IV.CONT .Q5H43M [facility] Rx#:[id number] Levaquin 750 mg Premix Inj 150 150 / 150 ML @ 100 mls/hr IV.SIG Q24H [facility] Rx#:[id number] Output: Urine 1200 / 1200 450 / 450 Other: Date of Last Bowel Movement 01/06/18 <Cristina Richmond - 01/07/18 16:57> Vital Signs 01/06/18 11:43 01/06/18 12:00 01/06/18 16:00 Temperature 98.1 F 98.9 F Pulse Rate 52 L 82 Respiratory Rate 18 18 Blood Pressure 112/55 L 108/54 L Pulse Oximetry 96 96 96 01/06/18 20:00 01/07/18 00:00 01/07/18 04:40 Temperature 98.2 F 98.5 F Pulse Rate 71 71 Respiratory Rate 18 18 Blood Pressure 115/58 L 113/65 Pulse Oximetry 98 99 99 01/07/18 08:00 01/07/18 09:41 Temperature 99.3 F Pulse Rate 86 Respiratory Rate 18 Blood Pressure 122/59 L Pulse Oximetry 96 98 Intake & Output 01/06/18 01/07/18 01/07/18 18:59 06:59 18:59 Intake Total 2150 / 2150 5293 / 5293 Output Total 1200 / 1200 450 / 450 Balance 950 / 950 4843 / 4843 Intake: IV 2150 / 2150 5293 / 5293 1/2 Normal Saline Inj 1,000 ML 1999 / 1999 5293 / 5293 @ 175 mls/hr IV.CONT .Q5H43M [facility] Rx#:[id number] Levaquin 750 mg Premix Inj 150 150 / 150 ML @ 100 mls/hr IV.SIG Q24H [facility] Rx#:[id number] Output: Urine 1200 / 1200 450 / 450 Other: Date of Last Bowel Movement 01/06/18 <Verito Knox - 01/07/18 11:47> Narrative: GENERAL: Obese -[place] male laying in bed, frequently repositioning his body due to pain and being uncomfortable. SKIN: Warm and dry. No jaundice. HEAD: Atraumatic. Normocephalic. EYES: Pupils equal and round. No injection or drainage. ENT: No nasal bleeding or discharge. Mucous membranes pink and moist. NECK: Trachea midline. No JVD. CARDIOVASCULAR: Regular rate and rhythm. 3/6 holosystolic murmur, unchanged RESPIRATORY: No accessory muscle use. Clear to auscultation. Breath sounds equal bilaterally. GASTROINTESTINAL: Abdomen soft, non-tender, nondistended. Positive bowel sounds MUSCULOSKELETAL: 1+ swelling of right ankle. No erythema. Tenderness on palpation of ankle joint anteriorly. No tenderness to palpation throughout his legs. No obvious deformities. NEUROLOGICAL: Awake and alert. No obvious cranial nerve deficits. Motor grossly within normal limits. Normal speech. PSYCHIATRIC: Appropriate mood and affect; insight and judgment normal. <Verito Knox - 01/07/18 11:47> Assessment and Plan - Assessment (1) Fever Code(s): R50.9 - Fever, unspecified Status: Acute (2) Acute chest syndrome due to sickle cell crisis Code(s): D57.01 - Hb-SS disease with acute chest syndrome Status: Acute (3) Bilateral pneumonia Code(s): J18.9 - Pneumonia, unspecified organism Status: Acute (4) Sickle cell pain crisis Code(s): D57.00 - Hb-SS disease with crisis, unspecified Status: Acute (5) Sickle cell anemia Code(s): D57.1 - Sickle-cell disease without crisis Status: Chronic (6) Hypertension Code(s): I10 - Essential (primary) hypertension Status: Chronic (7) Diabetes Code(s): E11.9 - Type 2 diabetes mellitus without complications Status: Chronic (8) History of parathyroid cancer Code(s): Z85.858 - Personal history of malignant neoplasm of other endocrine glands Status: Chronic (9) DVT prophylaxis Status: Chronic <Cristina Richmond - 01/07/18 16:57> (1) Fever Code(s): R50.9 - Fever, unspecified Status: Acute Plan: Resolved. Temp of 101.6 at 00: 00 on 01/06, patient experienced night sweats Likely atelectasis versus infection Afebrile this morning at 99.8, no calf tenderness, no shortness of breath, asymptomatic WBC 12.8 today, decreased from 14.5 yesterday Follow-up blood cultures: Negative 1 day, patient will be notified if cultures grow bacteria. Follow-up repeat UA: Negative Chest x-ray 01/05: Negative. 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 CXR on admission show reduced lung volumes with increased opacities throughout both lungs. Patient did have to be placed on 2L NC on admission for short period of time due to a likely decrease in SPO2. Therefore, he meets the criteria for acute chest syndrome. Labs on admission did show leukocytosis to 12.6. Hemoglobin is 10.5 with elevated reticulocyte count of 5.4. CRP at 1.00 and LDH at 570. Tbili is elevated at 6.8. Empiric antibiotic therapy for CAP. Unable to do azithromycin for atypical coverage due to patient's allergy. -Levofloxacin 750 mg IV every 24 hours (01/02-),plan for complete 7 day course, will DC on p.o. Levaquin to finish course until 01/08 -05/06 NS at 175 mL/hour - Dilaudid 1 mg IV every 3 hours PRN, patient taking sparingly -Continue [place] 10 every 8 hours scheduled, patient has [place] at home and states he does not need a new prescription -hydroxyurea 500 mg p.o. daily -Folic acid 1 mg p.o. daily - Labs stable -Consult patient's marketing financial analyst, Dr. Rowell, for any further recommendations in his care -decrease in hemoglobin likely due to dilutional effect. No need for transfusion. Continue IV fluids. Continue folic acid and Hydrea. Okay for DC. Chest x-ray 01/02: Reduced lung volumes with increased opacities throughout lungs , stable enlargement of cardiac silhouette Chest x-ray 01/05: Negative. No opacities. (3) Bilateral pneumonia Code(s): J18.9 - Pneumonia, unspecified organism Status: Acute Plan: See above for plan Differential includes pneumonitis versus pneumonia/acute chest syndrome Opacities resolved Continue plan as above (4) Sickle cell pain crisis Code(s): D57.00 - Hb-SS disease with crisis, unspecified Status: Acute Plan: See above for plan (5) Sickle cell anemia Code(s): D57.1 - Sickle-cell disease without crisis Status: Chronic Plan: Patient sees Dr. Rowell for Hematology. Has not had a vaso-occlusive pain crisis since May. -Condition is usually stable -See above for vaso-occlusive pain crisis plan (6) Hypertension Code(s): I10 - Essential (primary) hypertension Status: Chronic Plan: Patient unsure of his home dosages of medications, but BP has been stable since his admission. -Will add on as needed Vasotec (7) Diabetes Code(s): E11.9 - Type 2 diabetes mellitus without complications Status: Chronic Plan: Patient is on oral medications at home -NovoLog low-dose SSI -Hypoglycemia protocol -Bedside Accu-Cheks (8) History of parathyroid cancer Code(s): Z85.858 - Personal history of malignant neoplasm of other endocrine glands Status: Chronic Plan: Pt takes calcium supplements at home. -Oscal 500mg po BID (9) DVT prophylaxis Status: Chronic Plan: DVT Prophylaxis: Early ambulation. bilateral SCDs, Lovenox 40mg SQ qD <Verito Knox - 01/07/18 11:40> - Assessment and Plan Discharge Planning: anticipate d/c with adequate pain management and heme/onc clearance, likely today <Verito Knox - 01/07/18 11:47> - Attending Attestation Patient seen, examined, and discussed with resident team this morning on rounds. I agree with assessment and management as documented and discussed with me. Pain is improved. Pt denies fever. He had BM overnight. Discharge home today. <Cristina Richmond - 01/07/18 16:57> <Verito Knox - Last Filed: 01/07/18 11:40> (3) Bilateral pneumonia Qualifiers: Pneumonia type: due to unspecified organism Lung location: unspecified part of lung Qualified Code(s): J18.9 - Pneumonia, unspecified organism (5) Sickle cell anemia Qualifiers: Sickle-cell associated disorders: with acute chest syndrome Qualified Code(s) : D57.01 - Hb-SS disease with acute chest syndrome (6) Hypertension Qualifiers: Hypertension type: essential hypertension Qualified Code(s): I10 - Essential (primary) hypertension (7) Diabetes Qualifiers: Diabetes mellitus type: type 2 Diabetes mellitus long-term insulin use: without exterminator use Diabetes mellitus complication status: without complication Qualified Code(s): E11.9 - Type 2 diabetes mellitus without complications <Cristina Richmond - Last Filed: 01/07/18 16:57> (3) Bilateral pneumonia Qualifiers: Pneumonia type: due to unspecified organism Lung location: unspecified part of lung Qualified Code(s): J18.9 - Pneumonia, unspecified organism (5) Sickle cell anemia Qualifiers: Sickle-cell associated disorders: with acute chest syndrome Qualified Code(s) : D57.01 - Hb-SS disease with acute chest syndrome (6) Hypertension Qualifiers: Hypertension type: essential hypertension Qualified Code(s): I10 - Essential (primary) hypertension (7) Diabetes Qualifiers: Diabetes mellitus type: type 2 Diabetes mellitus long-term insulin use: without long-term use Diabetes mellitus complication status: without complication Qualified Code(s): E11.9 - Type 2 diabetes mellitus without complications <Verito Knox - Last Filed: 01/07/18 11:40> (3) Bilateral pneumonia Qualifiers: Pneumonia type: due to unspecified organism Lung location: unspecified part of lung Qualified Code(s): J18.9 - Pneumonia, unspecified organism (5) Sickle cell anemia Qualifiers: Sickle-cell associated disorders: with acute chest syndrome Qualified Code(s) : D57.01 - Hb-SS disease with acute chest syndrome (6) Hypertension Qualifiers: Hypertension type: essential hypertension Qualified Code(s): I10 - Essential (primary) hypertension (7) Diabetes Qualifiers: Diabetes mellitus type: type 2 Diabetes mellitus exterminator insulin use: without long-term use Diabetes mellitus complication status: without complication Qualified Code(s): E11.9 - Type 2 diabetes mellitus without complications <Cristina Richmond - Last Filed: 01/07/18 16:57> (3) Bilateral pneumonia Qualifiers: Pneumonia type: due to unspecified organism Lung location: unspecified part of lung Qualified Code(s): J18.9 - Pneumonia, unspecified organism (5) Sickle cell anemia Qualifiers: Sickle-cell associated disorders: with acute chest syndrome Qualified Code(s) : D57.01 - Hb-SS disease with acute chest syndrome (6) Hypertension Qualifiers: Hypertension type: essential hypertension Qualified Code(s): I10 - Essential (primary) hypertension (7) Diabetes Qualifiers: Diabetes mellitus type: type 2 Diabetes mellitus exterminator insulin use: without exterminator use Diabetes mellitus complication status: without complication Qualified Code(s): E11.9 - Type 2 diabetes mellitus without complications
--- NOTE | 2018-01-07 12:00 | P.DS ---
Date of admission: 01/02/18 10:17 Primary care physician: UNKNOWN Brief History from admission: Mr. Meier is a 62yo male with a PMH of sickle cell disease, hypertension, diabetes presenting with pain in his hips and legs. He states that yesterday he was at work when he started having aches and pains. When he got home he drank some fluids and started to feel better. However, around 5 AM this morning he started having pain in the right elbow, shoulder, and knee. This then spread to his whole right arm, his hips, and legs. He says that he usually has pain in his joints, but has been having muscle pain in his glutes. He usually takes hydrocodone 10 mg/325 mg at home but that did not help so he came to the ED. He is currently only having pain in his hips and legs. He is not experiencing any chest pain, no shortness of breath, no cough. He did have some night sweats this morning when the pain worsened. He has been doing more heavy lifting at work this week. He is also been experiencing more stress from issues surrounding his brother who is in hospice and traveling to see him. Sees Dr. Rowell for hematology. He last saw him in June. His last sickle cell crisis was in May and last blood transfusion was in February.. DS: Diagnosis - Discharge Diagnosis (1) Fever Status: Acute (2) Acute chest syndrome due to sickle cell crisis Status: Acute (3) Bilateral pneumonia Status: Acute (4) Sickle cell pain crisis Status: Acute (5) Sickle cell anemia Status: Chronic (6) Hypertension Status: Chronic (7) Diabetes Status: Chronic (8) History of parathyroid cancer Status: Chronic (9) DVT prophylaxis Status: Chronic DS: Summary Hospital Course: 62-year-old male with diabetes, hypertension, history of sickle cell anemia with infrequent crises, presented in sickle cell pain crisis with acute chest syndrome versus bilateral pneumonia. Chest x-ray on admission showed reduced lung volumes with increased opacity throughout lungs. Patient placed on 2 L nasal cannula in the ED, met criteria for acute chest syndrome with slight leukocytosis, elevated CRP, elevated LDH. Empirical antibiotic therapy for community-acquired pneumonia with levofloxacin 750 mg IV daily (01/02-01/07) with discharge on p.o. levofloxacin to complete 7 day course. Pain well controlled at time of discharge. Agents private integrated program teacher, Dr. Rowell, was involved in care throughout the hospitalization. Patient had one fever of 101.6 on 01/06 and blood cultures were drawn. Blood cultures negative 3 days. - Time Spent with Patient Total time spent providing and/or coordinating discharge services: Greater than 30 minutes - Quality: VTE Deep Vein Thrombosis/Pulmonary Embolism Present on Admission: No Exam Vital signs: Vital Signs 01/06/18 16:00 01/06/18 20:00 01/07/18 00:00 Temperature 98.9 F 98.2 F 98.5 F Pulse Rate 82 71 71 Respiratory Rate 18 18 18 Blood Pressure 108/54 L 115/58 L 113/65 Pulse Oximetry 96 98 99 01/07/18 04:40 01/07/18 08:00 01/07/18 09:41 Temperature 99.3 F Pulse Rate 86 Respiratory Rate 18 Blood Pressure 122/59 L Pulse Oximetry 99 96 98 Intake & Output 01/06/18 01/07/18 01/07/18 18:59 06:59 18:59 Intake Total 2150 / 2150 5293 / 5293 Output Total 1200 / 1200 450 / 450 Balance 950 / 950 4843 / 4843 Intake: IV 2150 / 2150 5293 / 5293 1/2 Normal Saline Inj 1,000 ML 2000 / 2000 5293 / 5293 @ 175 mls/hr IV.CONT .Q5H43M [facility] Rx#:[id number] Levaquin 750 mg Premix Inj 150 150 / 150 ML @ 100 mls/hr IV.SIG Q24H [facility] Rx#:[id number] Output: Urine 1200 / 1200 450 / 450 Other: Date of Last Bowel Movement 01/06/18 Results Procedures completed during hospitalization: none Labs on day of discharge: Labs from last 24 hours 01/07/18 01/07/18 01/07/18 09:16 04:54 04:54 WBC 12.8 H RBC 2.92 L Hgb 8.8 L Hct 26.3 L MCV 90.1 MCH 30.2 MCHC 33.6 RDW 19.3 H Plt Count 193 MPV 8.0 Prelim Diff (Auto) Slide review pending Neut % (Auto) 55.3 Lymph % (Auto) 28.0 Gem % (Auto) 12.2 H Eos % (Auto) 3.8 Baso % (Auto) 0.7 Neut # (Auto) 7.1 Lymph # (Auto) 3.6 Gem # (Auto) 1.6 H Eos # (Auto) 0.5 H Baso # (Auto) 0.1 WBC Differential . Diff Scan Auto diff confirmed Differential Comment . Polychromasia 2.6 H Sickle Cells 1+ H Target Cells 1+ H [place] Bodies Present H Retic Count 7.3 H Absolute Retic 213.7 H POC Glucose 123 H Lactate Dehydrogenase 403 H Urine Color Urine Clarity Urine pH Ur Specific [place] Urine Protein Urine Glucose (UA) Urine Ketones Urine Occult Blood Urine Nitrate Urine Bilirubin Urine Urobilinogen Ur Leukocyte Esterase Urine RBC Urine WBC Ur Squamous Epith Cells Micro UA Comment Ur Microscopic Review Urine Culture Comments 01/06/18 01/06/18 01/06/18 21:48 19:36 17:21 WBC RBC Hgb Hct MCV MCH MCHC RDW Plt Count MPV Prelim Diff (Auto) Neut % (Auto) Lymph % (Auto) Gem % (Auto) Eos % (Auto) Baso % (Auto) Neut # (Auto) Lymph # (Auto) Gem # (Auto) Eos # (Auto) Baso # (Auto) WBC Differential Diff Scan Differential Comment Polychromasia Sickle Cells Target Cells [place] Bodies Retic Count Absolute Retic POC Glucose 150 H 140 H Lactate Dehydrogenase Urine Color Yellow Urine Clarity Hazy H Urine pH 5.0 Ur Specific [place] 1.011 Urine Protein Negative Urine Glucose (UA) Negative Urine Ketones Negative Urine Occult Blood Negative Urine Nitrate Negative Urine Bilirubin Negative Urine Urobilinogen 2.0 H Ur Leukocyte Esterase Negative Urine RBC 1 Urine WBC 1 Ur Squamous Epith Cells <1 Micro UA Comment Culture not ind Ur Microscopic Review Not Reportable Urine Culture Comments Culture not ind Preliminary micro results at discharge 01/06/18 11:15 Aerobic Blood Culture - Preliminary Blood - Peripheral No growth in 1 day Anaerobic Blood Culture - Preliminary No growth in 1 day 01/06/18 11:22 Aerobic Blood Culture - Preliminary Blood - Peripheral No growth in 1 day Anaerobic Blood Culture - Preliminary No growth in 1 day - Impressions ITS Impressions Chest X-Ray 01/05/18 00:00 CONCLUSION: Negative examination. Discharge Plan - Discharge Disposition Patient Disposition: 01 Discharge Home - Discharge Condition Condition: Stable - Discharge Order Discharge Orders: Discharge Order (Routine); Ordered 01/07/18 Ordered By: Verito Knox - Discharge Details Anticipated Discharge Date: 01/07/18 - Physicians Team Primary Care Provider: UNKNOWN, Attending Provider: Cristina Richmond Other Providers: Janak Rowell MD ; [facility],Insurance
[2018-01-07 12:44] LABS: Baso # (Auto) 0.1 th/mm3 (0.0-0.2); Eos # (Auto) 0.3 th/mm3 (0.0-0.4); Eos % (Auto) 2.9 % (0.0-4.0); Hematocrit 27.5 % (39.0-51.0); Hemoglobin 9.3 gm/dL (13.0-17.0); Lymph # (Auto) 3.1 th/mm3 (1.0-4.8); Lymph % (Auto) 26.2 % (9.0-44.0); Mean Corpuscular HGB Conc 33.9 % (32.0-36.0); Mean Corpuscular Hemoglobin 30.1 pg (27.0-34.0); Mean Corpuscular Volume 88.9 fL (80.0-100.0); Mean Platelet Volume 8.1 fL (7.0-11.0); Mono # (Auto) 1.3 th/mm3 (0.0-0.9); Mono % (Auto) 11.2 % (0.0-8.0); Neut % (Auto) 58.7 % (16.0-70.0); Platelet Count 207 th/mm3 (150-450); Red Cell Distribution Width 18.8 % (11.6-17.2); White Blood Count 11.9 th/mm3 (4.0-11.0)
--- NOTE | 2018-01-07 14:08 | P.PNONC ---
Subjective Interval history: Afebrile. Patient denies any pain at this time. He denies shortness of breath or chest pain. Awaiting an ankle x-ray. He reports feeling fatigued from lying in bed for the past 5 days. He states he is ready to go home. Objective Vital Signs/Intake & Output: Vital Signs 01/06/18 16:00 01/06/18 20:00 01/07/18 00:00 Temperature 98.9 F 98.2 F 98.5 F Pulse Rate 82 71 71 Respiratory Rate 18 18 18 Blood Pressure 108/54 L 115/58 L 113/65 Pulse Oximetry 96 98 99 01/07/18 04:40 01/07/18 08:00 01/07/18 09:41 Temperature 99.3 F Pulse Rate 86 Respiratory Rate 18 Blood Pressure 122/59 L Pulse Oximetry 99 96 98 Intake & Output 01/06/18 01/07/18 01/07/18 18:59 06:59 18:59 Intake Total 2150 / 2150 5293 / 5293 Output Total 1200 / 1200 450 / 450 Balance 950 / 950 4843 / 4843 Intake: IV 2150 / 2150 5293 / 5293 1/2 Normal Saline Inj 1,000 ML 2000 / 2000 5293 / 5293 @ 175 mls/hr IV.CONT .Q5H43M [facility] Rx#:[id number] Levaquin 750 mg Premix Inj 150 150 / 150 ML @ 100 mls/hr IV.SIG Q24H MICHAEL Rx#:[id number] Output: Urine 1200 / 1200 450 / 450 Other: Date of Last Bowel Movement 01/06/18 Result Diagrams: 01/07/18 12:30 01/06/18 05:34 Laboratory Results: Laboratory Results - last 24 hr 01/06/18 01/06/18 01/06/18 17:21 19:36 21:48 WBC RBC Hgb Hct MCV MCH MCHC RDW Plt Count MPV Prelim Diff (Auto) Neut % (Auto) Lymph % (Auto) Bonner % (Auto) Eos % (Auto) Baso % (Auto) Neut # (Auto) Lymph # (Auto) Bonner # (Auto) Eos # (Auto) Baso # (Auto) WBC Differential Diff Scan Differential Comment Polychromasia Sickle Cells Target Cells [place] Bodies Retic Count Absolute Retic POC Glucose 140 H 150 H Lactate Dehydrogenase Urine Color Yellow Urine Clarity Hazy H Urine pH 5.0 Ur Specific [place] 1.011 Urine Protein Negative Urine Glucose (UA) Negative Urine Ketones Negative Urine Occult Blood Negative Urine Nitrate Negative Urine Bilirubin Negative Urine Urobilinogen 2.0 H Ur Leukocyte Esterase Negative Urine RBC 1 Urine WBC 1 Ur Squamous Epith Cells <1 Micro UA Comment Culture not ind Ur Microscopic Review Not Reportable Urine Culture Comments Culture not ind 01/07/18 01/07/18 01/07/18 04:54 04:54 09:16 WBC 12.8 H RBC 2.92 L Hgb 8.8 L Hct 26.3 L MCV 90.1 MCH 30.2 MCHC 33.6 RDW 19.3 H Plt Count 193 MPV 8.0 Prelim Diff (Auto) Slide review pending Neut % (Auto) 55.3 Lymph % (Auto) 28.0 Bonner % (Auto) 12.2 H Eos % (Auto) 3.8 Baso % (Auto) 0.7 Neut # (Auto) 7.1 Lymph # (Auto) 3.6 Bonner # (Auto) 1.6 H Eos # (Auto) 0.5 H Baso # (Auto) 0.1 WBC Differential . Diff Scan Auto diff confirmed Differential Comment . Polychromasia 2.6 H Sickle Cells 1+ H Target Cells 1+ H [place] Bodies Present H Retic Count 7.3 H Absolute Retic 213.7 H POC Glucose 123 H Lactate Dehydrogenase 403 H Urine Color Urine Clarity Urine pH Ur Specific [place] Urine Protein Urine Glucose (UA) Urine Ketones Urine Occult Blood Urine Nitrate Urine Bilirubin Urine Urobilinogen Ur Leukocyte Esterase Urine RBC Urine WBC Ur Squamous Epith Cells Micro UA Comment Ur Microscopic Review Urine Culture Comments 01/07/18 12:30 WBC 11.9 H RBC 3.10 L Hgb 9.3 L Hct 27.5 L MCV 88.9 MCH 30.1 MCHC 33.9 RDW 18.8 H Plt Count 207 MPV 8.1 Prelim Diff (Auto) Neut % (Auto) 58.7 Lymph % (Auto) 26.2 Bonner % (Auto) 11.2 H Eos % (Auto) 2.9 Baso % (Auto) 1.0 Neut # (Auto) 7.0 Lymph # (Auto) 3.1 Bonner # (Auto) 1.3 H Eos # (Auto) 0.3 Baso # (Auto) 0.1 WBC Differential . Diff Scan Differential Comment Auto diff final Polychromasia Sickle Cells Target Cells [place] Bodies Retic Count Absolute Retic POC Glucose Lactate Dehydrogenase Urine Color Urine Clarity Urine pH Ur Specific [place] Urine Protein Urine Glucose (UA) Urine Ketones Urine Occult Blood Urine Nitrate Urine Bilirubin Urine Urobilinogen Ur Leukocyte Esterase Urine RBC Urine WBC Ur Squamous Epith Cells Micro UA Comment Ur Microscopic Review Urine Culture Comments Culture Results: Microbiology 01/06/18 11:15 Aerobic Blood Culture - Preliminary Blood - Peripheral No growth in 1 day Anaerobic Blood Culture - Preliminary No growth in 1 day 01/06/18 11:22 Aerobic Blood Culture - Preliminary Blood - Peripheral No growth in 1 day Anaerobic Blood Culture - Preliminary No growth in 1 day Medications: Active Medications Generic Name Dose Route Start Last Admin Trade Name Freq PRN Reason Stop Dose Admin Hydrocodone Bitart/Acetaminophen 1 tab 01/05/18 10:00 01/07/18 09:10 Stirum 10/325 PO 1 tab Q8H MICHAEL Administration Enoxaparin Sodium 40 mg 01/02/18 17:30 01/07/18 09:10 Lovenox Inj SQ 40 mg DAILY MICHAEL Administration Folic Acid 1 mg 01/02/18 09:30 01/07/18 09:10 Folic Acid PO 1 mg DAILY MICHAEL Administration Hydromorphone HCl 1 mg 01/06/18 11:00 01/07/18 01:16 Dilaudid Pf Inj IV.PUSH 1 mg Q3H PRN Administration PAIN SCALE 6 TO 10 Hydroxyurea 500 mg 01/02/18 09:30 01/07/18 09:10 Hydrea PO 500 mg DAILY MICHAEL Administration Levofloxacin/Dextrose 150 mls @ 100 mls/hr 01/02/18 11:30 01/07/18 12:04 Levaquin 750 Mg Premix Inj IV.SIG 100 mls/hr Q24H MICHAEL Administration Sodium Chloride 1,000 mls @ 175 mls/hr 01/02/18 14:30 01/07/18 09:24 1/2 Normal Saline Inj IV.CONT Not Given .Q5H43M [facility] Insulin Aspart 0 unit 01/02/18 12:00 01/07/18 09:18 Novolog Insulin Correctional Sugar Inj SQ Not Given ACHS [facility] Protocol Ketorolac Tromethamine 10 mg 01/06/18 11:00 01/07/18 11:49 Toradol PO 01/11/18 10:59 10 mg Q6H MICHAEL Administration Multivitamins 1 tab 01/02/18 09:30 01/07/18 09:10 Theragran PO 1 tab DAILY MICHAEL Administration Pantoprazole Sodium 40 mg 01/04/18 10:15 01/07/18 09:10 Protonix PO 40 mg DAILY MICHAEL Administration Senna/Docusate Sodium 1 tab 01/02/18 21:00 01/07/18 09:10 Ami-Colace PO 1 tab BID MICHAEL Administration Sodium Chloride 2 ml 01/02/18 09:19 01/07/18 01:16 Ns Flush IV.FLUSH 2 ml PRN PRN Administration FLUSH AFTER USING IV ACCESS Sodium Chloride 2 ml 01/02/18 21:00 01/07/18 09:18 Ns Flush IV.FLUSH 2 ml BID MICHAEL Administration Vitamin D 3,000 unit 01/04/18 10:15 01/07/18 09:09 Vitamin D3 PO 3,000 unit DAILY MICHAEL Administration Objective Remarks: GENERAL: Well-nourished, well-developed male patient, in no acute distress. SKIN: Warm and dry. HEAD: Normocephalic. EYES: No scleral icterus. No injection or drainage. NECK: Supple, trachea midline. CARDIOVASCULAR: Regular rate and rhythm without murmurs. RESPIRATORY: Anterior breath sounds clear, equal bilaterally. Non-labored. GASTROINTESTINAL: Abdomen soft, non-tender, nondistended. EXTREMITIES: No cyanosis, or edema. MUSCULOSKELETAL: Adequate muscle tone. NEUROLOGICAL: No obvious focal deficit. Awake, alert, and oriented x3. PSYCHIATRIC: Appropriate mood and affect; insight and judgment normal. 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 On outpatient basis he is maintained on Hydrea, folic acid and Lortab for the sickle cell disease. He has infrequent crises due to elevated hemoglobin F. 1. Patient has been transitioned to oral pain medications. He denies any pain at this time. 2. Afebrile, patient had one isolated fever during this hospitalization. 3. Lab values continue to improve. Patient's pain continues to improve. Patient is stable for discharge home from a hematologic standpoint. 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 - Attending Statement The exam, history, and the medical decision-making described in the above note were completed with the assistance of the mid-level provider. I reviewed and agree with the findings presented. I attest that I had a [id number] encounter with the patient on the same day, and personally performed and documented my assessment and findings in the medical record. Patient states that the right ankle pain is getting better with the Toradol He is ready to go home Patient is stable to be discharged from hematological standpoint He will follow-up as an outpatient Sign off Available as needed
--- NOTE | 2018-01-07 15:07 | XR ---
EXAM DATE: 01/07/2018 2:58 PM EDT AGE/SEX: 62 years / Male INDICATIONS: Right medial and lateral ankle pain. No known injury. CLINICAL DATA: This is the patient's initial encounter. Patient reports that signs and symptoms have been present for 3 days and indicates a pain score of 5/10. MEDICAL/SURGICAL HISTORY: None. None. COMPARISON: No prior exams available for comparison. FINDINGS: Bony structures are intact and in normal alignment. Joints are intact without dislocation or signifi cant arthropathy. Osseous density is normal. Soft tissues are unremarkable. No radiopaque foreign bodies seen. CONCLUSION: No evidence of recent bony injury. Electronically signed by: Fred Kumar MD 01/07/2018 3:06 PM EDT
[2018-01-07 15:10] VITALS: BP 133/84; PULSE 91; TEMP 98.3
== END 2018-01-07 18:00 | disposition home or self-care (01) ==
LOC: NEPC 05:46 → NEDA 05:46 → N06 12:10
PROVIDERS: ADMIT Family Medicine; ATTEND Family Medicine